=== PATIENT | male | born 1995 | race Caucasian/White ===

== ENCOUNTER → 2019-11-29 08:31 | Outpatient (CLI) | payer MEDICAID, SELFPAY ==
[2019-11-27 14:56] VITALS: BMI 28.1
[2019-11-29 09:38] LABS: Absolute Lymphocyte Count 2.58 X10^3/uL (0.83-4.51); Absolute Neutrophil Count 5.7 X10^3/uL (2.0-7.7); Basophil# 0.07 X10^3/uL; Basophil% 0.7 % (0-1); Eosinophils% 4.2 % (0-5); Hematocrit 44.7 % (40-54); Hemoglobin 14.7 g/dL (13.0-16.5); Lymphocyte # 2.58 X10^3/ul (4.0); Lymphocyte % 27.3 % (19-41); Mean Corp Hgb Conc 32.9 g/dL (32-36); Mean Corpuscular Hgb 28.7 pg (27.0-32.0); Mean Corpuscular Volume 87.1 fL (80-94); Monocyte# 0.65 X10^3/uL; Monocyte% 6.9 % (0-10); NRBC Flagged by Analyzer 0 % (0-5); Neutrophil # 5.74 X10^3/uL (2.7-7.7); Neutrophil % 60.7 % (47-70); Platelet Count 205 K/mm3 (150-450); RBC Distribution Width CV 14.1 % (11.6-14.6); RBC Distribution Width SD 45.2 fl (35.1-43.9); Red Blood Count 5.13 M/mm3 (4.6-6.2); White Blood Count 9.5 K/mm3 (4.4-11.0)
[2019-11-29 09:48] LABS: ALB/GLOB Ratio 1.3 RATIO (0.9-2.4); AST(SGOT) 16 U/L (15-37); Alanine Aminotransfer ALT/SGPT 40 U/L (16-61); Albumin, Serum 4.1 g/dL (3.2-5.0); Alkaline Phosphatase 62 U/L (45-117); Anion Gap 3 (5-15); BUN 13 mg/dL (7-18); BUN/Creat Ratio 12.5 RATIO (10-20); Calcium,Total 9.5 mg/dL (8.5-10.1); Chloride 111 mmol/L (98-107); Cholesterol 153 mg/dL (200); Creatinine, Serum 1.04 mg/dL (0.70-1.30); EST Glomerular Filtration Rate 92 mL/min (>60); Est Glom Filt Rate - Afr Amer 112 mL/min (>60); Globulin 3.2 g/dL (2.2-4.2); Glucose 93 mg/dL (74-106); High Density Lipoprotein 49 mg/dL; Potassium 4.1 mmol/L (3.5-5.1); Protein, Total 7.3 g/dL (6.4-8.2); Sodium Level 142 mmol/L (136-145); Thyroid Stim Hormone (TSH) 2.06 uIU/mL (0.358-3.74); Triglycerides 195 mg/dL; Very Low Density Lipoprotein 39 mg/dL (5-40)
[2019-11-29 10:27] LABS: Hepatitis B Surface Antigen Non-Reactive (Nonreactive); Hepatitis C Antibody Non-Reactive (Nonreactive)
== END ==
LOC: LAB 08:34
PROVIDERS: PCP Internal Medicine; Referring Provider Nurse Practitioner Family; Visit Provider Nurse Practitioner Family
DX: F19.10 Other psychoactive substance abuse, uncomplicated (principal); F41.9 Anxiety disorder, unspecified; R03.0 Elevated blood-pressure reading, without diagnosis of hypertension
CPT/HCPCS: 36415; 80053; 80061; 84443; 85025; 86803; 87340

== ENCOUNTER → 2020-02-12 10:26 | Outpatient (CLI) | payer MEDICAID, SELFPAY ==
[2020-01-29 09:29] VITALS: BMI 28.5
[2020-02-12 11:05] LABS: Anion Gap 4 (5-15); BUN 16 mg/dL (7-18); Calcium,Total 8.7 mg/dL (8.5-10.1); Chloride 109 mmol/L (98-107); EST Glomerular Filtration Rate 97 mL/min (>60); Est Glom Filt Rate - Afr Amer 117 mL/min (>60); Glucose 109 mg/dL (74-106); Potassium 3.8 mmol/L (3.5-5.1); Sodium Level 140 mmol/L (136-145)
== END ==
PROVIDERS: Visit Provider Nurse Practitioner Family
DX: I10 Essential (primary) hypertension (principal)
CPT/HCPCS: 80048

== ENCOUNTER 2020-06-03 09:57 | Emergency (ER) | payer MEDICAID, SELFPAY ==
[2020-01-29 09:29] VITALS: BMI 28.5
[2020-06-03 09:57] VITALS: BP 154/91; PULSE 74; RESP 18; TEMP 36.6; O2SAT 98; BMI 29.8
--- NOTE | 2020-06-03 10:09 | CT_ITS ---
STUDY: CT ABDOMEN AND PELVIS WITHOUT CONTRAST REASON FOR EXAM: Male, 24 years old. PT STATED N/V X 2 DAYS RADIATION DOSAGE (If Supplied By Facility): CTDIvol = ( 13.72 ) mGy, DLP = ( 786.09 ) mGycm TECHNIQUE: Transaxial images were obtained from the dome of the diaphragm to the symphysis pubis without oral contrast, and without intravenous contrast. Sagittal and coronal images were reconstructed. Individualized dose optimization techniques were used for this CT. COMPARISON: None. FINDINGS: The visualized lung bases are unremarkable. The visualized portions of the heart are within normal limits. Normal liver. Normal gallbladder and extrahepatic biliary system. Normal spleen. Normal pancreas. Normal bilateral adrenal glands. Normal right kidney. Normal left kidney. Normal visualized stomach. Normal small intestine. Normal colon. The appendix is visualized and appears normal. Normal abdominal aorta. Normal inferior vena cava. Normal retroperitoneum. Normal urinary bladder. Benign appearing small bilateral inguinal lymph nodes. Normal abdominal wall. Normal osseous structures. CT/Abdomen/Pelvis without Cont IMPRESSION: Normal unenhanced CT of the abdomen and pelvis. Electronically Signed: Jesu Atkinson, at 12:51 EDT , Service support ,
[2020-06-03 10:52] LABS: Absolute Lymphocyte Count 1.42 X10^3/uL (0.83-4.51); Absolute Neutrophil Count 11.4 X10^3/uL (2.0-7.7); Basophil# 0.03 X10^3/uL; Basophil% 0.2 % (0-1); Eosinophils% 0.7 % (0-5); Hematocrit 42.1 % (40-54); Hemoglobin 14.8 g/dL (13.0-16.5); Lymphocyte # 1.42 X10^3/ul (4.0); Lymphocyte % 10.5 % (19-41); Mean Corp Hgb Conc 35.2 g/dL (32-36); Mean Corpuscular Hgb 31.6 pg (27.0-32.0); Mean Corpuscular Volume 89.8 fL (80-94); Mean Platelet Vol. 10.8 fl (6.2-12.0); Monocyte# 0.53 X10^3/uL; Monocyte% 3.9 % (0-10); NRBC Flagged by Analyzer 0 % (0-5); Neutrophil # 11.38 X10^3/uL (2.7-7.7); Neutrophil % 84.2 % (47-70); Platelet Count 192 K/mm3 (150-450); RBC Distribution Width CV 14.5 % (11.6-14.6); RBC Distribution Width SD 42.5 fl (35.1-43.9); Red Blood Count 4.69 M/mm3 (4.6-6.2); White Blood Count 13.5 K/mm3 (4.4-11.0)
[2020-06-03 11:08] LABS: ALB/GLOB Ratio 1.3 RATIO (0.9-2.4); AST(SGOT) 24 U/L (15-37); Alanine Aminotransfer ALT/SGPT 45 U/L (16-61); Albumin, Serum 4.3 g/dL (3.2-5.0); Alkaline Phosphatase 65 U/L (45-117); Anion Gap 7 (5-15); BUN 11 mg/dL (7-18); BUN/Creat Ratio 9.6 RATIO (10-20); Calcium,Total 9.3 mg/dL (8.5-10.1); Chloride 101 mmol/L (98-107); Creatinine, Serum 1.14 mg/dL (0.70-1.30); EST Glomerular Filtration Rate 83 mL/min (>60); Est Glom Filt Rate - Afr Amer 100 mL/min (>60); Estimated Creatinine Clearance 108.72 ml/min; Globulin 3.4 g/dL (2.2-4.2); Glucose 144 mg/dL (74-106); Potassium 3.5 mmol/L (3.5-5.1); Protein, Total 7.7 g/dL (6.4-8.2); Sodium Level 139 mmol/L (136-145)
[2020-06-03] MEDS: 0.9% Normal Saline 1,000 ML 125 ML IV (11:09)
[2020-06-03] MEDS: Ketorolac 30 MG/ML Syringe IV (11:10)
[2020-06-03] MEDS: Morphine 4 MG/ML Syringe IV (11:10)
[2020-06-03] MEDS: Ondansetron 4 MG/2 ML Vial IV (11:10)
[2020-06-03 11:19] LABS: Bacteria 0 SEEN /hpf (None Seen); Mucous, Urine 0 SEEN /hpf (<or=2+); Red Blood Cells-Urine 0 SEEN /hpf (0-5); Squamous Epithelial Cells - UA 0 SEEN /hpf (0-5); White Blood Cells 0 SEEN /hpf (0-5)
[2020-06-03 11:25] LABS: Lactic Acid 2.5 mmol/L (0.4-1.9)
[2020-06-03 11:27] LABS: Color, Urine Yellow (Yellow); Glucose, Dipstick Normal (Normal); Ketone-Dipstick Negative (Negative); Leukocyte Esterase-Dipstick Negative /ul (Negative); Nitrite-Dipstick Negative (Negative); Occult Blood-Urine Negative /ul (Negative); Protein-Dipstick Negative (Negative); Specific Gravity, Urine 1.005 (1.002-1.030); Urine Bilirubin Dipstick Negative (Negative); Urine Clarity Clear (Clear); Urine Urobilinogen Normal (Normal); Urine pH 6.5 (5.0 - 8.0)
[2020-06-03 11:54] VITALS: BP 154/79; PULSE 50; RESP 19; TEMP 36.9; O2SAT 98
[2020-06-03 11:57] VITALS: BP 154/79; PULSE 48; RESP 13; O2SAT 98
--- NOTE | 2020-06-03 13:03 | ED.DCSUM_ITS ---
- ER Visit Summary Date of Service: 06/03/20 Chief Complaint: [Nausea vomiting] History of Present Illness: The patient is a 24 M [presents to the emergency department with frequent nausea and vomiting over the last 5 days. Patient also complains of pain in his low back bilaterally that is positional. He denies injury to his back. Patient denies urinary symptoms. Has had no fever or cough. He does describe some body aches. Said some mild shortness of breath. He has had no exposures to anybody with COVID-19. Patient has no medical history. No prior surgical history.] Physical Examination: [HEENT-PERRLA, EOMI. Cranial nerves II through XII grossly intact. TMs clear. Mucous membranes moist. No adenopathy. Cardiovascular-regular rate and rhythm without murmur or ectopy Lungs-clear to auscultation, chest wall stable without crepitus or subcu emphysema Abdomen-normoactive bowel sounds, soft. Patient has tenderness palpation over lower abdomen diffusely to the right lower quadrant, suprapubic area and left lower quadrant. There is no rebound, rigidity, or peritoneal signs. Extremities-intact ?4, normal range of motion, normal pulses, atraumatic] Test Results: [CBC with differential obtained showed a slightly elevated white count of 13.5, hemoglobin 15, hematocrit 42, plates 192. Chemistries unremarkable. LFTs were normal. Urinalysis normal. Lactate was slightly elevated 2.5. CT flank showed nothing acute. COVID-19 test ordered and pending.] Emergency Department Course and Treatment: [She was given IV line. Patient given a liter mostly fluid bolus. Patient given Zofran 4 mg IV. Patient was medicated with morphine 4 mg IV.] Treatment Plan: [Patient will be given a prescription for Zofran. He is advised to push fluids. Etiology of his symptoms unclear. I suspect likely viral etiology.] Disposition: [Discharged home in stable condition] Impression: [Nominal pain-etiology uncertain Nausea and vomiting Back pain] This note was generated with [employer] dictation software. It may contain incorrect words, spelling, and punctuation that were not noted in review of the chart prior to signing ED Disposition - Plan for ED Patient: Referrals: Mohinder Moore NP-C [Primary Care Provider] -
--- NOTE | 2020-06-03 13:05 | ED.DEP ---
ED Disposition - Plan for ED Patient: Instructions: ED Unknown Causes of Abdominal Pain Male, ED Spasm Back No Trauma Prescriptions: Ondansetron [Zofran Odt] 4 mg PO Q8H PRN PRN #10 tab PRN Reason: Nausea Prescription Printed Referrals: Mohinder Moore, UNIFIED COMMUNICATIONS ARCHITECT-C [Primary Care Provider] - 5-7 Days
[2020-06-03] MEDS: 0.9% Normal Saline 1,000 ML 999 ML IV (13:10)
[2020-06-03 13:26] VITALS: BP 145/89; PULSE 57; RESP 14; O2SAT 97
[2020-06-03 14:48] LABS: Reflex Lactate? Y
== END 2020-06-03 13:41 | disposition home or self-care (01) ==
PROVIDERS: Emergency Provider Emergency Medicine; PCP Nurse Practitioner Family
DX: R11.2 Nausea with vomiting, unspecified (principal); R06.02 Shortness of breath; M54.5 Low back pain; M79.10 Myalgia, unspecified site
CPT/HCPCS: 74176; 80053; 81001; 83605; 85025; 87635; 94799; 96361; 96374; 96375; 99283; J7030; J2405; U0003

== ENCOUNTER 2020-09-05 00:22 | Emergency (ER) | payer MEDICAID, SELFPAY ==
[2020-09-05 00:23] VITALS: BP 177/119; PULSE 103; RESP 27; TEMP 36.5; O2SAT 100; BMI 26.9
--- NOTE | 2020-09-05 01:04 | EKG12_ITS ---
Test Reason : HYPERTENSION Blood Pressure : / mmHG Vent. Rate : 074 BPM Atrial Rate : 074 BPM P-R Int : 132 ms QRS Dur : 092 ms QT Int : 388 ms P-R-T Axes : 070 044 060 degrees QTc Int : 430 ms Normal sinus rhythm Normal ECG Confirmed by FABIANO HOROWITZ, ANAI ([id number]), purchase request editor JUDY NAVARRO ([id number]) on 09/07/2020 2:15:41 PM Referred By: AFSANEH Confirmed By:ANAI MARIO MD
--- NOTE | 2020-09-05 01:04 | RAD_ITS ---
STUDY: X-RAY CHEST REASON FOR EXAM: Male, 24 years old. Hypertension. TECHNIQUE: Frontal view COMPARISON: None. FINDINGS: The lungs are clear and expanded. There is no demonstrated pleural abnormality. Normal size heart. Normal mediastinum and barb. Normal visualized pulmonary arteries. Normal visualized aortic arch and descending thoracic aorta. Normal visualized thoracic spine. Normal visualized ribs, clavicles, and shoulders. There is no demonstrated abnormality of the visualized soft tissue structures of the upper abdomen. RAD/Chest 1 View (Portable) IMPRESSION: Normal x-ray examination of the chest. Electronically Signed: Cornell Tyson MD at 1:48 EST , Service support ,
[2020-09-05] MEDS: Lisinopril 20 MG Tablet PO (01:24)
[2020-09-05 01:34] LABS: Absolute Lymphocyte Count 5.37 X10^3/uL (0.83-4.51); Absolute Neutrophil Count 7.7 X10^3/uL (2.0-7.7); Basophil# 0.11 X10^3/uL; Basophil% 0.7 % (0-1); Eosinophil# 0.36 X10^3/uL; Eosinophils% 2.4 % (0-5); Hematocrit 53.4 % (40-54); Lymphocyte # 5.37 X10^3/ul (4.0); Lymphocyte % 36.2 % (19-41); Mean Corp Hgb Conc 33.9 g/dL (32-36); Mean Corpuscular Hgb 29.1 pg (27.0-32.0); Mean Corpuscular Volume 85.7 fL (80-94); Mean Platelet Vol. 11.3 fl (6.2-12.0); Monocyte# 1.22 X10^3/uL; Monocyte% 8.2 % (0-10); NRBC Flagged by Analyzer 0 % (0-5); Neutrophil # 7.72 X10^3/uL (2.7-7.7); Neutrophil % 52.1 % (47-70); POSITIVE DIFFERENTIAL YES; Platelet Count 313 K/mm3 (150-450); RBC Distribution Width CV 13.6 % (11.6-14.6); RBC Distribution Width SD 41.5 fl (35.1-43.9); Red Blood Count 6.23 M/mm3 (4.6-6.2); White Blood Count 14.8 K/mm3 (4.4-11.0)
[2020-09-05 01:36] LABS: Differential Indicated SCAN CRITERIA MET
[2020-09-05 01:37] LABS: Hemoglobin 18.1 g/dL (13.0-16.5)
[2020-09-05 01:44] LABS: Anion Gap 11 (5-15); BUN 22 mg/dL (7-18); BUN/Creat Ratio 19.3 RATIO (10-20); Calcium,Total 9.5 mg/dL (8.5-10.1); Chloride 103 mmol/L (98-107); Creatinine, Serum 1.14 mg/dL (0.70-1.30); EST Glomerular Filtration Rate 83 mL/min (>60); Est Glom Filt Rate - Afr Amer 100 mL/min (>60); Estimated Creatinine Clearance 108.72 ml/min; Glucose 118 mg/dL (74-106); Potassium 3.7 mmol/L (3.5-5.1); Sodium Level 138 mmol/L (136-145)
[2020-09-05 02:34] VITALS: BP 151/100; PULSE 80; RESP 18; O2SAT 97
--- NOTE | 2020-09-05 02:38 | ED.DCSUM_ITS ---
- ER Visit Summary Date of Service: 09/05/20 Chief Complaint: Hypertension History of Present Illness: The patient is a 24 M who presents with hypertension that became worse today. Patient states his blood pressure at home was 177/120. Patient states he was prescribed lisinopril earlier today but has not picked it up from the pharmacy yet. Patient states he has been having some aching in his left upper chest. Patient admits to subjective chills. Patient states nothing makes his blood pressure better or worse. Patient states that he was told if his diastolic blood pressure was over 120, he should come to the emergency department for evaluation. Physical Examination: Vital signs are stable except for an elevated blood pressure of 177/119. Patient is afebrile. Patient is in no acute distress. Oral mucosa is pink and moist. Neck is supple. Trachea is midline. There is no JVD noted. Heart was regular rate and rhythm. Lungs are clear and equal bilaterally. Abdomen is soft. Bowel sounds are normal. There is no tenderness. There is no rebound or guarding noted. Skin is warm dry. Cranial nerves II through XII are intact. There are no focal motor or sensory deficits noted. Extremities are intact. There is no calf tenderness or edema. Test Results: EKG shows normal sinus rhythm with a rate of 74. There are no acute ST or T wave changes. CBC and basic metabolic profile were obtained. There is a mild leukocytosis of 14.8. Hemoglobin was elevated at 18.1. Portable chest x-ray was obtained. There is no acute cardiopulmonary process. This was interpreted by the radiologist and reviewed by myself. Emergency Department Course and Treatment: Patient was given a dose of lisinopril here. Patient's blood pressure improved to 151/100. Patient was instructed to start his lisinopril along with his hydrochlorothiazide as previously prescribed. Patient was instructed to return if worse in any way. Patient understood and was agreeable with the plan. All questions were answered. Disposition: Discharge home Impression: Hypertension This note was generated with [employer] dictation software. It may contain incorrect words, spelling, and punctuation that were not noted in review of the chart prior to signing ED Disposition - Plan for ED Patient: Disposition: Home or Assisted Living Diagnosis: Hypertension Instructions: ED Hypertension Established Referrals: Jaci Krishna MD [Primary Care Provider] - 5-7 Days
[2020-09-05 02:51] VITALS: BP 136/97; PULSE 72; RESP 12; O2SAT 98
== END 2020-09-05 03:03 | disposition home or self-care (01) ==
PROVIDERS: Emergency Provider Emergency Medicine; PCP Nurse Practitioner Family
DX: I10 Essential (primary) hypertension (principal)
CPT/HCPCS: 71045; 80048; 85025; 93005; 99285; A4216

== ENCOUNTER 2020-09-08 20:50 | Emergency (ER) | payer MEDICAID, SELFPAY ==
[2020-09-08 20:51] VITALS: BP 165/97; PULSE 80; RESP 16; TEMP 36.3; O2SAT 99; BMI 27.5
--- NOTE | 2020-09-08 21:04 | ED.RN ---
2103: pt called the [facility] to inform them of his BP here. rcvd permission to return to Rehab house. pt LWBS. registration notified.
== END 2020-09-08 21:03 | disposition home or self-care (01) ==
LOC: ED 21:04
PROVIDERS: Emergency Provider Emergency Medicine; PCP Nurse Practitioner Family
DX: I10 Essential (primary) hypertension (principal)

== ENCOUNTER → 2020-09-10 15:54 | Outpatient (CLI) | payer MEDICAID, SELFPAY ==
[2020-09-10 17:02] LABS: Absolute Lymphocyte Count 4.06 X10^3/uL (0.83-4.51); Absolute Neutrophil Count 6.9 X10^3/uL (2.0-7.7); Basophil% 0.8 % (0-1); Eosinophil# 0.53 X10^3/uL; Eosinophils% 4.2 % (0-5); Hematocrit 52.6 % (40-54); Hemoglobin 17.3 g/dL (13.0-16.5); Lymphocyte # 4.06 X10^3/ul (4.0); Lymphocyte % 32.4 % (19-41); Mean Corp Hgb Conc 32.9 g/dL (32-36); Mean Corpuscular Volume 88.1 fL (80-94); Mean Platelet Vol. 11.2 fl (6.2-12.0); Monocyte% 7.2 % (0-10); NRBC Flagged by Analyzer 0 % (0-5); Neutrophil # 6.88 X10^3/uL (2.7-7.7); Neutrophil % 54.9 % (47-70); Platelet Count 316 K/mm3 (150-450); RBC Distribution Width CV 13.2 % (11.6-14.6); RBC Distribution Width SD 42.7 fl (35.1-43.9); Red Blood Count 5.97 M/mm3 (4.6-6.2); White Blood Count 12.5 K/mm3 (4.4-11.0)
== END ==
PROVIDERS: PCP Nurse Practitioner Family; Referring Provider Internal Medicine; Visit Provider Internal Medicine
DX: I10 Essential (primary) hypertension (principal)
CPT/HCPCS: 36415; 85025

== ENCOUNTER 2020-09-18 16:04 | Emergency (ER) | payer MEDICAID, SELFPAY ==
[2020-09-18 16:06] VITALS: BP 152/89; PULSE 76; RESP 17; TEMP 35.9; O2SAT 100; BMI 27.1
--- NOTE | 2020-09-18 17:05 | ED.DCSUM_ITS ---
History of Present Illness Chief Complaint: Headache Informant: Patient Onset: Today Narrative: Nontraumatic frontal headache started while in class at 2 PM. Pain behind both eyes. No blurry vision double vision. Denies any recent head injuries. No nausea or vomiting. No photophobia. No aura sensations. History of hypertension on medication states his blood pressure started 170s at 2 PM, he did take his blood pressure medicine. No fevers. No history of similar. No other complaints. Prior similar symptoms: No Past Medical History - Allergies and Home Meds Allergies/Adverse Reactions: Allergies DARK CHOCOLATE Allergy (Uncoded 09/18/20 16:05) Itching Primary Care Physician: Mohinder Moore FAMILY PROGRAM SPECIALIST, FAMILY PROGRAM SPECIALIST-C [Primary Care Provider] - Past Medical History: - - Hypertension Smoking Status: Unknown if ever smoked Review of Systems General: Denies: Chills, Fever, Sweats Eyes: Denies: Visual changes - bilaterally, Diplopia ENT: Denies: Rhinorrhea, Sore throat Cardiovascular: Denies: Chest pain, Palpitations Respiratory: Denies: Dyspnea, Cough, Dyspnea on exertion Gastrointestinal: Denies: Abdominal pain, Nausea, Vomiting, Diarrhea, Melena, Hematochezia Genitourinary: Denies: Dysuria, Hematuria, Frequency Musculoskeletal: Denies: Back pain, Extremity Pain Skin: Denies: Rash, Wounds Neurological: Reports: Headache. Denies: Weakness, Numbness Physical Exam Vital Signs/Narrative: Vital Signs Temp Pulse Resp BP Pulse Ox 09/18/20 16:06 96.6 F L 76 17 152/89 H 100 Inital Vital Signs reviewed: Yes General: Well nourished, Well developed, No Acute Distress Head: Normocephalic, Atraumatic Eyes: Perrl, EOMI, - - No pain with eye movement, no photophobia. ENT: Moist mucous membranes, No rhinorrhea Neck: Supple, Nontender, - - No meningismus Cardiovascular: Regular rate, Regular rhythm, No murmurs Respiratory: No distress, CTA bilaterally, Chest nontender Abdomen: Soft, Nontender, Nondistended, Normal bowel sounds Back: Nontender, Normal Inspection Extremities: Nontender, No edema Skin: Normal color, No rash Neurological: Alert, Oriented x3, Cranial nerves II-XII grossly intact, Normal Strength, Normal Sensation Psychological: Normal affect, Normal Mood Diagnostic/Tx/Re-eval - Medical Decision Making Patient nontoxic, no meningismus, no focal neurological deficits. Treated with IV fluids Reglan Benadryl with improvement of symptoms. Is discharged with outpatient follow-up. Signs and symptoms discussed to return. All questions were answered. ED Disposition - Plan for ED Patient: Disposition: Home or Assisted Living Diagnosis: Headache Instructions: ED Headache Unspecified Referrals: Mohinder Moore FAMILY PROGRAM SPECIALIST, FAMILY PROGRAM SPECIALIST-C [Primary Care Provider] - 5-7 Days
[2020-09-18] MEDS: 0.9% Normal Saline 1,000 ML 999 ML IV (17:20)
[2020-09-18] MEDS: Metoclopramide 10 MG/2 ML Vial IV (17:20)
[2020-09-18] MEDS: DiphenhydrAMINE 50 MG/ML Syringe 25 MG IV (17:21)
[2020-09-18 17:22] VITALS: BP 146/85; PULSE 64; RESP 15; O2SAT 97
[2020-09-18 19:42] VITALS: BP 133/81; PULSE 61; RESP 16; O2SAT 98
== END 2020-09-18 19:43 | disposition home or self-care (01) ==
PROVIDERS: Emergency Provider Emergency Medicine; PCP Nurse Practitioner Family
DX: R51.9 Headache, unspecified (principal); I10 Essential (primary) hypertension
CPT/HCPCS: 96361; 96374; 96375; 99282; J7030; A4216

== ENCOUNTER → 2020-10-01 07:45 | Outpatient (CLI) | payer MEDICAID, SELFPAY ==
[2020-09-18 16:06] VITALS: BMI 27.1
--- NOTE | 2020-10-01 07:47 | ECHOD_ITS ---
Reason For Study: HTN Procedure This was a 2D Doppler, Color Flow transthoracic echocardiogram. Exam performed in department. Left Ventricle Normal LV size. The estimated ejection fraction is 60 %. No evidence for diastolic dysfunction. No regional wall motion abnormalities noted. Right Ventricle Normal RV size. Normal systolic function. Atria Normal left atrium. Normal right atrium. No doppler evidence for ASD. Mitral Valve There is no mitral valve stenosis. No mitral valve insufficiency. Tricuspid Valve There is no tricuspid stenosis. Unable to estimate RV systolic pressure due to inadequate jet, pulmonary artery pressure probably normal. Aortic Valve Trisinus/trileaflet aortic valve. There is no aortic stenosis. No aortic valve insufficiency. Pulmonic Valve There is no pulmonic valvular stenosis. No pulmonic valve insufficiency. Great Vessels Normal aortic root. Pericardium/Pleural No pericardial effusion. MMode/2D Measurements & Calculations LVIDd: 4.4 cm IVSd: 0.82 cm Ao root diam: 3.1 cm LVIDs: 3.1 cm LVPWd: 0.78 cm RVDd: 3.4 cm FS: 28.7 % LAV(MOD-bp): 34.4 ml LA A4 area: 12.4 cm2 LA dimension(2D): 2.8 cm LAV(MOD-bp) Indexed: 16.2 ml/m2 LAV(MOD-sp2): 41.8 ml LAV(MOD-sp4): 25.3 ml RA A4 area: 13.1 cm2 Doppler Measurements & Calculations MV E max karan: 92.1 cm/sec Lat Peak E' Karan: 20.0 cm/sec Med Peak E' Karan: 13.4 cm/sec MV A max karan: 45.1 cm/sec E/E' lat: 4.6 E/E' med: 6.9 MV E/A: 2.0 Ao V2 max: 115.1 cm/sec LV V1 max: 102.8 cm/sec PA V2 max: 96.1 cm/sec Ao max P.3 mmHg LV V1 max P.2 mmHg Interpretation Summary The estimated ejection fraction is 60 %. No evidence for diastolic dysfunction. Ordering Physician: Jaci Krishna Referring Physician: Jaci Krishna Performed By: Damari Barker, MARVIN
--- NOTE | 2020-10-01 07:47 | RDU_ITS ---
Reason For Study: Hypertension Right Renal Artery Left Renal Artery Right renal artery ostium Left renal artery ostium 141/27.8 166.8/37.5 RSV/EDV. PSV/EDV. Right renal artery proximal Left renal artery proximal PSV/EDV 173.3/44 PSV/EDV. 134.5/31 . Right renal artery mid 179.8/50.4 Left renal artery mid 108.1/25.2 PSV/EDV. PSV/EDV . Right renal artery distal Left renal artery distal 94.2/32.7 166.4/50.5 PSV/EDV. PSV/EDV. Right Renal Parenchyma Left Renal Parenchyma Upper Pole Medula 42.4/14.9 Left upper pole medulla 39.2/13.6 PSV/EDV. PSV/EDV . Right upper pole medulla EDR 0.35 . Left upper pole medulla EDR 0.35 . Right upper pole medulla R.I. Left upper pole medulla R.I. 0.65 . 0.65 . UP Cortex 34.6/12.7 PSV/EDV. Upper Palmer Cortx 35.8/12.7 PSV/EDV. Left upper pole cortex EDR 0.37 . Right upper pole cortex EDR 0.36 . Left upper pole cortex R.I. 0.63 . Right upper pole cortex R.I. 0.64 . Left lower Pole medulla 37.4/12.7 Right lower Pole medulla 42.4/14.9 PSV/EDV . PSV/EDV . Left lower pole medulla EDR 0.34 . Right lower pole medulla EDR 0.35 . Left lower pole medulla R.I. 0.66 . Right lower pole medulla R.I. Lower Pole Cortx 23.7/8.1 PSV/EDV. 0.65 . Left lower pole cortex EDR 0.34 . Lower Pole Cortex 27/9.4 PSV/EDV. Left lower pole cortex R.I. 0.66 . Right lower pole cortex EDR 0.35 . Left Renal Hilar Right lower pole cortex R.I. 0.65 . LT Hilar avg 60.2/21.8 PSV/EDV . Right Renal Hilar Left hilar acceleration time 30 Right Hilar avg 62.1/19.3 PSV/EDV. m/sec. Right hilar acceleration time 20 Left Renal Dimensions m/sec. Left kidney size 11.51 cm . Right Renal Dimensions Right kidney size 2.6 cm . Right cortical dimension 3.0 cm . Aorta Proximal abdominal aorta 1.19 x 1.15 cm . Proximal abdominal aorta peak systolic velocity is 147.4 cm/sec . Distal abdominal aorta 1.25 x 1.22 cm . Distal abdominal aorta peak systolic velocity is 173.3 cm/sec . Interpretation Summary Normal abdominal aortic dimensions approximately 1.19 x 1.15 cm. Flow rate is elevated in the distal abdominal aorta at 173.3 cm/s. This invalidates the renal artery to aortic velocity ratio measurement. Less than 60% stenosis bilateral renal arteries. Right renal artery flow rate slightly elevated but of indeterminate significance based upon increased aortic flow. Normal bilateral renal resistivity indices therefore not suggesting intrinsic parenchymal disease. Right renal length 10.2 cm.; Normal Left renal length 11.51 cm; normal Ordering Physician: Jaci Krishna Referring Physician: Mohinder Moore Performed By: Marlin Caceres RVT
== END ==
PROVIDERS: PCP Nurse Practitioner Family; Referring Provider Internal Medicine; Visit Provider Internal Medicine
DX: I10 Essential (primary) hypertension (principal)
CPT/HCPCS: 93306; 93975

== ENCOUNTER → 2020-11-26 08:30 | Outpatient (CLI) | payer MEDICAID, SELFPAY ==
[2020-11-06 09:12] VITALS: BMI 29.1
[2020-11-26 12:24] LABS: Absolute Lymphocyte Count 2.64 X10^3/uL (0.83-4.51); Absolute Neutrophil Count 3.8 X10^3/uL (2.0-7.7); Basophil# 0.07 X10^3/uL; Basophil% 0.9 % (0-1); Eosinophil# 0.39 X10^3/uL; Eosinophils% 5.2 % (0-5); Hematocrit 42.7 % (40-54); Hemoglobin 13.5 g/dL (13.0-16.5); Lymphocyte # 2.64 X10^3/ul (4.0); Lymphocyte % 35.3 % (19-41); Mean Corp Hgb Conc 31.6 g/dL (32-36); Mean Corpuscular Hgb 28.5 pg (27.0-32.0); Mean Corpuscular Volume 90.1 fL (80-94); Mean Platelet Vol. 10.6 fl (6.2-12.0); Monocyte# 0.55 X10^3/uL; Monocyte% 7.4 % (0-10); NRBC Flagged by Analyzer 0 % (0-5); Neutrophil # 3.77 X10^3/uL (2.7-7.7); Neutrophil % 50.4 % (47-70); Platelet Count 212 K/mm3 (150-450); RBC Distribution Width CV 14.5 % (11.6-14.6); RBC Distribution Width SD 48.4 fl (35.1-43.9); Red Blood Count 4.74 M/mm3 (4.6-6.2); White Blood Count 7.5 K/mm3 (4.4-11.0)
[2020-11-26 12:53] LABS: ALB/GLOB Ratio 1.2 RATIO (0.9-2.4); AST(SGOT) 27 U/L (15-37); Alanine Aminotransfer ALT/SGPT 65 U/L (16-61); Albumin, Serum 3.8 g/dL (3.2-5.0); Alkaline Phosphatase 61 U/L (45-117); Anion Gap 6 (5-15); BUN 19 mg/dL (7-18); BUN/Creat Ratio 19.4 RATIO (10-20); Calcium,Total 8.8 mg/dL (8.5-10.1); Chloride 108 mmol/L (98-107); Creatinine, Serum 0.98 mg/dL (0.70-1.30); EST Glomerular Filtration Rate 98 mL/min (>60); Est Glom Filt Rate - Afr Amer 119 mL/min (>60); Globulin 3.2 g/dL (2.2-4.2); Glucose 107 mg/dL (74-106); Potassium 4.3 mmol/L (3.5-5.1); Sodium Level 140 mmol/L (136-145)
[2020-12-02 15:13] LABS: HIV - WCH Non-Reactive (Nonreactive); Hepatitis B Surface Antigen Non-Reactive (Nonreactive); Hepatitis C Antibody Non-Reactive (Nonreactive)
== END ==
PROVIDERS: PCP Nurse Practitioner Family; Referring Provider Nurse Practitioner Family; Visit Provider Nurse Practitioner Family
DX: F19.10 Other psychoactive substance abuse, uncomplicated (principal); F32.9 Major depressive disorder, single episode, unspecified; I10 Essential (primary) hypertension
CPT/HCPCS: 36415; 80053; 85025; 86703; 86803; 87340

== ENCOUNTER → 2020-12-18 09:30 | Outpatient (CLI) | payer MEDICAID, SELFPAY ==
[2020-12-18 08:57] VITALS: BMI 30.2
[2020-12-18 09:32] LABS: Mucous, Urine 0 SEEN /hpf (<or=2+); Red Blood Cells-Urine 0 SEEN /hpf (0-5); Squamous Epithelial Cells - UA 0 SEEN /hpf (0-5); White Blood Cells 0 SEEN /hpf (0-5)
[2020-12-18 12:16] LABS: Color, Urine Straw (Yellow); Glucose, Dipstick Normal (Normal); Ketone-Dipstick Negative (Negative); Leukocyte Esterase-Dipstick Negative /ul (Negative); Nitrite-Dipstick Negative (Negative); Occult Blood-Urine Negative /ul (Negative); Protein-Dipstick Negative (Negative); Specific Gravity, Urine 1.015 (1.002-1.030); Urine Bilirubin Dipstick Negative (Negative); Urine Clarity Clear (Clear); Urine Urobilinogen Normal (Normal)
[2020-12-18 12:40] LABS: Bacteria RARE /hpf (None Seen)
[2020-12-18 13:58] LABS: Chlamydia Trachomatis by PCR Negative (Negative); Neisserai gonorrhoeae by PCR Negative (Negative); Probe Check PASS; Sample Adequacy Control PASS; Specimen Processing Control PASS
[2020-12-21 09:26] LABS: Syphilis Antibodies Non-reactive
== END ==
PROVIDERS: PCP Nurse Practitioner Family; Referring Provider Nurse Practitioner Family; Visit Provider Nurse Practitioner Family
DX: Z72.51 High risk heterosexual behavior (principal)
CPT/HCPCS: 36415; 81001; 86592; 87491; 87591

== ENCOUNTER → 2021-05-06 16:15 | Outpatient (CLI) | payer MEDICAID, SELFPAY ==
[2021-05-06 16:06] VITALS: BMI 33.9
[2021-05-06 17:26] LABS: Anion Gap 7 (5-15); BUN 18 mg/dL (7-18); BUN/Creat Ratio 17.3 RATIO (10-20); Calcium,Total 9.2 mg/dL (8.5-10.1); Chloride 104 mmol/L (98-107); Creatinine, Serum 1.04 mg/dL (0.70-1.30); EST Glomerular Filtration Rate 91 mL/min (>60); Est Glom Filt Rate - Afr Amer 111 mL/min (>60); Glucose 92 mg/dL (74-106); Potassium 4.4 mmol/L (3.5-5.1); Sodium Level 140 mmol/L (136-145)
== END ==
PROVIDERS: PCP Nurse Practitioner Family; Referring Provider Internal Medicine; Visit Provider Internal Medicine
DX: I10 Essential (primary) hypertension (principal)
CPT/HCPCS: 36415; 80048

== ENCOUNTER 2022-02-07 13:18 | Observation (INO) | payer BC, MEDICAID, SELFPAY ==
[2022-02-07] VITALS (26 sets, daily range): BP systolic 116–155; BP diastolic 61–88; PULSE 46–101; RESP 11–25; TEMP 36.6–37.1; O2SAT 93–99; BMI 32.2; BMI 31.7
--- NOTE | 2022-02-07 13:23 | NURSING ---
pt very painful stemi called at 1320. stemi protocol initiated
[2022-02-07] MEDS: Aspirin 81 MG TAB.CHEW 324 MG PO (13:25)
[2022-02-07] MEDS: Ondansetron 4 MG/2 ML Vial IV (13:27)
--- NOTE | 2022-02-07 13:27 | EKG12_ITS ---
Test Reason : STEMI Blood Pressure : / mmHG Vent. Rate : 050 BPM Atrial Rate : 050 BPM P-R Int : 126 ms QRS Dur : 092 ms QT Int : 442 ms P-R-T Axes : 051 010 039 degrees QTc Int : [address] elevation consider inferolateral injury or acute infarct ACUTE TX / STEMI Abnormal ECG When compared with ECG of 07-FEB-2022 13:22, MANUAL COMPARISON REQUIRED, DATA IS UNCONFIRMED Confirmed by JOSE HOROWITZ, YESSENIA ([id number]), continuity editor EVERETT DUNBAR ([id number]) on 02/11/2022 1:25:36 PM Referred By: Clemenitne Dugan Confirmed By:CADEN DUGAN MD
--- NOTE | 2022-02-07 13:27 | RAD_ITS ---
STUDY: X-RAY CHEST REASON FOR EXAM: Male, 26 years old. Extreme chest pain. TECHNIQUE: Single AP portable view of the chest. COMPARISON: Comparison is made with prior study dated 09/05/2020. FINDINGS: EKG electrodes are seen. The lungs are clear and expanded. There is no demonstrated pleural abnormality. Normal size heart. Normal mediastinum and barb. Normal visualized pulmonary arteries. Normal visualized aortic arch and descending thoracic aorta. Normal visualized thoracic spine. Normal visualized ribs, clavicles, and shoulders. There is no demonstrated abnormality of the visualized soft tissue structures of the upper abdomen. RAD/Chest 1 View (Portable) IMPRESSION: Normal x-ray examination of the chest. Electronically Signed: Jesu Atkinson MD at 13:57 EDT ,
--- NOTE | 2022-02-07 13:29 | EDS_ITS ---
HPI History of Present Illness Chief Complaint: Chest Pain Informant: patient Onset/Context/Timing Onset: Hours (10) Activity at onset: sudden and sleep Timing: Continuous and Waxes and wanes Quality: Positive for - (Crushing) Location: Substernal (Radiating into mid upper back) Current Severity: Severe Maximum Severity: Severe Worsened By: Nothing Relieved By: Nothing Associated Symptoms: Positive for Diaphoresis and Dyspnea; Negative for Cough Narrative Narrative: Patient states he woke up at 3 AM with this chest pain and it has been waxing and waning ever since. He is brought in by EMS, they said that he was calm and relaxed for the majority of their trip to the emergency department but just prior to getting here, he started having severe pain and there monitor started alarming as a possible STEMI. He states he has been not feeling well lately with vomiting for a couple of days, and when he woke up in the middle of the night with this discomfort he assumed it was related to the vomiting he was having. He states at this time he is dyspneic, and feeling sweaty and nauseated. The pain radiates straight through into his back, is substernal, and feels crushing. He then states suddenly it is starting to feel sharp as well. Nonpleuritic. He denies any recent leg pain or swelling or long travel. Never had this before. He denies using cocaine or any other substances. [facility] Medical History Alcohol abuse Anxiety and depression COVID-19 vaccine series completed GERD (gastroesophageal reflux disease) Health care maintenance History of drug abuse Hypertension Home Medications acetaminophen 500 mg tablet 500 mg PO Q6H PRN 01/29/21 [History Last Taken Unknown] ibuprofen 600 mg tablet 600 mg PO TID PRN #90 tab 05/06/21 [Rx Last Taken Unknown] buspirone 7.5 mg tablet 7.5 mg PO BID #180 tablet 12/23/21 [Rx Last Taken Unknown] lisinopril 20 mg-hydrochlorothiazide 25 mg tablet 1 tab PO DAILY #90 tablet 12/23/21 [Rx Last Taken Unknown] sertraline 100 mg tablet 100 mg PO DAILY #30 tab 01/20/22 [Rx Last Taken Unknown] quetiapine 50 mg tablet 50 mg PO BID #60 tab 01/21/22 [Rx Last Taken Unknown] Allergy/AdvReac Type Severity Reaction Status Date / Time DARK CHOCOLATE Allergy Itching Uncoded 08/11/21 16:30 Family History Other Anxiety and depression Breast cancer Cancer Diabetes Hypertension Mental health problem Surgical History History of tonsillectomy Social History Smoking Status: Never smoker Tobacco: How many years used: 7 Smokeless tobacco user: chewing tobacco alcohol intake: former year quit: 2019 substance use type: former substance user Date of last use: 08/30/2020, marijuana and opiates what type of physical activity do you participate in: aerobics and weight training frequency: 3-4 times per week ROS ROS ED Constitutional Constitutional ED: Denies chills or fever(s) Eyes Eyes: Denies change in vision or diplopia ENT ENT ED: Denies rhinorrhea or sore throat Cardiovascular Cardiovascular: Reports chest pain and dyspnea; Denies palpitations Respiratory/Chest Respiratory/Chest: Reports dyspnea; Denies cough Gastrointestinal Gastrointestinal: Reports nausea and vomiting; Denies abdominal pain or diarrhea Genitourinary Genitourinary ED: Denies dysuria or hematuria Musculoskeletal Musculoskeletal: Denies back pain or neck pain Integumentary Denies abscess or rash Neurologic Neurologic: Denies headache(s), paresthesias or weakness Psychiatric Psychiatric: Denies anxiety or suicidal thoughts EXAM Physical Exam Const Vital Signs: 02/07/22 13:18 Temperature 97.9 F Temperature Source Temporal Pulse Rate 101 H Respiratory Rate 24 H Pulse Ox 93 Oxygen Delivery Method Nasal Cannula Oxygen Flow Rate (L/min) 2 Positive well nourished and well developed Constitutional Narrative: Patient yelling and crying in acute painful distress. Diaphoretic. General Appearance ED: well developed HEENT Reports moist mucous membranes normocephalic and atraumatic Eyes PERRL and EOMs intact bilaterally Neck full ROM and supple Resp normal respiratory effort and clear to auscultation bilaterally Cardio regular rate, regular rhythm and no murmurs Cardio Narrative: Mildly tachycardic GI non-tender and non-distended Auscultation: normoactive bowel sounds Palpation: soft Back/Spine no CVA tenderness General Back: other FROM Extremity normal to inspection General Extremety ED: Negative for edema, pulses abnormal or tenderness General Extremity: Negative for edema or pulses abnormal Neuro oriented x3, CN's II-XII intact bilaterally and no sensory deficits noted Sensorium / Orientation: awake and alert Motor Exam: strength 5/5 throughout Psych cooperative Activity / Motor Behavior: fidgetting Mood & Affect: anxious Skin no rashes or lesions noted and no wounds Skin Narrative: diaphoretic Heart Score History: Highly Suspicious ECG: Significant ST-Depression Age: </= 45 years Risk Factors: 1 or 2 Risk Factors Troponin: >/=3 x Normal Limit Score: 7 MDM MDM MDM Narrative Medical decision making narrative: As this patient was being triaged and in conjunction with EMS, nursing obtained an EKG prior to physician knowledge that he was even bedded, and a STEMI team was called, at which point I rushed to the bedside to assess the patient. EKG shows anterolateral STEMI. He appeared to be in significant painful distress, he was very anxious as well, stated that he was compliant with his medication for hypertension, does not ever use cocaine and denied using any other substances recently, although according to his chart he has a history of this but not necessarily cocaine. As I was at the bedside, he was talking about the pain being crushing, radiating into his upper back, he then discussed it turning sharp. [employer] staff was ready to take him up, we waited for x-ray to obtain a portable film, this is after the patient's symptoms were treated with Zofran, aspirin, labetalol just in case he was a dissection, morphine, and Brilinta although he vomited the Brilinta despite getting Zofran. Cardiology was at the bedside with me to evaluate the chest x-ray, 1 view on my interpretation shows no acute abnormalities and very narrow mediastinum, his radial pulses are symmetric, he and I both agreed that he should be taken to the [facility] instead of CT. Lab Data Attestation: I reviewed the patient's lab results. Labs: Laboratory Results - last 24 hr 02/07/22 02/07/22 02/07/22 13:20 13:20 13:20 WBC 11.9 H RBC 5.48 Hgb 16.0 Hct 46.0 MCV 83.9 MCH 29.2 MCHC 34.8 RDW Std Deviation 40.4 RDW Coeff of Bessie 13.2 Plt Count 230 MPV 10.2 Immature Gran % (Auto) 0.400 Neut % (Auto) 69.2 Lymph % (Auto) 21.5 Pitkin % (Auto) 6.3 Eos % (Auto) 2.2 Baso % (Auto) 0.4 Absolute Neuts (auto) 8.2 H Absolute Lymphs (auto) 2.56 Nucleated RBC % 0 PT 12.5 INR 1.0 APTT 26.2 Sodium 134 L Potassium 4.3 Chloride 106 Carbon Dioxide 21.0 Anion Gap 7 BUN 15 Creatinine 0.87 Estim Creat Clear Calc 139.99 Est GFR (MDRD) Af Amer 135 Est GFR (MDRD) Non-Af 111 BUN/Creatinine Ratio 17.2 Glucose 133 H Calcium 9.8 Troponin I High Sens 938 H* Radiography Chest X-Ray - ED: 1 View, Read by ED Physician, Normal, Heart, Lungs, Mediastinum, Bony Structures and No Acute Disease EKG Initial EKG: Attestation: I personally reviewed and interpreted this EKG as follows: Interpretation: Sinus Rhythm and S-T Elevation (anterolateral = STEMI) Prior EKG tracings: available for review Prior: Changed (normal / nonischemic before) Critical Care Time Critical Care Time: Yes Critical care time (excluding procedures): 30-74 minutes (32 min), Including time spent:, Discussing w/Patient &/or 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
[2022-02-07] MEDS: Morphine 4 MG/ML Syringe IV (13:34)
[2022-02-07] MEDS: 0.9% Normal Saline 1,000 ML 999 ML IV (13:35)
[2022-02-07 13:37] LABS: Absolute Lymphocyte Count 2.56 X10^3/uL (0.83-4.51); Absolute Neutrophil Count 8.2 X10^3/uL (2.0-7.7); Basophil# 0.05 X10^3/uL; Basophil% 0.4 % (0-1); Eosinophil# 0.26 X10^3/uL; Eosinophils% 2.2 % (0-5); Lymphocyte # 2.56 X10^3/ul (0.83-4.51); Lymphocyte % 21.5 % (19-41); Mean Corp Hgb Conc 34.8 g/dL (32-36); Mean Corpuscular Hgb 29.2 pg (27.0-32.0); Mean Corpuscular Volume 83.9 fL (80-94); Mean Platelet Vol. 10.2 fl (6.2-12.0); Monocyte# 0.75 X10^3/uL; Monocyte% 6.3 % (0-10); NRBC Flagged by Analyzer 0 % (0-5); Neutrophil # 8.23 X10^3/uL (2.7-7.7); Neutrophil % 69.2 % (47-70); Platelet Count 230 K/mm3 (150-450); RBC Distribution Width CV 13.2 % (11.6-14.6); RBC Distribution Width SD 40.4 fl (35.1-43.9); Red Blood Count 5.48 M/mm3 (4.6-6.2); White Blood Count 11.9 K/mm3 (4.4-11.0)
--- NOTE | 2022-02-07 13:44 | CM.ED ---
Social Work Responding to Stemi Alert. Patient family present. 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 Active support and listening provided to family. Etienne NOGUEIRA, JLUIS
[2022-02-07 13:57] LABS: BUN 15 mg/dL (7-18); Creatinine, Serum 0.87 mg/dL (0.70-1.30); EST Glomerular Filtration Rate 111 mL/min (>60); Estimated Creatinine Clearance 139.99 ml/min; Glucose 133 mg/dL (74-106)
[2022-02-07 13:58] LABS: Anion Gap 7 (5-15); BUN/Creat Ratio 17.2 RATIO (10-20); Calcium,Total 9.8 mg/dL (8.5-10.1); Chloride 106 mmol/L (98-107); Est Glom Filt Rate - Afr Amer 135 mL/min (>60); Potassium 4.3 mmol/L (3.5-5.1); Sodium Level 134 mmol/L (136-145); Troponin-I HS 938 pg/mL (3.0-78.0)
[2022-02-07 14:07] LABS: Prothrombin Time (Protime)PT. 12.5 SECONDS (11.7-14.9)
[2022-02-07 14:19] LABS: Partial Thromboplast Time 26.2 Seconds (24.1-36.2)
[2022-02-07] MEDS: 0.9% Normal Saline 1,000 ML 60 ML IV (14:50)
--- NOTE | 2022-02-07 14:56 | PCM.CONS.C ---
Assessment & Plan Assessment/Plan (1) ST elevation (STEMI) myocardial infarction: QUALIFIERS: Involved coronary artery: LAD coronary artery Qualified Code(s): I21.02 - ST elevation (STEMI) myocardial infarction involving left anterior descending coronary artery PLAN: Patient was treated with thrombectomy and drug-eluting stent placement to ostial LAD. We will keep the patient on aspirin, Brilinta, statin, beta-marielena, lisinopril. He is being admitted to the CCU for further management. HPI Consult Data Date of Consult: 02/07/22 HPI Narrative HPI Narrative: ELBA ONTIVEROS, is a 26 M who presents with chest pain. Chest pain was on and off since 3 AM. Shortly prior to calling 911 his chest pains intensity went up and it was constant. In the emergency room patient was found to have anterior and lateral ST elevation VT and a STEMI alert was called. Patient was evaluated in the emergency room and was brought to the cardiac Coremaker Apprentice. He underwent emergent coronary angiography which revealed 100% occlusion of the ostial LAD that was treated with thrombectomy and drug-eluting stent placement. Patient's chest pain has significantly improved at the end of the procedure. He is being admitted to the CCU for further management. Review of systems: All systems reviewed. Positive for nausea and vomiting. All else is negative except in HPI. [facility] Medical History Alcohol abuse Anxiety and depression COVID-19 vaccine series completed GERD (gastroesophageal reflux disease) Health care maintenance History of drug abuse Hypertension Home Medications acetaminophen 500 mg tablet 500 mg PO Q6H PRN 01/29/21 [History Last Taken Unknown] ibuprofen 600 mg tablet 600 mg PO TID PRN #90 tab 05/06/21 [Rx Last Taken Unknown] buspirone 7.5 mg tablet 7.5 mg PO BID #180 tablet 12/23/21 [Rx Last Taken Unknown] lisinopril 20 mg-hydrochlorothiazide 25 mg tablet 1 tab PO DAILY #90 tablet 12/23/21 [Rx Last Taken Unknown] sertraline 100 mg tablet 100 mg PO DAILY #30 tab 01/20/22 [Rx Last Taken Unknown] quetiapine 50 mg tablet 50 mg PO BID #60 tab 01/21/22 [Rx Last Taken Unknown] Allergy/AdvReac Type Severity Reaction Status Date / Time DARK CHOCOLATE Allergy Itching Uncoded 10/13/21 16:30 Family History Other Anxiety and depression Breast cancer Cancer Diabetes Hypertension Mental health problem Surgical History History of tonsillectomy Social History Smoking Status: Never smoker Tobacco: How many years used: 7 Smokeless tobacco user: chewing tobacco alcohol intake: former year quit: 2019 substance use type: former substance user Date of last use: 08/30/2020, marijuana and opiates what type of physical activity do you participate in: aerobics and weight training frequency: 3-4 times per week Physical Exam Const alert and oriented x3 Orientation / Consciousness: awake HEENT normocephalic Eyes no scleral icterus Neck supple Resp normal respiratory effort Cardio regular rate and regular rhythm Extremity no pedal edema Skin no rashes or lesions noted Risk Stratification Risk Stratification Applicable: No Charges/Coding Visit Charges Inpatient E&M: 69588 Init Hosp L2 Objective Data Vital Signs: Vital Signs Temp Pulse Resp Pulse Ox 97.9 F 101 H 24 H 93 02/07/22 13:18 02/07/22 13:18 02/07/22 13:37 02/07/22 13:18 Oxygen Flow Rate (L/min) 3 Oxygen Delivery Method Nasal Cannula Weight: 237 lb 10.533 oz Body Mass Index (BMI) 32.2 Lab / Micro Data Result Diagrams: 02/07/22 13:20 02/07/22 13:20 Labs: Laboratory Results - last 24 hr 02/07/22 13:20: WBC 11.9 H, RBC 5.48, Hgb 16.0, Hct 46.0, MCV 83.9, MCH 29.2, MCHC 34.8, RDW Std Deviation 40.4, RDW Coeff of Bessie 13.2, Plt Count 230, MPV 10.2, Immature Gran % (Auto) 0.400, Neut % (Auto) 69.2, Lymph % (Auto) 21.5, [place] % (Auto) 6.3, Eos % (Auto) 2.2, Baso % (Auto) 0.4, Absolute Neuts (auto) 8.2 H, Absolute Lymphs (auto) 2.56, Nucleated RBC % 0 02/07/22 13:20: PT 12.5, INR 1.0, APTT 26.2 02/07/22 13:20: Sodium 134 L, Potassium 4.3, Chloride 106, Carbon Dioxide 21.0, Anion Gap 7, BUN 15, Creatinine 0.87, Estim Creat Clear Calc 139.99, Est GFR (MDRD) Af Amer 135, Est GFR (MDRD) Non-Af 111, BUN/Creatinine Ratio 17.2, Glucose 133 H, Calcium 9.8, Troponin I High Sens 938 H* Cardiology Labs/Tests 02/07/22 13:20: WBC 11.9 H, RBC 5.48, Hgb 16.0, Hct 46.0, MCV 83.9, MCH 29.2, MCHC 34.8, Plt Count 230, MPV 10.2, Immature Gran % (Auto) 0.400, Neut % (Auto) 69.2, Lymph % (Auto) 21.5, [place] % (Auto) 6.3, Eos % (Auto) 2.2, Baso % (Auto) 0.4, Absolute Neuts (auto) 8.2 H, Nucleated RBC % 0 02/07/22 13:20: PT 12.5, INR 1.0, APTT 26.2 02/07/22 13:20: Sodium 134 L, Potassium 4.3, Chloride 106, Carbon Dioxide 21.0, Anion Gap 7, BUN 15, Creatinine 0.87, Est GFR (MDRD) Af Amer 135, Est GFR (MDRD) Non-Af 111, BUN/Creatinine Ratio 17.2, Glucose 133 H, Calcium 9.8 Rhythm: EKG: ECHO: Stress Test: Cardiac Cath: PCI: CT Surgery: Holter monitor: EPS: PPM: CXR: Chest CT Scan: Radiography Diagnostic Testing: Radiology Impression Chest X-Ray 02/07/22 13:27 IMPRESSION: Normal x-ray examination of the chest. Electronically Signed: Jesu Atkinson MD at 13:57 EDT ,
--- NOTE | 2022-02-07 15:00 | EKG12_ITS ---
Test Reason : CHEST PAIN Blood Pressure : / mmHG Vent. Rate : 112 BPM Atrial Rate : 111 BPM P-R Int : 122 ms QRS Dur : 130 ms QT Int : 354 ms P-R-T Axes : 064 -39 022 degrees QTc Int : 483 ms Sinus rhythm Left axis deviation Right bundle branch block ST elevation consider anterolateral injury or acute infarct ACUTE CO / STEMI Abnormal ECG When compared with ECG of 05-SEP-2020 01:18, Current undetermined rhythm precludes rhythm comparison, needs review Right bundle branch block is now Present Confirmed by JOSE HOROWITZ, YESSENIA ([id number]), film editor EVERETT DUNBAR ([id number]) on 02/11/2022 1:26:00 PM Referred By: Clementine Dugan Confirmed By:CADEN DUGAN MD
[2022-02-07 15:30] LABS: Hematocrit 44.2 % (40-54); Mean Corp Hgb Conc 33.9 g/dL (32-36); Mean Corpuscular Hgb 29.1 pg (27.0-32.0); Mean Corpuscular Volume 85.7 fL (80-94); Mean Platelet Vol. 10.8 fl (6.2-12.0); Platelet Count 220 K/mm3 (150-450); RBC Distribution Width CV 13.2 % (11.6-14.6); RBC Distribution Width SD 41.2 fl (35.1-43.9); Red Blood Count 5.16 M/mm3 (4.6-6.2); White Blood Count 12.8 K/mm3 (4.4-11.0)
--- NOTE | 2022-02-07 16:51 | PCM.HP.STD ---
Documented by User: Essence Siddiqui NP, AUTOMOTIVE ELECTRICAL HELPER-C 02/07/22 17:02 HPI - General General Date of Admission: 02/07/22 HPI Narrative ELBA ONTIVEROS, is a 26 M who presents to the Emergency room due to chest pain. Patient reports over the weekend he was fatigued and had nausea and vomiting. Early this morning around 3 AM he reports he woke up with severe chest pain. He states it seemed to get better and he went back to bed. His chest pain then returned and became more severe. Patient states it felt like a boot was stepping on his chest. His pain went to the back of his shoulder blades and down his left arm. He describes associated shortness of breath, nausea, vomiting and diaphoresis. Patient denies history of similar symptoms. STEMI called upon arrival and patient was treated with thrombectomy and drug-eluting stent to the ostial LAD. He states his chest feels sore but denies further significant chest pain. He reports a past medical history of hypertension, anxiety, depression, PTSD. He states he uses medical marijuana and chewing tobacco. Former smoker. Denies other drug use. [facility] Medical History Alcohol abuse Anxiety and depression COVID-19 vaccine series completed GERD (gastroesophageal reflux disease) Health care maintenance History of drug abuse Hypertension Home Medications acetaminophen 500 mg tablet 500 mg PO Q6H PRN 01/29/21 [History Last Taken Unknown] ibuprofen 600 mg tablet 600 mg PO TID PRN #90 tab 05/06/21 [Rx Last Taken Unknown] buspirone 7.5 mg PO BID 02/07/22 [History Last Taken 02/07/22 07:00] lisinopril-hydrochlorothiazide 1 tab PO DAILY 02/07/22 [History Last Taken 02/07/22 07:00] quetiapine 50 mg PO BID 02/07/22 [History Last Taken 02/07/22 07:00] sertraline 100 mg PO DAILY 02/07/22 [History Last Taken 02/07/22 07:00] Allergy/AdvReac Type Severity Reaction Status Date / Time DARK CHOCOLATE Allergy Itching Uncoded 08/11/21 16:30 Family History (Updated 02/07/22 @ 16:57 by Essence Siddiqui NP, AUTOMOTIVE ELECTRICAL HELPER-C) Father Hypertension Mother No cardiac disease Other Anxiety and depression Breast cancer Cancer Diabetes Mental health problem Surgical History History of tonsillectomy Social History Smoking Status: Never smoker Tobacco: How many years used: 7 Smokeless tobacco user: chewing tobacco alcohol intake: former year quit: 2019 substance use type: former substance user Date of last use: 08/30/2020, marijuana and opiates what type of physical activity do you participate in: aerobics and weight training frequency: 3-4 times per week ROS Constitutional Constitutional: Reports fatigue; Denies change in weight, chills, fever(s) or weakness Cardiovascular Cardiovascular: Reports chest pain; Denies edema, lightheadedness, palpitations or syncope Respiratory/Chest Respiratory/Chest: Reports shortness of breath with exertion; Denies cough, dyspnea, productive cough, shortness of breath at rest or wheezing Gastrointestinal Gastrointestinal: Reports nausea and vomiting; Denies abdominal pain, constipation or diarrhea Genitourinary Genitourinary: Denies burning urination, difficulty urinating, dysuria, hematuria, urinary frequency, urinary incontinence or urinary urgency Musculoskeletal Musculoskeletal: Denies back pain, joint pain or muscle weakness Integumentary Integumentary: Denies erythema, lesions, rash or wounds Neurologic Neurologic: Denies abnormal speech, confusion, dizziness, focal weakness, numbness, paresthesias, seizure-like activity or syncope Psychiatric Psychiatric: Denies anxiety or depression Hematologic/Lymphatic Hematologic/Lymphatic: Denies anemia, easy bleeding or easy bruising Allergic/Immunologic Allergic/Immunologic: Denies hives or asthma Vital Signs Vital Signs Vital Signs: 02/07/22 13:18 02/07/22 13:27 02/07/22 13:37 Temperature 97.9 F Temperature Source Temporal Pulse Rate 101 H Respiratory Rate 24 H 24 H Respiratory Effort Short of Breath Blood Pressure Blood Pressure [BP] Blood Pressure Mean Blood Pressure Mean [BP] Blood Pressure Source Blood Pressure Source [BP] Blood Pressure Position Blood Pressure Position [BP] Blood Pressure Location Blood Pressure Location [BP] Pulse Ox 93 Oxygen Delivery Method Nasal Cannula Nasal Cannula Oxygen Flow Rate (L/min) 2 3 02/07/22 14:41 02/07/22 14:50 02/07/22 15:00 Temperature 98.8 F Temperature Source Temporal Pulse Rate 48 L 57 L 64 Respiratory Rate 18 21 H Respiratory Effort Blood Pressure 136/82 H 151/74 H Blood Pressure [BP] Blood Pressure Mean 100 99 Blood Pressure Mean [BP] Blood Pressure Source Monitor Monitor Blood Pressure Source [BP] Blood Pressure Position Semi-Fowlers Semi-Fowlers Blood Pressure Position [BP] Blood Pressure Location Left Arm Left Arm Blood Pressure Location [BP] Pulse Ox 99 99 Oxygen Delivery Method Nasal Cannula Room Air Oxygen Flow Rate (L/min) 2 02/07/22 15:15 02/07/22 15:30 02/07/22 15:45 Temperature Temperature Source Pulse Rate 53 L 57 L 57 L Respiratory Rate 15 15 18 Respiratory Effort Blood Pressure 134/71 H 132/75 H 141/82 H Blood Pressure [BP] 141/82 H Blood Pressure Mean 92 94 Blood Pressure Mean [BP] 101 Blood Pressure Source Monitor Monitor Blood Pressure Source [BP] Monitor Blood Pressure Position Semi-Fowlers Semi-Fowlers Blood Pressure Position [BP] Semi-Fowlers Blood Pressure Location Left Arm Left Arm Blood Pressure Location [BP] Left Arm Pulse Ox 98 98 99 Oxygen Delivery Method Room Air Room Air Room Air Oxygen Flow Rate (L/min) 02/07/22 16:00 02/07/22 16:15 02/07/22 16:30 Temperature Temperature Source Pulse Rate 62 60 73 Respiratory Rate 14 14 20 H Respiratory Effort Blood Pressure 141/82 H 116/75 124/80 H Blood Pressure [BP] Blood Pressure Mean 101 88 94 Blood Pressure Mean [BP] Blood Pressure Source Monitor Monitor Monitor Blood Pressure Source [BP] Blood Pressure Position Semi-Fowlers Semi-Fowlers Semi-Fowlers Blood Pressure Position [BP] Blood Pressure Location Left Arm Left Arm Left Arm Blood Pressure Location [BP] Pulse Ox 99 99 99 Oxygen Delivery Method Room Air Room Air Room Air Oxygen Flow Rate (L/min) Weight Weight: 234 lb 1.6 oz Body Mass Index (BMI) 31.7 Physical Exam Const alert, oriented x3 and no apparent distress Orientation / Consciousness: awake, oriented to person, oriented to place and oriented to time HEENT normocephalic and moist oral mucous membranes Eyes PERRL, EOMs intact bilaterally and conjunctivae normal Neck no lymphadenopathy Resp normal respiratory effort and clear to auscultation bilaterally Cardio regular rate, regular rhythm and no murmurs Peripheral Pulses: pulses 2+ throughout GI normal to inspection, nondistended, normoactive bowel sounds, non-tender and non-distended Extremity normal to inspection Skin no rashes or lesions noted Lesions: no lesions Rashes: no rashes Trauma: no lacerations or abrasions Neuro CN's II-XII intact bilaterally, no focal motor deficits, no sensory deficits noted and deep tendon reflexes 2+ bilaterally Psych mental status grossly normal and affect normal Results Lab / Micro Data Result Diagrams: 02/07/22 15:15 02/07/22 13:20 Labs: Laboratory Results - last 24 hr 02/07/22 13:20: WBC 11.9 H, RBC 5.48, Hgb 16.0, Hct 46.0, MCV 83.9, MCH 29.2, MCHC 34.8, RDW Std Deviation 40.4, RDW Coeff of Bessie 13.2, Plt Count 230, MPV 10.2, Immature Gran % (Auto) 0.400, Neut % (Auto) 69.2, Lymph % (Auto) 21.5, [place] % (Auto) 6.3, Eos % (Auto) 2.2, Baso % (Auto) 0.4, Absolute Neuts (auto) 8.2 H, Absolute Lymphs (auto) 2.56, Nucleated RBC % 0 02/07/22 13:20: PT 12.5, INR 1.0, APTT 26.2 02/07/22 13:20: Sodium 134 L, Potassium 4.3, Chloride 106, Carbon Dioxide 21.0, Anion Gap 7, BUN 15, Creatinine 0.87, Estim Creat Clear Calc 139.99, Est GFR (MDRD) Af Amer 135, Est GFR (MDRD) Non-Af 111, BUN/Creatinine Ratio 17.2, Glucose 133 H, Calcium 9.8, Troponin I High Sens 938 H* 02/07/22 15:15: WBC 12.8 H, RBC 5.16, Hgb 15.0, Hct 44.2, MCV 85.7, MCH 29.1, MCHC 33.9, RDW Std Deviation 41.2, RDW Coeff of Bessie 13.2, Plt Count 220, MPV 10.8 Radiology Impression Chest X-Ray 02/07/22 13:27 IMPRESSION: Normal x-ray examination of the chest. Electronically Signed: Jesu Atkinson MD at 13:57 EDT , Assessment & Plan Assessment/Plan (1) ST elevation (STEMI) myocardial infarction: QUALIFIERS: Involved coronary artery: LAD coronary artery Qualified Code(s): I21.02 - ST elevation (STEMI) myocardial infarction involving left anterior descending coronary artery PLAN: 1. STEMI-status post thrombectomy and drug-eluting stent placement to ostial LAD. Continue aspirin, Brilinta, statin, beta-marielena, lisinopril. Cardiology following. 2. Hypertension-stable, continue lisinopril. 3. Anxiety/depression/PTSD-on buspirone, quetiapine, sertraline. Uses medical marijuana. 4. Chewing tobacco use-encouraged cessation. DVT prophylaxis- not indicated This patient was seen by LUAN Simpson under the supervision of Dr. Jennings. Time spent examining patient, reviewing data and subsequent management of care: 17 minutes Documented by User: Dr. Ernst Jennings MD 02/07/22 18:56 HPI - General General Date of Admission: 02/07/22 [facility] Medical History Alcohol abuse Anxiety and depression COVID-19 vaccine series completed GERD (gastroesophageal reflux disease) Health care maintenance History of drug abuse Hypertension Home Medications acetaminophen 500 mg tablet 500 mg PO Q6H PRN 01/29/21 [History Last Taken Unknown] ibuprofen 600 mg tablet 600 mg PO TID PRN #90 tab 05/06/21 [Rx Last Taken Unknown] buspirone 7.5 mg PO BID 02/07/22 [History Last Taken 02/07/22 07:00] lisinopril-hydrochlorothiazide 1 tab PO DAILY 02/07/22 [History Last Taken 02/07/22 07:00] quetiapine 50 mg PO BID 02/07/22 [History Last Taken 02/07/22 07:00] sertraline 100 mg PO DAILY 02/07/22 [History Last Taken 02/07/22 07:00] Allergy/AdvReac Type Severity Reaction Status Date / Time DARK CHOCOLATE Allergy Itching Uncoded 08/11/21 16:30 Family History (Updated 02/07/22 @ 16:57 by Essence Siddiqui AUTOMOTIVE ELECTRICAL HELPER, AUTOMOTIVE ELECTRICAL HELPER-C) Father Hypertension Mother No cardiac disease Other Anxiety and depression Breast cancer Cancer Diabetes Mental health problem Surgical History History of tonsillectomy Social History Smoking Status: Never smoker Tobacco: How many years used: 7 Smokeless tobacco user: chewing tobacco alcohol intake: former year quit: 2019 substance use type: former substance user Date of last use: 08/30/2020, marijuana and opiates what type of physical activity do you participate in: aerobics and weight training frequency: 3-4 times per week Results Lab / Micro Data Result Diagrams: 02/07/22 15:15 02/07/22 13:20 Charges/Coding Addendum Addendum: Dr. Jennings: I personally reviewed the chart and examined the patient, and agree with the above findings. 26-year-old male presents to the hospital with severe chest pain. He had been having it off and on for the weekend but this morning woke up at around 3 AM with severe crushing chest pain but then it seemed to resolve so he went back to bed and then he woke up later in the morning with chest pain. He came into the ER as a STEMI alert and was taken to the [facility] where he had drug-eluting stent placed in the LAD. He states that there is some family history on his father's side of early heart attacks. He was started on multiple medical medications including aspirin, Brilinta, statin, beta-marielena, lisinopril. He initially thought that he was having a panic attack takes as he takes several medications for anxiety. Had extensive discussion with him about his lifestyle modifications now that he has had an ME at 26 years old. Visit Charges Inpatient E&M: 14946 Init Hosp L3
[2022-02-07] MEDS: Lisinopril 2.5 MG Tablet PO (18:14)
[2022-02-07] MEDS: QUEtiapine 25 MG Tablet 50 MG PO (22:17)
[2022-02-07] MEDS: Atorvastatin Calcium 40 MG Tablet PO (22:17)
[2022-02-07] MEDS: busPIRone 15 MG TABLET 7.5 MG PO (22:17)
[2022-02-07 22:49] LABS: Amphetamine Urine VISTA NEGATIVE (<1000 ng/mL); Barbiturate Urine VISTA NEGATIVE (< 200 ng/mL); Benzodiazepine Urine VISTA POSITIVE (< 200 ng/mL); Cocaine Urine VISTA POSITIVE (< 300 ng/mL); Ecstacy Urine VISTA NEGATIVE (< 500 ng/mL); Methadone Urine VISTA NEGATIVE (< 300 ng/mL); PCP Urine VISTA NEGATIVE (< 25 ng/mL); THC Urine VISTA POSITIVE (< 50 ng/mL); Vista UDS pH Range 6
[2022-02-08] VITALS (22 sets, daily range): BP systolic 103–152; BP diastolic 75–104; PULSE 44–103; RESP 12–25; TEMP 35.5–36.9; O2SAT 95–100
[2022-02-08 04:28] LABS: Hematocrit 45.4 % (40-54); Hemoglobin 15.5 g/dL (13.0-16.5); Mean Corp Hgb Conc 34.1 g/dL (32-36); Mean Corpuscular Hgb 29.3 pg (27.0-32.0); Mean Corpuscular Volume 85.8 fL (80-94); Mean Platelet Vol. 10.4 fl (6.2-12.0); Platelet Count 212 K/mm3 (150-450); RBC Distribution Width CV 13.6 % (11.6-14.6); RBC Distribution Width SD 42.8 fl (35.1-43.9); Red Blood Count 5.29 M/mm3 (4.6-6.2); White Blood Count 10.2 K/mm3 (4.4-11.0)
[2022-02-08 04:48] LABS: ALB/GLOB Ratio 1.1 RATIO (0.9-2.4); AST(SGOT) 96 U/L (15-37); Alanine Aminotransfer ALT/SGPT 40 U/L (16-61); Albumin, Serum 3.7 g/dL (3.2-5.0); Alkaline Phosphatase 61 U/L (45-117); Anion Gap 6 (5-15); BUN 12 mg/dL (7-18); BUN/Creat Ratio 14.5 RATIO (10-20); Calcium,Total 8.7 mg/dL (8.5-10.1); Chloride 104 mmol/L (98-107); Creatinine, Serum 0.83 mg/dL (0.70-1.30); EST Glomerular Filtration Rate 118 mL/min (>60); Est Glom Filt Rate - Afr Amer 143 mL/min (>60); Estimated Creatinine Clearance 146.73 ml/min; Globulin 3.4 g/dL (2.2-4.2); Glucose 121 mg/dL (74-106); Potassium 3.8 mmol/L (3.5-5.1); Protein, Total 7.1 g/dL (6.4-8.2); Sodium Level 138 mmol/L (136-145)
[2022-02-08] MEDS: TICAGRELOR 90 MG TABLET PO ×2 (05:56→21:13)
[2022-02-08] MEDS: 0.9% Saline Lock 10 ML Syringe IV (05:56)
[2022-02-08 07:39] LABS: Cholesterol 166 mg/dL (200); High Density Lipoprotein 36 mg/dL; Triglycerides 167 mg/dL; Very Low Density Lipoprotein 33 mg/dL (5-40)
[2022-02-08 07:46] LABS: Hemoglobin A1c 5.7 % (3.8-5.6)
[2022-02-08] MEDS: QUEtiapine 25 MG Tablet 50 MG PO ×2 (08:37→21:14)
[2022-02-08] MEDS: hydroCHLOROthiazide 25 MG Tablet PO (08:38)
[2022-02-08] MEDS: Lisinopril 20 MG Tablet PO (08:38)
[2022-02-08] MEDS: Metoprolol Tartrate 25 MG Tablet 12.5 MG PO ×2 (08:38→21:14)
[2022-02-08] MEDS: Sertraline 100 MG Tablet PO (08:38)
[2022-02-08] MEDS: Aspirin E.C. 81 MG Tablet PO (08:38)
[2022-02-08] MEDS: busPIRone 15 MG TABLET 7.5 MG PO ×2 (08:38→21:13)
--- NOTE | 2022-02-08 09:26 | CRPHASE1_ITS ---
Patient Communication PHII Cardiac Rehab Discussed with Patient:: Yes Guide to Cardiac Rehab Given to Patient:: Yes Cardiac Rehab Facility Choice List Given to Patient:: Yes Choice Program [facility] CR PHII:: Communication Given to CR Choice Program Other:: Communication Given to CR Value Analyst:: Clementine Dugan Refer Phase II Cardiac Rehab:: Yes Sessions:: 36 sessions - 3 days/wk, 12 weeks Cardiac Rehabilitation Info Cardiac Rehabilitation Program Information: Cardiac Rehabilitation is important for patients like you who are recovering from a heart problem. Cardiac rehabilitation programs are recognized as integral to the continued care of the patient with coronary heart disease. The cardiac rehabilitation program is designed to optimize a patient's physical, psychological, and social functioning. Health spiritual care coordinator work in cardiac rehabilitation programs and assist you with getting the treatments you need to get stronger and healthier - like exercise, healthy eating habits, and medications. Cardiac rehabilitation has been show to help people with heart problems live longer and have better life enjoyment than people who do not go to cardiac rehabilitation. Please contact the Cardiac Rehabilitation Program at [facility] at in two weeks if you have not heard from them.
--- NOTE | 2022-02-08 09:27 | CRPH1.INSTRU ---
General Education CAD and cardiac anatomy and function:: Patient communicates acknowledgment Explanation of diagnoses and procedures:: Patient communicates acknowledgment Sign/Symptoms of CT:: Patient communicates acknowledgment Antiplatelet therapy: Patient communicates acknowledgment Smoking Patient Nicotine/Smoking Risk Factors Are:: Non-smoker Recommendations Include:: Previous smoker; encourage continued cessation Nicotine/Smoking Response Code:: Patient communicates acknowledgment Dyslipidemia Patient Dyslipidemia Risk Factors Are:: Total Cholesterol, Triglycerides, HDL Recommendations Include:: Lipid profile provided, Reviewed NCEP/ATP guidelines, Therapeutic Lifestyle Change dietary guidelines Dyslipidemia Response Code:: Patient communicates acknowledgment Overweight/Obesity Patient Overweight/Obesity Risk Factors Are:: Obesity - > or = 30 Recommendations Include:: Weight loss of 5-10%, Reduced calorie diet, Exercise 5-7 times/week Overweight/Obesity:: Patient communicates acknowledgment Hypertension Recommendations Include:: Maintain BP <130/85, DASH dietary guidelines, Decrease/maintain normal body weight, Moderation of ETOH Hypertension:: Patient communicates acknowledgment Diabetes Patient Diabetes Risk Factors Are:: No documented hx of diabetes Metabolic Syndrome Patient Metabolic Syndrome Risk Factors Are [3 of 5]:: Fasting blood sugar > 100 mg/dL, Waist circumference > 35 [female] or 40 [male], Hypertension Recommendations Include:: Reinforce compliance to risk factor modifications, Encouraged follow-up with Primary Care Physician Metabolic Syndrome Response Code:: Patient communicates acknowledgment Stress Recommendations Include:: Identification of stressors, and assessment of coping skills, Stress management techniques Stress Response Code:: Patient communicates acknowledgment
--- NOTE | 2022-02-08 10:00 | EKG12_ITS ---
Test Reason : AM EKG Blood Pressure : / mmHG Vent. Rate : 050 BPM Atrial Rate : 050 BPM P-R Int : 126 ms QRS Dur : 094 ms QT Int : 470 ms P-R-T Axes : 062 035 056 degrees QTc Int : [address] elevation consider inferolateral injury or acute infarct ACUTE CT / STEMI Abnormal ECG When compared with ECG of 07-FEB-2022 15:06, MANUAL COMPARISON REQUIRED, DATA IS UNCONFIRMED Confirmed by JOSE HOROWITZ, YESSENIA ([id number]), commissioning editor EVERETT DUNBAR ([id number]) on 02/11/2022 1:08:30 PM Referred By: Clementine Dugan Confirmed By:CADEN DUGAN MD
--- NOTE | 2022-02-08 10:08 | ECHOCS_ITS ---
Reason For Study: Anterior GA Procedure This was a 2D Doppler, Color Flow transthoracic echocardiogram. The study was technically difficult. Exam performed portable in ICU/CCU. Left Ventricle Normal LV size. The estimated ejection fraction is 50-55 %. Normal diastology for age. [place] : Hypokinetic. Right Ventricle Normal RV size. Normal systolic function. Atria Normal left atrium. Normal right atrium. No doppler evidence for ASD. Mitral Valve There is no mitral valve stenosis. No mitral valve insufficiency. Tricuspid Valve There is no tricuspid stenosis. Unable to estimate RV systolic pressure due to inadequate jet, pulmonary artery pressure probably normal. Aortic Valve Trisinus/trileaflet aortic valve. There is no aortic stenosis. No aortic valve insufficiency. Pulmonic Valve There is no pulmonic valvular stenosis. No pulmonic valve insufficiency. Great Vessels Normal aortic root. Pericardium/Pleural No pericardial effusion. Medication Diluted definity 1ml given slow IV push to enhance endocardial definition. MMode/2D Measurements & Calculations LVIDd: 4.8 cm IVSd: 0.87 cm Ao root diam: 2.9 cm LVIDs: 3.3 cm LVPWd: 0.99 cm RVDd: 3.8 cm FS: 31.3 % LAV(MOD-bp): 32.0 ml LVAd ap4: 35.5 cm2 LVAd ap2: 40.5 cm2 LAV(MOD-bp) Indexed: 14.1 ml/m2 LVLd ap4: 8.9 cm LVLd ap2: 9.6 cm LAV(MOD-sp2): 31.3 ml EDV(MOD-sp4): 117.2 ml EDV(MOD-sp2): 139.1 ml LAV(MOD-sp4): 28.5 ml EDV(sp4-el): 119.9 ml EDV(sp2-el): 144.2 ml LVAs ap4: 23.1 cm2 LVAs ap2: 26.9 cm2 LVLs ap4: 7.8 cm LVLs ap2: 8.3 cm ESV(MOD-sp4): 56.3 ml ESV(MOD-sp2): 69.9 ml ESV(sp4-el): 58.1 ml ESV(sp2-el): 73.9 ml EF(MOD-sp4): 52.0 % EF(MOD-sp2): 49.8 % EF(sp4-el): 51.5 % SV(MOD-sp4): 60.9 ml SV(MOD-sp2): 69.2 ml SV(sp4-el): 61.8 ml LA A4 area: 13.5 cm2 LA dimension(2D): 3.1 cm RA A4 area: 16.7 cm2 Doppler Measurements & Calculations MV E max karan: 73.3 cm/sec Lat Peak E' Karan: 18.6 cm/sec Med Peak E' Karan: 9.4 cm/sec MV A max karan: 38.9 cm/sec E/E' lat: 4.0 E/E' med: 7.8 MV E/A: 1.9 Ao V2 max: 147.0 cm/sec LV V1 max: 136.7 cm/sec PA V2 max: 88.9 cm/sec Ao max P.6 mmHg LV V1 max P.5 mmHg ECHO/Echo Complete W/ Contrast Interpretation Summary The estimated ejection fraction is 50-55 %. [place] : Hypokinetic. Ordering Physician: Clementine Dugan Referring Physician: Clementine Dugan Performed By: Damari Barker MARVIN
--- NOTE | 2022-02-08 10:15 | CL.I_ITS ---
Patient Name: ELBA ONTIVEROS Study Date: 02/07/2022 Performing: Alonzo Dugan MD Ht: 72 inches 183 cm : 1995 Wt: 238.4 lbs 108 kg Age: 26 Gender: male BSA: 2.3 PROCEDURE(S) PERFORMED DC01-([id number])LHC/COR/LV IC16-([id number])AMI, DIONE OR PTCA, ARTERY/GRAFT, SINGLE VESSEL CLINICAL PROFILE AND CO-MORBIDITIES Indications: ACS <= 24 hrs Heart Failure: None Stress/Imaging Stress/Image Study Performed: No CAD Presentations: STEMI. Symptom onset Date/Time: 02/07/22 Time Not Available CONCLUSIONS Single vessel CAD as described. EF is 50 to 55% with apical akinesis.No significant aortic stenosis o r mitral regurgitation. Successful thrombectomy and drug-eluting stent placement to ostial LAD. RECOMMENDATIONS DESCRIPTION OF PROCEDURE The patient arrived to the procedure lab. The risks and benefits of the procedure as well as a full d escription of our services here and lack of surgical backup were fully explained to the patient and/o r their significant other prior to the catheterization. The Timeout was completed, verifying the sonia ect patient and procedure. The patient's procedural site was prepped and draped in the usual fashion. Local anesthetic was given subcutaneously to right radial region with Lidocaine 2%. Using a modified Seldinger technique, arterial access was obtained via the right radial artery, a 6Fr sheath was inse rted.. Left Coronary Artery selective angiography was performed in multiple views using a 5 Fr.. Lef t Ventriculography was performed in COYLE projection using a 5 Fr.. LV to AO pullback pressures were th en recorded. Right Coronary Artery selective angiography was then performed in multiple views using a 5 Fr. JR 4 catheterThe images were reviewed and options discussed. A decision was then made to proceed with an Intervention, IVUS or other adjunct procedure. xb3 Guide catheter was inserted and engaged into the LCA. bmw Guide wire was advanced to the LAD. [place] AP inserted Pass # 1 Angiogram performed post aspiration. Priority One inserted Pass # 2 Prio rity One Removed emerge 3.00 x 12 Balloon catheter was advanced across lesion in the LAD, ostial. PTC A balloon inflated at 8 atms for 10 secs. PTCA balloon inflated at 6 atms for 34 secs. PTCA balloon i nflated at 6 atms for 35 secs. Angiogram performed post balloon dilatation. osiro 3.00 x 12 Drug Elut ing stent was advanced across the lesion in the LAD, ostial. Angiogram performed post stent deploymen t. The arterial sheath was pulled and a TR Band was applied for hemostasis CORONARY ANGIOGRAPHY DOMINANCE: Right Dominant LEFT HEART ASSESSMENT Left Ventricular Ejection Fraction: by LV Gram 50-55 % Apical Akinesis LEFT MAIN: Angiographically normal LEFT ANTERIOR DESCENDING ARTERY: OSTIAL LAD: 100 % Stenosis CIRCUMFLEX ARTERY: Angiographically normal RIGHT CORONARY ARTERY: Angiographically normal VALVE FINDINGS: No Aortic Valve Stenosis No Mitral Insufficiency INTERVENTION INFORMATION LESION SITE: LAD (Ostial) Lesion Complexity: High/C, chronic total occlusion: No, lesion at bifurcation: Yes, thrombus present: Yes, lesion length: 15 mm, culprit lesion: Yes, Previously treated lesion: No Pre Stenosis: 100 % Pre intervention ZAHRA flow: 0 PROCEDURE: Thrombectomy, Drug Eluting Stent with pre dilatation. Post Stenosis: 0 % Post intervention ZAHRA flow: 3 Lesion Devices: Cardinal 6 Fr XB3.0 100cm Guide Catheter Hanks .014 BMW [place] Straight 190cm Terumo Priority One Aspiration Catheter Matthew Sci EMERGE MR 3.00x12 BALLOON Biotronik Orsiro [place] MR DIONE 3.5x18 COMPLICATIONS No Complications PROCEDURE MEDICATIONS Versed 2 mg IV Fentanyl 50 mcg IV Oxygen: 2 L/min via nasal cannula Heparin given IA 02/07/2022 13:43:48 Heparin 5000 unit(s) IV 02/07/2022 13:47:28 Verapamil 2.5mg, Ntg 100mcgs, 3000 units of Heparin given IA 02/07/2022 13:43:48 SUMMARY OF HEMODYNAMIC DATA Time AIR REST ECG 13:42:07 AO 142/106 (124) SA 13:46:38 LV 140/-2, 25 14:18:16 LV 143/0, 26 14:18:23 LV 138/2, 29 14:19:15 LVp 135/10, 31 14:19:27 AOp 134/74 (99) 14:19:32 Signed By Alonzo Dugan MD On 02/08/2022 10:14:23 Alonzo Dugan MD
--- NOTE | 2022-02-08 11:10 | CASEMGMT ---
HEMAL COVARRUBIAS assessment: Face to Face with patient for initial transition planning/care coordination assessment. HEMAL COVARRUBIAS introduced self and role at [facility], pt voices understanding and consents to assessment. Pt is sitting up on side of bed in no distress on room air. Pt is A/Ox 4 and answers questions appropriately. Pt's father is at bedside during assessment. Care providers, pharmacy, and demographics verified. Presentation: Pt c/o intermittent CP since last night and woke up today with it constant-N/V now unable to sit still, pain 10/10, diaphoretic Admitting dx: STEMI PCP: [facility] Specialists: None Preferred Pharmacy: [facility] Insurance: [place] Prescription Benefit: Yes Living Will/HPOA: Pt does not have LW/HPOA and declines AD info at this time. LNOK: Brian/Kim Menjivar, parents Living Arrangements: Pt lives with parents in 2 story home and states no concerns at home. Pt is independent with ADL's. Transportation: Pt drives self and states no transportation concerns. DME/HHC: Pt states no current DME or need for any further DME. Pt states no hx of HHC or SNF. Pt states no concerns with going home at time of discharge. 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 Pt states does not smoke cigarettes but does occasionally drink ETOH and does smoke marijuana twice daily. Sindy SW aware. Pt voices no further concerns/needs. CM to follow for any further discharge planning/needs. Advised pt to ask for CM if any further questions/concerns/needs arise, voices understanding. Pt Goal: Home Plan: [place] HEMAL COVARRUBIAS
--- NOTE | 2022-02-08 13:57 | PCM.PN.HOSP ---
Subjective Subjective Patient admitted late yesterday afternoon as a STEMI. Thrombectomy with DIONE placed to the LAD. Patient is currently pain-free. Tox screen was done and cocaine was found on his toxicology screen. Patient denies any cocaine use however he does state that he bought marijuana off the street. He has a license for medical marijuana usage. Objective Data Objective Data Vital Signs: Vital Signs Temp Pulse Resp BP Pulse Ox 97.1 F L 68 14 122/84 H 97 02/08/22 12:00 02/08/22 13:00 02/08/22 13:00 02/08/22 13:00 02/08/22 13:00 Oxygen Flow Rate (L/min) 2 Oxygen Delivery Method Room Air Weight: 105.097 kg Body Mass Index (BMI) 31.7 Intake & Output: Intake and Output for Last 24 Hours 02/06/22 02/07/22 02/08/22 23:59 23:59 23:59 Intake Total 1646.00 / 1646.00 727.22 / 727.22 Output Total 2150 / 2150 575 / 575 Balance -504.00 / -504.00 152.22 / 152.22 Lab / Micro Data Result Diagrams: 02/08/22 04:17 02/08/22 04:17 Labs: Laboratory Results - last 24 hr 02/07/22 13:20: PT 12.5, INR 1.0, APTT 26.2 02/07/22 13:20: Sodium 134 L, Potassium 4.3, Chloride 106, Carbon Dioxide 21.0, Anion Gap 7, BUN 15, Creatinine 0.87, Estim Creat Clear Calc 139.99, Est GFR (MDRD) Af Amer 135, Est GFR (MDRD) Non-Af 111, BUN/Creatinine Ratio 17.2, Glucose 133 H, Calcium 9.8, Troponin I High Sens 938 H* 02/07/22 15:15: WBC 12.8 H, RBC 5.16, Hgb 15.0, Hct 44.2, MCV 85.7, MCH 29.1, MCHC 33.9, RDW Std Deviation 41.2, RDW Coeff of Bessie 13.2, Plt Count 220, MPV 10.8 02/07/22 22:29: Urine Opiates Screen POSITIVE H, Urine Methadone Screen NEGATIVE, Ur Barbiturates Screen NEGATIVE, Ur Phencyclidine Scrn NEGATIVE, Ur Amphetamines Screen NEGATIVE, MDMA (Ecstasy) Screen NEGATIVE, U Benzodiazepines Scrn POSITIVE H, Urine Cocaine Screen POSITIVE H, U Cannabinoids Screen POSITIVE H, Ur Drug Screen Comment 02/08/22 04:17: WBC 10.2, RBC 5.29, Hgb 15.5, Hct 45.4, MCV 85.8, MCH 29.3, MCHC 34.1, RDW Std Deviation 42.8, RDW Coeff of Bessie 13.6, Plt Count 212, MPV 10.4 02/08/22 04:17: Sodium 138, Potassium 3.8, Chloride 104, Carbon Dioxide 28.0, Anion Gap 6, BUN 12, Creatinine 0.83, Estim Creat Clear Calc 146.73, Est GFR (MDRD) Af Amer 143, Est GFR (MDRD) Non-Af 118, BUN/Creatinine Ratio 14.5, Glucose 121 H, Calcium 8.7, Total Bilirubin 0.70, AST 96 H, ALT 40, Alkaline Phosphatase 61, Total Protein 7.1, Albumin 3.7, Globulin 3.4, Albumin/Globulin Ratio 1.1 02/08/22 04:17: Triglycerides 167, Cholesterol 166, LDL Cholesterol 97, VLDL Cholesterol 33, HDL Cholesterol 36 L 02/08/22 04:17: Hemoglobin A1c 5.7 H Radiography Diagnostic Testing: Radiology Impression Chest X-Ray 02/07/22 13:27 IMPRESSION: Normal x-ray examination of the chest. Electronically Signed: Jesu Atkinson MD at 13:57 EDT , Echocardiogram 02/08/22 10:08 Interpretation Summary The estimated ejection fraction is 50-55 %. [place] : Hypokinetic. Ordering Physician: Clementine Dugan Referring Physician: Clementine Dugan Performed By: Damari Barker RDCS Physical Exam Const alert, oriented x3 and no apparent distress Exam Limitations: no limitations Nutritional Appearance: obese HEENT head/scalp atraumatic, moist oral mucous membranes and oropharynx normal HEENT Narrative: 3 Head and Scalp: normocephalic Resp normal respiratory effort, no retractions, no use of accessory muscles and clear to auscultation bilaterally Auscultation: Negative for crackles, rales, rhonchi or wheezes Cardio regular rate, regular rhythm, S1 normal heart sound, S2 normal heart sound, no murmurs, no rub, no gallops, no clicks and no JVD GI normal to inspection, nondistended, normoactive bowel sounds, soft to palpation, non-tender and non-distended; Negative for hepatosplenomegaly Extremity no clubbing, cyanosis or edema Peripheral Pulses: Yes pulses 2+ throughout Skin Skin Narrative: Right radial cath site clean and dry dressing without any ecchymosis, mild tenderness Neuro oriented x3, moves all extremities and no focal motor deficits Sensorium / Orientation: awake and alert Speech: speech normal Assessment & Plan Assessment/Plan (1) ST elevation (STEMI) myocardial infarction: QUALIFIERS: Involved coronary artery: LAD coronary artery Qualified Code(s): I21.02 - ST elevation (STEMI) myocardial infarction involving left anterior descending coronary artery (2) History of coronary artery stent placement: (3) Marijuana use: (4) Insulin resistance: PLAN: STEMI -Status post thrombectomy and DIONE to ostial LAD -Continue aspirin, Brilinta, statin, beta-marielena, CAROL inhibitor -Tox screen did show cocaine -Patient adamantly denies cocaine use however he has bought street marijuana and I suspect that this was laced with cocaine -Total cholesterol is 166 with an LDL of 97 and HDL of 36 and a VLDL of 33 -Hemoglobin A1c is 5.7 -Patient with a strong family history of coronary disease -We will monitor overnight for any further complications/arrhythmias -Echocardiogram done today shows an EF of 50 to 55% with hypokinetic apex -Suspect this hypokinesis is related to stunned myocardium -Cardiology following-appreciate input Insulin resistance -Hemoglobin A1c is 5.7 -Patient is aware that he has some insulin resistance previously and has been monitored by his PCP -We will discuss further with patient tomorrow prior to discharge Hypertension -Continue home hard-core thiazide -Lisinopril 20 mg daily -Metoprolol 12.5 mg p.o. twice daily -Patient did have a renal artery duplex done on 10/01/2020 that showed less than 60% stenosis in the bilateral renal arteries with the right renal artery flow rate slightly less than the left -Consider obstructive sleep apnea and polysomnography as an outpatient--> will make referral at discharge Anxiety/depression/PTSD -Continue home medications -Patient has prescription for medical marijuana use with regards to his PTSD -Admits to recreational purchasing and suspect his tox screen was positive for cocaine because he bought laced marijuana Cocaine use -Admits to recreational purchasing and suspect his tox screen was positive for cocaine because he bought laced marijuana DVT prophylaxis -Risk -Early ambulation CODE STATUS Full code Charges/Coding Visit Charges Inpatient E&M: 39741 Subs Hosp L2
--- NOTE | 2022-02-08 14:07 | PN.CARD_ITS ---
Subjective Subjective Patient is doing well and requests to go home. Denies any cardiac complaints. Objective Data Vital Signs: Vital Signs Temp Pulse Resp BP Pulse Ox 97.1 F L 68 14 122/84 H 97 02/08/22 12:00 02/08/22 13:00 02/08/22 13:00 02/08/22 13:00 02/08/22 13:00 Oxygen Flow Rate (L/min) 2 Oxygen Delivery Method Room Air Weight: 231 lb 11.187 oz Body Mass Index (BMI) 31.7 Intake & Output: Intake and Output for Last 24 Hours 02/06/22 02/07/22 02/08/22 23:59 23:59 23:59 Intake Total 1646.00 / 1646.00 727.22 / 727.22 Output Total 2150 / 2150 575 / 575 Balance -504.00 / -504.00 152.22 / 152.22 Lab / Micro Data Result Diagrams: 02/08/22 04:17 02/08/22 04:17 Labs: Laboratory Results - last 24 hr 02/07/22 13:20: PT 12.5, INR 1.0, APTT 26.2 02/07/22 15:15: WBC 12.8 H, RBC 5.16, Hgb 15.0, Hct 44.2, MCV 85.7, MCH 29.1, MCHC 33.9, RDW Std Deviation 41.2, RDW Coeff of Bessie 13.2, Plt Count 220, MPV 10.8 02/07/22 22:29: Urine Opiates Screen POSITIVE H, Urine Methadone Screen NEGATIVE, Ur Barbiturates Screen NEGATIVE, Ur Phencyclidine Scrn NEGATIVE, Ur Amphetamines Screen NEGATIVE, MDMA (Ecstasy) Screen NEGATIVE, U Benzodiazepines Scrn POSITIVE H, Urine Cocaine Screen POSITIVE H, U Cannabinoids Screen POSITIVE H, Ur Drug Screen Comment 02/08/22 04:17: WBC 10.2, RBC 5.29, Hgb 15.5, Hct 45.4, MCV 85.8, MCH 29.3, MCHC 34.1, RDW Std Deviation 42.8, RDW Coeff of Bessie 13.6, Plt Count 212, MPV 10.4 02/08/22 04:17: Sodium 138, Potassium 3.8, Chloride 104, Carbon Dioxide 28.0, Anion Gap 6, BUN 12, Creatinine 0.83, Estim Creat Clear Calc 146.73, Est GFR (MDRD) Af Amer 143, Est GFR (MDRD) Non-Af 118, BUN/Creatinine Ratio 14.5, Glucose 121 H, Calcium 8.7, Total Bilirubin 0.70, AST 96 H, ALT 40, Alkaline Phosphatase 61, Total Protein 7.1, Albumin 3.7, Globulin 3.4, Albumin/Globulin Ratio 1.1 02/08/22 04:17: Triglycerides 167, Cholesterol 166, LDL Cholesterol 97, VLDL Cholesterol 33, HDL Cholesterol 36 L 02/08/22 04:17: Hemoglobin A1c 5.7 H Cardiology Labs/Tests 02/07/22 13:20: PT 12.5, INR 1.0, APTT 26.2 02/07/22 15:15: WBC 12.8 H, RBC 5.16, Hgb 15.0, Hct 44.2, MCV 85.7, MCH 29.1, MCHC 33.9, Plt Count 220, MPV 10.8 02/08/22 04:17: WBC 10.2, RBC 5.29, Hgb 15.5, Hct 45.4, MCV 85.8, MCH 29.3, MCHC 34.1, Plt Count 212, MPV 10.4 02/08/22 04:17: Sodium 138, Potassium 3.8, Chloride 104, Carbon Dioxide 28.0, Anion Gap 6, BUN 12, Creatinine 0.83, Est GFR (MDRD) Af Amer 143, Est GFR (MDRD) Non-Af 118, BUN/Creatinine Ratio 14.5, Glucose 121 H, Calcium 8.7, Total Bilirubin 0.70 02/08/22 04:17: Triglycerides 167, Cholesterol 166, LDL Cholesterol 97, VLDL Cholesterol 33, HDL Cholesterol 36 L 02/08/22 04:17: Hemoglobin A1c 5.7 H Rhythm: EKG: ECHO: Stress Test: Cardiac Cath: PCI: CT Surgery: Holter monitor: EPS: PPM: CXR: Chest CT Scan: Radiography Diagnostic Testing: Radiology Impression Echocardiogram 02/08/22 10:08 Interpretation Summary The estimated ejection fraction is 50-55 %. [place] : Hypokinetic. Ordering Physician: Clementine Dugan Referring Physician: Clementine Dugan Performed By: Damari Barker RDCS Physical Exam Const alert and oriented x3 Orientation / Consciousness: awake HEENT normocephalic Eyes no scleral icterus Resp normal respiratory effort Cardio regular rate Assessment & Plan Assessment/Plan (1) ST elevation (STEMI) myocardial infarction: QUALIFIERS: Involved coronary artery: LAD coronary artery Qualified Code(s): I21.02 - ST elevation (STEMI) myocardial infarction involving left anterior descending coronary artery PLAN: Patient was treated with thrombectomy and drug-eluting stent placement to ostial LAD. Patient had short runs of nonsustained V. tach but no significant runs. Doing well overall. Explained to him that we would like to keep him overnight for monitoring and discharge him tomorrow morning if he continues to do well. Patient is agreeable to this plan. Continue current medications. Strongly emphasized abstinence from any kind of substance abuse. Charges/Coding Visit Charges Inpatient E&M: 98205 Subs Hosp L2
--- NOTE | 2022-02-08 14:19 | CASEMGMT ---
SW met with patient. Introduced self and role at [facility]. SW asked patient if he would like resources for alcohol or drug use. Patient declined stating he does not need any resources. Abena KELLY
[2022-02-08] MEDS: Atorvastatin Calcium 40 MG Tablet PO (21:14)
[2022-02-09] VITALS (7 sets, daily range): BP systolic 127–135; BP diastolic 76–93; PULSE 45–93; RESP 16–18; TEMP 35.9–36.6; O2SAT 95–99
[2022-02-09 06:09] LABS: Hematocrit 47.2 % (40-54); Hemoglobin 15.9 g/dL (13.0-16.5); Mean Corp Hgb Conc 33.7 g/dL (32-36); Mean Corpuscular Hgb 29.3 pg (27.0-32.0); Mean Corpuscular Volume 86.9 fL (80-94); Mean Platelet Vol. 10.6 fl (6.2-12.0); Platelet Count 216 K/mm3 (150-450); RBC Distribution Width CV 13.2 % (11.6-14.6); RBC Distribution Width SD 42.5 fl (35.1-43.9); Red Blood Count 5.43 M/mm3 (4.6-6.2); White Blood Count 9.8 K/mm3 (4.4-11.0)
[2022-02-09] MEDS: Metoprolol Tartrate 25 MG Tablet 12.5 MG PO (08:23)
[2022-02-09] MEDS: busPIRone 15 MG TABLET 7.5 MG PO (08:24)
[2022-02-09] MEDS: TICAGRELOR 90 MG TABLET PO (08:25)
[2022-02-09] MEDS: hydroCHLOROthiazide 25 MG Tablet PO (08:25)
[2022-02-09] MEDS: Sertraline 100 MG Tablet PO (08:25)
[2022-02-09] MEDS: QUEtiapine 25 MG Tablet 50 MG PO (08:25)
[2022-02-09] MEDS: Aspirin E.C. 81 MG Tablet PO (08:25)
--- NOTE | 2022-02-09 10:00 | EKG12_ITS ---
Test Reason : MORNING EKG Blood Pressure : / mmHG Vent. Rate : 047 BPM Atrial Rate : 047 BPM P-R Int : 144 ms QRS Dur : 082 ms QT Int : 492 ms P-R-T Axes : 061 026 058 degrees QTc Int : 435 ms Sinus bradycardia with sinus arrhythmia Septal infarct , age undetermined Inferolateral injury pattern ACUTE MS / STEMI Abnormal ECG Confirmed by FABIANO HOROWITZ, ANAI ([id number]), international editorial producer EVERETT DUNBAR ([id number]) on 02/15/2022 8:47:39 AM Referred By: Clementine Dugan Confirmed By:ANAI MARIO MD
--- NOTE | 2022-02-09 10:04 | DS.PCM_ITS ---
Providers Date of Admission: 02/07/22 Date of Discharge: 02/09/22 Primary Care Physician: LUAN Gillis Reason For Visit: STEMI Diagnosis Discharge Diagnosis (1) ST elevation (STEMI) myocardial infarction: Status: Inactive Code(s): I21.3 - ST elevation (STEMI) myocardial infarction of unspecified site Qualifiers: Involved coronary artery: LAD coronary artery Qualified Code(s): I21.02 - ST elevation (STEMI) myocardial infarction involving left anterior descending coronary artery (2) History of coronary artery stent placement: Status: Chronic Code(s): Z95.5 - Presence of coronary angioplasty implant and graft (3) Marijuana use: Status: Acute Code(s): F12.90 - Cannabis use, unspecified, uncomplicated (4) Insulin resistance: Status: Inactive Code(s): E88.81 - Metabolic syndrome Medications at Discharge Home Medications acetaminophen 500 mg tablet 500 mg PO Q6H PRN 01/29/21 ibuprofen 600 mg tablet 600 mg PO TID PRN #90 tab 05/06/21 buspirone 7.5 mg PO BID 02/07/22 quetiapine 50 mg PO BID 02/07/22 sertraline 100 mg PO DAILY 02/07/22 aspirin 81 mg PO BREAKFAST #30 tab 02/09/22 atorvastatin 40 mg PO QHS #30 tab 02/09/22 hydrochlorothiazide 25 mg PO DAILY #30 tab 02/09/22 lisinopril 30 mg PO DAILY #30 tab 02/09/22 metoprolol tartrate 12.5 mg PO BID #30 tab 02/09/22 ticagrelor [Brilinta] 90 mg PO BID #60 tab 02/09/22 Hospital Course Operations None Procedures 2-D Echocardiogram and Cardiac catheterization Summary of Care Provided Minutes Spent on Discharge: 38 Hospital Course: Mr. Santana is a 26-year-old white male who presented to emergency department at [facility] on 02/07/2022 with a chief complaint of chest pain. Patient reported that over the weekend prior to presentation he was fatigued and had some nausea and vomiting. Early on the a.m. of admission he reported he woke up with severe chest pain. He reported it seemed to get better when he went back to bed however his chest pain returned and then became more severe and he decided to present to the emergency department. He reported that it felt l karuna somebody was stepping on his chest. The pain radiated to the back of his shoulders and down his left arm. He had associated shortness of breath, nausea, vomiting, and diaphoresis. The patient reports he is never had anything like this before and has no previous cardiac history. A STEMI alert was called upon the arrival of the patient and he was emergently taken to the [facility] at which time they performed a thrombectomy and placed the DIONE in the ostial LAD. He was started on aspirin, Brilinta, metoprolol 12.5 mg p.o. twice daily, continued on his home lisinopril, and a statin was initiated. A toxicology screen was done on admission and was positive for marijuana which she has a prescription for medical marijuana as well as cocaine. The patient did admit to buying street marijuana and we suspect that it may have been laced with cocaine as he adamantly denies cocaine use. His tox he was also positive for benzodiazepines and opiates however he was given these on admission. His total cholesterol was found to be 166 with an LDL of 97, HDL 36, VLDL 33, triglycerides 167. It was noted that his fasting blood sugars were in the 1 20-1 30 range and hemoglobin A1c was performed. His hemoglobin A1c was found to be 5.7. He states that he has been told he was borderline diabetic previously. We did discuss the importance of him watching his diet and getting enough exercise. He was seen by cardiac rehab during his hospitalization and will follow up with them as an outpatient. An echocardiogram was performed on 02/08/2022 and showed an EF of 50 to 55% and an hypokinetic apex resulting from his LAD lesion. He was maintained on telemetry during his hospitalization and had no significant ectopy or abnormal rhythms. His blood pressure remained elevated and his home linda nopril dose was increased to 30 mg prior to discharge. Prescriptions for the above medications were sent to his pharmacy and in addition we sent a new prescription for hydrochlorothiazide as we did have to change the dosing of his lisinopril. He will need to follow-up with his primary care physician in 1 to 2 weeks and cardiology in 2 to 3 weeks. We discussed at length the importance of not buying street marijuana and using his prescription marijuana only as well as did some diabetic education. Discharge diagnoses: STEMI Hypertension Insulin resistance Anxiety Depression PTSD Physical Exam Const alert, oriented x3, no apparent distress, healthy appearing and well nourished Constitutional Narrative: Obese young white male walking around the room, has just eaten breakfast and states he is feeling well, anxious to go home General Appearance: cooperative, comfortable, well kempt and well developed Orientation / Consciousness: awake, oriented to person, oriented to place and oriented to time Exam Limitations: no limitations Nutritional Appearance: obese HEENT normocephalic, head/scalp atraumatic, moist oral mucous membranes and oropharynx normal HEENT Narrative: Mallampati is 2, dentition is good, no thrush Eyes PERRL, EOMs intact bilaterally and conjunctivae normal Eyes Narrative: No scleral icterus Neck no lymphadenopathy, supple and no JVD Neck Narrative: Trachea midline, no thyroid enlargement Resp normal respiratory effort, no retractions, no use of accessory muscles and clear to auscultation bilaterally Auscultation: Negative for crackles, rales, rhonchi or wheezes Cardio regular rate, regular rhythm, S1 normal heart sound, S2 normal heart sound, no murmurs, no rub, no gallops, no clicks and no JVD Peripheral Pulses: pulses 2+ throughout GI normal to inspection, nondistended, normoactive bowel sounds, soft to palpation, non-tender and non-distended; Negative for hepatosplenomegaly Extremity normal to inspection and no clubbing, cyanosis or edema Extremity Narrative: Right radial artery access site without significant ecchymosis, no bleeding, minimal tenderness Skin no rashes or lesions noted, no wounds, skin turgor normal and no jaundice Lesions: no lesions Rashes: no rashes Trauma: no lacerations or abrasions Neuro oriented x3, moves all extremities, no focal motor deficits, no sensory deficits noted and deep tendon reflexes 2+ bilaterally Sensorium / Orientation: awake and alert Speech: speech normal Motor Exam: strength 5/5 throughout Psych mental status grossly normal and affect normal Psych Narrative: Extremely pleasant and appropriate Weight / BMI Weight Weight: 104.9 kg Body Mass Index (BMI) 31.7 ABG / Lab / Microbiology Data Result Diagrams: 02/09/22 05:30 02/08/22 04:17 Laboratory: Laboratory Results - last 24 hr 02/09/22 05:30: WBC 9.8, RBC 5.43, Hgb 15.9, Hct 47.2, MCV 86.9, MCH 29.3, MCHC 33.7, RDW Std Deviation 42.5, RDW Coeff of Bessie 13.2, Plt Count 216, MPV 10.6 Radiography Diagnostic Testing: Radiology Impression Echocardiogram 02/08/22 10:08 Interpretation Summary The estimated ejection fraction is 50-55 %. [place] : Hypokinetic. Ordering Physician: Clementine Dugan Referring Physician: Clementine Dugan Performed By: Damari Barker RDCS D/C Instructions Discharge Diet: Low fat / Low cholesterol and 2000 Calorie Control Diet Discharge Activity: Return to Normal Activity Return to work on: 02/14/22 May resume sexual activity in: No Restrictions Meaningful Use Info Meaningful Use Diagnoses (Choose all that apply): AMI AMI/Post PCI/Angioplasty Aspirin given w/in 24hrs of arrival?: Yes ASA at discharge?: Yes Antiplatelet Therapy at Discharge:: Yes Statins at discharge?: Yes Facundo/ARB at discharge?: Yes Beta Naif at discharge?: Yes Done w/ Acute AR measure.: Yes Documented LVEF (%): 50 Discharge Plan Admission Admit Date/Time: 02/07/22 16:37 Primary Reason for Your Visit: Chest Pain Attending Provider: Aniyah Pardo Primary Care Provider: Mohinder Moore NP Instructions Forms: Work Excuse Patient Instructions: Healthy Meals for Diabetes, Understanding Carbohydrates, Eating Out When You Have Diabetes, Diabetes: Meal Planning Discharge Orders/Prescriptions Prescriptions: New aspirin 81 mg Tablet,Delayed Release (Dr/Ec) 81 mg PO BREAKFAST Qty: 30 RF: 0 atorvastatin 40 mg Tablet 40 mg PO QHS Qty: 30 RF: 0 hydrochlorothiazide 25 mg Tablet 25 mg PO DAILY Qty: 30 RF: 0 lisinopril 10 mg Tablet 30 mg PO DAILY Qty: 30 RF: 0 metoprolol tartrate 25 mg Tablet 12.5 mg PO BID Qty: 30 RF: 0 Brilinta 90 mg Tablet 90 mg PO BID Qty: 60 RF: 0 Continued acetaminophen [Tylenol Extra Strength] 500 mg tablet 500 mg PO Q6H PRN (Reason: Pain) RF: 0 ibuprofen 600 mg tablet 600 mg PO TID PRN (Reason: pain) Qty: 90 RF: 0 sertraline 100 mg tablet 100 mg PO DAILY RF: 0 buspirone 7.5 mg tablet 7.5 mg PO BID RF: 0 quetiapine 50 mg tablet 50 mg PO BID RF: 0 Discontinued lisinopril-hydrochlorothiazide 20-25 mg tablet 1 tab PO DAILY RF: 0 Referrals / Follow Up: Mendoza Gutierrez MD [STAFF PHYSICIAN] - Within 2 Weeks Mohinder Moore NP, [employer] [Primary Care Provider] - Within 2 Weeks Disposition Disposition (needs filled in before D/C Order can be placed): Home, Self Care Charges/Coding Visit Charges Inpatient E&M: 48697 [facility] Hosp
--- NOTE | 2022-02-09 10:15 | CASEMGMT ---
Pt provided with Brilinta co-pay card yesterday during assessment. Michael RECIO CM
[2022-02-09] MEDS: Lisinopril 10 MG Tablet 30 MG PO (10:52)
--- NOTE | 2022-02-09 13:24 | CASEMGMT ---
Pt to be sent home on Brilinta at discharge and med e-scribed to [facility] previously. Call to [facility] to check coverage/co-pay. Per tech, pt has no co-pay for Brilinta and this RN CM also clarified between the pharmacist and Dr. Pardo that the lisinopril/HCTZ is being discontinued and that the pt will now be on lisinopril 30mg daily. SStnany RECIO CM
== END 2022-02-09 13:29 | disposition home or self-care (01) | DRG 247 ==
LOC: ED 13:35 → ICU 14:33 → PCU 02-09 10:14 → ICU 08-18 08:06 → PCU 08-18 08:06
PROVIDERS: Internal Medicine Cardiovascular Disease; Admitting Provider Specialist; Emergency Provider Emergency Medicine; PCP Nurse Practitioner Family; Referring Provider Specialist; Visit Provider Internal Medicine
DX: I21.02 ST elevation (STEMI) myocardial infarction involving left anterior descending coronary artery (principal); I70.1 Atherosclerosis of renal artery; E88.81 Metabolic syndrome and other insulin resistance; F12.90 Cannabis use, unspecified, uncomplicated; I10 Essential (primary) hypertension; F17.220 Nicotine dependence, chewing tobacco, uncomplicated; F14.90 Cocaine use, unspecified, uncomplicated; Z79.02 Long term (current) use of antithrombotics/antiplatelets; Z79.82 Long term (current) use of aspirin; F43.10 Post-traumatic stress disorder, unspecified; F32.A Depression, unspecified; F41.0 Panic disorder [episodic paroxysmal anxiety]; Z79.899 Other long term (current) drug therapy; K21.9 Gastro-esophageal reflux disease without esophagitis; Z86.16 Personal history of COVID-19; Z87.891 Personal history of nicotine dependence
CPT/HCPCS: 36415; 71045; 80048; 80053; 80061; 80307; 83036; 84484; 85025; 85027; 85610; 85730; 92941; 93005; 93306; 93458; 96365; 96366; 96375; 99152; 99153; 99218; 99283; C1757; C1874; J7030; Q9957; Q9967; A4216; C1725; C1769; C1887; C1894; C8929; C9606; G0378; J1327; J2405

== ENCOUNTER → 2022-04-22 | Outpatient (CLI) | payer BC, MEDICAID, SELFPAY ==
[2022-04-22 14:58] LABS: Mucous, Urine 0 SEEN /hpf (<or=2+); Red Blood Cells-Urine 0 SEEN /hpf (0-5); Squamous Epithelial Cells - UA 0 SEEN /hpf (0-5); White Blood Cells 0 SEEN /hpf (0-5)
[2022-04-22 16:53] LABS: Color, Urine Straw (Yellow); Glucose, Dipstick Normal (Normal); Ketone-Dipstick Negative (Negative); Leukocyte Esterase-Dipstick Negative /ul (Negative); Nitrite-Dipstick Negative (Negative); Occult Blood-Urine Negative /ul (Negative); Protein-Dipstick Negative (Negative); Specific Gravity, Urine 1.015 (1.002-1.030); Urine Bilirubin Dipstick Negative (Negative); Urine Clarity Clear (Clear); Urine Urobilinogen Normal (Normal)
[2022-04-22 16:58] LABS: Absolute Lymphocyte Count 2.73 X10^3/uL (0.83-4.51); Absolute Neutrophil Count 4.8 X10^3/uL (2.0-7.7); Basophil# 0.06 X10^3/uL; Basophil% 0.7 % (0-1); Eosinophil# 0.53 X10^3/uL; Hematocrit 42.4 % (40-54); Hemoglobin 14.2 g/dL (13.0-16.5); Lymphocyte # 2.73 X10^3/ul (0.83-4.51); Lymphocyte % 30.7 % (19-41); Mean Corp Hgb Conc 33.5 g/dL (32-36); Mean Corpuscular Volume 89.6 fL (80-94); Mean Platelet Vol. 10.6 fl (6.2-12.0); Monocyte# 0.75 X10^3/uL; Monocyte% 8.4 % (0-10); NRBC Flagged by Analyzer 0 % (0-5); Neutrophil # 4.77 X10^3/uL (2.7-7.7); Neutrophil % 53.7 % (47-70); Platelet Count 242 K/mm3 (150-450); RBC Distribution Width CV 14.3 % (11.6-14.6); RBC Distribution Width SD 46.6 fl (35.1-43.9); Red Blood Count 4.73 M/mm3 (4.6-6.2); White Blood Count 8.9 K/mm3 (4.4-11.0)
[2022-04-22 17:03] LABS: Anion Gap 7 (5-15); BUN 19 mg/dL (7-18); Calcium,Total 8.2 mg/dL (8.5-10.1); Chloride 102 mmol/L (98-107); EST Glomerular Filtration Rate 95 mL/min (>60); Est Glom Filt Rate - Afr Amer 115 mL/min (>60); Glucose 125 mg/dL (74-106); Potassium 4.1 mmol/L (3.5-5.1); Sodium Level 133 mmol/L (136-145); Thyroid Stim Hormone (TSH) 4.76 uIU/mL (0.358-3.74)
[2022-04-22 17:12] LABS: International Normalized Ratio 0.9; Prothrombin Time (Protime)PT. 11.4 SECONDS (11.7-14.9)
[2022-04-22 17:12] LABS: Bacteria RARE /hpf (None Seen)
[2022-04-22 17:46] LABS: Cholesterol 144 mg/dL (200); High Density Lipoprotein 37 mg/dL; Triglycerides 758 mg/dL
[2022-04-22 18:36] LABS: T4 Free Direct 1.02 ng/dL (0.76-1.46)
[2022-04-25 20:07] LABS: Chlamydia By Nucleic Acid AMP Negative (Negative)
[2022-04-25 20:36] LABS: Gonococcus By Nucleic Acid AMP Negative (Negative)
== END | disposition home or self-care (01) ==
LOC: BIMLAB 14:51
PROVIDERS: PCP Nurse Practitioner Family; Referring Provider Nurse Practitioner Family; Visit Provider Nurse Practitioner Family
DX: R30.0 Dysuria (principal); I10 Essential (primary) hypertension; R23.8 Other skin changes
CPT/HCPCS: 36415; 80048; 80061; 81001; 84439; 84443; 85025; 85610; 87086; 87491; 87591

== ENCOUNTER 2022-06-03 07:06 | Emergency (ER) | payer BC, MEDICAID, SELFPAY ==
[2022-06-03 07:09] VITALS: BP 149/82; PULSE 50; RESP 18; TEMP 29.6; O2SAT 99; BMI 33.2
--- NOTE | 2022-06-03 07:27 | RAD_ITS ---
INDICATION: chest pain EXAMINATION/TECHNIQUE: X-RAY - XR Chest 1 View COMPARISON: 02/07/2022. FINDINGS: LINES/DEVICES: None. LUNGS: No consolidation, edema or effusion. No pneumothorax. MEDIASTINUM AND CARDIOVASCULAR STRUCTURES: Cardiac silhouette not enlarged. Central airways and mediastinal contour are unremarkable. BONES AND SOFT TISSUES: Unremarkable. RAD/Chest 1 View (Portable) IMPRESSION: No radiographic evidence of acute cardiopulmonary disease. Electronically Signed: Sd Huff MD at 8:25 EDT ,
--- NOTE | 2022-06-03 07:27 | EKG12_ITS ---
Test Reason : back/arm pain Blood Pressure : / mmHG Vent. Rate : 039 BPM Atrial Rate : 039 BPM P-R Int : 154 ms QRS Dur : 090 ms QT Int : 442 ms P-R-T Axes : 043 014 009 degrees QTc Int : 355 ms Marked sinus bradycardia Low voltage QRS Abnormal ECG Confirmed by FABIANO HOROWITZ, ANAI ([id number]), science editor EVERETT DUNBAR ([id number]) on 06/06/2022 11:31:44 AM Referred By: Andre Confirmed By:ANAI MARIO MD
[2022-06-03 07:29] VITALS: TEMP 36.6
--- NOTE | 2022-06-03 07:37 | CT_ITS ---
INDICATION: sudden onset headache/neck pain EXAMINATION: CT BRAIN WITH CONTRAST TECHNIQUE: Noncontrast axial images were obtained of the brain. Subsequently, routine carotid CT angiogram protocol was performed without and with IV contrast. In addition, images were obtained of the [place]. NASCET criteria using the distal ICAs for comparison were used for evaluation of stenoses. 3D reconstructions were reviewed. A radiation dose optimization technique was used for this scan. IV Contrast dosage and agent: 100 mL of ISOVUE-370. COMPARISON: None. FINDINGS: --CT BRAIN: BRAIN PARENCHYMA: No intra- or extra-axial hemorrhage. No evidence of acute infarct. No intracranial mass or mass effect. There is preservation of the rapp/white matter interface. Posterior fossa structures are unremarkable. CSF SPACES: Appropriate for age. No hydrocephalus. Basal cisterns are patent. Low-lying cerebellar tonsils visualized with crowding of the foramen magnum would recommend clinical correlation and if clinically indicated further evaluation with MRI of the cervical spine. CALVARIUM, SKULL BASE, PARANASAL SINUSES AND MASTOID AIR CELLS: Clear. No discrete lytic or blastic abnormalities. ASPECTS Score for Acute Strokes: 10 --CTA NECK: AORTIC ARCH AND BRANCHES: 2 vessel aortic arch visualized, no evidence of atherosclerotic disease in the aortic arch. Unremarkable origins of the great vessels of the aortic arch. RIGHT CCA: No occlusion, significant stenosis or dissection. RIGHT ICA: No occlusion, significant stenosis or dissection. LEFT CCA: No occlusion, significant stenosis or dissection. LEFT ICA: No occlusion, significant stenosis or dissection. RIGHT VERTEBRAL ARTERY: No occlusion, significant stenosis or dissection. LEFT VERTEBRAL ARTERY: No occlusion, significant stenosis or dissection. NECK SOFT TISSUES: Unremarkable. Subtle bullous lesions visualized in bilateral upper lung negron. --CTA HEAD: --Anterior circulation: ICAs: No significant stenosis at the intracranial/visualized segments. ACAs: Atretic right A1 segment. No significant stenosis at the visualized segments. ACOM: Present. MCAs: No significant stenosis at the visualized segments. --Posterior circulation: meat products demonstrator: Small left P1 segment. Prominent left posterior communicating artery giving origin to the left posterior cerebral artery. The right posterior cerebral artery is unremarkable. BASILAR ARTERY: No significant stenosis. VERTEBRAL ARTERIES: No significant stenosis at the intradural/visualized segments. No evidence of intracranial aneurysm or vascular malformation. CT/CTA Head AND Neck W/ Contrast IMPRESSION: Low-lying cerebellar tonsils visualized with crowding of the foramen magnum would recommend clinical correlation and if clinically indicated further evaluation with MRI of the cervical spine. No evidence of acute intracranial pathology is seen. Unremarkable CTA of the neck and intracranial vessels. Anatomic variants seen, atretic right A1 segment and left P1 segment. Electronically Signed: Sd Huff MD at 8:37 EDT ,
--- NOTE | 2022-06-03 07:41 | EX.ED.DYSGE1 ---
HPI History of Present Illness Chief Complaint: Nausea/Vomiting Informant: patient Narrative Narrative: Patient is a 26-year-old male with history of ST elevation RI status post stents, anxiety, hypertension, hyperlipidemia and prior drug abuse presenting with sudden onset of headache. Patient states he woke up around 6 AM and coughed 3 times. He then had a severe headache in the center of his forehead and neck pain. He states he has pain between his shoulder blades in his back. He states the last time he had a heart attack he had the similar pain in his shoulder blades. He has associated nausea. No vomiting. Denies taking thing for his symptoms prior to arrival. States has been compliant with his medication since his heart attack. Denies any sick contacts. Denies any numbness or tingling. Does feel like his vision is blurry. Denies any head injuries. No other complaints at this time. [facility] Medical History Alcohol abuse Anxiety Anxiety and depression Depression Dysuria Easy bruising GERD (gastroesophageal reflux disease) History of drug abuse HTN (hypertension) Hyperlipidemia Hypertension Hypertension Insomnia Insulin resistance Marijuana use Paresthesia of right upper extremity Polysubstance abuse ST elevation (STEMI) myocardial infarction Subclinical hypothyroidism Home Medications buspirone 7.5 mg tablet 7.5 mg PO BID Check with primary doctor 02/07/22 [History Last Taken 02/07/22 07:00] metoprolol tartrate 25 mg tablet 12.5 mg PO BID #30 tabs 03/03/22 [Rx Last Taken Unknown] aspirin 81 mg tablet,delayed release 81 mg PO BREAKFAST #90 tabs 03/07/22 [Rx Last Taken Unknown] atorvastatin 40 mg tablet 40 mg PO QHS #90 tabs 03/07/22 [Rx Last Taken Unknown] lisinopril 10 mg tablet 30 mg PO DAILY #270 tabs 03/07/22 [Rx Last Taken Unknown] ticagrelor 90 mg tablet (Brilinta) 90 mg PO BID #180 tabs 03/07/22 [Rx Last Taken Unknown] cyclobenzaprine 5 mg tablet 5 - 10 mg PO QHS PRN muscle spasm #30 tabs 03/29/22 [Rx Last Taken Unknown] levocetirizine 5 mg tablet 5 mg PO DAILY PRN allergies #30 tabs 03/29/22 [Rx Last Taken Unknown] hydrochlorothiazide 25 mg tablet 12.5 mg PO DAILY #90 tabs 06/01/22 [Rx Last Taken Unknown] quetiapine 50 mg tablet 50 mg PO QHS Check with primary doctor #180 tabs 06/02/22 [Rx Last Taken Unknown] sertraline 100 mg tablet 100 mg PO DAILY Check with primary doctor 06/02/22 [History Last Taken Unknown] Allergy/AdvReac Type Severity Reaction Status Date / Time DARK CHOCOLATE Allergy Itching Uncoded 06/03/22 07:11 Family History Father Hypertension Mother No cardiac disease Other Anxiety and depression Breast cancer Cancer Diabetes Mental health problem Surgical History History of coronary artery stent placement (02/07/22) History of tonsillectomy Social History Smoking Status: Never smoker Tobacco: How many years used: 7 Smokeless tobacco user: chewing tobacco alcohol intake: former year quit: 2020 substance use type: former substance user Date of last use: 08/30/2020, marijuana and opiates what type of physical activity do you participate in: aerobics and weight training frequency: 3-4 times per week ROS ROS ED Constitutional Constitutional ED: Denies chills or fever(s) Eyes Eyes: Reports blurry vision ENT ENT ED: Denies rhinorrhea or sore throat Cardiovascular Cardiovascular: Denies chest pain or palpitations Respiratory/Chest Respiratory/Chest: Reports cough; Denies dyspnea or dyspnea on exertion Gastrointestinal Gastrointestinal: Reports nausea; Denies abdominal pain, constipation, diarrhea or vomiting Genitourinary Genitourinary ED: Denies dysuria or hematuria Musculoskeletal Musculoskeletal: Reports back pain and neck pain; Denies arthralgias or myalgias Integumentary Denies rash Neurologic Neurologic: Reports headache(s); Denies paresthesias or weakness Psychiatric Psychiatric: Reports anxiety; Denies depression Hematologic/Lymphatic Hematologic/Lymphatic: Denies easy bleeding or easy bruising EXAM Physical Exam Const Vital Signs: 06/03/22 07:09 06/03/22 07:29 06/03/22 12:31 Temperature 85.3 F L 97.8 F Temperature Source Temporal Temporal Pulse Rate 50 L 48 L Respiratory Rate 18 18 Blood Pressure 149/82 H 138/68 H Blood Pressure Mean 104 Pulse Ox 99 99 Oxygen Delivery Method Room Air Positive well nourished and well developed General Appearance ED: well developed and NAD HEENT Reports moist mucous membranes Eyes PERRL and EOMs intact bilaterally Neck supple and no JVD Neck Narrative: Diffuse paraspinal tenderness Chest Wall inspection of chest normal and palpation of chest normal Resp normal respiratory effort and clear to auscultation bilaterally Cardio regular rhythm and no murmurs Rate: bradycardia GI normal to inspection, nondistended, normoactive bowel sounds, non-tender and non-distended Inspection: Negative for abdominal distention Back/Spine no CVA tenderness Back/Spine Narrative: Diffuse mid thoracic paraspinal tenderness to palpation, reproducible with palpation Extremity normal to inspection Extremity Narrative: 2+ radial and DP pulses General Extremety ED: Negative for edema or tenderness General Extremity: Negative for edema Neuro oriented x3, CN's II-XII intact bilaterally and no sensory deficits noted Motor Exam: strength 5/5 throughout Psych mental status grossly normal Mood & Affect: anxious and tearful Skin no rashes or lesions noted and no wounds MDM MDM MDM Narrative Medical decision making narrative: Patient is evaluated with sudden onset of headache, neck pain and back pain. He also has a cough. He has a history of ACS with a stent. Cardiac work-up obtained. Patient is bradycardic emergency room however he is on metoprolol. He has normal blood pressure and is asymptomatic from this. Patient is given morphine for pain control. CTA of the head and neck with and without obtained for concern of carotid artery dissection or subarachnoid hemorrhage. Patient is then given IV Toradol. On repeat evaluation he is feeling much better. His COVID test is negative. Patient is counseled possible that he just has a viral illness that is causing his symptoms especially given his associated cough. Patient instructed to follow-up with primary care doctor as well as to repeat a COVID test in 48 hours if still symptomatic. Lab Data Attestation: I reviewed the patient's lab results. Labs: Laboratory Results - last 24 hr 06/03/22 06/03/22 06/03/22 07:45 07:45 07:45 WBC 9.1 RBC 4.96 Hgb 14.9 Hct 44.6 MCV 89.9 MCH 30.0 MCHC 33.4 RDW Std Deviation 44.9 H RDW Coeff of Bessie 13.7 Plt Count 219 MPV 10.5 Immature Gran % (Auto) 0.500 Neut % (Auto) 56.4 Lymph % (Auto) 28.4 [place] % (Auto) 6.1 Eos % (Auto) 7.8 H Baso % (Auto) 0.8 Absolute Neuts (auto) 5.1 Absolute Lymphs (auto) 2.59 Nucleated RBC % 0 Sodium 138 Potassium 4.0 Chloride 107 Carbon Dioxide 24.0 Anion Gap 7 BUN 14 Creatinine 0.99 Estim Creat Clear Calc 123.02 Est GFR (MDRD) Af Amer 116 Est GFR (MDRD) Non-Af 96 BUN/Creatinine Ratio 14.1 Glucose 123 H Calcium 8.7 Total Bilirubin 0.30 AST 25 ALT 50 Alkaline Phosphatase 53 Total Creatine Kinase 171 Troponin I High Sens 6 Total Protein 7.0 Albumin 3.7 Globulin 3.3 Albumin/Globulin Ratio 1.1 Urine Color Urine Clarity Urine pH Ur Specific [place] Urine Protein Urine Glucose (UA) Urine Ketones Urine Occult Blood Urine Nitrite Urine Bilirubin Urine Urobilinogen Ur Leukocyte Esterase Urine RBC Urine WBC Ur Squamous Epith Cells Urine Bacteria Urine Mucus Urine Opiates Screen Urine Methadone Screen Ur Barbiturates Screen Ur Phencyclidine Scrn Ur Amphetamines Screen MDMA (Ecstasy) Screen U Benzodiazepines Scrn Urine Cocaine Screen U Cannabinoids Screen Ur Drug Screen Comment Ethyl Alcohol 06/03/22 06/03/22 06/03/22 07:45 09:00 09:00 WBC RBC Hgb Hct MCV MCH MCHC RDW Std Deviation RDW Coeff of Bessie Plt Count MPV Immature Gran % (Auto) Neut % (Auto) Lymph % (Auto) [place] % (Auto) Eos % (Auto) Baso % (Auto) Absolute Neuts (auto) Absolute Lymphs (auto) Nucleated RBC % Sodium Potassium Chloride Carbon Dioxide Anion Gap BUN Creatinine Estim Creat Clear Calc Est GFR (MDRD) Af Amer Est GFR (MDRD) Non-Af BUN/Creatinine Ratio Glucose Calcium Total Bilirubin AST ALT Alkaline Phosphatase Total Creatine Kinase Troponin I High Sens Total Protein Albumin Globulin Albumin/Globulin Ratio Urine Color Yellow Urine Clarity Clear Urine pH 5.0 Ur Specific [place] 1.010 Urine Protein 15 H Urine Glucose (UA) Normal Urine Ketones Negative Urine Occult Blood Negative Urine Nitrite Negative Urine Bilirubin Negative Urine Urobilinogen Normal Ur Leukocyte Esterase Negative Urine RBC 0 SEEN Urine WBC 0 SEEN Ur Squamous Epith Cells 0 SEEN Urine Bacteria 0 SEEN Urine Mucus 0 SEEN Urine Opiates Screen NEGATIVE Urine Methadone Screen NEGATIVE Ur Barbiturates Screen NEGATIVE Ur Phencyclidine Scrn NEGATIVE Ur Amphetamines Screen NEGATIVE MDMA (Ecstasy) Screen NEGATIVE U Benzodiazepines Scrn POSITIVE H Urine Cocaine Screen NEGATIVE U Cannabinoids Screen POSITIVE H Ur Drug Screen Comment Ethyl Alcohol < 3.0 06/03/22 10:45 WBC RBC Hgb Hct MCV MCH MCHC RDW Std Deviation RDW Coeff of Bessie Plt Count MPV Immature Gran % (Auto) Neut % (Auto) Lymph % (Auto) [place] % (Auto) Eos % (Auto) Baso % (Auto) Absolute Neuts (auto) Absolute Lymphs (auto) Nucleated RBC % Sodium Potassium Chloride Carbon Dioxide Anion Gap BUN Creatinine Estim Creat Clear Calc Est GFR (MDRD) Af Amer Est GFR (MDRD) Non-Af BUN/Creatinine Ratio Glucose Calcium Total Bilirubin AST ALT Alkaline Phosphatase Total Creatine Kinase Troponin I High Sens 7 Total Protein Albumin Globulin Albumin/Globulin Ratio Urine Color Urine Clarity Urine pH Ur Specific [place] Urine Protein Urine Glucose (UA) Urine Ketones Urine Occult Blood Urine Nitrite Urine Bilirubin Urine Urobilinogen Ur Leukocyte Esterase Urine RBC Urine WBC Ur Squamous Epith Cells Urine Bacteria Urine Mucus Urine Opiates Screen Urine Methadone Screen Ur Barbiturates Screen Ur Phencyclidine Scrn Ur Amphetamines Screen MDMA (Ecstasy) Screen U Benzodiazepines Scrn Urine Cocaine Screen U Cannabinoids Screen Ur Drug Screen Comment Ethyl Alcohol Radiography Chest X-Ray - ED: 1 View, Read by ED Physician, Read by Radiologist and No Acute Disease Diagnostic Testing: Clinical Impression(s) from Imaging Studies Chest X-Ray 06/03/22 07:27 IMPRESSION: No radiographic evidence of acute cardiopulmonary disease. Electronically Signed: Sd Huff MD at 8:25 EDT Reading Location ID and State: [facility] / [place] Tel , Service support , Head/Neck CTA 06/03/22 07:37 IMPRESSION: Low-lying cerebellar tonsils visualized with crowding of the foramen magnum would recommend clinical correlation and if clinically indicated further evaluation with MRI of the cervical spine. No evidence of acute intracranial pathology is seen. Unremarkable CTA of the neck and intracranial vessels. Anatomic variants seen, atretic right A1 segment and left P1 segment. Electronically Signed: Sd Huff MD at 8:37 EDT , Rhythm Strip Rhythm Strip: Sinus bradycardia Rate: 39 Ectopy: None EKG Initial EKG: Attestation: I personally reviewed and interpreted this EKG as follows: Interpretation: Sinus Bradycardia Comments: Sinus bradycardia at a rate of 39 Normal axis Normal intervals Normal ST segments Nonspecific T wave inversion in lead III Compared to prior EKG on 02/09/2022 patient has reversal of ST segment changes Discharge Plan Triage Chief Complaint: Nausea/Vomiting Other Complaint: Headache ED Provider: Pamela Powell Dx/Rx/DC Orders Clinical Impression: History of coronary artery stent placement, Headache, Cough, Back pain, Bradycardia Instructions: ED Headache Unspecified, ED Viral Syndrome (Adult) Prescriptions: No Action hydrochlorothiazide 25 mg tablet 12.5 mg PO DAILY Qty: 90 3RF cyclobenzaprine 5 mg tablet 5 - 10 mg PO QHS PRN (Reason: muscle spasm) Qty: 30 0RF levocetirizine 5 mg tablet 5 mg PO DAILY PRN (Reason: allergies) Qty: 30 3RF sertraline 100 mg tablet 100 mg PO DAILY quetiapine 50 mg tablet 50 mg PO QHS Qty: 180 1RF buspirone 7.5 mg tablet 7.5 mg PO BID metoprolol tartrate 25 mg tablet 12.5 mg PO BID Qty: 30 11RF aspirin 81 mg tablet,delayed release (DR/EC) 81 mg PO BREAKFAST Qty: 90 3RF atorvastatin 40 mg tablet 40 mg PO QHS Qty: 90 3RF lisinopril 10 mg tablet 30 mg PO DAILY Qty: 270 3RF Brilinta 90 mg tablet 90 mg PO BID Qty: 180 3RF Primary Care Provider: Mohinder Moore NP Referrals: Mohinder Moore NP, [facility] [Primary Care Provider] - Activity Restrictions/Additional Instructions: Your neurologic and cardiac work-up was normal today. Take Tylenol as needed for your symptoms. I suspect you have some type of viral syndrome that is causing most of your symptoms. Your COVID test was negative today. Repeat a home COVID test in 2 to 3 days if you are still having symptoms. Disposition Disposition: Home, Self Care Discharge Date/Time: 06/03/22 12:39
[2022-06-03] MEDS: fentaNYL 100 MCG/2 ML Ampul 50 MCG IV (07:45)
[2022-06-03] MEDS: Ondansetron 4 MG/2 ML Vial IV (07:45)
[2022-06-03 07:59] LABS: Absolute Lymphocyte Count 2.59 X10^3/uL (0.83-4.51); Absolute Neutrophil Count 5.1 X10^3/uL (2.0-7.7); Basophil# 0.07 X10^3/uL; Basophil% 0.8 % (0-1); Eosinophil# 0.71 X10^3/uL; Eosinophils% 7.8 % (0-5); Hematocrit 44.6 % (40-54); Hemoglobin 14.9 g/dL (13.0-16.5); Lymphocyte # 2.59 X10^3/ul (0.83-4.51); Lymphocyte % 28.4 % (19-41); Mean Corp Hgb Conc 33.4 g/dL (32-36); Mean Corpuscular Volume 89.9 fL (80-94); Mean Platelet Vol. 10.5 fl (6.2-12.0); Monocyte# 0.56 X10^3/uL; Monocyte% 6.1 % (0-10); NRBC Flagged by Analyzer 0 % (0-5); Neutrophil # 5.13 X10^3/uL (2.7-7.7); Neutrophil % 56.4 % (47-70); Platelet Count 219 K/mm3 (150-450); RBC Distribution Width CV 13.7 % (11.6-14.6); RBC Distribution Width SD 44.9 fl (35.1-43.9); Red Blood Count 4.96 M/mm3 (4.6-6.2); White Blood Count 9.1 K/mm3 (4.4-11.0)
[2022-06-03 08:15] LABS: ALB/GLOB Ratio 1.1 RATIO (0.9-2.4); AST(SGOT) 25 U/L (15-37); Alanine Aminotransfer ALT/SGPT 50 U/L (16-61); Albumin, Serum 3.7 g/dL (3.2-5.0); Alkaline Phosphatase 53 U/L (45-117); Anion Gap 7 (5-15); BUN 14 mg/dL (7-18); BUN/Creat Ratio 14.1 RATIO (10-20); CPK Total, Creatine Kinase 171 U/L (39-308); Calcium,Total 8.7 mg/dL (8.5-10.1); Chloride 107 mmol/L (98-107); Creatinine, Serum 0.99 mg/dL (0.70-1.30); EST Glomerular Filtration Rate 96 mL/min (>60); Est Glom Filt Rate - Afr Amer 116 mL/min (>60); Estimated Creatinine Clearance 123.02 ml/min; Globulin 3.3 g/dL (2.2-4.2); Glucose 123 mg/dL (74-106); Sodium Level 138 mmol/L (136-145); Troponin-I HS (w/2H Reflex) 6 pg/mL (3.0-78.0)
[2022-06-03 08:51] LABS: Alcohol, Blood (Medical)-Serum < 3.0 mg/dL
[2022-06-03 09:13] LABS: Bacteria 0 SEEN /hpf (None Seen); Mucous, Urine 0 SEEN /hpf (<or=2+); Red Blood Cells-Urine 0 SEEN /hpf (0-5); Squamous Epithelial Cells - UA 0 SEEN /hpf (0-5); White Blood Cells 0 SEEN /hpf (0-5)
[2022-06-03 09:16] LABS: Color, Urine Yellow (Yellow); Glucose, Dipstick Normal (Normal); Ketone-Dipstick Negative (Negative); Leukocyte Esterase-Dipstick Negative /ul (Negative); Nitrite-Dipstick Negative (Negative); Occult Blood-Urine Negative /ul (Negative); Protein-Dipstick 15 mg/dl (Negative); Urine Bilirubin Dipstick Negative (Negative); Urine Clarity Clear (Clear); Urine Urobilinogen Normal (Normal)
[2022-06-03] MEDS: Ketorolac 15 MG/ML Vial IV (09:29)
[2022-06-03 09:31] LABS: Amphetamine Urine VISTA NEGATIVE (<1000 ng/mL); Barbiturate Urine VISTA NEGATIVE (< 200 ng/mL); Benzodiazepine Urine VISTA POSITIVE (< 200 ng/mL); Cocaine Urine VISTA NEGATIVE (< 300 ng/mL); Ecstacy Urine VISTA NEGATIVE (< 500 ng/mL); Methadone Urine VISTA NEGATIVE (< 300 ng/mL); PCP Urine VISTA NEGATIVE (< 25 ng/mL); THC Urine VISTA POSITIVE (< 50 ng/mL); Vista UDS pH Range 6
[2022-06-03 09:53] LABS: Reflex Troponin-HS? (from REC) Y
[2022-06-03 11:07] LABS: Troponin-I HS 7 pg/mL (3.0-78.0)
[2022-06-03 12:31] VITALS: BP 138/68; PULSE 48; RESP 18; O2SAT 99
== END 2022-06-03 12:39 | disposition home or self-care (01) ==
PROVIDERS: Emergency Provider Emergency Medicine; PCP Nurse Practitioner Family; Visit Provider Emergency Medicine
DX: R11.2 Nausea with vomiting, unspecified (principal); I10 Essential (primary) hypertension; R51.9 Headache, unspecified; R31.9 Hematuria, unspecified; E78.5 Hyperlipidemia, unspecified; F41.9 Anxiety disorder, unspecified; F12.90 Cannabis use, unspecified, uncomplicated; Z95.5 Presence of coronary angioplasty implant and graft; I25.2 Old myocardial infarction; Z79.899 Other long term (current) drug therapy
CPT/HCPCS: 70496; 70498; 71045; 80053; 80307; 81001; 82077; 82550; 84484; 85025; 87811; 93005; 99283; J7030; Q9967; A4216; J2405

== ENCOUNTER → 2022-06-28 | Outpatient (CLI) | payer BC, MEDICAID, SELFPAY ==
[2022-06-28 16:12] LABS: Cholesterol 106 mg/dL (200); High Density Lipoprotein 30 mg/dL; T4 Free Direct 0.81 ng/dL (0.76-1.46); Thyroid Stim Hormone (TSH) 3.68 uIU/mL (0.358-3.74); Triglycerides 212 mg/dL; Very Low Density Lipoprotein 42 mg/dL (5-40)
== END | disposition home or self-care (01) ==
LOC: BIMLAB 12:11
PROVIDERS: PCP Nurse Practitioner Family; Visit Provider Nurse Practitioner Family
DX: E03.8 Other specified hypothyroidism (principal); E78.5 Hyperlipidemia, unspecified; I10 Essential (primary) hypertension
CPT/HCPCS: 36415; 80061; 83036; 84439; 84443

== ENCOUNTER → 2022-07-05 | Outpatient (CLI) | payer BC, MEDICAID, SELFPAY ==
--- NOTE | 2022-07-05 15:43 | MRI_ITS ---
STUDY: MRI BRAIN WITH AND WITHOUT CONTRAST REASON FOR EXAM: Male, 26 years old patient with new onset migraine and vision changes. TECHNIQUE: Standardized multiplanar fat and water weighted pulse sequences were obtained. 22 mL of IV Clariscan was administered for the contrast portion of the examination. COMPARISON: None. FINDINGS: Normal size of the ventricles and extra-axial spaces for the patient''s age. Normal white matter tracts of the supratentorial brain. There is no evidence for recent intracranial ischemia or other cause of cytotoxic edema on diffusion weighted imaging (DWI). Normal T2* images of the brain without demonstrated susceptibility artifact. There is no demonstrated hemosiderin stain. Normal bilateral basal ganglia. Normal thalami. There is no extra-axial fluid accumulation. Normal flow voids within the major intracranial circulation suggesting patency by spin echo criteria. Normal venous enhancement. There is no enhancing intra-axial or extra-axial abnormality. Normal sella turcica, pituitary gland, infundibular stalk, optic chiasm and hypothalamus. Normal tectal plate and pineal gland. Normal midbrain, ligia and medulla. Normal cerebellum. Normal basal cisterns. Normal bilateral temporal bones. Normal bilateral internal auditory canals. No demonstrated orbital abnormality, within the constraints of a routine brain study. There is a small right maxillary mucous retention cyst. Normal calvarium and skull base. Normal visualized soft tissue structures. Normal visualized upper cervical spine. MRI/Brain W/WO Contrast IMPRESSION: Normal unenhanced and enhanced MRI of the brain. Electronically Signed: Fadia Thomson MD at 3:36 EDT ,
--- NOTE | 2022-07-05 15:43 | MRI_ITS ---
STUDY: MRA OF THE HEAD WITHOUT CONTRAST REASON FOR EXAM: Male, 26 years old. migraine, vision loss TECHNIQUE: 3-D [id number]-bo-qderwg (TOF) imaging was performed with MIPs. The study was performed unenhanced. COMPARISON: None. FINDINGS: Normal bilateral petrous carotid arteries. Normal right cavernous carotid artery with a normal supraclinoid bifurcation. Normal left cavernous carotid artery with a normal supraclinoid bifurcation. There is hypoplastic development of the right A1 segment of the anterior cerebral arteries with an atretic but intact artery. Normal left A1 segments of the anterior cerebral artery. Normal intact anterior communicating artery (ACOM). Normal bilateral A2 segments of the anterior cerebral arteries. Normal right M1 and M2 segments of the middle cerebral arteries, with a normal M1 bifurcation. Normal left M1 and M2 segments of the middle cerebral arteries, with a normal M1 bifurcation. Normal right posterior communicating artery (PCOM). Normal left posterior communicating artery (PCOM). Normal bilateral vertebral arteries. Normal basilar artery with a normal basilar bifurcation. The visualized bilateral superior cerebellar (SCA) arteries are normal. Normal bilateral P1, P2 and visualized P3 segments of the posterior cerebral arteries. There is no demonstrated aneurysm of the [place]. There is no major vessel occlusion or hemodynamically significant stenosis. There is no demonstrated abnormality of the visualized brain. MRI/MRA Head ONLY without Contrast IMPRESSION: Normal MRA of the head Electronically Signed: Brian Rodríguez MD at 17:27 EDT ,
== END | disposition home or self-care (01) ==
LOC: MRI 15:43
PROVIDERS: PCP Nurse Practitioner Family; Visit Provider Nurse Practitioner Family
DX: G43.909 Migraine, unspecified, not intractable, without status migrainosus (principal); H53.9 Unspecified visual disturbance
CPT/HCPCS: 70544; 70553; A9575

== ENCOUNTER → 2022-11-09 | Outpatient (CLI) | payer BC, MEDICAID, SELFPAY ==
--- NOTE | 2022-11-09 10:28 | RAD_ITS ---
STUDY: X-RAY - LEFT HAND, ATTENTION THIRD FINGER REASON FOR EXAM: Male, 26 years old. Left middle finger injury. Pain. TECHNIQUE: 3 view(s) of the finger were obtained. COMPARISON: None. FINDINGS: Normal metacarpal head. Normal metacarpophalangeal joint. Normal proximal phalanx. Normal middle phalanx. Normal distal phalanx. Normal proximal interphalangeal joint. Normal distal interphalangeal joint. Normal soft tissues. RAD/Finger(s) Min 2 Views IMPRESSION: Normal x-ray examination of the finger. Electronically Signed: Spencer Downing, at 11:50 EST ,
[2022-11-09 13:12] LABS: Anion Gap 5 (5-15); BUN 13 mg/dL (7-18); BUN/Creat Ratio 12.9 RATIO (10-20); Calcium,Total 9.3 mg/dL (8.5-10.1); Chloride 111 mmol/L (98-107); Cholesterol 129 mg/dL (200); Creatinine, Serum 1.01 mg/dL (0.70-1.30); EST Glomerular Filtration Rate 94 mL/min (>60); Est Glom Filt Rate - Afr Amer 113 mL/min (>60); Glucose 121 mg/dL (74-106); High Density Lipoprotein 53 mg/dL; Potassium 4.9 mmol/L (3.5-5.1); Sodium Level 142 mmol/L (136-145); Thyroid Stim Hormone (TSH) 0.95 uIU/mL (0.358-3.74); Triglycerides 178 mg/dL; Very Low Density Lipoprotein 36 mg/dL (5-40)
[2022-11-09 13:45] LABS: Hemoglobin A1c 5.6 % (3.8-5.6)
== END | disposition home or self-care (01) ==
PROVIDERS: PCP Nurse Practitioner Family; Referring Provider Nurse Practitioner Family; Visit Provider Nurse Practitioner Family
DX: S69.92XA Unspecified injury of left wrist, hand and finger(s), initial encounter (principal); E78.5 Hyperlipidemia, unspecified; E03.8 Other specified hypothyroidism; I10 Essential (primary) hypertension
CPT/HCPCS: 36415; 73140; 80048; 80061; 83036; 84443

== ENCOUNTER 2022-12-30 08:21 | Emergency (ER) | payer BC, MEDICAID, SELFPAY ==
[2022-12-30 08:22] VITALS: BP 140/86; PULSE 60; RESP 18; TEMP 36.2; O2SAT 99
--- NOTE | 2022-12-30 08:59 | CT_ITS ---
STUDY: CT ABDOMEN AND PELVIS WITH CONTRAST REASON FOR EXAM: Male, 27 years old. Rectal area abscess, ? ON LEFT extent/spread -- IV PO Contrast RADIATION DOSAGE (If Supplied By Facility): CTDIvol = ( 16.38 ) mGy, DLP = ( 1243.37 ) mGycm TECHNIQUE: Transaxial images were obtained from the dome of the diaphragm to the symphysis pubis without oral contrast. Oral and amp; IV Gastrografin and amp; 100mL Isovue-300 was administered. Sagittal and coronal images were reconstructed. Individualized dose optimization techniques were used for this CT. COMPARISON: Comparison is made with prior study June 03, 2020. FINDINGS: The visualized lung bases are unremarkable. The visualized portions of the heart are within normal limits. There is decreased attenuation of the liver consistent with steatosis. Normal gallbladder and extrahepatic biliary system. Normal spleen. Normal pancreas. Normal bilateral adrenal glands. Normal right kidney. Normal left kidney. Normal visualized stomach. Normal small intestine. Moderate amount of fecal material is seen throughout the colon. The appendix is visualized and appears normal. Normal abdominal aorta. Normal inferior vena cava. Normal retroperitoneum. Normal urinary bladder. Small benign-appearing lymph nodes in the inguinal regions. Increased markings in the subcutaneous fat in the medial aspects of both right and left buttocks. In the left side of the perineum, focal inflammatory process with a 1.7 cm x 1 cm low density suggestive of a tiny abscess. Normal osseous structures. CT/Abdomen/Pelvis WITH Contrast IMPRESSION: Findings suggestive of inflammatory change in the medial aspect of the perineum on the left side with a 1.7 cm x 1 cm focal area of decreased attenuation suggestive of a tiny abscess. Fatty infiltration of the liver. Electronically Signed: Jesu Atkinson MD at 10:50 EST ,
--- NOTE | 2022-12-30 09:05 | EX.ED.DYSGE1 ---
HPI History of Present Illness Chief Complaint: Abscess Informant: patient Narrative Narrative: Patient states he has noticed a swollen tender area on his lower buttock for about 2 or 3 days. He denies any trauma or injury to the area. He does have a history of surgery for pilonidal tract disease about 10 years ago at another hospital. He states this swelling is in a different area. Mild soreness with bowel movements but mostly sore when sitting down. No urinary symptoms. No fevers or chills. He is not diabetic and is not on any immunosuppressive drugs he tells me. He only takes lisinopril and Brilinta. Of note he does report having a heart attack about a year ago and that is why he is still on Brilinta. He did have a stent placed. He has not been having bleeding. [facility] Medical History Alcohol abuse Anxiety Anxiety and depression Depression Dysuria Easy bruising GERD (gastroesophageal reflux disease) History of drug abuse HTN (hypertension) Hyperlipidemia Hypertension Hypertension Injury of left middle finger Insomnia Insulin resistance Marijuana use Migraine Neck pain Paresthesia of right upper extremity Polysubstance abuse ST elevation (STEMI) myocardial infarction Subclinical hypothyroidism Visual changes Home Medications metoprolol tartrate 25 mg tablet 12.5 mg PO BID #30 tabs 03/03/22 [Rx Last Taken Unknown] aspirin 81 mg tablet,delayed release 81 mg PO BREAKFAST #90 tabs 03/07/22 [Rx Last Taken Unknown] atorvastatin 40 mg tablet 40 mg PO QHS #90 tabs 03/07/22 [Rx Last Taken Unknown] lisinopril 10 mg tablet 30 mg PO DAILY #270 tabs 03/07/22 [Rx Last Taken Unknown] ticagrelor 90 mg tablet (Brilinta) 90 mg PO BID #180 tabs 03/07/22 [Rx Last Taken Unknown] quetiapine 50 mg tablet 50 mg PO QHS Check with primary doctor #180 tabs 06/02/22 [Rx Last Taken Unknown] cyclobenzaprine 5 mg tablet 5 - 10 mg PO QHS PRN muscle spasm #30 tabs 06/22/22 [Rx Last Taken Unknown] sumatriptan succinate 25 mg tablet (Imitrex) See Rx Instructions PO .COMPLEX #14 tabs 06/22/22 [Rx Last Taken Unknown] metoclopramide HCl 10 mg tablet (Reglan) 10 mg PO QAC 08/17/22 [History Last Taken Unknown] sertraline 100 mg tablet 100 mg PO DAILY Check with primary doctor #90 tabs 08/18/22 [Rx Last Taken Unknown] fremanezumab-vfrm 225 mg/1.5 mL subcutaneous auto-injector (Ajovy) 225 mg subcut QMONTH 11/09/22 [History Last Taken Unknown] rimegepant 75 mg disintegrating tablet (Nurtec ODT) 75 mg PO ONCE PRN 11/09/22 [History Last Taken Unknown] buspirone 7.5 mg tablet 7.5 mg PO BID Check with primary doctor #180 tabs 12/15/22 [Rx Last Taken Unknown] amoxicillin 875 mg-potassium clavulanate 125 mg tablet 875 mg PO Q12H #20 TABLETS 12/30/22 [Rx Last Taken Unknown] doxycycline monohydrate 100 mg capsule 100 mg PO BID #20 CAPSULES 12/30/22 [Rx Last Taken Unknown] oxycodone-acetaminophen 5 mg-325 mg tablet 1 tab PO Q6H PRN PRN Pain 3 days #12 TABLETS 12/30/22 [Rx Last Taken Unknown] Allergy/AdvReac Type Severity Reaction Status Date / Time DARK CHOCOLATE Allergy Itching Uncoded 12/30/22 08:25 Family History Father Hypertension Mother No cardiac disease Other Anxiety and depression Breast cancer Cancer Diabetes Mental health problem Surgical History History of coronary artery stent placement (02/07/22) History of tonsillectomy Social History Smoking Status: Never smoker Tobacco: How many years used: 7 Smokeless tobacco user: chewing tobacco alcohol intake: former year quit: 2019 substance use type: former substance user Date of last use: 08/30/2020, marijuana and opiates what type of physical activity do you participate in: aerobics and weight training frequency: 3-4 times per week ROS ROS ED Constitutional Constitutional ED: Denies chills or fever(s) ENT ENT ED: Denies rhinorrhea or sore throat Cardiovascular Cardiovascular: Denies chest pain, palpitations or racing heartbeat Respiratory/Chest Respiratory/Chest: Denies cough Gastrointestinal Gastrointestinal: Reports other Details: See HPI ; Denies nausea or vomiting Genitourinary Genitourinary ED: Denies hematuria or urinary frequency Musculoskeletal Musculoskeletal: Denies back pain Integumentary Reports abscess Neurologic Neurologic: Denies headache(s) Psychiatric Psychiatric: Reports anxiety and depression Endocrine Endocrinology: Denies polydipsia or polyuria Hematologic/Lymphatic Hematologic/Lymphatic: Reports easy bleeding and easy bruising Allergic/Immunologic Allergic/Immunologic ED: Denies urticaria EXAM Physical Exam Narrative Exam Narrative: Patient is awake alert no acute distress. 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 HEENT shows moist mucous membranes. No trauma Eyes show no pallor Neck is supple Lungs are clear bilaterally Heart is regular without murmur. Abdomen soft nontender and has normal bowel sounds. It is not distended. Rectal, there is a little bit of tenderness with rectal exam down at the inferior portion. There is some fullness mild erythema and firmness between the rectum going toward the scrotum but closer to the rectum. This is more on the left side and not so much on the right. No drainage. No pointing. There is no tenderness above the rectum. Scrotum and testicles are normal and nontender. Skin no rashes other than as above. Neurologically he is awake alert and appropriate Const Vital Signs: 12/30/22 08:22 Temperature 97.1 F L Temperature Source Oral Pulse Rate 60 Respiratory Rate 18 Blood Pressure 140/86 H Blood Pressure Mean 104 Pulse Ox 99 Oxygen Delivery Method Room Air MDM MDM MDM Narrative Medical decision making narrative: I explained to the patient that given the area of involvement and tenderness at the rectum I do not feel comfortable just incising this here. He is also on Brilinta which increased risk of bleeding. I think we need to ascertain to the best of our ability how deep this abscess goes. I will do blood work as well as CT of the area. My independent interpretation of the patient's CT does show some inflammatory change with some suspected abscess. This is consistent with radiology report. Patient CBC shows normal white count but I am electrolytes show no acute process. Calcium is normal. Lactic acid is normal. My concern is that this is near the anus. He is also on Brilinta. For this reason I discussed the case with surgeon, Dr. Couch. She came down and saw the patient. She did bedside ultrasound and aspiration. Due to him being on Brilinta and the location we did not do incision and drainage. I will write for antibiotics and he will have follow-up with his surgeon. History & Record Review Additional record(s) reviewed:: Prior inpatient record Lab Data Attestation: I reviewed the patient's lab results. Labs: Laboratory Results - last 24 hr 12/30/22 12/30/22 12/30/22 09:15 09:15 09:15 WBC 8.6 RBC 4.49 L Hgb 13.1 Hct 40.5 MCV 90.2 MCH 29.2 MCHC 32.3 RDW Std Deviation 45.6 H RDW Coeff of Bessie 13.9 Plt Count 230 MPV 9.9 Immature Gran % (Auto) 0.500 Neut % (Auto) 58.2 Lymph % (Auto) 27.2 [place] % (Auto) 6.9 Eos % (Auto) 6.3 H Baso % (Auto) 0.9 Absolute Neuts (auto) 5.0 Absolute Lymphs (auto) 2.34 Nucleated RBC % 0 Sodium 141 Potassium 4.4 Chloride 107 Carbon Dioxide 25.0 Anion Gap 9 BUN 20 H Creatinine 1.11 Estim Creat Clear Calc 108.75 Est GFR (MDRD) Af Amer 101 Est GFR (MDRD) Non-Af 84 BUN/Creatinine Ratio 18.0 Glucose 96 Lactic Acid 1.1 Calcium 8.9 Radiography Diagnostic Testing: Clinical Impression(s) from Imaging Studies Abdomen/Pelvis CT 12/30/22 08:59 IMPRESSION: Findings suggestive of inflammatory change in the medial aspect of the perineum on the left side with a 1.7 cm x 1 cm focal area of decreased attenuation suggestive of a tiny abscess. Fatty infiltration of the liver. Electronically Signed: Jesu Atkinson MD at 10:50 EST , Discharge Plan Triage Chief Complaint: Abscess ED Provider: Jr Silva Dx/Rx/DC Orders Clinical Impression: Abscess of perineum, Coagulopathy Instructions: ED Abscess Incision And Drainage Prescriptions: New oxycodone-acetaminophen [oxycodone-acetaminophen] 5-325 mg tablet 1 tab PO Q6H PRN PRN (Reason: Pain) 3 Days Qty: 12 0RF doxycycline monohydrate 100 mg capsule 100 mg PO BID Qty: 20 0RF amoxicillin-pot clavulanate [amoxicillin-pot clavulanate] 875-125 mg tablet 875 mg PO Q12H Qty: 20 0RF No Action quetiapine 50 mg tablet 50 mg PO QHS Qty: 180 1RF sumatriptan succinate [Imitrex] 25 mg tablet See Rx Instructions PO .COMPLEX Qty: 14 1RF Rx Instructions: take 1 tab at onset of headache; if no relief may repeat 1 tab after at least 2 hrs; max = 4 tabs/24 hr PO cyclobenzaprine 5 mg tablet 5 - 10 mg PO QHS PRN (Reason: muscle spasm) Qty: 30 0RF metoclopramide HCl [Reglan] 10 mg tablet 10 mg PO QAC Rx Instructions: administer 30 minutes before meals Ajovy Autoinjector 225 mg/1.5 mL auto-injector 225 mg subcut QMONTH Nurtec ODT 75 mg tablet,disintegrating 75 mg PO ONCE PRN Rx Instructions: as a single dose metoprolol tartrate 25 mg tablet 12.5 mg PO BID Qty: 30 11RF aspirin 81 mg tablet,delayed release (DR/EC) 81 mg PO BREAKFAST Qty: 90 3RF atorvastatin 40 mg tablet 40 mg PO QHS Qty: 90 3RF lisinopril 10 mg tablet 30 mg PO DAILY Qty: 270 3RF Brilinta 90 mg tablet 90 mg PO BID Qty: 180 3RF sertraline 100 mg tablet 100 mg PO DAILY Qty: 90 2RF buspirone 7.5 mg tablet 7.5 mg PO BID Qty: 180 3RF Primary Care Provider: Mohinder Moore NP Referrals: Yenifer Couch MD [Med Staff - Active Staff] - Keep Prabhu appointment Mohinder Moore NP, [employer] [Primary Care Provider] - Disposition Disposition: Home, Self Care
[2022-12-30] MEDS: 0.9% Normal Saline 1,000 ML 1000 ML IV (09:24)
[2022-12-30] MEDS: Ondansetron 4 MG/2 ML Vial IV (09:24)
[2022-12-30] MEDS: Morphine 4 MG/ML Syringe IV ×2 (09:24→11:56)
[2022-12-30 09:28] LABS: Absolute Lymphocyte Count 2.34 X10^3/uL (0.83-4.51); Basophil# 0.08 X10^3/uL; Basophil% 0.9 % (0-1); Eosinophil# 0.54 X10^3/uL; Eosinophils% 6.3 % (0-5); Hematocrit 40.5 % (40-54); Hemoglobin 13.1 g/dL (13.0-16.5); Lymphocyte # 2.34 X10^3/ul (0.83-4.51); Lymphocyte % 27.2 % (19-41); Mean Corp Hgb Conc 32.3 g/dL (32-36); Mean Corpuscular Hgb 29.2 pg (27.0-32.0); Mean Corpuscular Volume 90.2 fL (80-94); Mean Platelet Vol. 9.9 fl (6.2-12.0); Monocyte# 0.59 X10^3/uL; Monocyte% 6.9 % (0-10); NRBC Flagged by Analyzer 0 % (0-5); Neutrophil % 58.2 % (47-70); Platelet Count 230 K/mm3 (150-450); RBC Distribution Width CV 13.9 % (11.6-14.6); RBC Distribution Width SD 45.6 fl (35.1-43.9); Red Blood Count 4.49 M/mm3 (4.6-6.2); White Blood Count 8.6 K/mm3 (4.4-11.0)
[2022-12-30 09:39] LABS: Anion Gap 9 (5-15); BUN 20 mg/dL (7-18); Calcium,Total 8.9 mg/dL (8.5-10.1); Chloride 107 mmol/L (98-107); Creatinine, Serum 1.11 mg/dL (0.70-1.30); EST Glomerular Filtration Rate 84 mL/min (>60); Est Glom Filt Rate - Afr Amer 101 mL/min (>60); Estimated Creatinine Clearance 108.75 ml/min; Glucose 96 mg/dL (74-106); Potassium 4.4 mmol/L (3.5-5.1); Sodium Level 141 mmol/L (136-145)
[2022-12-30 09:52] LABS: Lactic Acid 1.1 mmol/L (0.4-1.9)
[2022-12-30] MEDS: Lidocaine 1% /Epi 1:100 (20ml) 20 ML Vial INFILT (12:06)
--- NOTE | 2022-12-30 12:06 | ED.RN ---
aspiration of abscess by Dr. Couch
--- NOTE | 2022-12-30 12:33 | CON.PCM.SX_ITS ---
Assessment & Plan Assessment/Plan (1) Abscess of perineum: (2) Coagulopathy: (3) History of coronary artery stent placement: PLAN: Plan We will plan for aspiration this area is able to be seen in her bedside u ltrasound. Patient is on Brilinta-- I would not plan on any incision and drainage. Patient has been on his Brilinta into till February 2023. Was able to aspirate some purulent fluid and sent for culture. Patient will be given pain meds per Dr. Silva the ER physician as well as Augmentin and doxycycline. Will follow culture. Patient will follow-up with me in the office next week. Yenifer Couch M.D. Pager: [phone] [facility] [address] [place] [address], [facility], [address] [place] [address] Office: [phone] HPI Consult Data Date of Consult: 12/30/22 HPI Narrative HPI Narrative: ELBA ONTIVEROS, is a 27 M who presents [facility] Medical History Alcohol abuse Anxiety Anxiety and depression Depression Dysuria Easy bruising GERD (gastroesophageal reflux disease) History of drug abuse HTN (hypertension) Hyperlipidemia Hypertension Hypertension Injury of left middle finger Insomnia
--- NOTE | 2022-12-30 12:33 | EX.PCM.CON.S ---
Assessment & Plan Assessment/Plan (1) Abscess of perineum: (2) Coagulopathy: (3) History of coronary artery stent placement: PLAN: Plan We will plan for aspiration this area is able to be seen in her bedside ultrasound. Patient is on Brilinta-- I would not plan on any incision and drainage. Patient has been on his Brilinta into till February 2023. Was able to aspirate some purulent fluid and sent for culture. Patient will be given pain meds per Dr. Silva the ER physician as well as Augmentin and doxycycline. Will follow culture. Patient will follow-up with me in the office next week. Yenifer Couch M.D. Pager: [phone] [facility] [address] [place] [address], [facility], [address] [place] [address] Office: [phone] HPI Consult Data Date of Consult: 12/30/22 HPI Narrative HPI Narrative: ELBA ONTIVEROS, is a 27 M who presents [facility] Medical History Alcohol abuse Anxiety Anxiety and depression Depression Dysuria Easy bruising GERD (gastroesophageal reflux disease) History of drug abuse HTN (hypertension) Hyperlipidemia Hypertension Hypertension Injury of left middle finger Insomnia Insulin resistance Marijuana use Migraine Neck pain Paresthesia of right upper extremity Polysubstance abuse ST elevation (STEMI) myocardial infarction Subclinical hypothyroidism Visual changes Home Medications metoprolol tartrate 25 mg tablet 12.5 mg PO BID #30 tabs 03/03/22 [Rx Last Taken Unknown] aspirin 81 mg tablet,delayed release 81 mg PO BREAKFAST #90 tabs 03/07/22 [Rx Last Taken Unknown] atorvastatin 40 mg tablet 40 mg PO QHS #90 tabs 03/07/22 [Rx Last Taken Unknown] lisinopril 10 mg tablet 30 mg PO DAILY #270 tabs 03/07/22 [Rx Last Taken Unknown] ticagrelor 90 mg tablet (Brilinta) 90 mg PO BID #180 tabs 03/07/22 [Rx Last Taken Unknown] quetiapine 50 mg tablet 50 mg PO QHS Check with primary doctor #180 tabs 06/02/22 [Rx Last Taken Unknown] cyclobenzaprine 5 mg tablet 5 - 10 mg PO QHS PRN muscle spasm #30 tabs 06/22/22 [Rx Last Taken Unknown] sumatriptan succinate 25 mg tablet (Imitrex) See Rx Instructions PO .COMPLEX #14 tabs 06/22/22 [Rx Last Taken Unknown] metoclopramide HCl 10 mg tablet (Reglan) 10 mg PO QAC 08/17/22 [History Last Taken Unknown] sertraline 100 mg tablet 100 mg PO DAILY Check with primary doctor #90 tabs 08/18/22 [Rx Last Taken Unknown] fremanezumab-vfrm 225 mg/1.5 mL subcutaneous auto-injector (Ajovy) 225 mg subcut QMONTH 11/09/22 [History Last Taken Unknown] rimegepant 75 mg disintegrating tablet (Nurtec ODT) 75 mg PO ONCE PRN 11/09/22 [History Last Taken Unknown] buspirone 7.5 mg tablet 7.5 mg PO BID Check with primary doctor #180 tabs 12/15/22 [Rx Last Taken Unknown] amoxicillin 875 mg-potassium clavulanate 125 mg tablet 875 mg PO Q12H #20 TABLETS 12/30/22 [Rx Last Taken Unknown] doxycycline monohydrate 100 mg capsule 100 mg PO BID #20 CAPSULES 12/30/22 [Rx Last Taken Unknown] oxycodone-acetaminophen 5 mg-325 mg tablet 1 tab PO Q6H PRN PRN Pain 3 days #12 TABLETS 12/30/22 [Rx Last Taken Unknown] Allergy/AdvReac Type Severity Reaction Status Date / Time DARK CHOCOLATE Allergy Itching Uncoded 12/30/22 08:25 Family History Father Hypertension Mother No cardiac disease Other Anxiety and depression Breast cancer Cancer Diabetes Mental health problem Surgical History History of coronary artery stent placement (02/07/22) History of tonsillectomy Social History Smoking Status: Never smoker Tobacco: How many years used: 7 Smokeless tobacco user: chewing tobacco alcohol intake: former year quit: 2019 substance use type: former substance user Date of last use: 08/30/2020, marijuana and opiates what type of physical activity do you participate in: aerobics and weight training frequency: 3-4 times per week Lab / Micro Data Result Diagrams: 12/30/22 09:15 12/30/22 09:15 Labs: Laboratory Results - last 24 hr 12/30/22 09:15: WBC 8.6, RBC 4.49 L, Hgb 13.1, Hct 40.5, MCV 90.2, MCH 29.2, MCHC 32.3, RDW Std Deviation 45.6 H, RDW Coeff of Bessie 13.9, Plt Count 230, MPV 9.9, Immature Gran % (Auto) 0.500, Neut % (Auto) 58.2, Lymph % (Auto) 27.2, [place] % (Auto) 6.9, Eos % (Auto) 6.3 H, Baso % (Auto) 0.9, Absolute Neuts (auto) 5.0, Absolute Lymphs (auto) 2.34, Nucleated RBC % 0 12/30/22 09:15: Sodium 141, Potassium 4.4, Chloride 107, Carbon Dioxide 25.0, Anion Gap 9, BUN 20 H, Creatinine 1.11, Estim Creat Clear Calc 108.75, Est GFR (MDRD) Af Amer 101, Est GFR (MDRD) Non-Af 84, BUN/Creatinine Ratio 18.0, Glucose 96, Calcium 8.9 12/30/22 09:15: Lactic Acid 1.1 Radiology Impression Abdomen/Pelvis CT 12/30/22 08:59 IMPRESSION: Findings suggestive of inflammatory change in the medial aspect of the perineum on the left side with a 1.7 cm x 1 cm focal area of decreased attenuation suggestive of a tiny abscess. Fatty infiltration of the liver. Electronically Signed: Jesu Atkinson MD at 10:50 EST ,
--- NOTE | 2022-12-30 12:33 | PCM.OPRPT ---
Report of Operation Date of Procedure: 12/30/22 Pre-Operative Diagnosis: Perineal abscess Post-Operative Diagnosis: Same, infected sebaceous cyst Surgery/Procedure Performed:: Aspiration of infected sebaceous cyst Surgeon: Yenifer Couch Type of Anesthesia: Local Estimated Blood Loss (mL): < 5 cc Description of Procedure: After consent was obtained. Patient's left perineum was prepped draped usual sterile fashion with Betadine. Bedside ultrasound was used to identify the abscess/fluid collection. Local anesthesia of 1% lidocaine with epinephrine was infiltrated in this area. 18-gauge needle was placed and aspiration of about 1 cc of purulent material, there is some thicker material unable to be aspirated. Fluid was sent for culture. This was more consistent with a possible epidermal inclusion cyst may have become infected. Needle site dressed with 4 x 4/pressure dressing with tape. Patient tolerated procedure well.
== END 2022-12-30 12:50 | disposition home or self-care (01) ==
PROVIDERS: Emergency Provider Emergency Medicine; PCP Nurse Practitioner Family; Visit Provider Emergency Medicine
DX: L02.215 Cutaneous abscess of perineum (principal); I10 Essential (primary) hypertension; E78.5 Hyperlipidemia, unspecified; Z79.82 Long term (current) use of aspirin; Z95.5 Presence of coronary angioplasty implant and graft; F12.90 Cannabis use, unspecified, uncomplicated; I25.2 Old myocardial infarction
CPT/HCPCS: 49406; 74177; 80048; 83605; 85025; 87070; 87075; 87077; 87186; 87205; 96361; 96374; 96375; 96376; 99283; Q9967; A4216; J2405

== ENCOUNTER 2023-05-05 08:16 | Emergency (ER) | payer MEDICAID, SELFPAY ==
[2023-05-05 08:17] VITALS: BP 149/103; PULSE 94; RESP 14; TEMP 36.1; O2SAT 97; BMI 28.6
--- NOTE | 2023-05-05 08:57 | CT_ITS ---
STUDY: CT PELVIS WITH CONTRAST REASON FOR EXAM: Male, 27 years old. Perineal abscess, swelling RADIATION DOSAGE (If Supplied By Facility): CTDIvol = ( 28.21 ) mGy, DLP = ( 1222.54 ) mGycm TECHNIQUE: Transaxial imaging of the pelvis was performed without oral contrast. IV 100mL Isovue-300 was administered intravenously. Individualized dose optimization techniques were used for this CT. COMPARISON: Comparison is made with prior examination dated December 30, 2022. FINDINGS: There is evidence of a subcutaneous edema in the medial aspect of the proximal left buttock and perineum. This has progressed as compared to prior study. There is also evidence of a 2.3 cm x 1.3 cm hypodensity within the soft tissue prominence suggestive of a localized abscess. This has increased in size as compared to prior study. Normal urinary bladder. Normal visualized small intestine. Normal visualized colon. There is no pelvic fluid. There is no pelvic lymphadenopathy or mass lesion. Normal visualized pelvic arteries. Normal abdominal wall. Normal osseous structures. CT/Pelvis WITH IV Contrast IMPRESSION: Findings suggestive of viral encephalitis of the region of the perineum and proximal left gluteal region with a 1.3 cm x 2.3 cm abscess within it. This has progressed as compared to prior study Electronically Signed: Jesu Atkinson MD at 10:23 EDT ,
--- NOTE | 2023-05-05 09:00 | EX.ED.DYSGE1 ---
HPI History of Present Illness Chief Complaint: Wound Detail of Chief Complaint: Pain and swelling to perineum Informant: patient Narrative Narrative: Patient presents with pain and swelling to the perineum that started 4 days ago. He had a similar episode in the past that required incision and drainage but he states that they were unable to get any pus out. Patient denies fever or chills or sweats. [facility] Medical History Alcohol abuse Anxiety Anxiety and depression Depression Dysuria Easy bruising GERD (gastroesophageal reflux disease) History of drug abuse HTN (hypertension) Hyperlipidemia Hypertension Hypertension Injury of left middle finger Insomnia Insulin resistance Marijuana use Migraine Neck pain Paresthesia of right upper extremity Polysubstance abuse ST elevation (STEMI) myocardial infarction Subclinical hypothyroidism Visual changes Home Medications metoprolol tartrate 25 mg tablet 12.5 mg (1/2 x 25 mg) PO BID #30 tabs 03/03/22 [Rx Last Taken Unknown] aspirin 81 mg tablet,delayed release 81 mg PO BREAKFAST #90 tabs 03/07/22 [Rx Last Taken Unknown] atorvastatin 40 mg tablet 40 mg PO QHS #90 tabs 03/07/22 [Rx Last Taken Unknown] lisinopril 10 mg tablet 30 mg (3 x 10 mg) PO DAILY #270 tabs 03/07/22 [Rx Last Taken Unknown] ticagrelor 90 mg tablet (Brilinta) 90 mg PO BID #180 tabs 03/07/22 [Rx Last Taken Unknown] quetiapine 50 mg tablet 50 mg PO QHS Check with primary doctor #180 tabs 06/02/22 [Rx Last Taken Unknown] cyclobenzaprine 5 mg tablet 5 - 10 mg (1 - 2 x 5 mg) PO QHS PRN muscle spasm #30 tabs 06/22/22 [Rx Last Taken Unknown] sumatriptan succinate 25 mg tablet (Imitrex) See Rx Instructions PO .COMPLEX #14 tabs 06/22/22 [Rx Last Taken Unknown] metoclopramide HCl 10 mg tablet (Reglan) 10 mg PO QAC 08/17/22 [History Last Taken Unknown] sertraline 100 mg tablet 100 mg PO DAILY Check with primary doctor #90 tabs 08/18/22 [Rx Last Taken Unknown] fremanezumab-vfrm 225 mg/1.5 mL subcutaneous auto-injector (Ajovy) 225 mg subcut QMONTH 11/09/22 [History Last Taken Unknown] rimegepant 75 mg disintegrating tablet (Nurtec ODT) 75 mg PO ONCE PRN 11/09/22 [History Last Taken Unknown] buspirone 7.5 mg tablet 7.5 mg PO BID Check with primary doctor #180 tabs 12/15/22 [Rx Last Taken Unknown] amoxicillin 875 mg-potassium clavulanate 125 mg tablet 875 mg (0.875 x 875-125 mg) PO Q12H #20 TABLETS 12/30/22 [Rx Last Taken Unknown] doxycycline monohydrate 100 mg capsule 100 mg PO BID #20 CAPSULES 12/30/22 [Rx Last Taken Unknown] oxycodone-acetaminophen 5 mg-325 mg tablet 1 tab PO Q6H PRN PRN Pain 3 days #12 TABLETS 12/30/22 [Rx Last Taken Unknown] cephalexin 500 mg capsule 500 mg PO Q6 #40 CAPSULES 05/05/23 [Rx Last Taken Unknown] sulfamethoxazole 800 mg-trimethoprim 160 mg tablet (Bactrim DS) 1 tab PO BID #20 tabs 05/05/23 [Rx Last Taken Unknown] Allergy/AdvReac Type Severity Reaction Status Date / Time Food Allergies: Uncoded Allergy Itching Verified 05/05/23 08:17 DARK CHOCOLATE Allergy Itching Uncoded 12/30/22 08:25 Family History Father Hypertension Mother No cardiac disease Other Anxiety and depression Breast cancer Cancer Diabetes Mental health problem Surgical History History of coronary artery stent placement (02/07/22) History of tonsillectomy Social History Smoking Status: Never smoker Tobacco: How many years used: 7 Smokeless tobacco user: chewing tobacco alcohol intake: former year quit: 2019 substance use type: former substance user Date of last use: 08/30/2020, marijuana and opiates what type of physical activity do you participate in: aerobics and weight training frequency: 3-4 times per week ROS ROS ED Review of Systems ROS Unobtainable: other Constitutional Constitutional ED: Reports lethargy; Denies chills, fever(s), sweats or weight loss Eyes Eyes: Denies blurry vision, change in vision or diplopia ENT ENT ED: Denies rhinorrhea or sore throat Cardiovascular Cardiovascular: Denies chest pain, orthopnea or racing heartbeat Respiratory/Chest Respiratory/Chest: Denies cough, dyspnea, dyspnea on exertion, orthopnea or sputum Gastrointestinal Gastrointestinal: Denies abdominal pain, diarrhea, nausea or vomiting Genitourinary Genitourinary ED: Reports other Details: Pain and swelling to perineum ; Denies dysuria, hematuria or urinary frequency Musculoskeletal Musculoskeletal: Denies arthralgias, back pain, myalgias or neck pain Integumentary Denies abscess, Abrasions or rash Neurologic Neurologic: Denies headache(s) or weakness Psychiatric Psychiatric: Denies anxiety, depression or suicidal thoughts Endocrine Endocrinology: Denies polydipsia, polyphagia or polyuria Hematologic/Lymphatic Hematologic/Lymphatic: Denies easy bleeding, easy bruising or lymphadenopathy Allergic/Immunologic Allergic/Immunologic ED: Denies mouth swelling, tongue swelling or urticaria EXAM Physical Exam Const Vital Signs: 05/05/23 08:17 05/05/23 11:17 05/05/23 12:14 Temperature 97 F L 98.3 F Temperature Source Temporal Oral Pulse Rate 94 49 L 52 L Respiratory Rate 14 18 18 Blood Pressure 149/103 H 143/91 H 138/82 H Blood Pressure Mean 118 108 100 Pulse Ox 97 98 98 Oxygen Delivery Method Room Air Room Air Room Air Positive well nourished and well developed General Appearance ED: well developed and NAD HEENT Reports TM's clear and moist mucous membranes normocephalic and atraumatic; Negative for trauma or tenderness Tympanic Membrane ED: Yes TM's clear Eyes PERRL and EOMs intact bilaterally General Eye ED: Negative for pale conjunctiva or scleral icterus Neck no lymphadenopathy, supple and no JVD General: Negative for tenderness Chest Wall inspection of chest normal and palpation of chest normal Chest: Negative for tenderness Resp normal respiratory effort and clear to auscultation bilaterally Effort and Inspection: Negative for respiratory distress or pain with movement Auscultation: Negative for rhonchi, wheezes or diminished lung sounds Cardio regular rate, regular rhythm, S1 normal heart sound, S2 normal heart sound and no murmurs Peripheral Pulses: pulses 2+ throughout GI normal to inspection, nondistended, normoactive bowel sounds, soft to palpation, non-tender, non-distended and no masses Narrative: Patient has an area of soft tissue swelling and erythema and slight fluctuance between the anus and the scrotum on the left side. Area tender to palpation. Back/Spine no CVA tenderness and no thoracic nor lumbar tenderness Extremity normal to inspection General Extremety ED: Negative for edema General Extremity: Negative for edema Neuro oriented x3, CN's II-XII intact bilaterally, no sensory deficits noted and gait normal Sensorium / Orientation: awake, alert, oriented to person, oriented to place and oriented to time Motor Exam: strength 5/5 throughout and strength abnormal Psych mental status grossly normal Skin no rashes or lesions noted and no wounds MDM MDM MDM Narrative Medical decision making narrative: Patient presents with I suspect clinically as a perineal abscess. Patient had similar episode about 6 months ago with attempted I&D but they were not able to obtain much fluid from the area and patient states symptoms improved with antibiotics but did not completely resolved. Patient had an IV line established that showed a white count 11.1. CT scan of the pelvis obtained which did show a perineal abscess that measured just over 2 cm. Patient was consented for incision and drainage of suspected abscess. Patient had incision and drainage performed with large amount of purulent debris expressed that was free-flowing. Patient will be started on Keflex and Bactrim. He will be referred to general surgery for follow-up. Lab Data Labs: Laboratory Results - last 24 hr 05/05/23 09:17 WBC 11.1 H RBC 5.00 Hgb 14.8 Hct 45.2 MCV 90.4 MCH 29.6 MCHC 32.7 RDW Std Deviation 49.6 H RDW Coeff of Bessie 14.9 H Plt Count 194 MPV 10.6 Immature Gran % (Auto) 0.300 Neut % (Auto) 73.2 H Lymph % (Auto) 16.0 L [place] % (Auto) 6.8 Eos % (Auto) 3.0 Baso % (Auto) 0.7 Absolute Neuts (auto) 8.1 H Absolute Lymphs (auto) 1.77 Nucleated RBC % 0 Sodium 140 Potassium 4.2 Chloride 110 H Carbon Dioxide 25.0 Anion Gap 5 BUN 8 Creatinine 0.96 Estim Creat Clear Calc 125.74 Est GFR (MDRD) Af Amer 119 Est GFR (MDRD) Non-Af 98 BUN/Creatinine Ratio 8.3 L Glucose 119 H Calcium 8.5 Radiography Diagnostic Testing: Clinical Impression(s) from Imaging Studies Pelvis CT 05/05/23 08:57 IMPRESSION: Findings suggestive of viral encephalitis of the region of the perineum and proximal left gluteal region with a 1.3 cm x 2.3 cm abscess within it. This has progressed as compared to prior study Electronically Signed: Jesu Atkinson MD at 10:23 EDT , Procedures Other Procedures Procedure(s): Incision and drainage of perineal abscess-discussed anesthetic versus no anesthetic locally and patient would just prefer no anesthetic. Area the skin was cleansed with Shur-Clens. Using an 11 blade a 2 cm incision was made into the most fluctuant portion of the suspected abscess and large amount of free-flowing purulent foul-smelling debris was expressed. I continue to express the wound and irrigated the cavity with saline. Clean dressing was applied. Patient tolerated procedure well. Discharge Plan Triage Chief Complaint: Wound ED Provider: Janae Zamora Dx/Rx/DC Orders Clinical Impression: Abscess of perineum Instructions: ED Abscess Incision And Drainage Prescriptions: New cephalexin [cephalexin] 500 mg capsule 500 mg PO Q6 Qty: 40 0RF sulfamethoxazole-trimethoprim [Bactrim DS] 800-160 mg tablet 1 tab PO BID Qty: 20 0RF No Action quetiapine 50 mg tablet 50 mg PO QHS Qty: 180 1RF sumatriptan succinate [Imitrex] 25 mg tablet See Rx Instructions PO .COMPLEX Qty: 14 1RF Rx Instructions: take 1 tab at onset of headache; if no relief may repeat 1 tab after at least 2 hrs; max = 4 tabs/24 hr PO cyclobenzaprine 5 mg tablet 5 - 10 mg PO QHS PRN (Reason: muscle spasm) Qty: 30 0RF metoclopramide HCl [Reglan] 10 mg tablet 10 mg PO QAC Rx Instructions: administer 30 minutes before meals Ajovy Autoinjector 225 mg/1.5 mL auto-injector 225 mg subcut QMONTH Nurtec ODT 75 mg tablet,disintegrating 75 mg PO ONCE PRN Rx Instructions: as a single dose oxycodone-acetaminophen [oxycodone-acetaminophen] 5-325 mg tablet 1 tab PO Q6H PRN PRN (Reason: Pain) 3 Days Qty: 12 0RF doxycycline monohydrate 100 mg capsule 100 mg PO BID Qty: 20 0RF amoxicillin-pot clavulanate [amoxicillin-pot clavulanate] 875-125 mg tablet 875 mg PO Q12H Qty: 20 0RF metoprolol tartrate 25 mg tablet 12.5 mg PO BID Qty: 30 11RF aspirin 81 mg tablet,delayed release (DR/EC) 81 mg PO BREAKFAST Qty: 90 3RF atorvastatin 40 mg tablet 40 mg PO QHS Qty: 90 3RF lisinopril 10 mg tablet 30 mg PO DAILY Qty: 270 3RF Brilinta 90 mg tablet 90 mg PO BID Qty: 180 3RF sertraline 100 mg tablet 100 mg PO DAILY Qty: 90 2RF buspirone 7.5 mg tablet 7.5 mg PO BID Qty: 180 3RF Primary Care Provider: Mohinder Moore NP Referrals: Jigar Mccauley MD [Med Staff - Active Staff] - 3-5 Days Mohinder Moore NP, [facility] [Primary Care Provider] - Disposition Disposition: Home, Self Care Discharge Date/Time: 05/05/23 12:15
[2023-05-05] MEDS: 0.9% Normal Saline 1,000 ML 150 ML IV (09:15)
[2023-05-05 09:30] LABS: Absolute Lymphocyte Count 1.77 X10^3/uL (0.83-4.51); Absolute Neutrophil Count 8.1 X10^3/uL (2.0-7.7); Basophil# 0.08 X10^3/uL; Basophil% 0.7 % (0-1); Eosinophil# 0.33 X10^3/uL; Hematocrit 45.2 % (40-54); Hemoglobin 14.8 g/dL (13.0-16.5); Lymphocyte # 1.77 X10^3/ul (0.83-4.51); Mean Corp Hgb Conc 32.7 g/dL (32-36); Mean Corpuscular Hgb 29.6 pg (27.0-32.0); Mean Corpuscular Volume 90.4 fL (80-94); Mean Platelet Vol. 10.6 fl (6.2-12.0); Monocyte# 0.75 X10^3/uL; Monocyte% 6.8 % (0-10); NRBC Flagged by Analyzer 0 % (0-5); Neutrophil # 8.11 X10^3/uL (2.7-7.7); Neutrophil % 73.2 % (47-70); Platelet Count 194 K/mm3 (150-450); RBC Distribution Width CV 14.9 % (11.6-14.6); RBC Distribution Width SD 49.6 fl (35.1-43.9); White Blood Count 11.1 K/mm3 (4.4-11.0)
[2023-05-05 09:39] LABS: Anion Gap 5 (5-15); BUN 8 mg/dL (7-18); BUN/Creat Ratio 8.3 RATIO (10-20); Calcium,Total 8.5 mg/dL (8.5-10.1); Chloride 110 mmol/L (98-107); Creatinine, Serum 0.96 mg/dL (0.70-1.30); EST Glomerular Filtration Rate 98 mL/min (>60); Est Glom Filt Rate - Afr Amer 119 mL/min (>60); Estimated Creatinine Clearance 125.74 ml/min; Glucose 119 mg/dL (74-106); Potassium 4.2 mmol/L (3.5-5.1); Sodium Level 140 mmol/L (136-145)
[2023-05-05] MEDS: Morphine 4 MG/ML Syringe IV (10:29)
[2023-05-05] MEDS: Ondansetron 4 MG/2 ML Vial IV (10:29)
[2023-05-05 11:17] VITALS: BP 143/91; PULSE 49; RESP 18; TEMP 36.8; O2SAT 98
[2023-05-05] MEDS: Cephalexin 250 MG Capsule 500 MG PO (12:09)
[2023-05-05] MEDS: Smz/Tmp Ds Tablet 1 TABLET PO (12:09)
[2023-05-05 12:14] VITALS: BP 138/82; PULSE 52; RESP 18; O2SAT 98
== END 2023-05-05 12:15 | disposition home or self-care (01) ==
PROVIDERS: Emergency Provider Emergency Medicine; PCP Nurse Practitioner Family; Referring Provider Emergency Medicine; Visit Provider Emergency Medicine
DX: L02.215 Cutaneous abscess of perineum (principal); E78.5 Hyperlipidemia, unspecified; I10 Essential (primary) hypertension; Z79.899 Other long term (current) drug therapy; Z79.82 Long term (current) use of aspirin; I25.2 Old myocardial infarction; I5A Non-ischemic myocardial injury (non-traumatic); F41.8 Other specified anxiety disorders; G43.909 Migraine, unspecified, not intractable, without status migrainosus; K21.9 Gastro-esophageal reflux disease without esophagitis; Z95.5 Presence of coronary angioplasty implant and graft
CPT/HCPCS: 10060; 72193; 80048; 85025; 99284; J7030; Q9967; A4216; J2405

== ENCOUNTER 2023-06-05 16:39 | Emergency (ER) | payer MEDICAID, SELFPAY ==
[2023-06-05 16:41] VITALS: BP 178/115; PULSE 119; RESP 22; TEMP 36.4; O2SAT 99; BMI 29.1
[2023-06-05 16:48] VITALS: PULSE 105
--- NOTE | 2023-06-05 17:09 | CT_ITS ---
STUDY: CTA CHEST REASON FOR EXAM: Male, 27 years old. Chest pain R/O Pulmonary Embolism RADIATION DOSAGE (If Supplied By Facility): CTDIvol = ( 12.18 ) mGy, DLP = ( 575.23 ) mGycm TECHNIQUE: The examination was performed with the intravenous administration of IV 100mL [id number]-370. Post-processing of the angiographic images was performed, with multiplanar reformation and 3D reconstruction. Individualized dose optimization techniques were used for this CT. COMPARISON: None. FINDINGS: Normal enhancement of the main pulmonary artery and right and left pulmonary arteries. Normal enhancement of the bilateral peripheral pulmonary arteries. There is no demonstrated pulmonary embolism. Normal thoracic aorta and visualized great vessels. There is no demonstrated aortic dissection. There are coronary artery endovascular stent(s) present. Normal mediastinum. Normal hilar regions. Normal visualized trachea and bronchi. The lungs are well expanded. Normal pulmonary parenchyma. Normal pleura. Normal chest wall structures. Normal osseous structures. Normal visualized upper abdomen. CT/CTA Chest W/WO Contrast IMPRESSION: Normal CTA chest examination, without a demonstrated pulmonary embolism or arterial dissection. Electronically Signed: Kedar Aleman MD at 19:30 EDT ,
--- NOTE | 2023-06-05 17:11 | ED.VIS.CHEST ---
HPI History of Present Illness Chief Complaint: Chest Pain Informant: patient and family Narrative Narrative: 27-year-old male presented to the emergency room with left chest/back pain. Patient states that approximately 1.5 weeks ago he fell 20 feet grabbing onto something and swinging himself into an object and then onto the ground. For 3 days he had soreness in the left mid rib area. This eventually went away but he continued to have a nonproductive cough. Patient states that cough seemed worse last night. Today he noticed discomfort but it was not until about 2 hours before this examination that he developed significant pain. He notes that this pain has been constant and he describes a sharp stabbing pain starting in his xiphoid region extending left underneath the breast along the rib into the left scapular area. He notes that breathing and movement make it worse. If he remains at rest it is better. If he holds onto the area when he moves or sneezes it feels better. He notes that he had prior PA a little over 1 year ago. This was a LAD lesion. He has not been on any blood thinners for the past several months. He is a non-smoker. No vomiting. It feels different than his PA. He lifts heavy objects as a blemish remover. He denies any rashes. No hemoptysis. [facility] Medical History Alcohol abuse Anxiety Anxiety and depression Depression Dysuria Easy bruising GERD (gastroesophageal reflux disease) History of drug abuse HTN (hypertension) Hyperlipidemia Hypertension Hypertension Injury of left middle finger Insomnia Insulin resistance Marijuana use Migraine Neck pain Paresthesia of right upper extremity Polysubstance abuse ST elevation (STEMI) myocardial infarction Subclinical hypothyroidism Visual changes Home Medications metoprolol tartrate 25 mg tablet 12.5 mg (1/2 x 25 mg) PO BID #30 tabs 03/03/22 [Rx Last Taken Unknown] aspirin 81 mg tablet,delayed release 81 mg PO BREAKFAST #90 tabs 03/07/22 [Rx Last Taken Unknown] atorvastatin 40 mg tablet 40 mg PO QHS #90 tabs 03/07/22 [Rx Last Taken Unknown] lisinopril 10 mg tablet 30 mg (3 x 10 mg) PO DAILY #270 tabs 03/07/22 [Rx Last Taken Unknown] ticagrelor 90 mg tablet (Brilinta) 90 mg PO BID #180 tabs 03/07/22 [Rx Last Taken Unknown] quetiapine 50 mg tablet 50 mg PO QHS Check with primary doctor #180 tabs 06/02/22 [Rx Last Taken Unknown] cyclobenzaprine 5 mg tablet 5 - 10 mg (1 - 2 x 5 mg) PO QHS PRN muscle spasm #30 tabs 06/22/22 [Rx Last Taken Unknown] sumatriptan succinate 25 mg tablet (Imitrex) See Rx Instructions PO .COMPLEX #14 tabs 06/22/22 [Rx Last Taken Unknown] metoclopramide HCl 10 mg tablet (Reglan) 10 mg PO QAC 08/17/22 [History Last Taken Unknown] sertraline 100 mg tablet 100 mg PO DAILY Check with primary doctor #90 tabs 08/18/22 [Rx Last Taken Unknown] fremanezumab-vfrm 225 mg/1.5 mL subcutaneous auto-injector (Ajovy) 225 mg subcut QMONTH 11/09/22 [History Last Taken Unknown] rimegepant 75 mg disintegrating tablet (Nurtec ODT) 75 mg PO ONCE PRN 11/09/22 [History Last Taken Unknown] buspirone 7.5 mg tablet 7.5 mg PO BID Check with primary doctor #180 tabs 12/15/22 [Rx Last Taken Unknown] amoxicillin 875 mg-potassium clavulanate 125 mg tablet 875 mg (0.875 x 875-125 mg) PO Q12H #20 TABLETS 12/30/22 [Rx Last Taken Unknown] doxycycline monohydrate 100 mg capsule 100 mg PO BID #20 CAPSULES 12/30/22 [Rx Last Taken Unknown] oxycodone-acetaminophen 5 mg-325 mg tablet 1 tab PO Q6H PRN PRN Pain 3 days #12 TABLETS 12/30/22 [Rx Last Taken Unknown] cephalexin 500 mg capsule 500 mg PO Q6 #40 CAPSULES 05/05/23 [Rx Last Taken Unknown] sulfamethoxazole 800 mg-trimethoprim 160 mg tablet (Bactrim DS) 1 tab PO BID #20 tabs 05/05/23 [Rx Last Taken Unknown] oxycodone-acetaminophen 5 mg-325 mg tablet (Percocet) 1 tab PO Q6H PRN PRN pain 3 days #12 tabs 06/05/23 [Rx Last Taken Unknown] Allergy/AdvReac Type Severity Reaction Status Date / Time Food Allergies: Uncoded Allergy Itching Verified 06/05/23 16:40 Family History Father Hypertension Mother No cardiac disease Other Anxiety and depression Breast cancer Cancer Diabetes Mental health problem Surgical History History of coronary artery stent placement (02/07/22) History of tonsillectomy Social History Smoking Status: Never smoker Tobacco: How many years used: 7 Smokeless tobacco user: chewing tobacco alcohol intake: former year quit: 2019 substance use type: former substance user Date of last use: 08/30/2020, marijuana and opiates what type of physical activity do you participate in: aerobics and weight training frequency: 3-4 times per week ROS ROS ED Constitutional Constitutional ED: Denies chills or weight loss Eyes Eyes: Denies change in vision or diplopia ENT ENT ED: Denies ear pain, rhinorrhea or sore throat Cardiovascular Cardiovascular: Reports chest pain; Denies orthopnea, palpitations or racing heartbeat Respiratory/Chest Respiratory/Chest: Reports cough, dyspnea and other Details: See history of present illness ; Denies dyspnea on exertion or orthopnea Gastrointestinal Gastrointestinal: Denies abdominal pain, diarrhea, nausea or vomiting Genitourinary Genitourinary ED: Denies dysuria, hematuria or urinary frequency Musculoskeletal Musculoskeletal: Reports back pain; Denies arthralgias or myalgias Integumentary Denies abscess or rash Neurologic Neurologic: Denies headache(s) or weakness Psychiatric Psychiatric: Denies anxiety, depression, suicidal ideation or suicidal thoughts Endocrine Endocrinology: Denies polydipsia, polyphagia or polyuria Allergic/Immunologic Allergic/Immunologic ED: Denies mouth swelling, tongue swelling or urticaria EXAM Physical Exam Const Vital Signs: 06/05/23 16:41 06/05/23 16:47 06/05/23 16:48 Temperature 97.5 F L Temperature Source Temporal Pulse Rate 119 H 105 H Respiratory Rate 22 H Respiratory Effort Normal Non-Labored Blood Pressure 178/115 H Blood Pressure Mean 136 Pulse Ox 99 Oxygen Delivery Method Room Air 06/05/23 18:27 06/05/23 19:38 Temperature Temperature Source Pulse Rate 87 53 L Respiratory Rate 12 20 H Respiratory Effort Blood Pressure 154/102 H 160/95 H Blood Pressure Mean 119 116 Pulse Ox 97 97 Oxygen Delivery Method Room Air Room Air Positive well nourished and well developed; Negative for obese General Appearance ED: well developed Nutritional Appearance: Negative for obese HEENT Reports normocephalic, head/scalp atraumatic and moist mucous membranes Eyes PERRL and EOMs intact bilaterally Neck no lymphadenopathy, supple and no JVD Chest Wall Chest Narrative: Patient reports tenderness to palpation along the mid ribs on the left particularly ribs 6 or 7. I do not appreciate a rash. There is no crepitance. Patient splints with movement and deep breathing. Resp normal respiratory effort and clear to auscultation bilaterally Cardio regular rate, regular rhythm and no murmurs GI normal to inspection, nondistended, normoactive bowel sounds and non-tender Palpation: soft Back/Spine no CVA tenderness and normal ROM Extremity normal to inspection General Extremety ED: Negative for edema General Extremity: Negative for edema Neuro oriented x3 and CN's II-XII intact bilaterally Sensorium / Orientation: alert Motor Exam: strength 5/5 throughout Psych mental status grossly normal Mood & Affect: Negative for depressed or tearful Skin no rashes or lesions noted and no wounds MDM MDM MDM Narrative Medical decision making narrative: Interventions\MDM: Differential diagnosis includes but not limited to: ACS PE aortic dissection rib fracture musculoskeletal strain effusion perforated viscus pneumothorax My EKG interpretation: N/A Imaging independently reviewed and interpreted by myself: CTA of the chest was obtained that does not demonstrate up acute pulmonary embolism or dissection. I do not see a pleural effusion or infiltrate. I am concerned about a single nondisplaced rib fracture on the left anterior chest. External documents reviewed: N/A ED course: Patient received morphine for pain which she states did not really help him. Later he was given Toradol. He was placed on the monitor and his EKG continues to show sinus rhythm. His heart rate has come down from his initial EKG at 119 now down into the 80s. CBC and BMP were normal. 2 sets of cardiac enzymes were normal. These heart enzymes represent constant pain. Therefore I do not feel that this represents ACS. I think most likely has musculoskeletal pain related to a possible nondisplaced rib fracture on the left anterior rib. Patient will have pain medication at home would recommend follow-up with primary care in 1 week. He understands return instructions as well as deep breathing exercises. Reevaluation: Stable Disposition discussed with patient/family/significant other: The patient's ED course and workup and home treatment was discussed with the patient and family at the bedside Care discussed with consulting clinician: N/A This note was generated with [employer] dictation software. It may contain incorrect words, spelling, punctuation that were not intended while checking the note before signing. Lab Data Attestation: I reviewed the patient's lab results. Labs: Laboratory Results - last 24 hr 06/05/23 06/05/23 16:50 19:36 WBC 10.6 RBC 5.01 Hgb 15.0 Hct 45.5 MCV 90.8 MCH 29.9 MCHC 33.0 RDW Std Deviation 46.7 H RDW Coeff of Bessie 14.0 Plt Count 214 MPV 10.8 Immature Gran % (Auto) 0.500 Neut % (Auto) 72.6 H Lymph % (Auto) 20.5 [place] % (Auto) 3.9 Eos % (Auto) 1.7 Baso % (Auto) 0.8 Absolute Neuts (auto) 7.7 Absolute Lymphs (auto) 2.18 Nucleated RBC % 0 Sodium 138 Potassium 4.7 Chloride 107 Carbon Dioxide 23.0 Anion Gap 8 BUN 10 Creatinine 1.14 Estim Creat Clear Calc 105.89 Est GFR (MDRD) Af Amer 98 Est GFR (MDRD) Non-Af 81 BUN/Creatinine Ratio 8.8 L Glucose 202 H Calcium 9.0 Troponin I High Sens 6 8 Radiography CTA PE Study: No Evidence of PE and No Evidence of Dissection Diagnostic Testing: Clinical Impression(s) from Imaging Studies Chest CTA 06/05/23 17:09 IMPRESSION: Normal CTA chest examination, without a demonstrated pulmonary embolism or arterial dissection. Electronically Signed: Kedar Aleman MD at 19:30 EDT , EKG Initial EKG: Attestation: I personally reviewed and interpreted this EKG as follows: Interpretation: No Acute Injury Pattern and Sinus Tachycardia Comments: Sinus tachycardia with ventricular rate of 119 bpm. Prior EKG tracings: available for review Prior: Unchanged Discharge Plan Triage Chief Complaint: Chest Pain ED Provider: Francisco J Jean-Baptiste Dx/Rx/DC Orders Clinical Impression: Closed rib fracture, CAD (coronary artery disease), Left-sided chest wall pain Instructions: ED Rib Fracture Prescriptions: New oxycodone-acetaminophen [Percocet] 5-325 mg tablet 1 tab PO Q6H PRN PRN (Reason: pain) 3 Days Qty: 12 0RF No Action quetiapine 50 mg tablet 50 mg PO QHS Qty: 180 1RF sumatriptan succinate [Imitrex] 25 mg tablet See Rx Instructions PO .COMPLEX Qty: 14 1RF Rx Instructions: take 1 tab at onset of headache; if no relief may repeat 1 tab after at least 2 hrs; max = 4 tabs/24 hr PO cyclobenzaprine 5 mg tablet 5 - 10 mg PO QHS PRN (Reason: muscle spasm) Qty: 30 0RF metoclopramide HCl [Reglan] 10 mg tablet 10 mg PO QAC Rx Instructions: administer 30 minutes before meals Ajovy Autoinjector 225 mg/1.5 mL auto-injector 225 mg subcut QMONTH Nurtec ODT 75 mg tablet,disintegrating 75 mg PO ONCE PRN Rx Instructions: as a single dose oxycodone-acetaminophen [oxycodone-acetaminophen] 5-325 mg tablet 1 tab PO Q6H PRN PRN (Reason: Pain) 3 Days Qty: 12 0RF doxycycline monohydrate 100 mg capsule 100 mg PO BID Qty: 20 0RF amoxicillin-pot clavulanate [amoxicillin-pot clavulanate] 875-125 mg tablet 875 mg PO Q12H Qty: 20 0RF cephalexin [cephalexin] 500 mg capsule 500 mg PO Q6 Qty: 40 0RF sulfamethoxazole-trimethoprim [Bactrim DS] 800-160 mg tablet 1 tab PO BID Qty: 20 0RF metoprolol tartrate 25 mg tablet 12.5 mg PO BID Qty: 30 11RF aspirin 81 mg tablet,delayed release (DR/EC) 81 mg PO BREAKFAST Qty: 90 3RF atorvastatin 40 mg tablet 40 mg PO QHS Qty: 90 3RF lisinopril 10 mg tablet 30 mg PO DAILY Qty: 270 3RF Brilinta 90 mg tablet 90 mg PO BID Qty: 180 3RF sertraline 100 mg tablet 100 mg PO DAILY Qty: 90 2RF buspirone 7.5 mg tablet 7.5 mg PO BID Qty: 180 3RF Primary Care Provider: Mohinder Moore NP Referrals: Mohinder Moore NP, [facility] [Primary Care Provider] - 3-5 Days Disposition Disposition: Home, Self Care Discharge Date/Time: 06/05/23 20:41
--- NOTE | 2023-06-05 17:15 | EKG12_ITS ---
Test Reason : Blood Pressure : / mmHG Vent. Rate : 119 BPM Atrial Rate : 119 BPM P-R Int : 140 ms QRS Dur : 088 ms QT Int : 318 ms P-R-T Axes : 046 -12 016 degrees QTc Int : 447 ms Sinus tachycardia Otherwise normal ECG Confirmed by BESSY HOROWITZ, CHAVA ([id number]), market editor EVERETT DUNBAR ([id number]) on 06/06/2023 9:41:17 AM Referred By: CHRIS Confirmed By:CHAVA DOHERTY MD
[2023-06-05] MEDS: Aspirin 81 MG TAB.CHEW 324 MG PO (17:21)
[2023-06-05] MEDS: Morphine 4 MG/ML Syringe IV (17:22)
[2023-06-05 17:34] LABS: Absolute Lymphocyte Count 2.18 X10^3/uL (0.83-4.51); Absolute Neutrophil Count 7.7 X10^3/uL (2.0-7.7); Basophil# 0.08 X10^3/uL; Basophil% 0.8 % (0-1); Eosinophil# 0.18 X10^3/uL; Eosinophils% 1.7 % (0-5); Hematocrit 45.5 % (40-54); Lymphocyte # 2.18 X10^3/ul (0.83-4.51); Lymphocyte % 20.5 % (19-41); Mean Corpuscular Hgb 29.9 pg (27.0-32.0); Mean Corpuscular Volume 90.8 fL (80-94); Mean Platelet Vol. 10.8 fl (6.2-12.0); Monocyte# 0.41 X10^3/uL; Monocyte% 3.9 % (0-10); NRBC Flagged by Analyzer 0 % (0-5); Neutrophil # 7.73 X10^3/uL (2.7-7.7); Neutrophil % 72.6 % (47-70); Platelet Count 214 K/mm3 (150-450); RBC Distribution Width SD 46.7 fl (35.1-43.9); Red Blood Count 5.01 M/mm3 (4.6-6.2); White Blood Count 10.6 K/mm3 (4.4-11.0)
[2023-06-05 17:55] LABS: Anion Gap 8 (5-15); BUN 10 mg/dL (7-18); BUN/Creat Ratio 8.8 RATIO (10-20); Chloride 107 mmol/L (98-107); Creatinine, Serum 1.14 mg/dL (0.70-1.30); EST Glomerular Filtration Rate 81 mL/min (>60); Est Glom Filt Rate - Afr Amer 98 mL/min (>60); Estimated Creatinine Clearance 105.89 ml/min; Glucose 202 mg/dL (74-106); Potassium 4.7 mmol/L (3.5-5.1); Sodium Level 138 mmol/L (136-145); Troponin-I HS (w/2H Reflex) 6 pg/mL (3.0-78.0)
[2023-06-05 18:27] VITALS: BP 154/102; PULSE 87; RESP 12; O2SAT 97
[2023-06-05 19:30] LABS: Reflex Troponin-HS? (from REC) Y
[2023-06-05 19:38] VITALS: BP 160/95; PULSE 53; RESP 20; O2SAT 97
[2023-06-05 20:20] LABS: Troponin-I HS 8 pg/mL (3.0-78.0)
[2023-06-05] MEDS: Ketorolac 30 MG/ML Syringe IV (20:33)
--- NOTE | 2023-06-05 20:40 | ED.RN ---
Pain improving with pain medication.
== END 2023-06-05 20:41 | disposition home or self-care (01) ==
PROVIDERS: Emergency Provider Emergency Medicine; PCP Nurse Practitioner Family; Visit Provider Emergency Medicine
DX: S22.32XA Fracture of one rib, left side, initial encounter for closed fracture (principal); W17.89XA Other fall from one level to another, initial encounter; I25.10 Atherosclerotic heart disease of native coronary artery without angina pectoris; I25.2 Old myocardial infarction; I10 Essential (primary) hypertension; E78.5 Hyperlipidemia, unspecified; Z79.82 Long term (current) use of aspirin; Z79.899 Other long term (current) drug therapy
CPT/HCPCS: 71275; 80048; 84484; 85025; 93005; 96374; 96375; 99282; Q9967; A4216

== ENCOUNTER → 2023-10-09 | Outpatient (CLI) | payer MEDICAID, SELFPAY ==
--- NOTE | 2023-10-09 11:16 | RAD_ITS ---
STUDY: X-RAY - RIGHT KNEE REASON FOR EXAM: Male, 27 years old. Pain/ swelling TECHNIQUE: 4 view(s) of the knee. COMPARISON: None. FINDINGS: Normal visualized distal femur. Normal visualized proximal tibia and fibula. Normal proximal tibiofibular articulation. Normal medial femorotibial compartment. Normal lateral femorotibial compartment. Normal patellofemoral articulation. The soft tissue structures are unremarkable. RAD/Knee 4 or More Views IMPRESSION: Normal x-ray examination of the knee. Electronically Signed: Jesu Atkinson MD at 11:40 EST ,
== END | disposition home or self-care (01) ==
PROVIDERS: PCP Internal Medicine; Referring Provider Physician Assistant; Visit Provider Physician Assistant
DX: M23.91 Unspecified internal derangement of right knee (principal); X58.XXXA Exposure to other specified factors, initial encounter
CPT/HCPCS: 73564

== ENCOUNTER 2023-10-10 14:37 | Emergency (ER) | payer MEDICAID, SELFPAY ==
[2023-10-10 14:37] VITALS: BP 163/101; PULSE 57; RESP 16; TEMP 35.9; O2SAT 99; BMI 29.2
--- NOTE | 2023-10-10 14:49 | RAD_ITS ---
STUDY: X-RAY - RIGHT KNEE REASON FOR EXAM: Male, 27 years old. Pain following injury. TECHNIQUE: 4 view(s) of the knee. COMPARISON: Comparison is made with prior study dated October 09, 2023. FINDINGS: Normal visualized distal femur. Normal visualized proximal tibia and fibula. Normal proximal tibiofibular articulation. Normal medial femorotibial compartment. Normal lateral femorotibial compartment. Normal patellofemoral articulation. The soft tissue structures are unremarkable. RAD/Knee 4 or More Views IMPRESSION: Normal x-ray examination of the knee. Electronically Signed: Jesu Atkinson MD at 15:16 EST ,
--- NOTE | 2023-10-10 15:37 | ED.VIS.LOWEX ---
HPI History of Present Illness Chief Complaint: Lower Extremity Injury Informant: patient Narrative Narrative: Patient presents with right knee pain. Patient states that about a week ago he stepped in a hole and turned. This caused a twisting of his right knee. It has been painful since. [facility] Images were done that were negative. He has an MRI ordered with follow-up with an orthopedic surgeon although he is not sure of the name of the individual. He comes in today because he is still having pain and it occasionally locks on him. He is using a compressive sleeve that helps a little bit. No swelling. He does not have chest pain or shortness of breath. He is not on any blood thinners despite his history. [facility] Medical History (Updated 10/10/23 @ 15:[address] Jr Silva MD) Alcohol abuse Anxiety and depression Depression Dysuria Easy bruising GERD (gastroesophageal reflux disease) HTN (hypertension) Hyperlipidemia Hypertension Injury of left middle finger Insomnia Insulin resistance Internal derangement of right knee Marijuana use Migraine Neck pain Paresthesia of right upper extremity Polysubstance abuse ST elevation (STEMI) myocardial infarction Subclinical hypothyroidism Visual changes Home Medications metoprolol tartrate 25 mg tablet 12.5 mg (1/2 x 25 mg) PO BID #30 tabs 03/03/22 [Rx Last Taken Unknown] aspirin 81 mg tablet,delayed release 81 mg PO BREAKFAST #90 tabs 03/07/22 [Rx Last Taken Unknown] atorvastatin 40 mg tablet 40 mg PO QHS #90 tabs 03/07/22 [Rx Last Taken Unknown] lisinopril 10 mg tablet 30 mg (3 x 10 mg) PO DAILY #270 tabs 03/07/22 [Rx Last Taken Unknown] ticagrelor 90 mg tablet (Brilinta) 90 mg PO BID #180 tabs 03/07/22 [Rx Last Taken Unknown] quetiapine 50 mg tablet 50 mg PO QHS Check with primary doctor #180 tabs 06/02/22 [Rx Last Taken Unknown] cyclobenzaprine 5 mg tablet 5 - 10 mg (1 - 2 x 5 mg) PO QHS PRN muscle spasm #30 tabs 06/22/22 [Rx Last Taken Unknown] sumatriptan succinate 25 mg tablet (Imitrex) See Rx Instructions PO .COMPLEX #14 tabs 06/22/22 [Rx Last Taken Unknown] metoclopramide HCl 10 mg tablet (Reglan) 10 mg PO QAC 08/17/22 [History Last Taken Unknown] sertraline 100 mg tablet 100 mg PO DAILY Check with primary doctor #90 tabs 08/18/22 [Rx Last Taken Unknown] fremanezumab-vfrm 225 mg/1.5 mL subcutaneous auto-injector (Ajovy) 225 mg subcut QMONTH 11/09/22 [History Last Taken Unknown] rimegepant 75 mg disintegrating tablet (Nurtec ODT) 75 mg PO ONCE PRN 11/09/22 [History Last Taken Unknown] buspirone 7.5 mg tablet 7.5 mg PO BID Check with primary doctor #180 tabs 12/15/22 [Rx Last Taken Unknown] amoxicillin 875 mg-potassium clavulanate 125 mg tablet 875 mg (0.875 x 875-125 mg) PO Q12H #20 TABLETS 12/30/22 [Rx Last Taken Unknown] doxycycline monohydrate 100 mg capsule 100 mg PO BID #20 CAPSULES 12/30/22 [Rx Last Taken Unknown] oxycodone-acetaminophen 5 mg-325 mg tablet 1 tab PO Q6H PRN PRN Pain 3 days #12 TABLETS 12/30/22 [Rx Last Taken Unknown] cephalexin 500 mg capsule 500 mg PO Q6 #40 CAPSULES 05/05/23 [Rx Last Taken Unknown] sulfamethoxazole 800 mg-trimethoprim 160 mg tablet (Bactrim DS) 1 tab PO BID #20 tabs 05/05/23 [Rx Last Taken Unknown] oxycodone-acetaminophen 5 mg-325 mg tablet (Percocet) 1 tab PO Q6H PRN PRN pain 3 days #12 tabs 06/05/23 [Rx Last Taken Unknown] naproxen 500 mg tablet 500 mg PO BID #14 tabs 10/10/23 [Rx Last Taken Unknown] oxycodone-acetaminophen 5 mg-325 mg tablet 1 tab PO Q6H PRN PRN Pain 3 days #12 TABLETS 10/10/23 [Rx Last Taken Unknown] Allergy/AdvReac Type Severity Reaction Status Date / Time No Known Allergies Allergy Verified 10/10/23 14:40 Family History Father Hypertension Mother No cardiac disease Other Anxiety and depression Breast cancer Cancer Diabetes Mental health problem Surgical History History of coronary artery stent placement (02/07/22) History of tonsillectomy Social History Smoking Status: Never smoker Tobacco: How many years used: 7 Smokeless tobacco user: chewing tobacco alcohol intake: former year quit: 2019 substance use type: former substance user Date of last use: 08/30/2020, marijuana and opiates what type of physical activity do you participate in: aerobics and weight training frequency: 3-4 times per week ROS ROS ED Constitutional Constitutional ED: Denies chills or fever(s) ENT ENT ED: Denies rhinorrhea Cardiovascular Cardiovascular: Denies chest pain Respiratory/Chest Respiratory/Chest: Denies cough or dyspnea Gastrointestinal Gastrointestinal: Denies nausea or vomiting Musculoskeletal Musculoskeletal: Reports arthralgias; Denies back pain Integumentary Denies abscess, Abrasions or rash Neurologic Neurologic: Denies paresthesias or weakness Hematologic/Lymphatic Hematologic/Lymphatic: Denies easy bleeding or easy bruising EXAM Physical Exam Narrative Exam Narrative: General: Patient awake alert sitting chair. HEENT shows no trauma Cardiorespiratory shows easy unlabored breathing. Extremity exam shows no pain with motion of the hips. He has excellent peripheral pulses. The right knee is causing him to the discomfort. There is no effusion that I find on exam. Patient can fully extend the knee. Beyond about 30 or 40 degrees of flexion he starts to have a lot of pain. The knee is stable to varus and valgus stress. Although it was difficult to get him fully bent, [place] seems normal I am not getting any obvious laxity of his anterior cruciate. There is no peripheral swelling or edema. Const Vital Signs: 10/10/23 14:37 Temperature 96.7 F L Temperature Source Temporal Pulse Rate 57 L Respiratory Rate 16 Blood Pressure 163/101 H Blood Pressure Mean 121 Pulse Ox 99 Oxygen Delivery Method Room Air MDM MDM MDM Narrative Medical decision making narrative: [facility]. I reviewed these images and the reading. My independent interpretation of his 4 view x-ray of the right knee today are negative and final reading is negative for acute process. By his history and exam and the history of clicking and locking he likely has a meniscal injury. I explained that x-rays do not show this. I will have him on nonsteroidals and a few pain pills. I did do an online prescribing report. Radiography Diagnostic Testing: Clinical Impression(s) from Imaging Studies Knee X-Ray 10/10/23 14:49 IMPRESSION: Normal x-ray examination of the knee. Electronically Signed: Jesu Atkinson MD at 15:16 EST , Discharge Plan Triage Chief Complaint: Lower Extremity Injury ED Provider: Jr Silva Dx/Rx/DC Orders Clinical Impression: Right knee meniscal tear Instructions: ED Meniscal Injury Knee Poss, ED Knee Pain of Uncertain Cause Prescriptions: New oxycodone-acetaminophen [oxycodone-acetaminophen] 5-325 mg tablet 1 tab PO Q6H PRN PRN (Reason: Pain) 3 Days Qty: 12 0RF naproxen 500 mg tablet 500 mg PO BID Qty: 14 0RF No Action quetiapine 50 mg tablet 50 mg PO QHS Qty: 180 1RF sumatriptan succinate [Imitrex] 25 mg tablet See Rx Instructions PO .COMPLEX Qty: 14 1RF Rx Instructions: take 1 tab at onset of headache; if no relief may repeat 1 tab after at least 2 hrs; max = 4 tabs/24 hr PO cyclobenzaprine 5 mg tablet 5 - 10 mg PO QHS PRN (Reason: muscle spasm) Qty: 30 0RF metoclopramide HCl [Reglan] 10 mg tablet 10 mg PO QAC Rx Instructions: administer 30 minutes before meals Ajovy Autoinjector 225 mg/1.5 mL auto-injector 225 mg subcut QMONTH Nurtec ODT 75 mg tablet,disintegrating 75 mg PO ONCE PRN Rx Instructions: as a single dose oxycodone-acetaminophen [oxycodone-acetaminophen] 5-325 mg tablet 1 tab PO Q6H PRN PRN (Reason: Pain) 3 Days Qty: 12 0RF doxycycline monohydrate 100 mg capsule 100 mg PO BID Qty: 20 0RF amoxicillin-pot clavulanate [amoxicillin-pot clavulanate] 875-125 mg tablet 875 mg PO Q12H Qty: 20 0RF oxycodone-acetaminophen [Percocet] 5-325 mg tablet 1 tab PO Q6H PRN PRN (Reason: pain) 3 Days Qty: 12 0RF cephalexin [cephalexin] 500 mg capsule 500 mg PO Q6 Qty: 40 0RF sulfamethoxazole-trimethoprim [Bactrim DS] 800-160 mg tablet 1 tab PO BID Qty: 20 0RF metoprolol tartrate 25 mg tablet 12.5 mg PO BID Qty: 30 11RF aspirin 81 mg tablet,delayed release (DR/EC) 81 mg PO BREAKFAST Qty: 90 3RF atorvastatin 40 mg tablet 40 mg PO QHS Qty: 90 3RF lisinopril 10 mg tablet 30 mg PO DAILY Qty: 270 3RF Brilinta 90 mg tablet 90 mg PO BID Qty: 180 3RF sertraline 100 mg tablet 100 mg PO DAILY Qty: 90 2RF buspirone 7.5 mg tablet 7.5 mg PO BID Qty: 180 3RF Primary Care Provider: Jaci Krishna Referrals: Jaci Krishna MD [Primary Care Provider] - Activity Restrictions/Additional Instructions: Follow-up with the MRI and orthopedic visits as planned. Ice and rest the knee is much as possible. Disposition Disposition: Home, Self Care
== END 2023-10-10 16:17 | disposition home or self-care (01) ==
LOC: ED 15:41
PROVIDERS: Emergency Provider Emergency Medicine; PCP Internal Medicine; Visit Provider Emergency Medicine
DX: S83.206A Unspecified tear of unspecified meniscus, current injury, right knee, initial encounter (principal); E78.5 Hyperlipidemia, unspecified; I10 Essential (primary) hypertension; X50.9XXA Other and unspecified overexertion or strenuous movements or postures, initial encounter; I25.2 Old myocardial infarction; I5A Non-ischemic myocardial injury (non-traumatic); Z79.899 Other long term (current) drug therapy; Z79.82 Long term (current) use of aspirin; Z95.5 Presence of coronary angioplasty implant and graft; F17.220 Nicotine dependence, chewing tobacco, uncomplicated
CPT/HCPCS: 73564; 99282

== ENCOUNTER 2023-12-06 12:03 | Emergency (ER) | payer MEDICAID, SELFPAY ==
[2023-12-06 12:04] VITALS: BP 167/106; PULSE 110; RESP 18; TEMP 36.3; O2SAT 100; BMI 27.6
--- NOTE | 2023-12-06 12:45 | RAD_ITS ---
STUDY: X-RAY CHEST REASON FOR EXAM: Male, 28 years old. Chest pain TECHNIQUE: Single AP portable view of the chest. COMPARISON: Comparison is made with prior study June 03, 2022. FINDINGS: EKG electrodes are seen. The lungs are clear and expanded. There is no demonstrated pleural abnormality. Normal size heart. Normal mediastinum and barb. Normal visualized pulmonary arteries. Normal visualized aortic arch and descending thoracic aorta. Normal visualized thoracic spine. Normal visualized ribs, clavicles, and shoulders. There is no demonstrated abnormality of the visualized soft tissue structures of the upper abdomen. RAD/Chest 1 View (Portable) IMPRESSION: Normal x-ray examination of the chest. Electronically Signed: Jesu Atkinson MD at 13:06 EST ,
[2023-12-06 13:12] LABS: Lipase 34 U/L (13-75); Troponin-I HS (w/2H Reflex) 8 pg/mL (3.0-78.0)
--- NOTE | 2023-12-06 14:09 | ED.VIS.CHEST ---
HPI <Izabela Pressley RN - Last Filed: 12/06/23 15:30> History of Present Illness Chief Complaint: Chest Pain Informant: patient Onset/Context/Timing Onset: Today Activity at onset: sudden Timing: Continuous Quality: Positive for Sharp and Stabbing Location: Left Chest Current Severity: 10/10 Maximum Severity: 10/10 Worsened By: Movement of Torso Relieved By: Nothing Associated Symptoms: Positive for Dyspnea; Negative for Nausea, Vomiting or Diaphoresis Narrative Narrative: Patient presents to the ED with left-sided chest pain radiating to left arm and left leg tingling. Patient reports symptoms are similar to his prior ID with the exception of a stinging sensation. Patient also reports shortness of breath. Denies nausea and vomiting. Denies recent travel. Of note patient has not been taking home meds for approximately 1 year. Reports no alcohol use in the past 2 to 3 days reports using marijuana this morning. Prior Similar Symptoms: With Prior ID Recent Illness/Hospitalization: No CVD Risk Factors: Positive for Hypertension and Hypercholesterolemia PFSH <Izabela Pressley RN - Last Filed: 12/06/23 15:30> [facility] Medical History Alcohol abuse Anxiety and depression Depression Dysuria Easy bruising GERD (gastroesophageal reflux disease) HTN (hypertension) Hyperlipidemia Hypertension Injury of left middle finger Insomnia Insulin resistance Internal derangement of right knee Marijuana use Migraine Neck pain Paresthesia of right upper extremity Polysubstance abuse ST elevation (STEMI) myocardial infarction Subclinical hypothyroidism Visual changes Home Medications metoprolol tartrate 25 mg tablet 12.5 mg (1/2 x 25 mg) PO BID #30 tabs 03/03/22 [Rx Last Taken Unknown] aspirin 81 mg tablet,delayed release 81 mg PO BREAKFAST #90 tabs 03/07/22 [Rx Last Taken Unknown] atorvastatin 40 mg tablet 40 mg PO QHS #90 tabs 03/07/22 [Rx Last Taken Unknown] lisinopril 10 mg tablet 30 mg (3 x 10 mg) PO DAILY #270 tabs 03/07/22 [Rx Last Taken Unknown] quetiapine 50 mg tablet 50 mg PO QHS Check with primary doctor #180 tabs 06/02/22 [Rx Last Taken Unknown] sumatriptan succinate 25 mg tablet (Imitrex) See Rx Instructions PO .COMPLEX #14 tabs 06/22/22 [Rx Last Taken Unknown] sertraline 100 mg tablet 100 mg PO DAILY Check with primary doctor #90 tabs 08/18/22 [Rx Last Taken Unknown] buspirone 7.5 mg tablet 7.5 mg PO BID Check with primary doctor #180 tabs 12/15/22 [Rx Last Taken Unknown] sulfamethoxazole 800 mg-trimethoprim 160 mg tablet (Bactrim DS) 1 tab PO BID #20 tabs 05/05/23 [Rx Last Taken Unknown] atorvastatin 40 mg tablet 40 mg PO DAILY #30 tabs 12/06/23 [Rx Last Taken Unknown] buspirone 10 mg tablet 10 mg PO DAILY #30 tabs 12/06/23 [Rx Last Taken Unknown] lisinopril 30 mg tablet 30 mg PO DAILY #30 tabs 12/06/23 [Rx Last Taken Unknown] metoprolol tartrate 25 mg tablet 12.5 mg (1/2 x 25 mg) PO BID #30 tabs 12/06/23 [Rx Last Taken Unknown] quetiapine 50 mg tablet 50 mg PO QHS #30 tabs 12/06/23 [Rx Last Taken Unknown] sertraline 50 mg tablet 50 mg PO QHS #30 tabs 12/06/23 [Rx Last Taken Unknown] Allergy/AdvReac Type Severity Reaction Status Date / Time No Known Allergies Allergy Verified 12/06/23 12:16 Family History Father Hypertension Mother No cardiac disease Other Anxiety and depression Breast cancer Cancer Diabetes Mental health problem Surgical History History of coronary artery stent placement (02/07/22) History of tonsillectomy Social History Smoking Status: Current every day smoker tobacco type: cigarettes and smokeless tobacco Tobacco: How many years used: 7 Smokeless tobacco user: chewing tobacco alcohol intake: former year quit: 2019 substance use type: former substance user Date of last use: 08/30/2020, marijuana and opiates what type of physical activity do you participate in: aerobics and weight training frequency: 3-4 times per week ROS <Izabela Pressley RN - Last Filed: 12/06/23 15:30> [facility] ED Neurologic Neurologic: Denies headache(s) Psychiatric Psychiatric: Reports anxiety <Dr. Jamari Mak MD - Last Filed: 12/06/23 15:48> [facility] Constitutional Constitutional ED: Denies chills, fever(s), subjective, sweats or weight loss Eyes Eyes: Denies none, blurry vision or change in vision Cardiovascular Cardiovascular: Denies orthopnea or paroxysmal nocturnal dyspnea Respiratory/Chest Respiratory/Chest: Reports dyspnea; Denies cough, dyspnea on exertion, orthopnea or paroxysmal nocturnal dyspnea Gastrointestinal Gastrointestinal: Reports abdominal pain; Denies diarrhea, nausea or vomiting Genitourinary Genitourinary ED: Denies dysuria, hematuria or urinary frequency Musculoskeletal Musculoskeletal: Denies arthralgias, back pain, myalgias or neck pain Integumentary Denies rash Endocrine Endocrinology: Denies cold intolerance or heat intolerance Hematologic/Lymphatic Hematologic/Lymphatic: Denies easy bleeding or easy bruising Allergic/Immunologic Allergic/Immunologic ED: Denies mouth swelling or tongue swelling EXAM <Izabela Pressley RN - Last Filed: 12/06/23 15:30> Physical Exam Const Vital Signs: 12/06/23 12:04 12/06/23 12:07 12/06/23 12:49 Temperature 97.3 F L Temperature Source Temporal Pulse Rate 110 H Respiratory Rate 18 Respiratory Effort Normal Non-Labored Respiratory Pattern Tachypnea Blood Pressure 167/106 H Blood Pressure Mean 126 Pulse Ox 100 Oxygen Delivery Method Room Air Room Air 12/06/23 15:19 Temperature Temperature Source Pulse Rate 78 Respiratory Rate 20 H Respiratory Effort Respiratory Pattern Blood Pressure 157/103 H Blood Pressure Mean 121 Pulse Ox 97 Oxygen Delivery Method Room Air Positive well nourished and well developed General Appearance ED: well developed HEENT Reports moist mucous membranes Eyes PERRL Chest Wall inspection of chest normal Chest: tenderness costochondral junction Resp normal respiratory effort and clear to auscultation bilaterally Resp Narrative: Tachypnea noted Cardio regular rhythm, S1 normal heart sound and S2 normal heart sound Rate: tachycardic Peripheral Pulses: pulses 2+ throughout GI normal to inspection, nondistended, normoactive bowel sounds, soft to palpation and non-tender Back/Spine no thoracic nor lumbar tenderness Extremity normal to inspection Extremity Narrative: Patient reports tingling to left leg. Denies injury. Extremities pink x 4. Left great toe noted to be slightly cooler than other toes. General Extremety ED: Negative for edema General Extremity: Negative for edema Neuro oriented x3 Sensorium / Orientation: awake Motor Exam: strength 5/5 throughout Psych mental status grossly normal Mood & Affect: anxious and tearful Skin no rashes or lesions noted Skin Narrative: Skin [place] and dry throughout. Rashes: No rashes noted <Dr. Jamari Mak MD - Last Filed: 12/06/23 15:48> Physical Exam Const Vital Signs: 12/06/23 12:04 12/06/23 12:07 12/06/23 12:49 Temperature 97.3 F L Temperature Source Temporal Pulse Rate 110 H Respiratory Rate 18 Respiratory Effort Normal Non-Labored Respiratory Pattern Tachypnea Blood Pressure 167/106 H Blood Pressure Mean 126 Pulse Ox 100 Oxygen Delivery Method Room Air Room Air 12/06/23 15:19 Temperature Temperature Source Pulse Rate 78 Respiratory Rate 20 H Respiratory Effort Respiratory Pattern Blood Pressure 157/103 H Blood Pressure Mean 121 Pulse Ox 97 Oxygen Delivery Method Room Air MDM <Izabela Pressley RN - Last Filed: 12/06/23 15:30> MDM MDM Narrative Medical decision making narrative: Patient placed on on playground monitor. IV line initiated. Labwork obtained to evaluate for leukocytosis, anemia, and electrolyte derangement. Chest x-ray obtained to evaluate for acute lung pathology, cardiac size, or mediastinal abnormality. History & Record Review Discussion w/independent historian: Patient and Family Lab Data Attestation: I reviewed the patient's lab results. Labs: Laboratory Results - last 24 hr 12/06/23 12/06/23 12:10 14:35 Troponin I High Sens 8 9 Lipase 34 Radiography Chest X-Ray - ED: 1 View Diagnostic Testing: Clinical Impression(s) from Imaging Studies Chest X-Ray 12/06/23 12:45 IMPRESSION: Normal x-ray examination of the chest. Electronically Signed: Jesu Atkinson MD at 13:06 EST , EKG Initial EKG: Attestation: I personally reviewed and interpreted this EKG as follows: Interpretation: Sinus Tachycardia Comments: Reviewed with Dr. Mak. Prior EKG tracings: not available for review Differential Diagnosis Chest pain/SOB: pulmonary embolism and ACS Management Discussion w/another healthcare provider: Other (Dr. Mak, ED provider) Treatment and Re-Evaluation :: Initial high-sensitivity troponin was negative. Repeat high-sensitivity troponin at 2 hours was also negative. Chest x-ray was reviewed by myself and radiology. No acute process. Twelve-lead EKG revealed sinus rhythm with a rate of 95. Upon reevaluation, patient appears more comfortable. Reports discomfort has improved and rates 3 out of 10. Will prescribe home medications and instructions to patient to restart. Plan to discharge home. Patient agreeable. <Dr. Jamari Mak MD - Last Filed: 12/06/23 15:48> [facility] MDM Narrative Medical decision making narrative: Patient placed on on playground monitor. IV line initiated. Labwork obtained to evaluate for leukocytosis, anemia, and electrolyte derangement. Chest x-ray obtained to evaluate for acute lung pathology, cardiac size, or mediastinal abnormality. I have personally performed a face to face assessment of the patient and have reviewed the [facility] Note. I performed a substantive portion of the visit including all aspects of the following. My wells findings include: History is remarkable for numbness left hand and foot, left-sided chest pain, shortness of breath, left shoulder pain. Episode occurred at rest. Patient denies upper respiratory tract infectious symptoms. Patient denies pleuritic pain. He denies leg pain, swelling or discoloration. He has a history of ID due to COVID-vaccine. There is no family history of cardiac disease. Patient endorses noncompliance with his medication because he was uninsured. Patient does admit to drinking 6-8 beers 3-4 times a week. He may drink heavier on weekends. He denies black or maroon-colored stool. He denies hematemesis. He denies history of pancreatitis. He does have history of reflux. He presently has no reflux symptoms. Exam is remarkable for patient being anxious. Vital signs reveal slight elevation blood pressure. Head is atraumatic no cephalic. Ears normal. Nares patent. Posterior pharynx normal. Nares without discharge. Neck is supple. No JVD. Lungs are clear to auscultation. He has mild reproducible chest pain on the left. He has full active range of motion left upper extremity. Axillary, median, radial and ulnar function intact. Breath sounds are symmetric and there is no abnormal breath sounds noted. Abdomen is remarkable for minimal tenderness in the left upper quadrant. There is no paraspinal megaly. There is no guarding or peritoneal findings. There is no CVA tenderness noted. There is no asymmetry, swelling, discoloration, leg vein distention, palpable cords or tenderness along the distribution of the deep venous system. Alert orient x 3. Neuroexam nonfocal. Medical Decision Making differential diagnosis anxiety, cardiac chest pain since he reports this is similar to when he was diagnosed with ID, need to entertain possibility of pancreatitis since he drinks heavily and has left upper quadrant pain. Other additions or changes: Patient's workup was unremarkable. He was discharged to home. EKG revealed no acute ischemic changes. Lab Data Labs: Laboratory Results - last 24 hr 12/06/23 12/06/23 12:10 14:35 Troponin I High Sens 8 9 Lipase 34 Radiography Chest X-Ray - ED: Read by ED Physician (Chest x-ray independent reviewed interpreted by al at 1250 as negative. Cardiac silhouette size normal. Lung parenchyma normal. Mediastinum is normal. Osseous structures are normal.) Diagnostic Testing: Clinical Impression(s) from Imaging Studies Chest X-Ray 12/06/23 12:45 IMPRESSION: Normal x-ray examination of the chest. Electronically Signed: Jesu Atkinson MD at 13:06 EST , Discharge Plan Triage Chief Complaint: Chest Pain ED Provider: Jamari Mak Dx/Rx/DC Orders Clinical Impression: History of coronary artery stent placement, Hypertension, Chest pain Instructions: Chest Pain O Prescriptions: New lisinopril 30 mg tablet 30 mg PO DAILY Qty: 30 0RF metoprolol tartrate 25 mg tablet 12.5 mg PO BID Qty: 30 0RF atorvastatin 40 mg tablet 40 mg PO DAILY Qty: 30 0RF buspirone 10 mg tablet 10 mg PO DAILY Qty: 30 0RF sertraline 50 mg tablet 50 mg PO QHS Qty: 30 0RF quetiapine 50 mg tablet 50 mg PO QHS Qty: 30 0RF No Action quetiapine 50 mg tablet 50 mg PO QHS Qty: 180 1RF sumatriptan succinate [Imitrex] 25 mg tablet See Rx Instructions PO .COMPLEX Qty: 14 1RF Rx Instructions: take 1 tab at onset of headache; if no relief may repeat 1 tab after at least 2 hrs; max = 4 tabs/24 hr PO sulfamethoxazole-trimethoprim [Bactrim DS] 800-160 mg tablet 1 tab PO BID Qty: 20 0RF metoprolol tartrate 25 mg tablet 12.5 mg PO BID Qty: 30 11RF aspirin 81 mg tablet,delayed release (DR/EC) 81 mg PO BREAKFAST Qty: 90 3RF atorvastatin 40 mg tablet 40 mg PO QHS Qty: 90 3RF lisinopril 10 mg tablet 30 mg PO DAILY Qty: 270 3RF sertraline 100 mg tablet 100 mg PO DAILY Qty: 90 2RF buspirone 7.5 mg tablet 7.5 mg PO BID Qty: 180 3RF Primary Care Provider: Jaci Krishna Referrals: Jaci Krishna MD [Primary Care Provider] - Activity Restrictions/Additional Instructions: Restart home medications as prescribed. Follow-up with primary care provider in 1 week. Return for worsening symptoms. Disposition Disposition: Home, Self Care
[2023-12-06 14:48] LABS: Reflex Troponin-HS? (from REC) Y
[2023-12-06 15:15] LABS: Troponin-I HS 9 pg/mL (3.0-78.0)
[2023-12-06 15:19] VITALS: BP 157/103; PULSE 78; RESP 20; O2SAT 97
[2023-12-06 16:01] VITALS: BP 149/112; PULSE 78; RESP 16; O2SAT 98
== END 2023-12-06 16:02 | disposition home or self-care (01) ==
PROVIDERS: Emergency Provider Emergency Medicine; PCP Internal Medicine; Visit Provider Emergency Medicine
DX: R07.9 Chest pain, unspecified (principal); I10 Essential (primary) hypertension; E78.00 Pure hypercholesterolemia, unspecified; Z95.5 Presence of coronary angioplasty implant and graft; F17.210 Nicotine dependence, cigarettes, uncomplicated; I25.2 Old myocardial infarction; Z79.899 Other long term (current) drug therapy; Z98.2 Presence of cerebrospinal fluid drainage device; F41.8 Other specified anxiety disorders; F17.220 Nicotine dependence, chewing tobacco, uncomplicated
CPT/HCPCS: 71045; 83690; 84484; 93005; 99284; A4216

== ENCOUNTER 2024-03-11 09:17 | Emergency (ER) | payer MEDICAID, SELFPAY ==
[2024-03-11 09:18] VITALS: BP 159/93; PULSE 75; RESP 16; TEMP 36.6; O2SAT 98; BMI 28.5
--- NOTE | 2024-03-11 10:08 | EX.ED.DYSGE1 ---
HPI History of Present Illness Chief Complaint: Abscess Detail of Chief Complaint: Abscess Informant: patient Narrative Narrative: Patient presents to the emergency department with complaint of an abscess at the base of his scrotum/perineum. Patient states he had cyst there sometimes. Denies fevers chills or sweats. He noticed increased pain and swelling yesterday. Denies any injury to the area. [facility] Medical History Alcohol abuse Anxiety and depression Depression Dysuria Easy bruising GERD (gastroesophageal reflux disease) HTN (hypertension) Hyperlipidemia Hypertension Injury of left middle finger Insomnia Insulin resistance Internal derangement of right knee Marijuana use Migraine Neck pain Paresthesia of right upper extremity Polysubstance abuse ST elevation (STEMI) myocardial infarction Subclinical hypothyroidism Visual changes Home Medications sumatriptan succinate 25 mg tablet (Imitrex) See Rx Instructions PO .COMPLEX #14 tabs 06/22/22 [Rx Last Taken Unknown] sertraline 100 mg tablet 100 mg PO DAILY Check with primary doctor #90 tabs 08/18/22 [Rx Last Taken Unknown] buspirone 7.5 mg tablet 7.5 mg PO BID Check with primary doctor #180 tabs 12/15/22 [Rx Last Taken Unknown] quetiapine 50 mg tablet 50 mg PO QHS #30 tabs 12/06/23 [Rx Last Taken Unknown] aspirin 81 mg tablet,delayed release 81 mg PO BREAKFAST #90 tabs 01/08/24 [Rx Last Taken Unknown] atorvastatin 40 mg tablet 40 mg PO QHS #90 tabs 01/08/24 [Rx Last Taken Unknown] lisinopril 30 mg tablet 30 mg PO DAILY #90 tabs 01/08/24 [Rx Last Taken Unknown] clindamycin HCl 300 mg capsule (Cleocin HCl) 300 mg PO Q6H #40 CAPSULES 03/11/24 [Rx Last Taken Unknown] Allergy/AdvReac Type Severity Reaction Status Date / Time Food Allergies: Uncoded Allergy Severe throat Verified 03/11/24 09:18 swelling Family History Father Hypertension Mother No cardiac disease Other Anxiety and depression Breast cancer Cancer Diabetes Mental health problem Surgical History History of coronary artery stent placement (02/07/22) History of tonsillectomy Social History (Updated 01/08/24 @ 11:30 by Aniya Johnston) Tobacco: How many years used: 7 Smokeless tobacco user: chewing tobacco how long ago did patient quit smoking: Quit smoking about 1 month ago. Still uses chewing tobacco alcohol intake: current alcohol intake frequency: a few times a week Alcohol type: beer details: 2-3 beers a week substance use type: does not use caffeine: Yes Type: carbonated beverages Number of servings: 4 what type of physical activity do you participate in: aerobics and weight training frequency: 3-4 times per week ROS ROS ED Review of Systems ROS Unobtainable: other Constitutional Constitutional ED: Reports lethargy; Denies chills, fever(s), sweats or weight loss Eyes Eyes: Denies blurry vision, change in vision or diplopia ENT ENT ED: Denies rhinorrhea or sore throat Cardiovascular Cardiovascular: Reports chest pain and racing heartbeat; Denies orthopnea Respiratory/Chest Respiratory/Chest: Reports dyspnea and dyspnea on exertion; Denies cough, orthopnea or sputum Gastrointestinal Gastrointestinal: Denies abdominal pain, diarrhea, nausea or vomiting Genitourinary Genitourinary ED: Denies dysuria, hematuria or urinary frequency Musculoskeletal Musculoskeletal: Denies arthralgias, back pain, myalgias or neck pain Integumentary Reports other Details: Pain and swelling to perineum ; Denies abscess, Abrasions or rash Neurologic Neurologic: Denies headache(s) or weakness Psychiatric Psychiatric: Denies anxiety, depression or suicidal thoughts Endocrine Endocrinology: Denies polydipsia, polyphagia or polyuria Hematologic/Lymphatic Hematologic/Lymphatic: Denies easy bleeding, easy bruising or lymphadenopathy Allergic/Immunologic Allergic/Immunologic ED: Denies mouth swelling, tongue swelling or urticaria EXAM Physical Exam Const Vital Signs: 03/11/24 09:18 Temperature 97.8 F Temperature Source Temporal Pulse Rate 75 Respiratory Rate 16 Blood Pressure 159/93 H Blood Pressure Mean 115 Pulse Ox 98 Oxygen Delivery Method Room Air Positive well nourished and well developed General Appearance ED: well developed and NAD HEENT Reports TM's clear and moist mucous membranes normocephalic and atraumatic; Negative for trauma or tenderness Tympanic Membrane ED: Yes TM's clear Eyes PERRL and EOMs intact bilaterally General Eye ED: Negative for pale conjunctiva or scleral icterus Neck no lymphadenopathy, supple and no JVD General: Negative for tenderness Chest Wall inspection of chest normal and palpation of chest normal Chest: Negative for tenderness Resp normal respiratory effort and clear to auscultation bilaterally Effort and Inspection: Negative for respiratory distress or pain with movement Auscultation: Negative for rhonchi, wheezes or diminished lung sounds Cardio regular rate, regular rhythm, S1 normal heart sound, S2 normal heart sound and no murmurs Peripheral Pulses: pulses 2+ throughout GI normal to inspection, nondistended, normoactive bowel sounds, soft to palpation, non-tender, non-distended and no masses Narrative: Patient has a soft tissue abscess over the area of the perineum that is fluctuant and tender to palpation. Central portions excoriated with thinning of the skin noted. Back/Spine no CVA tenderness and no thoracic nor lumbar tenderness Extremity normal to inspection General Extremety ED: Negative for edema General Extremity: Negative for edema Neuro oriented x3, CN's II-XII intact bilaterally, no sensory deficits noted and gait normal Sensorium / Orientation: awake, alert, oriented to person, oriented to place and oriented to time Motor Exam: strength 5/5 throughout and strength abnormal Psych mental status grossly normal Skin no rashes or lesions noted and no wounds MDM MDM MDM Narrative Medical decision making narrative: Patient was given option for incision and drainage which I recommended and he agrees. He does not want anesthetic would just like me to perform an incision and drainage without anesthetic. Patient tolerated procedure well with incision and drainage. He will be started on clindamycin. He is referred to this primary care physician for follow-up within next 3 to 5 days. Advised to return if worsening pain, swelling, or condition should worsen anyway Lab Data Attestation: I reviewed the patient's lab results. Procedures Other Procedures Procedure(s): Patient had a incision and drainage of abscess in the perineum. Patient did not want anesthetic. Clean was cleansed with Shur-Clens and irrigated with saline. Using an 11 blade a 2 cm incision was made in the fluctuant portion of the abscess and large amount of free-flowing purulent debris was expressed. Area was compressed and milked until no further drainage was obtained. Patient tolerated procedure well. Discharge Plan Triage Chief Complaint: Abscess ED Provider: Janae Zamora Dx/Rx/DC Orders Clinical Impression: Abscess of perineum Instructions: ED Abscess Incision And Drainage Prescriptions: New clindamycin HCl [Cleocin HCl] 300 mg capsule 300 mg PO Q6H Qty: 40 0RF No Action sumatriptan succinate [Imitrex] 25 mg tablet See Rx Instructions PO .COMPLEX Qty: 14 1RF Rx Instructions: take 1 tab at onset of headache; if no relief may repeat 1 tab after at least 2 hrs; max = 4 tabs/24 hr PO atorvastatin 40 mg tablet 40 mg PO QHS Qty: 90 3RF lisinopril 30 mg tablet 30 mg PO DAILY Qty: 90 3RF aspirin 81 mg tablet,delayed release (DR/EC) 81 mg PO BREAKFAST Qty: 90 3RF quetiapine 50 mg tablet 50 mg PO QHS Qty: 30 0RF sertraline 100 mg tablet 100 mg PO DAILY Qty: 90 2RF buspirone 7.5 mg tablet 7.5 mg PO BID Qty: 180 3RF Primary Care Provider: Jaci Krishna Referrals: Jaci Krishna MD [Primary Care Provider] - 3-5 Days Disposition Disposition: Home, Self Care
[2024-03-11] MEDS: Clindamycin HCl 150 MG Capsule 300 MG PO (10:38)
[2024-03-11 10:39] VITALS: BP 136/88; PULSE 92; RESP 15; TEMP 36.3; O2SAT 100
== END 2024-03-11 10:41 | disposition home or self-care (01) ==
LOC: ED 10:28
PROVIDERS: Emergency Provider Emergency Medicine; PCP Internal Medicine; Visit Provider Emergency Medicine
DX: L02.215 Cutaneous abscess of perineum (principal); Z87.891 Personal history of nicotine dependence; I25.2 Old myocardial infarction; I10 Essential (primary) hypertension; E78.5 Hyperlipidemia, unspecified; K21.9 Gastro-esophageal reflux disease without esophagitis
CPT/HCPCS: 10060; 55100; 99282

== ENCOUNTER 2024-07-11 08:44 | Emergency (ER) | payer MEDICAID, SELFPAY ==
[2024-07-11 08:45] VITALS: BP 167/100; PULSE 100; RESP 14; TEMP 36.7; O2SAT 98; BMI 26.6
--- NOTE | 2024-07-11 09:08 | EX.ED.DYSGE1 ---
HPI History of Present Illness Chief Complaint: Abscess Narrative Narrative: Chief complaint and HPI: Abscess. 28-year-old male with history of abscesses/cysts presents for evaluation of abscess in left armpit. Patient states that he has had infected cyst in the past in which they were incised and drained as well as operated on. He states that he often gets cysts. He states the cyst under his armpit he has had for a while but that this past week it has become more tender, painful, red. He denies any fever, chills, shortness of breath, chest pain, abdominal pain, nausea, vomiting. He denies any history of diabetes. Denies any history of drug abuse other than marijuana. Denies IV drug abuse. Denies any history of immunosuppression. Review of systems: See HPI Medications: As listed on the chart Allergies: As listed on the chart PFSH: Per chart Vital signs: As listed on the chart. Reviewed. Physical exam: Gen: A&O x3, NAD but anxious and fidgety Head: Normocephalic, atraumatic Eyes: No sclera icterus, conjunctiva clear ENT: Moist mucous membranes CV: RRR, no murmur Resp: Lungs CTA BL, no w/r/c Musc: Full ROM, no deformity Skin: Warm, patient has multiple small infected hairs/excoriations on his body most specifically his anterior chest and bilateral arms-he states this is normal and has had this his whole life, under his left armpit he has 2 abscesses that are erythematous, fluctuant, and painful. Larger 1 is approximately 2 x 2 cm, the smaller 1 is approximately 1 x 1 cm. Neuro: Alert, oriented, grossly intact, sensation intact Psych: Cooperative, appropriate mood and affect [facility] History Alcohol abuse Anxiety and depression Depression Dysuria Easy bruising GERD (gastroesophageal reflux disease) HTN (hypertension) Hyperlipidemia Hypertension Injury of left middle finger Insomnia Insulin resistance Internal derangement of right knee Marijuana use Migraine Neck pain Paresthesia of right upper extremity Polysubstance abuse ST elevation (STEMI) myocardial infarction Subclinical hypothyroidism Visual changes Home Medications ?Medication ?Instructions ?Recorded ?Last Taken ?Type sumatriptan succinate 25 mg tablet See Rx Instructions PO .COMPLEX 06/22/22 Unknown Rx (Imitrex) #14 tabs sertraline 100 mg tablet 100 mg PO DAILY Check with primary 08/18/22 Unknown Rx doctor #90 tabs buspirone 7.5 mg tablet 7.5 mg PO BID Check with primary 12/15/22 Unknown Rx doctor #180 tabs quetiapine 50 mg tablet 50 mg PO QHS #30 tabs 12/06/23 Unknown Rx aspirin 81 mg tablet,delayed 81 mg PO BREAKFAST #90 tabs 01/08/24 Unknown Rx release atorvastatin 40 mg tablet 40 mg PO QHS #90 tabs 01/08/24 Unknown Rx lisinopril 30 mg tablet 30 mg PO DAILY #90 tabs 01/08/24 Unknown Rx clindamycin HCl 300 mg capsule 300 mg PO Q6H #40 CAPSULES 03/11/24 Unknown Rx (Cleocin HCl) cephalexin 500 mg capsule 500 mg PO Q12 7 days #14 CAPSULES 07/11/24 Unknown Rx sulfamethoxazole 800 1 tab PO BID 7 days #14 tabs 07/11/24 Unknown Rx mg-trimethoprim 160 mg tablet (Bactrim DS) Allergy/AdvReac Type Severity Reaction Status Date / Time Food Allergies: Uncoded Allergy Severe throat Verified 07/11/24 08:45 swelling Family History Father Hypertension Mother No cardiac disease Other Anxiety and depression Breast cancer Cancer Diabetes Mental health problem Surgical History History of coronary artery stent placement (02/07/22) History of tonsillectomy Social History (Updated 01/08/24 @ 11:30 by Aniya Johnston) Smoking Status: Never smoker Tobacco: How many years used: 7 Smokeless tobacco user: chewing tobacco how long ago did patient quit smoking: Quit smoking about 1 month ago. Still uses chewing tobacco alcohol intake: current alcohol intake frequency: a few times a week Alcohol type: beer details: 2-3 beers a week substance use type: does not use caffeine: Yes Type: carbonated beverages Number of servings: 4 what type of physical activity do you participate in: aerobics and weight training frequency: 3-4 times per week EXAM Physical Exam Const Vital Signs: 07/11/24 08:45 Temperature 98.1 F Temperature Source Temporal Pulse Rate 100 Respiratory Rate 14 Blood Pressure 167/100 H Blood Pressure Mean 122 Pulse Ox 98 Oxygen Delivery Method Room Air MDM MDM MDM Narrative Medical decision making narrative: 28-year-old male with history of infected cyst presents for evaluation of 2 infected cyst/abscesses to the left armpit. Diagnosis consists of infected cyst, abscess, hidradenitis suppurativa. Patient denies any systemic symptoms therefore I do not think any laboratory workup is needed at this time. Vitals are stable. He is afebrile. Abscesses will require I&D. On chart review, patient has followed with Dr. Sarabia on in the past for operation on 01/19. At that time he had aspiration of a perineal cyst. When I went to perform I&D, lidocaine with epinephrine vial was missing. Per nurse, vile was in the room. We asked the patient if he knew where it was. He stated he did not. Ultimately security and police were involved. Vile was found. Patient tolerated I&D well. Packing was placed in the larger abscess. Patient and police were educated that the packing needs to be removed in 24 hours. Okay to shower in 24 hours. Patient was educated that he needs to keep wound clean and dry. Believes assured me there is a nurse at site. Police requesting prescription printed. Given that patient was found with multiple illicit drugs on him, patient will be placed on Keflex and Bactrim x 7 days. Follow-up with PCP and Dr. Sarabia. Incision and Drainage Indication: Abscess Location: Left armpit 2 x 2 cm abscess 1 x 1 cm abscess Consent: Risks, benefits, and alternatives discussed with patient and consent obtained Procedure: I verified correct patient, procedure, site, and positioning. The area was prepared and draped in the usual sterile manner. The site was anesthetized with 1% lidocaine with epinephrine approximately a total of 6 mL. A cruciate incision was made in the skin of both abscesses and purulent material was expressed. The abscesses were explored thoroughly, and sequestered pockets were opened. The abscess pockets were irrigated. Bleeding was minimal. Iodoform packing was placed in the larger abscess. The patient tolerated the procedure well without complications. Follow-Up: Standard post-procedure care was explained and return precautions were given Impression: 1. Left armpit abscesses 2. Cellulitis Discharge Plan Triage Chief Complaint: Abscess ED Provider: Diego Walker Dx/Rx/DC Orders Clinical Impression: Abscess Instructions: ED Abscess Incision And Drainage Prescriptions: New sulfamethoxazole-trimethoprim [Bactrim DS] 800-160 mg tablet 1 tab PO BID 7 Days Qty: 14 0RF cephalexin 500 mg capsule 500 mg PO Q12 7 Days Qty: 14 0RF No Action sumatriptan succinate [Imitrex] 25 mg tablet See Rx Instructions PO .COMPLEX Qty: 14 1RF Rx Instructions: take 1 tab at onset of headache; if no relief may repeat 1 tab after at least 2 hrs; max = 4 tabs/24 hr PO atorvastatin 40 mg tablet 40 mg PO QHS Qty: 90 3RF lisinopril 30 mg tablet 30 mg PO DAILY Qty: 90 3RF aspirin 81 mg tablet,delayed release (DR/EC) 81 mg PO BREAKFAST Qty: 90 3RF quetiapine 50 mg tablet 50 mg PO QHS Qty: 30 0RF clindamycin HCl [Cleocin HCl] 300 mg capsule 300 mg PO Q6H Qty: 40 0RF sertraline 100 mg tablet 100 mg PO DAILY Qty: 90 2RF buspirone 7.5 mg tablet 7.5 mg PO BID Qty: 180 3RF Primary Care Provider: Jaci Krishna Referrals: Jaci Krishna MD [Primary Care Provider] - 3-5 Days Yenifer Couch MD [Med Staff - Active Staff] - 3-5 Days Activity Restrictions/Additional Instructions: Packing needs to be removed in 24 hours. Okay to shower in 24 hours. Keep area dry and clean. Follow-up as soon as possible with general surgery. Take all antibiotics. If symptoms worsen return back to the emergency department. Print Language: Kinyarwanda Disposition Disposition: Home, Self Care
--- NOTE | 2024-07-11 09:40 | ED.RN ---
lido with epi placed on suture care per order for medication and setup. dr went in room, medication not on cart. pt questioned with this nurse, charge nurse and dr. pt denies touching anything. med not able to be located. questioned pt again. pt allowed staff to check pockets.security at bedside. pt verbal consent to look through things. pt bags full of medical supplies from room, including scalpels, instrument sets, dressings etc. [employer] officer called. pt continues to deny taking medication. security and [employer] officer at bedside.
--- NOTE | 2024-07-11 09:52 | ED.RN ---
this nurse reentered room to assiste security in identifying hospital property. nurse stated to law enforcement all we need is the medication. if we had gotten the medication returned we would never have found all this and needed to call you guys in here, or known about all these supplies. pt immediately states so if i give it to you then i can leave. i responded not at this point after finding all this, but your admitting that you have it. pt responded no, followed up with then how could you give it to me he states i may know where it is. conversation progressed. pt verbalized where med was. security found it in his rolled up shirt on floor that had been searched previously. this nurse notified officer that pt to receive treatment prior to leaving
[2024-07-11] MEDS: Lidocaine 1% /Epi 1:100 (20ml) 20 ML Vial INFILT (10:59)
== END 2024-07-11 11:04 | disposition home or self-care (01) ==
PROVIDERS: Emergency Provider Surgery; PCP Internal Medicine; Visit Provider Surgery
DX: L02.412 Cutaneous abscess of left axilla (principal); I10 Essential (primary) hypertension; E78.5 Hyperlipidemia, unspecified; Z79.899 Other long term (current) drug therapy; F41.8 Other specified anxiety disorders; Z79.82 Long term (current) use of aspirin; Z95.5 Presence of coronary angioplasty implant and graft; F17.220 Nicotine dependence, chewing tobacco, uncomplicated; L03.112 Cellulitis of left axilla
CPT/HCPCS: 10060; 99283; A4216

== ENCOUNTER 2025-06-06 10:51 | Emergency (ER) | payer MEDICAID, SELFPAY ==
[2025-06-06 10:51] VITALS: BP 150/86; PULSE 103; RESP 14; TEMP 36.6; O2SAT 99; BMI 30.1
--- NOTE | 2025-06-06 11:07 | EX.ED.DYSGE1 ---
HPI <JAKE Cabrera - Last Filed: 06/06/25 11:44> History of Present Illness Chief Complaint: Abscess Narrative Narrative: 28-year-old male presents with an abscess in his left groin/perineal area that started 3 days ago. He states it is becoming larger and more painful. He said no fever, chills, nausea or vomiting, or pain in his testicles or dysuria. He denies history of diabetes or immunocompromise. States has had abscesses in the same area in the past that required I&D. He was prescribed Bactrim this morning by 180 but is here to have it drained. [facility] <JAKE Cabrera - Last Filed: 06/06/25 11:44> [facility] Medical History Alcohol abuse Anxiety and depression Depression Dysuria Easy bruising GERD (gastroesophageal reflux disease) HTN (hypertension) Hyperlipidemia Hypertension Injury of left middle finger Insomnia Insulin resistance Internal derangement of right knee Marijuana use Migraine Neck pain Paresthesia of right upper extremity Polysubstance abuse ST elevation (STEMI) myocardial infarction Subclinical hypothyroidism Visual changes Home Medications ?Medication ?Instructions ?Recorded ?Last Taken ?Type sumatriptan succinate 25 mg tablet See Rx Instructions PO .COMPLEX 06/22/22 Unknown Rx (Imitrex) #14 tabs sertraline 100 mg tablet 100 mg PO DAILY Check with primary 08/18/22 Unknown Rx doctor #90 tabs buspirone 7.5 mg tablet 7.5 mg PO BID Check with primary 12/15/22 Unknown Rx doctor #180 tabs quetiapine 50 mg tablet 50 mg PO QHS #30 tabs 12/06/23 Unknown Rx aspirin 81 mg tablet,delayed 81 mg PO BREAKFAST #90 tabs 01/08/24 Unknown Rx release atorvastatin 40 mg tablet 40 mg PO QHS #90 tabs 01/08/24 Unknown Rx lisinopril 30 mg tablet 30 mg PO DAILY #90 tabs 01/08/24 Unknown Rx clindamycin HCl 300 mg capsule 300 mg PO Q6H #40 CAPSULES 03/11/24 Unknown Rx (Cleocin HCl) cephalexin 500 mg capsule 500 mg PO Q12 7 days #14 CAPSULES 07/11/24 Unknown Rx sulfamethoxazole 800 1 tab PO BID 7 days #14 tabs 07/11/24 Unknown Rx mg-trimethoprim 160 mg tablet (Bactrim DS) Allergy/AdvReac Type Severity Reaction Status Date / Time Food Allergies: Uncoded Allergy Severe throat Verified 06/06/25 10:52 swelling Family History Father Hypertension Mother No cardiac disease Other Anxiety and depression Breast cancer Cancer Diabetes Mental health problem Surgical History History of coronary artery stent placement (02/07/22) History of tonsillectomy Social History (Updated 01/08/24 @ 11:30 by Aniya Johnston) Smoking Status: Never smoker Tobacco: How many years used: 7 Smokeless tobacco user: chewing tobacco how long ago did patient quit smoking: Quit smoking about 1 month ago. Still uses chewing tobacco alcohol intake: current alcohol intake frequency: a few times a week Alcohol type: beer details: 2-3 beers a week substance use type: does not use caffeine: Yes Type: carbonated beverages Number of servings: 4 what type of physical activity do you participate in: aerobics and weight training frequency: 3-4 times per week ROS <JAKE Cabrera - Last Filed: 06/06/25 11:44> ROS ED ROS Narrative Constitutional: Negative for fever, chills, malaise. GI: Negative for abdominal pain, nausea, vomiting. : Negative for dysuria. EXAM <JAKE Cabrera - Last Filed: 06/06/25 11:44> Physical Exam Narrative Exam Narrative: CONST: Patient sitting in no acute distress. EYES: Normal inspection. NECK: Normal inspection. RESP: No respiratory distress, CTAB. CVS: Regular rate and rhythm, no murmur, no gallop. ABD: Soft and nontender, no guarding or rebound, nondistended. SKIN: 1 x 1 cm fluctuant abscess with overlying erythema in the left perineum that is tender to palpation. No lymphangitic streaking. No involvement of the scrotum or rectum. EXTREMITIES: Normal appearance, no pedal edema. NEURO: Alert and answering questions appropriately. PSYCH: Normal affect. Const Vital Signs: 06/06/25 10:51 06/06/25 11:53 Temperature 98 F 98.3 F Temperature Source Temporal Pulse Rate 103 H 88 Respiratory Rate 14 18 Blood Pressure 150/86 H 132/64 H Blood Pressure Mean 107 86 Pulse Ox 99 100 Oxygen Delivery Method Room Air <Dr. Kedar Davidson MD - Last Filed: 06/06/25 16:22> Physical Exam Const Vital Signs: 06/06/25 10:51 06/06/25 11:53 Temperature 98 F 98.3 F Temperature Source Temporal Pulse Rate 103 H 88 Respiratory Rate 14 18 Blood Pressure 150/86 H 132/64 H Blood Pressure Mean 107 86 Pulse Ox 99 100 Oxygen Delivery Method Room Air MDM <Dr. Kedar Davidson MD - Last Filed: 06/06/25 16:22> MDM MDM Narrative Medical decision making narrative: I have personally performed a face to face assessment of the patient and have reviewed the [facility] Note. I performed a substantive portion of the visit including all aspects of the following. My wells findings include: History is tender swollen area and perineum consistent with small abscesses he has had in the past asking for drainage. No systemic symptoms. Exam is small 1 cm nonfluctuant tender small abscess without spontaneous drainage in the perineum just left of midline not perianal, no scrotal involvement. Medical Decison Making incision and drainage performed see the procedure note. Patient already prescribed Bactrim advised to continue that and perform sitz bath's. Other additions or changes: [None] Procedures <JAKE Cabrera - Last Filed: 06/06/25 11:44> Other Procedures Procedure(s): I&D of left perineal abscess Cleansing with alcohol wipe, anesthetized with 1% lidocaine and using 1 blade scalpel make a 1 cm incision over the central area of fluctuance. I used curved hemostats to open the abscess. About 2 cc of purulent material was expressed. It is too small for packing. Patient tolerated procedure well without complication. Discharge Plan Triage Chief Complaint: Abscess ED Midlevel Provider: Daksha Arteaga ED Provider: Kedar Davidson Dx/Rx/DC Orders Clinical Impression: Abscess of perineum Instructions: ED Abscess Incision And Drainage Prescriptions: No Action sumatriptan succinate [Imitrex] 25 mg tablet See Rx Instructions PO .COMPLEX Qty: 14 1RF Rx Instructions: take 1 tab at onset of headache; if no relief may repeat 1 tab after at least 2 hrs; max = 4 tabs/24 hr PO atorvastatin 40 mg tablet 40 mg PO QHS Qty: 90 3RF lisinopril 30 mg tablet 30 mg PO DAILY Qty: 90 3RF aspirin 81 mg tablet,delayed release (DR/EC) 81 mg PO BREAKFAST Qty: 90 3RF quetiapine 50 mg tablet 50 mg PO QHS Qty: 30 0RF sulfamethoxazole-trimethoprim [Bactrim DS] 800-160 mg tablet 1 tab PO BID 7 Days Qty: 14 0RF cephalexin 500 mg capsule 500 mg PO Q12 7 Days Qty: 14 0RF clindamycin HCl [Cleocin HCl] 300 mg capsule 300 mg PO Q6H Qty: 40 0RF sertraline 100 mg tablet 100 mg PO DAILY Qty: 90 2RF buspirone 7.5 mg tablet 7.5 mg PO BID Qty: 180 3RF Primary Care Provider: Ruby Carroll Referrals: Jaci Krishna MD [Med Staff - Active Staff] - Activity Restrictions/Additional Instructions: You can take the Bactrim you are already prescribed. Keep the area clean with soap and water daily, if symptoms worsen please be seen again in the ED. Print Language: [place] African Disposition Disposition: Home, Self Care Discharge Date/Time: 06/06/25 11:54
[2025-06-06 11:53] VITALS: BP 132/64; PULSE 88; RESP 18; TEMP 36.8; O2SAT 100
== END 2025-06-06 11:54 | disposition home or self-care (01) ==
LOC: ED 11:13
PROVIDERS: Emergency Provider Emergency Medicine; PCP Family Medicine; Visit Provider Emergency Medicine
DX: L02.215 Cutaneous abscess of perineum (principal); E78.5 Hyperlipidemia, unspecified; I10 Essential (primary) hypertension; F17.220 Nicotine dependence, chewing tobacco, uncomplicated; K21.9 Gastro-esophageal reflux disease without esophagitis
CPT/HCPCS: 10060; 99282

== ENCOUNTER → 2025-06-19 | Outpatient (CLI) | payer MEDICAID, SELFPAY ==
[2025-06-19 16:59] LABS: Hematocrit 39.5 % (40-54); Hemoglobin 13.4 g/dL (13.0-16.5); Mean Corp Hgb Conc 33.9 g/dL (32-36); Mean Corpuscular Volume 87.2 fL (80-94); Mean Platelet Vol. 10.3 fl (6.2-12.0); Platelet Count 262 K/mm3 (150-450); RBC Distribution Width CV 14.1 % (11.6-14.6); RBC Distribution Width SD 45.3 fl (35.1-43.9); Red Blood Count 4.53 M/mm3 (4.6-6.2); White Blood Count 8.0 K/mm3 (4.4-11.0)
[2025-06-19 17:25] LABS: Iron 96 ug/dL (65-175); Iron Binding Capacity,Total 345 ug/dL (250-450); Iron Binding Capacity,Unsat 249 ug/dL (228-428)
[2025-06-19 18:28] LABS: Ferritin 185 ng/mL (37-417); Vitamin D,25 Hydroxy 41.5 ng/mL (30-100)
[2025-06-19 18:29] LABS: AST(SGOT) 28 U/L (<=37); Alanine Aminotransfer ALT/SGPT 52 U/L (<=46); Albumin, Serum 4.5 g/dL (3.5-5.0); Alkaline Phosphatase 66 U/L (40-129); Anion Gap 13 (5-15); BUN 21 mg/dL (4-19); BUN/Creat Ratio 21.3 RATIO (10-20); Calcium,Total 9.2 mg/dL (7.6-11.0); Carbon Dioxide 22.1 mmol/L (21.0-32.0); Chloride 103 mmol/L (98-108); Globulin 2.3 g/dL (2.2-4.2); Glucose 96 mg/dL (70-99); Potassium 4.4 mmol/L (3.3-5.1)
--- OUTSIDE RECORDS SUMMARY | 2025-06-19 20:52 | XMS RPT_ITS | CCD ---
Author Organization [facility] Care Team Providers Care Development Mgr Name Role Phone HUSSEIN LAWRENCE Unavailable Unavailable LESLEY ONEILL Unavailable Unavailable EBEN MONTENEGRO Unavailable Unavailable LESLEY ONEILL Unavailable Unavailable Teresa MEDIA PLANNER, MEDIA PLANNER-C Delfino Primary Care Provider Dr. Kedar Davidson Emergency Provider Dr. Clementine Dugan Admit Provider Dr. Clementine Dugan Attending Provider Dr. Clementine Dugan Referring Provider Dr. Clementine Dugan Other Provider Dr. Ernst Jennings Attending Provider Dr. Arsh Joe Attending Provider Dr. Aniyah Pardo Attending Provider Dr. Aniyah Pardo Other Provider Dr. Mendoza Gutierrez Attending Provider Dr. Aniyah Pardo Referring Provider Moore MEDIA PLANNER, MEDIA PLANNER-C Delfino Attending Provider Moore MEDIA PLANNER, MEDIA PLANNER-C Delfino Referring Provider Winsome MEDIA PLANNER, MEDIA PLANNER-C Kemar Morin Attending Provider JAEK Mccarthy Attending Provider Unavailab le Moore MEDIA PLANNER, MEDIA PLANNER-C Delfino Primary Care Provider Moore MEDIA PLANNER, MEDIA PLANNER-C Delfino Referring Provider Moore MEDIA PLANNER, MEDIA PLANNER-C Delfino Attending Provider Roof MEDIA PLANNER, MEDIA PLANNER-C Kemar Morin Attending Provider Moore MEDIA PLANNER, MEDIA PLANNER-C Delfino Primary Care Provider Moore MEDIA PLANNER, MEDIA PLANNER-C Delfino Attending Provider Moore MEDIA PLANNER, MEDIA PLANNER-C Delfino Referring Provider Moore MEDIA PLANNER, MEDIA PLANNER-C Delfino Primary Care Provider Moore MEDIA PLANNER, MEDIA PLANNER-C Delfino Attending Provider Moore MEDIA PLANNER, MEDIA PLANNER-C Delfino Referring Provider Moore MEDIA PLANNER, MEDIA PLANNER-C Delfino Primary Care Provider Moore MEDIA PLANNER, MEDIA PLANNER-C Delfino Referring Provider Carmen JOSEPH, JAKE Gallegos Attending Provider DELFINO MOORE Primary Care Unavailable JAYLENE WOOD Admitting Unavailable Dr. Jaci Krishna Primary Care Provider Dr. Jaci Krishna Referring Provider Roof MEDIA PLANNER, MEDIA PLANNER-C Kemar Morin Attending Provider Delfino Moore Primary Care Provider Unavailsusu carroll PHYSICIAN, PATIENT UNSURE Primary Care Aubrey FOUNTAIN APRN-ADELITA PRINCE Attending Aubrey Davidson MD, Dr. Thacker Emergency Provider Dr. Ruby Carroll DO Primary Care Provider Jaci Krishna Primary Care Unavailable Jaci Krishna Referring Unavailable Arsh Joe Attending Unavailable Diego Walker Attending UnavailJaci Ibarra Primary Care Unavailable Kedar Davidson Attending Unavailable Ruby Carroll Primary Care Unavailable Allergies Allergy Classification Reported Allergen(s) Allergy Type Date of Onset Reaction(s) Facility (4 sources) Food Allergies: Uncoded; Translations: [Food Allergies: Uncoded] Allergy to substance 3 Itching, throat swelling [facility] Comment on above: Dark Chocolate (1 source) DARK CHOCOLATE Allergy to substance 3 Itching [facility] Medications Current Medications Medication Drug Class(es) Dates Sig (Normalized) Sig (Original) [id number] 200 actuat albuterol 0.09 mg/actuat metered dose inhaler (1 source) beta2-Adrenergic Agonist Start: 09-16-2021 take 2 puff(s) by inhalation every four hours as needed for wheezing albuterol HFA (PROVENTIL HFA, VENTOLIN HFA) 90 mcg/actuation inhaler Inhale 2 Puffs as instructed every 4 hours as needed for wheezing/shortnes s of breath. 1 Each 1 09/16/2021 Active cephalexin 500 mg oral capsule (7 sources) Cephalosporin Antibacterial Start: 07-11-2024 take 1 capsule by mouth every twelve hours Cephalexin 500 mg capsule Active 500 mg PO EVERY 12 HOURS 14 7 0 July 11, 2024 12:00am Start: 05-05-2023 End: 12-06-2023 take 1 capsule by mouth every six hours Cephalexin 500 mg capsule Discontinued 500 mg PO EVERY 6 HOURS 40 0 May 05, 2023 12:00am December 06, 2023 1:17pm clindamycin 300 mg oral capsule (2 sources) Lincosamide Antibacterial Start: 03-11-2024 take 1 capsule by mouth every six hours Clindamycin Hcl (Cleocin Hcl) 300 mg capsule Active 300 mg PO EVERY 6 HOURS 40 0 March 11, 2024 12:00am 1.5 ml fremanezumab-vfrm 150 mg/ml auto-injector (6 sources) Start: 11-09-2022 Fremanezumab-V frm (Ajovy Autoinjector) 225 mg/1.5 mL auto-injector Active 225 MG SC EVERY MONTH November 09, 2022 12:00am lisinopril 30 mg oral tablet (20 sources) Angiotensin Converting Enzyme Inhibitor Start: 12-06-2023 End: 01-08-2024 take 1 tablet by mouth once daily Lisinopril 30 mg tablet Active 30 mg PO DAILY 90 January 08, 2024 11:44am Start: 02-09-2022 End: 01-08-2024 take 3 tablets by mouth once daily Lisinopril 10 mg tablet Discontinued 30 mg PO DAILY 270 3 March 07, 2022 4:28pm January 08, 2024 11:24am Start: 02-09-2022 End: 01-08-2024 take 30 mg by mouth once daily Lisinopril Active 30 MG PO DAILY 270 March 07, 2022 3:28pm Start: 01-29-2021 End: 05-06-2021 Lisinopril 40 mg tablet Disc ontinued NMA PO January 29, 2021 12:00am May 06, 2021 4:05pm Start: 01-29-2021 End: 05-06-2021 Lisinopril Discontinued TAB PO January 29, 2021 12:00am May 06, 2021 4:05pm Start: 10-06-2020 End: 01-18-2021 take 1 tablet by mouth once daily Lisinopril 40 mg tablet Discontinued 40 mg PO DAILY 90 October 06, 2020 11:29am January 18, 2021 11:38am Start: 09-18-2020 End: 10-06-2020 Lisinopril 40 MG tablet Disc ontinued 20 mg PO DAILY September 18, 2020 5:06pm October 06, 2020 11:30am Start: 09-18-2020 End: 10-06-2020 take 20 mg by mouth once daily Lisinopril Discontinued 20 MG PO DAILY September 18, 2020 5:06pm October 06, 2020 11:30am Start: 09-18-2020 End: 09-18-2020 take 1 tablet by mouth once daily Lisinopril 40 mg tablet Discontinued 40 mg PO DAILY 30 September 18, 2020 3:18pm September 18, 2020 5:06pm Start: 09-10-2020 End: 09-18-2020 take 1 tablet by mouth once daily Lisinopril 20 mg tablet Discontinued 20 mg PO DAILY September 10, 2020 1:00am September 18, 2020 3:18pm rimegepant 75 mg disintegrating oral tablet (6 sources) Start: 11-09-2022 take 1 tablet by mouth once Rimegepant (Nurtec Odt) 75 mg tablet,disintegrating Active 75 MG PO ONCE November 09, 2022 12:00am as a single dose sulfamethoxazole 800 mg / trimethoprim 160 mg oral tablet (7 sources) Dihydrofolate Reductase Inhibitor Antibacterial, Sulfonamide Antimicrobial Start: 07-11-2024 Sulfamethoxazole-Trimeth oprim (Bactrim Ds) 800-160 mg tablet Active 1 {tbl} PO TWICE A DAY 14 7 0 July 11, 2024 12:00am Start: 05-05-2023 End: 01-08-2024 Sulfamethoxazole-Trimethopri m (Bactrim Ds) 800-160 mg tablet Discontinued 1 {tbl} PO TWICE A DAY 20 May 05, 2023 12:00am January 08, 2024 11:23am SUMAtriptan 25 mg oral tablet (10 sources) Serotonin-1b and Serotonin-1d Receptor Agonist Start: 06-22-2022 take 1 tablet by mouth every two hours Sumatriptan Succinate (Imitrex) 25 mg tablet Active 0 PO .COMPLEX 14 June 22, 2022 12:00am take 1 tab at onset of headache; if no relief may repeat 1 tab after at least 2 hrs; max = 4 tabs/24 hr PO Completed/Discontinued Medications Medication Drug Class(es) Dates Sig (Normalized) Sig (Original) acetaminophen 500 mg oral tablet (20 sources) Start: 01-29-2021 End: 04-22-2022 take 1 tablet by mouth every six hours as needed for pain Acetaminophen (Tylenol Extra Strength) 500 mg tablet Discontinued 500 mg PO EVERY 6 HOURS as needed for Pain January 29, 2021 12:00am April 22, 2022 2:25pm Start: 10-06-2020 End: 01-18-2021 take 1 tablet by mouth every six hours as needed for pain Acetaminophen (Tylenol Extra Strength) 500 mg tablet Discontinued 500 mg PO EVERY 6 HOURS as needed for fever or pain 60 1 November 06, 2020 10:35am January 18, 2021 11:38am Start: 11-27-2019 End: 01-01-2020 take 1 tablet by mouth once as needed Acetaminophen (Tylenol) 325 mg tablet Discontinued 325 mg PO ONCE as needed November 27, 2019 1:00am January 01, 2020 2:36pm acetaminophen 325 mg / HYDROcodone bitartrate 5 mg oral tablet (14 sources) Opioid Agonist Start: 01-10-2017 End: 11-27-2019 Hydrocodone-Acetaminophen 1 TABLET tablet Discontinued 1 {tbl} PO EVERY 6 HOURS NEEDED as needed for Pain 10 January 10, 2017 12:00am November 27, 2019 3:50pm Start: 01-10-2017 End: 11-27-2019 take 1 tablet by mouth every six hours as needed Hydrocodone-Acetaminophen Discontinued 1 TABLET PO EVERY 6 HOURS NEEDED January 10, 2017 12:00am November 27, 2019 3:50pm acetaminophen 325 mg / oxyCODONE hydrochloride 5 mg oral tablet (16 sources) Opioid Agonist Start: 12-30-2022 End: 12-06-2023 Oxycodone-Acetaminophen 5-32 5 mg tablet Discontinued 1 {tbl} PO EVERY 6 HOURS NEEDED as needed for Pain 12 3 0 October 10, 2023 December 06, 2023 1:18pm Tear of meniscus of right knee Internal derangement of right knee Unspecified internal derangement of right knee Start: 12-30-2022 End: 12-06-2023 take 1 tablet by mouth every six hours as needed Oxycodone-Acetaminophen Active 1 TABLET PO EVERY 6 HOURS NEEDED 12 October 10, 2023 amoxicillin 875 mg / clavulanate 125 mg oral tablet (20 sources) Penicillin-class Antibacterial Start: 12-30-2022 End: 12-06-2023 take 1 tablet by mouth every twelve hours Amoxicillin-Pot Clavulanate 875-125 mg tablet Discontinued 875 mg PO Q12H 20 December 30, 2022 1:00am December 06, 2023 1:16pm Start: 11-06-2020 End: 12-18-2020 Amoxicillin-Pot Clavulanate (Augmentin) 875-125 mg tablet Discontinued 1 {tbl} PO TWICE A DAY 20 November 06, 2020 1:00am December 18, 2020 9:56am aspirin 81 mg delayed release oral tablet (20 sources) Platelet Aggregation Inhibitor, Nonsteroidal Anti-inflammatory Drug Start: 02-09-2022 End: 01-08-2024 take 1 tablet by mouth at breakfast Aspirin 81 mg tablet,delayed release (DR/EC) Discontinued 81 mg PO WITH BREAKFAST 90 March 07, 2022 4:28pm January 08, 2024 11:45am atorvastatin 40 mg oral tablet (20 sources) HMG-CoA Reductase Inhibitor Start: 02-09-2022 End: 01-08-2024 take 1 tablet by mouth at bedtime Atorvastatin 40 mg tablet Discontinued 40 mg PO AT BEDTIME 90 March 07, 2022 4:28pm January 08, 2024 11:45am busPIRone hydrochloride 10 mg oral tablet (20 sources) Start: 12-06-2023 End: 01-08-2024 take 1 tablet by mouth once daily Buspirone 10 mg tablet Discontinued 10 mg PO DAILY 30 0 December 06, 2023 1:00am January 08, 2024 11:25am Start: 01-29-2021 End: 12-15-2022 take 1 tablet by mouth twice daily Buspirone 7.5 mg tablet Discontinued 7.5 mg PO TWICE A DAY 180 December 23, 2021 6:11pm February 07, 2022 3:10pm Start: 12-18-2020 End: 01-18-2021 take 1 tablet by mouth twice daily Buspirone 7.5 mg tablet Discontinued 7.5 mg PO TWICE A DAY 60 December 18, 2020 1:00am January 18, 2021 11:38am cyclobenzaprine hydrochloride 5 mg oral tablet (20 sources) Muscle Relaxant Start: 03-29-2022 End: 12-06-2023 take 5-10 mg by mouth at bedtime as needed for muscle spasms Cyclobenzaprine 5 mg tablet Discontinued 5 - 10 mg PO AT BEDTIME as needed for muscle spasm 30 June 22, 2022 3:47pm December 06, 2023 1:17pm Start: 03-29-2022 End: 12-06-2023 take 5-10 mg by mouth at bedtime Cyclobenzaprine Active 5 - 10 MG PO AT BEDTIME June 22, 2022 2:47pm doxycycline monohydrate 100 mg oral capsule (7 sources) Tetracycline-class Drug Start: 12-30-2022 End: 12-06-2023 take 1 capsule by mouth twice daily Doxycycline Monohydrate 100 mg capsule Discontinued 100 mg PO TWICE A DAY 20 December 30, 2022 1:00am December 06, 2023 1:17pm hydroCHLOROthiazide 25 mg oral tablet (20 sources) Thiazide Diuretic Start: 06-01-2022 End: 08-17-2022 Hydrochlorothiazide 25 mg tablet Discontinued 12.5 mg PO DAILY June 01, 2022 9:38am August 17, 2022 9:45am Start: 06-01-2022 End: 08-17-2022 take 12.5 mg by mouth once daily Hydrochlorothiazide Discontinued 12.5 MG PO DAILY June 01, 2022 9:38am August 17, 2022 9:45am Start: 02-09-2022 End: 06-01-2022 take 1 tablet by mouth once daily Hydrochlorothiazide 25 mg tablet Discontinued 25 mg PO DAILY 90 March 07, 2022 4:28pm June 01, 2022 9:39am Start: 01-29-2021 End: 05-06-2021 Hydrochlorothiazide 25 mg ta blet Discontinued NMA PO January 29, 2021 12:00am May 06, 2021 4:05pm Start: 01-29-2021 End: 05-06-2021 Hydrochlorothiazide Disconti nued TAB PO January 29, 2021 12:00am May 06, 2021 4:05pm Start: 01-29-2020 End: 01-18-2021 take 1 tablet by mouth once daily in the morning Hydrochlorothiazide 25 mg tablet Discontinued 25 mg PO EVERY MORNING September 01, 2020 11:11am January 18, 2021 11:38am Start: 01-01-2020 End: 01-29-2020 take 1 tablet by mouth once daily in the morning Hydrochlorothiazide 12.5 mg tablet Discontinued 12.5 mg PO EVERY MORNING January 01, 2020 1:00am January 29, 2020 8:58am hydroCHLOROthiazide 25 mg / lisinopril 20 mg oral tablet (20 sources) Thiazide Diuretic, Angiotensin Converting Enzyme Inhibitor Start: 09-09-2021 lisinopril-hydroCHLOROthiazi de (PRINZIDE, ZESTORETIC) 20-25 mg per tablet Start: 01-29-2021 End: 02-09-2022 Lisinopril-Hydrochlorothiazi de 20-25 mg tablet Discontinued 1 {tbl} PO DAILY February 07, 2022 3:10pm February 09, 2022 10:10am Check with primary doctor Start: 01-29-2021 End: 02-09-2022 take 1 tablet by mouth once daily Lisinopril-Hydrochlorothiazide Discontin ued 1 TABLET PO DAILY December 23, 2021 5:11pm February 07, 2022 2:10pm hydrOXYzine hydrochloride 25 mg oral tablet (20 sources) Antihistamine Start: 11-27-2019 End: 09-01-2020 take 1 tablet by mouth three times daily as needed for anxiety Hydroxyzine Hcl 25 mg tablet Discontinued 25 mg PO THREE TIMES A DAY as needed for anxiety 30 0 December 19, 2019 5:46pm September 01, 2020 10:43am ibuprofen 200 mg oral capsule (20 sources) Nonsteroidal Anti-inflammatory Drug Start: 04-22-2022 End: 04-22-2022 take 1 capsule by mouth every six hours as needed Ibuprofen 200 mg capsule Discontinued 200 mg PO EVERY 6 HOURS as needed April 22, 2022 12:00am April 22, 2022 2:52pm Start: 01-29-2021 End: 02-10-2022 take 1 tablet by mouth three times daily at mealtime for pain Ibuprofen 600 mg tablet Discontinued 600 mg PO THREE TIMES A DAY as needed for pain 90 0 May 06, 2021 4:11pm February 10, 2022 8:33am take with food Start: 12-06-2016 End: 11-27-2019 take 1 tablet by mouth four times daily as needed for pain Ibuprofen 600 MG tablet Discontinued 600 mg PO 4 TIMES DAILY as needed for Pain December 06, 2016 1:00am November 27, 2019 3:50pm levocetirizine dihydrochloride 5 mg oral tablet (12 sources) Histamine-1 Receptor Antagonist Start: 03-29-2022 End: 08-17-2022 take 1 tablet by mouth once daily as needed Levocetirizine 5 mg tablet Discontinued 5 mg PO DAILY as needed for allergies 30 March 29, 2022 12:00am August 17, 2022 9:26am meloxicam 15 mg oral tablet (20 sources) Nonsteroidal Anti-inflammatory Drug Start: 01-29-2020 End: 09-01-2020 take 1 tablet by mouth once daily as needed for pain Meloxicam 15 mg tablet Discontinued 15 mg PO DAILY as needed for pain 90 1 July 10, 2020 11:43am September 01, 2020 10:43am Start: 01-01-2020 End: 01-29-2020 take 1 tablet by mouth once daily as needed for pain Meloxicam (Mobic) 7.5 mg tablet Discontinued 7.5 mg PO DAILY as needed for pain 30 January 01, 2020 1:00am January 29, 2020 8:58am metoclopramide 10 mg oral tablet (8 sources) Dopamine-2 Receptor Antagonist Start: 08-17-2022 End: 12-06-2023 take 1 tablet by mouth 30 minutes before mealtime Metoclopramide Hcl (Reglan) 10 mg tablet Discontinued 10 mg PO before meals August 17, 2022 12:00am December 06, 2023 1:17pm administer 30 minutes before meals metoprolol tartrate 25 mg oral tablet (20 sources) beta-Adrenergic Naif Start: 02-09-2022 End: 01-08-2024 Metoprolol Tartrate 25 mg tablet Discontinued 12.5 mg PO TWICE A DAY 30 0 December 06, 2023 1:00am January 08, 2024 11:44am Start: 02-09-2022 End: 01-08-2024 take 12.5 mg by mouth twice daily Metoprolol Tartrate Active 12.5 MG PO TWICE A DAY March 03, 2022 1:57pm naproxen 500 mg oral tablet (4 sources) Nonsteroidal Anti-inflammatory Drug Start: 10-10-2023 End: 12-06-2023 take 1 tablet by mouth twice daily Naproxen 500 mg tablet Discontinued 500 mg PO TWICE A DAY 14 October 10, 2023 1:00am December 06, 2023 1:18pm ondansetron 4 mg disintegrating oral tablet (14 sources) Serotonin-3 Receptor Antagonist Start: 06-03-2020 End: 09-01-2020 take 1 tablet by mouth every eight hours as needed for nausea Ondansetron 4 MG tablet Discontinued 4 mg PO EVERY 8 HOURS NEEDED as needed for Nausea June 03, 2020 12:00am September 01, 2020 10:43am penicillin v potassium 500 mg oral tablet (14 sources) Start: 12-06-2016 End: 11-27-2019 take 1 tablet by mouth four times daily Penicillin V Potassium 500 MG tablet Discontinued 500 mg PO 4 TIMES DAILY 40 0 December 06, 2016 1:00am November 27, 2019 3:50pm QUEtiapine 50 mg oral tablet (20 sources) Atypical Antipsychotic Start: 01-29-2021 End: 01-08-2024 take 1 tablet by mouth twice daily Quetiapine 50 mg tablet Discontinued 50 mg PO TWICE A DAY 180 March 17, 2022 3:17pm June 02, 2022 11:24am Check with primary doctor Start: 01-29-2021 End: 02-19-2021 Quetiapine 50 mg tablet Disc ontinued NMA PO January 29, 2021 12:00am February 19, 2021 4:21pm Start: 11-06-2020 End: 01-18-2021 Quetiapine 50 mg tablet Disc ontinued 50 mg PO TWICE A DAY 120 November 06, 2020 10:33am January 18, 2021 11:38am 25 mg in AM for first 7 days and 50mg HS, then increase to 50 mg BID Start: 10-06-2020 End: 11-06-2020 Quetiapine (Seroquel) 25 mg tablet Discontinued 25 mg PO TWICE A DAY 60 November 03, 2020 9:34am November 06, 2020 10:34am take nightly for the first week, then increase to twice a day sertraline 50 mg oral tablet (20 sources) Serotonin Reuptake Inhibitor Start: 12-06-2023 End: 01-08-2024 take 1 tablet by mouth at bedtime Sertraline 50 mg tablet Discontinued 50 mg PO AT BEDTIME 30 0 December 06, 2023 1:00am January 08, 2024 11:24am Start: 04-22-2022 End: 06-02-2022 Sertraline 100 mg tablet Discontinued 50 mg PO TWICE A DAY April 22, 2022 2:27pm June 02, 2022 11:24am Check with primary doctor Start: 04-22-2022 End: 06-02-2022 take 50 mg by mouth twice daily Sertraline Discontinue d 50 MG PO TWICE A DAY April 22, 2022 2:27pm June 02, 2022 11:24am Start: 01-29-2021 End: 08-18-2022 take 1 tablet by mouth once daily Sertraline 100 mg tablet Discontinued 100 mg PO DAILY 30 0 July 25, 2022 12:33pm August 18, 2022 3:58pm Check with primary doctor Start: 01-01-2020 End: 01-18-2021 take 1 tablet by mouth once daily Sertraline 100 MG tablet Discontinued 100 mg PO daily September 05, 2020 1:27am January 18, 2021 11:38am Start: 11-27-2019 End: 01-01-2020 take 1 tablet by mouth once daily Sertraline 50 mg tablet Discontinued 50 mg PO daily 30 1 November 27, 2019 1:00am January 01, 2020 2:34pm ticagrelor 90 mg oral tablet (20 sources) Start: 02-09-2022 End: 12-06-2023 take 1 tablet by mouth twice daily Ticagrelor (Brilinta) 90 mg tablet Discontinued 90 mg PO TWICE A DAY 180 3 March 07, 2022 4:29pm December 06, 2023 1:18pm traZODone hydrochloride 100 mg oral tablet (20 sources) Serotonin Reuptake Inhibitor Start: 09-01-2020 End: 09-01-2020 take 1 tablet by mouth at bedtime as needed Trazodone 100 mg tablet Discontinued 100 mg PO AT BEDTIME as needed September 01, 2020 1:00am September 01, 2020 11:12am Start: 11-27-2019 End: 01-01-2020 take 1 tablet by mouth at bedtime Trazodone 50 mg tablet Discontinued 50 mg PO AT BEDTIME 90 1 November 27, 2019 1:00am January 01, 2020 2:32pm Problems Active Problems Problem Classification Problem Date Documented Da te Episodic/Chronic Acute myocardial infarction (3 sources) Myocardial infarction; Translations: [ST elevation (STEMI) myocardial infarction of unspecified site] Chronic Anxiety disorders (20 sources) Anxiety; Translations: [Anxiety disorder, unspecified] Chronic Blindness and vision defects (2 sources) Unqualified visual loss, both eyes; Translations: [Unqualified visual loss, both eyes] Chronic Blindness and vision defects (13 sources) Eye / vision finding; Translations: [Unspecified visual disturbance] Episodic Cardiac dysrhythmias (11 sources) Bradycardia; Translations: [Bradycardia, unspecified] 06-11-2022 Episodic Coagulation and hemorrhagic disorders (7 sources) Blood coagulation disorder; Translations: [Coagulation defect, unspecified] 12-30-2022 Chronic Coagulation and hemorrhagic disorders (3 sources) Spontaneous ecchymoses; Translations: [Spontaneous ecchymoses] Episodic Coronary atherosclerosis and other heart disease (5 sources) Coronary arteriosclerosis; Translations: [Atherosclerotic heart disease of [place] coronary artery without angina pectoris] 06-05-2023 Chronic Disorders of lipid metabolism (14 sources) Hyperlipidemia; Translations: [Hyperlipidemia, unspecified] Chronic Essential hypertension (20 sources) Hypertensive disorder; Translations: [Essential (primary) hypertension] Chronic Genitourinary symptoms and ill-defined conditions (16 sources) Dysuria; Translations: [Dysuria] Episodic Headache; including migraine (16 sources) Migraine; Translations: [Migraine, unspecified, not intractable, without status migrainosus] Chronic Headache; including migraine (20 sources) Headache; Translations: [Headache] 11-21-2020 Episodic Joint disorders and dislocations; trauma-related (6 sources) Derangement of right knee; Translations: [Unspecified internal derangement of right knee] 10-09-2023 Chronic Joint disorders and dislocations; trauma-related (4 sources) Tear of meniscus of knee; Translations: [Unspecified tear of unspecified meniscus, current injury, right knee, initial encounter] 10-10-2023 Episodic Malaise and fatigue (3 sources) Fatigue; Translations: [Other fatigue] 01-08-2024 Episodic Mood disorders (14 sources) Depressive disorder; Translations: [Depression] 02-08-2022 Chronic Nonspecific chest pain (7 sources) Chest wall pain; Translations: [Other chest pain] 06-05-2023 Episodic Other fractures (5 sources) Closed fracture of rib; Translations: [Fracture of one rib, unspecified side, initial encounter for closed fracture] 06-05-2023 Episodic Other injuries and conditions due to external causes (4 sources) Injury of finger; Translations: [Unspecified injury of left wrist, hand and finger(s), initial encounter] 11-09-2022 Episodic Other injuries and conditions due to external causes (2 sources) Unspecified injury of left wrist, hand and finger(s), initial encounter; Translations: [Finger injury] 11-09-2022 Episodic Other injuries and conditions due to external causes (4 sources) Injury of finger of left hand; Translations: [Unspecified injury of left wrist, hand and finger(s), initial encounter] 11-09-2022 Episodic Other lower respiratory disease (11 sources) Cough; Translations: [Cough] 06-11-2022 Episodic Other nervous system disorders (12 sources) Paresthesia of right upper limb; Translations: [Paresthesia of skin] 04-07-2022 Episodic Other nervous system disorders (4 sources) Anesthesia of skin; Translations: [Disturbance of skin sensation] Episodic Other nervous system disorders (4 sources) Paresthesia of skin; Translations: [Disturbance of skin sensation] Episodic Other nutritional; endocrine; and metabolic disorders (1 source) Insulin resistance; Translations: [Metabolic syndrome] Chronic Other skin disorders (12 sources) Easy bruising; Translations: [Other skin changes] 04-22-2022 Episodic Other skin disorders (8 sources) Epidermal cyst; Translations: [Sebaceous cyst] Episodic Other skin disorders (1 source) Other skin changes; Translations: [Other symptoms involving skin and integumentary tissues] Episodic Residual codes; unclassified (1 source) History of vaccination; Translations: [Personal history of other drug therapy] Episodic Residual codes; unclassified (14 sources) Insomnia; Translations: [Insomnia, unspecified] 02-08-2022 Episodic Residual codes; unclassified (1 source) Severe pain; Translations: [Pain, unspecified] 03-11-2024 Episodic Skin and subcutaneous tissue infections (19 sources) Abscess of perineum; Translations: [Cutaneous abscess of perineum] Onset: 07-31-2024 12-30-2022 Episodic Spondylosis; intervertebral disc disorders; other back problems (20 sources) Dorsalgia, unspecified; Translations: [Backache, unspecified] Episodic Substance-related disorders (16 sources) Polysubstance abuse ; Translations: [Other psychoactive substance abuse, uncomplicated] Onset: 02-28-2024 02-08-2022 Chronic Substance-related disorders (2 sources) Marijuana user; Translations: [Cannabis use, unspecified, uncomplicated] Episodic Thyroid disorders (14 sources) Subclinical hypothyroidism; Translations: [Other specified hypothyroidism] Chronic Past or Other Problems Problem Classification Problem Date Documented Da te Episodic/Chronic Coronary atherosclerosis and other heart disease (9 sources) Presence of coronary angioplasty implant and graft; Translations: [Percutaneous transluminal coronary angioplasty status] Onset: 02-07-2022 Episodic Results Test Name Value Interpretation Reference Range Facility Emergency Department Summary on 06-06-2025 Emergency Department Summary [facility] Medical Records Department [address] [place] [id number] Emergency Department Summary 06/06/25 MR#: [id number] Acct: [id number] Name: ELBA ONTIVEROS Rep #: [id number] : 1995 29 From: Kedar Davidson MD PCP: Dr. Ruby Carroll, DO Status:DEP ER Location: ED HPI History of Present Illness Chief Complaint: Abscess Narrative Narrative: 28-year-old male presents with an abscess in his left groin/perineal area that started 3 days ago. He states it is becoming larger and more painful. He said no fever, chills, nausea or vomiting, or pain in his testicles or dysuria. He denies history of diabetes or immunocompromise. States has had abscesses in the same area in the past that required I D. He was prescribed Bactrim this morning by 180 but is here to have it drained. [facility] Medical History Alcohol abuse Anxiety and depression Depression Dysuria Easy bruising GERD (gastroesophageal reflux disease) HTN (hypertension) Hyperlipidemia Hypertension Injury of left middle finger Insomnia Insulin resistance Internal derangement of right knee Marijuana use Migraine Neck pain Paresthesia of right upper extremity Polysubstance abuse ST elevation (STEMI) myocardial infarction Subclinical hypothyroidism Visual changes Home Medications ???Medication ???Instructions ???Recorded ???Last Taken ???Type sumatriptan succinate 25 mg tablet See Rx Instructions PO .COMPLEX 06/22/22 Unknown Rx (Imitrex) #14 tabs sertraline 100 mg tablet 100 mg PO DAILY Check with primary 08/18/22 Unknown Rx doctor #90 tabs buspirone 7.5 mg tablet 7.5 mg PO BID Check with primary 0 12/15/22 Unknown Rx doctor #180 tabs quetiapine 50 mg tablet 50 mg PO QHS #30 tabs 12/06/23 Unk nown Rx aspirin 81 mg tablet,delayed 81 mg PO BREAKFAST #90 tabs Unknown Rx release atorvastatin 40 mg tablet 40 mg PO QHS #90 tabs 01/08/24 Unk nown Rx lisinopril 30 mg tablet 30 mg PO DAILY #90 tabs 01/08/24 U nknown Rx clindamycin HCl 300 mg capsule 300 mg PO Q6H #40 CAPSULES 4 Unknown Rx (Cleocin HCl) cephalexin 500 mg capsule 500 mg PO Q12 7 days #14 CAPSULES 07/11/24 Unknown Rx sulfamethoxazole 800 1 tab PO BID 7 days #14 tabs 07/11 Unknown Rx mg-trimethoprim 160 mg tablet (Bactrim DS) Allergy/AdvReac Type Severity Reaction Status Date / Time Food Allergies: Uncoded Allergy Severe throat Verified 06/06/25 10:52 swelling Family History Father Hypertension Mother No cardiac disease Other Anxiety and depression Breast cancer Cancer Diabetes Mental health problem Surgical History History of coronary artery stent placement (02/07/22) History of tonsillectomy Social History (Updated 01/08/24 @ 11:30 by Aniya Johnston) Smoking Status: Never smoker Tobacco: How many years used: 7 Smokeless tobacco user: chewing tobacco how long ago did patient quit smoking: Quit smoking about 1 month ago. Still uses chewing tobacco alcohol intake: current alcohol intake frequency: a few times a week Alcohol type: beer details: 2-3 beers a week substance use type: does not use caffeine: Yes Type: carbonated beverages Number of servings: 4 what type of physical activity do you participate in: aerobics and weight training frequency: 3-4 times per week ROS ROS ED ROS Narrative Constitutional: Negative for fever, chills, malaise. GI: Negative for abdominal pain, nausea, vomiting. : Negative for dysuria. EXAM Physical Exam Narrative Exam Narrative: CONST: Patient sitting in no acute distress. EYES: Normal inspection. NECK: Normal inspection. RESP: No respiratory distress, CTAB. CVS: Regular rate and rhythm, no murmur, no gallop. ABD: Soft and nontender, no guarding or rebound, nondistended. SKIN: 1 x 1 cm fluctuant abscess with overlying erythema in the left perineum that is tender to palpation. No lymphangitic streaking. No involvement of the scrotum or rectum. EXTREMITIES: Normal appearance, no pedal edema. NEURO: Alert and answering questions appropriately. PSYCH: Normal affect. Const Vital Signs: 06/06/25 10:51 06/06/25 11:53 Temperature 98 F 98.3 F Temperature Source Temporal Pulse Rate 103 H 88 Respiratory Rate 14 18 Blood Pressure 150/86 H 132/64 H Blood Pressure Mean 107 86 Pulse Ox 99 100 Oxygen Delivery Method Room Air Physical Exam Const Vital Signs: 06/06/25 10:51 06/06/25 11:53 Temperature 98 F 98.3 F Temperature Source Temporal Pulse Rate 103 H 88 Respiratory Rate 14 18 Blood Pressure 150/86 H 132/64 H Blood Pressure Mean 107 86 Pulse Ox 99 100 (more content not included)... Normal [facility] .Auto Diffon 12-17-2024 Basophil, Absolute 0.1 10 3/mcL Normal 0.0-0.3 LESLEY TASIA PEÑA Comment on above: Performed By: #### G , GRANT, ANEU, ADIFF, LAC, CBC, CMP #### [facility] [place] [address] [place], [place] [address] Basophils/100 WBC (Bld) 0.8 % Normal 0.0-2.5 CAREY MASSILLON Comment on above: Performed By: #### G , GRANT, ANEU, ADIFF, LAC, CBC, CMP #### [facility] [place] [address] [place], [place] [address] Eosinophil, Absolute 0.5 10 3/mcL Normal 0.0-0.7 AU LTMAN MASSILLON Comment on above: Performed By: #### G , GRANT, ANEU, ADIFF, LAC, CBC, CMP #### [facility] [place] [address] [place], [place] [address] Eosinophils/100 WBC (Bld) 4.4 % Normal 0.0-6.0 CAREY MASSILLON Comment on above: Performed By: #### G , GRANT, ANEU, ADIFF, LAC, CBC, CMP #### [facility] [place] [address] [place], [place] [address] Lymphocyte, Absolute 2.6 10 3/mcL Normal 0.9-4.3 AU LTMAN MASSILLON Comment on above: Performed By: #### G , GRANT, ANEU, ADIFF, LAC, CBC, CMP #### [facility] [place] [address] [place], [place] [address] Lymphocytes/100 WBC (Bld) 25.0 % Normal 20.0-40.0 CAREY MASSILLON Comment on above: Performed By: #### G , GRANT, ANEU, ADIFF, LAC, CBC, CMP #### [facility] [place] [address] [place], [place] [address] Monocyte, Absolute 0.8 10 3/mcL Normal 0.1-1.4 LESLEY MAN MASSILLON Comment on above: Performed By: #### G , GRANT, ANEU, ADIFF, LAC, CBC, CMP #### [facility] [place] [address] [place], [place] [address] Monocytes/100 WBC (Bld) 7.7 % Normal 2.0-13.0 CAREY MASSILLON Comment on above: Performed By: #### G , GRANT, ANEU, ADIFF, LAC, CBC, CMP #### [facility] [place] [address] [place], [place] [address] Neutrophils/100 WBC (Bld) 62.1 % Normal 50.0-75.0 CAREY MASSILLON Comment on above: Performed By: #### G , GRANT, ANEU, ADIFF, LAC, CBC, CMP #### [facility] [place] [address] [place], [place] [address] .GFRon 12-17-2024 Estimated Glomerular Filtration Rate 108 ml/min/1.73sqm Normal CAREY MASSILLON Comment on above: Result Comment: Stages of Chronic Kidney Disease (CKD) Stage Description eGFR(ml/min/1.73 sq.m.) CKD 1 Normal kidney function or >=90 normal kindney function with possible kidney damage (ex. Proteinuria) CKD 2 Kidney damage with mild loss 60-89 of kidney function CKD 3a Mild to moderate loss of kidney 45-59 function CKD 3b Moderate to severe loss of 30-44 of kindey function CKD 4 Severe loss of kidney function 15-29 CKD 5 Kidney failure <15 Note: (go live 2024) the eGFR calculation was updated to the 2020 CKD-EPI creatinine equation without a race factor to calculate the eGFR results. Performed By: #### G , GRANT, ANEU, ADIFF, LAC, CBC, CMP #### [facility] [place] [address] [place], [place] [address] .MDWon 12-17-2024 Monocyte Distribution Width 18.77 Normal 0.00-20.00 CAREY MASSILLON Comment on above: Result Comment: For ED adult patients suspected of sepsis, MDW<=20.0 does not rule out sepsis or risk of sepsis Performed By: #### G , GRANT, ANEU, ADIFF, LAC, CBC, CMP #### [facility] [place] [address] [place], [place] [address] .NEUABSon 12-17-2024 Neutrophil, Absolute 6.4 10 3/mcL Normal 2.3-8.1 AU LTMAN MASSILLON Comment on above: Performed By: #### G , GRANT, ANEU, ADIFF, LAC, CBC, CMP #### [facility] [address] [place], [place] [address] CBCon 12-17-2024 Erythrocyte distribution width (RBC) [Ratio] 13.9 % Normal 11.5-15.5 [facility] Comment on above: Performed By: #### G , GRANT, ANEU, ADIFF, LAC, CBC, CMP #### [facility] [place] [address] [place] [phone] Hematocrit (Bld) [Volume fraction] 41.2 % Normal 40.0-52.0 [facility] Comment on above: Performed By: #### G , GRANT, ANEU, ADIFF, LAC, CBC, CMP #### [facility] [place] [address] [place], [place] [address] Hgb 13.5 G/dL Normal 13.0-17.5 [facility] Comment on above: Performed By: #### G GRANT ANGEL, ANEU, ADIFF, LAC, CBC, CMP #### [facility] [address] [place], [place] [address] MCH (RBC) [Entitic mass] 28.8 pg Normal 27.0-33.0 [facility] Comment on above: Performed By: #### G GRANT ANGEL, ANEU, ADIFF, LAC, CBC, CMP #### [facility] [place] [address] [place], [place] [address] MCHC 32.7 G/dL Normal 32.0-36.0 [facility] Comment on above: Performed By: #### G GRANT ANGEL, ANEU, ADIFF, LAC, CBC, CMP #### [facility] [address] [place] [phone] MCV (RBC) [Entitic vol] 88.3 fL Normal 81.0-100.0 [facility] Comment on above: Performed By: #### G , GRANT, ANEU, ADIFF, LAC, CBC, CMP #### [facility] [place] [address] [place], [place] [address] Platelet 236 10 3/mcL Normal 150-450 CAREY OSCEOLA Comment on above: Performed By: #### G GRANT ANGEL, ANEU, ADIFF, LAC, CBC, CMP #### [facility] [address] [place], [place] [address] Platelet mean volume (Bld) [Entitic vol] 8.5 fL Normal 6.4-10.5 [facility] Comment on above: Performed By: #### G GRANT ANGEL, ANEU, ADIFF, LAC, CBC, CMP #### [facility] [place] [address] [place], [place] [address] RBC 4.66 10 6/mcL Normal 4.50-6.00 [facility] Comment on above: Performed By: #### G GRANT ANGEL, ANEU, ADIFF, LAC, CBC, CMP #### [facility] [place], [place] [address] WBC 10.4 10 3/mcL Normal 4.5-10.8 [facility] Comment on above: Performed By: #### G GRANT ANGEL, ANEU, ADIFF, LAC, CBC, CMP #### [facility] [address] [place], [place] [address] CMPon 12-17-2024 Albumin Level 3.7 G/dL Normal 3.5-5.0 [facility] Comment on above: Performed By: #### G GRANT ANGEL, ANEU, ADIFF, LAC, CBC, CMP #### [facility] [address] [place], [place] [address] Albumin/Globulin [Mass ratio] 1.1 {ratio} Normal 1.1-2.5 [facility] Comment on above: Performed By: #### G GRANT ANGEL, ANEU, ADIFF, LAC, CBC, CMP #### [facility] [place] [address] [place], [place] [address] ALP [Catalytic activity/Vol] 75 U/L Normal 40-135 [facility] Comment on above: Performed By: #### G GRANT ANGEL, ANEU, ADIFF, LAC, CBC, CMP #### [facility] [address] [place], [place] [address] ALT [Catalytic activity/Vol] 27 U/L Normal 16-63 [facility] Comment on above: Performed By: #### G GRANT ANGEL, ANEU, ADIFF, LAC, CBC, CMP #### [facility] [address] [place], [place] [address] AST [Catalytic activity/Vol] 13 U/L Normal 10-40 [facility] Comment on above: Performed By: #### G GRANT ANGEL, ANEU, ADIFF, LAC, CBC, CMP #### [facility] [address] [place], [place] [address] Bili Total 0.3 mg/dL Normal 0.2-1.0 [facility] Comment on above: Result Comment: Use of this assay is not recommended for patients undergoing treatment with eltrombopag due to the potential for falsely elevated results. Performed By: #### G GRANT ANGEL, BANDAR, ADIFF, LAC, CBC, CMP #### [facility] [address] [place], [place] [address] BUN/Creatinine Ratio 13 ratio Normal 7-27 [facility] Comment on above: Performed By: #### G GRANT ANGEL, ANEU, ADIFF, LAC, CBC, CMP #### [facility] [address] [place], [place] [address] Calcium [Mass/Vol] 9.0 mg/dL Normal 8.4-10.2 [facility] Comment on above: Performed By: #### G GRANT ANGEL, ANEU, ADIFF, LAC, CBC, CMP #### [facility] [address] [place], [place] [address] Chloride [Moles/Vol] 104 mmol/L Normal 98-107 [facility] Comment on above: Performed By: #### G GRANT ANGEL, ANEU, ADIFF, LAC, CBC, CMP #### [facility] [address] [place], [place] [address] CO2 [Moles/Vol] 31 mmol/L High 22-29 [facility] Comment on above: Performed By: #### G GRANT ANGEL, ANEU, ADIFF, LAC, CBC, CMP #### [facility] [address] [place], [place] [address] Creatinine [Mass/Vol] 0.97 mg/dL Normal 0.70-1.30 AUL TMAN MASSILLON Comment on above: Result Comment: Test ing performed on Siemens Dimension EXL analyzer using a modified kinetic Reggie technique. Performed By: #### G , GRANT, ANEU, ADIFF, LAC, CBC, CMP #### [facility] [place] [address] [place], [place] [address] Electrolyte Balance 8.0 mEq/L Normal 4.0-15.0 [facility] AN [facility] Comment on above: Performed By: #### G GRANT ANGEL, ANEU, ADIFF, LAC, CBC, CMP #### [facility] [address] [place], [place] [address] Globulin 3.5 G/dL Normal 1.5-3.8 [facility]LL[facility] Comment on above: Performed By: #### G GRANT ANGEL, ANEU, ADIFF, LAC, CBC, CMP #### [facility] [place] [address] [place], [place] [address] Glucose [Mass/Vol] 106 mg/dL High 70-105 [facility]ULTMA N [facility] Comment on above: Performed By: #### G GRANT ANGEL, ANEU, ADIFF, LAC, CBC, CMP #### [facility] [address] [place], [place] [address] Potassium [Moles/Vol] 4.2 mmol/L Normal 3.5-5.1 [facility]UL TMAN MASSILL[facility] Comment on above: Performed By: #### G GRANT ANGEL, ANEU, ADIFF, LAC, CBC, CMP #### [facility] [address] [place], [place] [address] Sodium [Moles/Vol] 143 mmol/L Normal 136-145 [facility] N [facility] Comment on above: Performed By: #### G GRANT ANGEL, ANEU, ADIFF, LAC, CBC, CMP #### [facility] [address] [place], [place] [address] Total Protein 7.2 G/dL Normal 6.4-8.2 [facility] Comment on above: Performed By: #### G GRANT ANGEL, ANEU, ADIFF, LAC, CBC, CMP #### [facility] [place] [address] [place], [place] [address] Urea nitrogen [Mass/Vol] 13 mg/dL Normal 7-18 [facility] Comment on above: Performed By: #### G GRANT ANGEL, ANEU, ADIFF, LAC, CBC, CMP #### [facility] [place] [address] [place], [place] [address] CT PELVIS W/ IV CONTRAST ONL [facility] 12-17-2024 CT PELVIS W/ IV CONTRAST ONLY ORIGINAL EXAMINATION: CT OF THE PELVIS WITH CONTRAST 12/17/2024 1:26 pm TECHNIQUE: CT of the pelvis was performed with the administration of intravenous contrast. Multiplanar reformatted images are provided for review. Automated exposure control, iterative reconstruction, and/or weight based adjustment of the mA/kV was utilized to reduce the radiation dose to as low as reasonably achievable. COMPARISON: February 22, 2018 HISTORY ORDERING SYSTEM PROVIDED HISTORY: Reason for Exam: rectal abscess that extends to the testicles FINDINGS: The perineum is abnormal. It shows infiltrative increased density, eccentric toward the left. At the medial left gluteal/perianal area, there is phlegmonous appearing inflammatory change measuring 4.5 cm x 1.8 cm. There is minimal air or gas centrally within this. A small amount of central fluid is evident as well. Infiltrative changes extend to the upper aspect of the scrotum. There is no definite fluid collection identified within these areas. There is infiltrative change within the subcutaneous fat extending to the left inguinal region where there are borderline lymph nodes, presumably reactive or hyperplastic. Minimal skin thickening is present within this area as well. No other fluid collection is evident. No intrapelvic abnormality seen. No additional contributory finding. IMPRESSION: The findings are most compatible with cellulitis at the perineum, with a small left-sided phlegmonous/early abscess. Inflammatory changes extend to the upper scrotum and the left inguinal region, with no drainable fluid seen in these areas. Interpreted by: Claudio Perry MD Preliminary Report By: Claudio Perry MD Electronically signed By Claudio Perry MD Dictated Date: 12/17/2024 1:27:31 PM Prelim Date: 12/17/2024 1:30:20 PM Sign Date: 12/17/2024 1:30:20 PM Ordering Provider: ADELITA FOUNTAIN Normal CAREY MASSILLON LACon 12-17-2024 Lactic Acid Lvl 1.6 mmol/L Normal 0.4-2.0 [facility] MASSILLON Comment on above: Performed By: #### G FR, MDW, ANEU, ADIFF, LAC, CBC, CMP #### [facility] [place] [address] [place], [place] [address] UAon 12-17-2024 Color (U) Yellow Normal [facility] MASSILLON Comment on above: Performed By: #### U A #### [facility] [place] [address] [place] [phone] Glucose (U) [Mass/Vol] Negative Normal Negative [facility] MASSILLON Comment on above: Performed By: #### U A #### [facility] [place] [address] [place] [phone] Ketones Ql (U) Negative Normal Neg-Trace CARE[facility] MASSILLON Comment on above: Performed By: #### U A #### [facility] [place] [address] [place], [place] [address] UA Appear Clear Normal CARE[facility] MASSILLON Comment on above: Performed By: #### U A #### [facility] [place] [address] [place], [place] [address] UA Blood Trace Normal Neg-Trace CARE[facility] MASSILLON Comment on above: Performed By: #### U A #### [facility] [place] [address] [place], [place] [address] UA Leuk Est Negative Normal Negative [facility] MASSILLON Comment on above: Performed By: #### U A #### [facility] [place] [address] [place] [phone] UA Nitrite Negative Normal Negative [facility] MASSILLON Comment on above: Performed By: #### U A #### [facility] [place] [address] [place], [place] [address] UA pH 5.5 Normal 5.0 - 8.0 [facility] MASSILLON Comment on above: Performed By: #### U A #### [facility] [place] [address] [place] [address] UA Protein Negative Normal Negative [facility] MASSILLON Comment on above: Performed By: #### U A #### [facility] [place] [address] [place] [address] UA Spec Grav 1.025 Normal C[facility] MASSILLON Comment on above: Performed By: #### U A #### [facility] [place] [address] [place] [address] UA Specimen Type Void Normal CAREY MASSILLON Comment on above: Performed By: #### U A #### [facility] [place] [address] [place] [address] UA Urobilinogen 0.2 E.U./dL Normal [facility] MASSILLON Comment on above: Performed By: #### U A #### [facility] [place] [address] [place] [address] Urobilinogen (U) [Mass/Vol] Negative Normal Neg-Trace CAREY MASSILLON Comment on above: Performed By: #### U A #### [facility] [place] [address] [place] [address] Emergency Department Summary on 07-11-2024 Emergency Department Summary [facility] Medical Records Department [address] [place], [place] [id number] Emergency Department Summary 07/11/24 MR#: [id number] Acct: [id number] Name: ELBA ONTIVEROS Rep #: [id number] : 1995 28 From: Diego Walker DO PCP: Dr. Jaci rKishna MD Status:REG ER Location: ED HPI History of Present Illness Chief Complaint: Abscess Narrative Narrative: Chief complaint and HPI: Abscess. 28-year-old male with history of abscesses/cysts presents for evaluation of abscess in left armpit. Patient states that he has had infected cyst in the past in which they were incised and drained as well as operated on. He states that he often gets cysts. He states the cyst under his armpit he has had for a while but that this past week it has become more tender, painful, red. He denies any fever, chills, shortness of breath, chest pain, abdominal pain, nausea, vomiting. He denies any history of diabetes. Denies any history of drug abuse other than marijuana. Denies IV drug abuse. Denies any history of immunosuppression. Review of systems: See HPI Medications: As listed on the chart Allergies: As listed on the chart PFSH: Per chart Vital signs: As listed on the chart. Reviewed. Physical exam: Gen: A O x3, NAD but anxious and fidgety Head: Normocephalic, atraumatic Eyes: No sclera icterus, conjunctiva clear ENT: Moist mucous membranes CV: RRR, no murmur Resp: Lungs CTA BL, no w/r/c Musc: Full ROM, no deformity Skin: Warm, patient has multiple small infected hairs/excoriations on his body most specifically his anterior chest and bilateral arms-he states this is normal and has had this his whole life, under his left armpit he has 2 abscesses that are erythematous, fluctuant, and painful. Larger 1 is approximately 2 x 2 cm, the smaller 1 is approximately 1 x 1 cm. Neuro: Alert, oriented, grossly intact, sensation intact Psych: Cooperative, appropriate mood and affect [facility] Medical History Alcohol abuse Anxiety and depression Depression Dysuria Easy bruising GERD (gastroesophageal reflux disease) HTN (hypertension) Hyperlipidemia Hypertension Injury of left middle finger Insomnia Insulin resistance Internal derangement of right knee Marijuana use Migraine Neck pain Paresthesia of right upper extremity Polysubstance abuse ST elevation (STEMI) myocardial infarction Subclinical hypothyroidism Visual changes Home Medications ???Medication ???Instructions ???Recorded ???Last Taken ???Type sumatriptan succinate 25 mg tablet See Rx Instructions PO .COMPLEX 06/22/22 Unknown Rx (Imitrex) #14 tabs sertraline 100 mg tablet 100 mg PO DAILY Check with primary 08/18/22 Unknown Rx doctor #90 tabs buspirone 7.5 mg tablet 7.5 mg PO BID Check with primary 12/15/22 Unknown Rx doctor #180 tabs quetiapine 50 mg tablet 50 mg PO QHS #30 tabs 12/06/23 Unknown Rx aspirin 81 mg tablet,delayed 81 mg PO BREAKFAST #90 tabs 01/08/24 Unknown Rx release atorvastatin 40 mg tablet 40 mg PO QHS #90 tabs 01/08/24 Unknown Rx lisinopril 30 mg tablet 30 mg PO DAILY #90 tabs 01/08/24 Unknown Rx clindamycin HCl 300 mg capsule 300 mg PO Q6H #40 CAPSULES 03/11/24 Unknown Rx (Cleocin HCl) cephalexin 500 mg capsule 500 mg PO Q12 7 days #14 CAPSULES 07/11/24 Unknown Rx sulfamethoxazole 800 1 tab PO BID 7 days #14 tabs 07/11/24 Unknown Rx mg-trimethoprim 160 mg tablet (Bactrim DS) Allergy/AdvReac Type Severity Reaction Status Date / Time Food Allergies: Uncoded Allergy Severe throat Verified 07/11/24 08:45 swelling Family History Father Hypertension Mother No cardiac disease Other Anxiety and depression Breast cancer Cancer Diabetes Mental health problem Surgical History History of coronary artery stent placement (02/07/22) History of tonsillectomy Social History (Updated 01/08/24 @ 11:30 by Aniya Johnston) Smoking Status: Never smoker Tobacco: How many years used: 7 Smokeless tobacco user: chewing tobacco how long ago did patient quit smoking: Quit smoking about 1 month ago. Still uses chewing tobacco alcohol intake: current alcohol intake frequency: a few times a week Alcohol type: beer details: 2-3 beers a week substance use type: does not use caffeine: Yes Type: carbonated beverages Number of servings: 4 what type of physical activity do you participate in: aerobics and weight training frequency: 3-4 times per week EXAM Physical Exam Const Vital Signs: 07/11/24 08:45 Temperature 98.1 F Temperature Source Temporal Pulse Rate 100 Respiratory Rate 14 Blood Pressure 167/100 H Blood Pressure Mean 122 Pulse Ox 98 Oxygen Delivery Method (more content not included)... [facility] 03-11-2024 CN Office Visit ([facility] ) -------- ARMS,ELBA Schofield ([id number]) 1995 M Date Time Provider Department 03/11/24 9:15 AM RIZWANA FREEMAN [facility] During your visit today, we recorded the following information about you: Rizwana Freeman APRN.UROLOGY NURSE 03/11/2024 9:09 AM Signed Patient triaged at [facility]. Here today with severe perineal pain. Patient in moderate to severe visible distress, unable to sit still or sit. I will refer to ER. Allergies As of Date: 03/11/2024 (No Known Allergies) Date Reviewed: 09/16/2021 Reviewed by: Radha Simon (Svp [employer]etization) - Fully Assessed Primary Visit Diagnosis:Severe pain [R52] Prescriptions as of 03/11/2024 - busPIRone (BUSPAR) 7.5 mg tablet - lisinopril-hydroCHLOROth iazide (PRINZIDE, ZESTORETIC) 20-25 mg per tablet - QUEtiapine (SEROQUEL) 50 mg tablet - sertraline (ZOLOFT) 100 mg tablet - albuterol HFA (PROVENTIL HFA, VENTOLIN HFA) 90 mcg/actuation inhaler Inhale 2 Puffs as instructed every 4 hours as needed for wheezing/shortness of breath. Problem List As Of Date: 03/11/2024 (None) Encounter Status:Closed by RIZWANA FREEMAN on 03/11/24 Normal [facility] CBC WITH AUTO DIFFERENTIALon 02-28-2024 AUTO NRBC 0.0 % [facility] Comment on above: Performed By: #### L [id number] #### [facility] [address] [place], [place] [address] Rizwana Sierra M.D. [id number] AUTO NRBC ABS COUNT 0.00 K/mcL Normal 0.00-0.00 [facility] Comment on above: Performed By: #### L [id number] #### [facility] [address], [place] [address] Rizwana Sierra M.D. [id number] BASOPHILS ABSOLUTE COUNT 0.05 K/mcL Normal 0.00-0.30 [facility] Comment on above: Performed By: #### L [id number] #### LAB [address] [address] Rizwana Sierra M.D. [id number] Basophils/100 WBC (Bld) 0.6 % Normal [facility] Comment on above: Performed By: #### L [id number] #### LAB [address] [address] Rizwana Sierra M.D. [id number] Eosinophils (Bld) [#/Vol] 0.71 10*3/uL High 0.00-0.50 [facility] Comment on above: Performed By: #### L [id number] #### LAB [address] [address] Rizwana Sierra M.D. [id number] Eosinophils/100 WBC (Bld) 8.5 % Normal [facility] Comment on above: Performed By: #### L [id number] #### LAB [address] [address] Rizwana Sierra M.D. [id number] Erythrocyte distribution width (RBC) [Ratio] 13.9 % Normal 11.6-14.8 [facility] Comment on above: Performed By: #### L [id number] #### LAB [address] [place] [address] Rizwana Sierra M.D. [id number] Hematocrit (Bld) [Volume fraction] 38.6 % Low 41.0-53.0 [facility] Comment on above: Performed By: #### L [id number] #### LAB [address] [address] Rizwana Sierra M.D. [id number] Hemoglobin (Bld) [Mass/Vol] 12.5 g/dL Low 13.5-17.5 [facility] Comment on above: Performed By: #### L [id number] #### LAB [address] [place] [address] Rizwana Sierra M.D. [id number] IG ABSOLUTE 0.02 K/mcL Normal 0.00-0.30 [facility] Comment on above: Performed By: #### L [id number] #### LAB [address] [place] [address] Rizwana Sierra M.D. [id number] IG PERCENT 0.20 % Normal [facility] Comment on above: Result Comment: The IG parameter is the percentage of metamyelocytes, myelocytes and promyelocytes. An immature granulocyte count (IG) of 1% or more suggests the possibility of infection, an IG count of 3% is very likely related to an infection. Performed By: #### L [id number] #### LAB [address] [address] Rizwana Sierra M.D. [id number] Lymphocytes (Bld) [#/Vol] 2.09 10*3/uL Normal 0.90-4.00 [facility] Comment on above: Performed By: #### L [id number] #### LAB [address] [place] [address] Rizwana Sierra M.D. [id number] Lymphocytes/100 WBC (Bld) 25.1 % Normal [facility] Comment on above: Performed By: #### L [id number] #### LAB [address] [address] Rizwana Sierra M.D. [id number] MCH (RBC) [Entitic mass] 28.9 pg Normal 26.0-34.0 [facility] Comment on above: Performed By: #### L [id number] #### LAB [address] [address] Rizwana Sierra M.D. [id number] MCV (RBC) [Entitic vol] 89.1 fL Normal 80.0-100.0 [facility] Comment on above: Performed By: #### L [id number] #### LAB [address] [place] [address] Rizwana Sierra M.D. [id number] MEAN CORPUSCULAR HEMOGLOBIN CONC 32.4 g/dL Normal 31.0-37.0 [facility] Comment on above: Performed By: #### L [id number] #### LAB [address] [address] Rizwana Sierra M.D. [id number] Monocytes (Bld) [#/Vol] 0.43 10*3/uL Normal 0.30-0.90 [facility] Comment on above: Performed By: #### L [id number] #### LAB [address] [address] Rizwana Sierra M.D. [id number] Monocytes/100 WBC (Bld) 5.2 % Normal [facility] Comment on above: Performed By: #### L [id number] #### LAB [address] [address] Rizwana Sierra M.D. [id number] NEUTROPHILS ABSOLUTE COUNT 5.02 K/mcL Normal 1.70-7.00 [facility] Comment on above: Performed By: #### L [id number] #### LAB [address] [address] Rizwana Sierra M.D. [id number] Neutrophils/100 WBC (Bld) 60.4 % Normal [facility] Comment on above: Performed By: #### L [id number] #### LAB [address] [address] Rizwana Sierra M.D. [id number] Platelet mean volume (Bld) [Entitic vol] 11.3 fL Normal 9.4-12.4 [facility] Comment on above: Performed By: #### L [id number] #### LAB [address] [address] Rizwana Sierra M.D. [id number] Platelets (Bld) [#/Vol] 202 10*3/uL Normal 150-400 [facility] Comment on above: Performed By: #### L [id number] #### [facility] [address] [address] Rizwana iSerra M.D. [id number] RBC (Bld) [#/Vol] 4.33 10*6/uL Low 4.50-5.90 [facility] Comment on above: Performed By: #### L [id number] #### LAB [address] [id number] Rizwana Sierra M.D. [id number] WBC (Bld) [#/Vol] 8.32 10*3/uL Normal 4.50-11.00 [facility] Comment on above: Performed By: #### L [id number] #### LAB [address] [address] Rizwana Sierra M.D. [id number] COMPREHENSIVE METABOLIC PANE Shyam 02-28-2024 Albumin [Mass/Vol] 3.9 g/dL Normal 3.2-5.2 [facility] Comment on above: Order Comment: [facility] has implemented the eGFR calculation approach that does not have a coefficient for race that conforms to the NKF-ASN Task Force Recommendations. Performed By: #### 4 [id number] #### LAB [address] [address] Rizwana Sierra M.D. [id number] ALP [Catalytic activity/Vol] 67 U/L Normal 40-140 [facility] Comment on above: Order Comment: [facility] has implemented the eGFR calculation approach that does not have a coefficient for race that conforms to the NKF-ASN Task Force Recommendations. Performed By: #### 4 [id number] #### [facility] [address] [address] Rizwana Sierra M.D. [id number] ALT [Catalytic activity/Vol] 40 U/L Normal 0-50 U/L [facility] Comment on above: Order Comment: [facility] has implemented the eGFR calculation approach that does not have a coefficient for race that conforms to the NKF-ASN Task Force Recommendations. Performed By: #### 4 [id number] #### LAB [address] [address] Rizwana Sierra M.D. [id number] Anion gap [Moles/Vol] 13 mmol/L Normal 10-20 [facility] Comment on above: Order Comment: [facility] has implemented the eGFR calculation approach that does not have a coefficient for race that conforms to the NKF-ASN Task Force Recommendations. Performed By: #### 4 [id number] #### LAB [address] [address] Rizwana Sierra M.D. [id number] AST [Catalytic activity/Vol] 30 U/L Normal 0-50 U/L [facility] Comment on above: Order Comment: [facility] has implemented the eGFR calculation approach that does not have a coefficient for race that conforms to the NKF-ASN Task Force Recommendations. Performed By: #### 4 [id number] #### LAB [address] [address] Rizwana Sierra M.D. [id number] BILIRUBIN TOTAL < Normal 0.0-1.3 [facility] Comment on above: Order Comment: [facility] has implemented the eGFR calculation approach that does not have a coefficient for race that conforms to the NKF-ASN Task Force Recommendations. Performed By: #### 4 [id number] #### LAB [address] [address] Rizwana Sierra M.D. [id number] Calcium [Mass/Vol] 9.0 mg/dL Normal 8.4-10.2 [facility] Comment on above: Order Comment: [facility] has implemented the eGFR calculation approach that does not have a coefficient for race that conforms to the NKF-ASN Task Force Recommendations. Performed By: #### 4 [id number] #### LAB [address] [address] Rizwana Sierra M.D. [id number] Chloride [Moles/Vol] 107 mmol/L Normal 98-108 [facility] Comment on above: Order Comment: [facility] has implemented the eGFR calculation approach that does not have a coefficient for race that conforms to the NKF-ASN Task Force Recommendations. Performed By: #### 4 [id number] #### LAB [address] [address] Rizwana Sierra M.D. [id number] Creatinine [Mass/Vol] 0.91 mg/dL Normal 0.50-1.30 [facility] Comment on above: Order Comment: [facility] has implemented the eGFR calculation approach that does not have a coefficient for race that conforms to the NKF-ASN Task Force Recommendations. Performed By: #### 4 [id number] #### LAB [address] [address] Rizwana Sierra M.D. [id number] EGFR 117 mL/min/1.73 m2 Normal >=60 [facility] Comment on above: Order Comment: [facility] has implemented the eGFR calculation approach that does not have a coefficient for race that conforms to the NKF-ASN Task Force Recommendations. Result Comment: Beverly mated GFR was calculated using the 2020 CKD-EPI creatinine equation. Performed By: #### 4 [id number] #### LAB [address] [address] Rizwana Sierra M.D. [id number] Glucose [Mass/Vol] 158 mg/dL High 65-99 [facility] Comment on above: Order Comment: [facility] has implemented the eGFR calculation approach that does not have a coefficient for race that conforms to the NKF-ASN Task Force Recommendations. Performed By: #### 4 [id number] #### LAB [address] [address] Rizwana Sierra M.D. [id number] HCO3 (Bld) [Moles/Vol] 26 mmol/L Normal 21-32 [facility] Comment on above: Order Comment: [facility] has implemented the eGFR calculation approach that does not have a coefficient for race that conforms to the NKF-ASN Task Force Recommendations. Performed By: #### 4 [id number] #### LAB [address] [address] Rizwana Sierra M.D. [id number] Potassium [Moles/Vol] 4.7 mmol/L Normal 3.5-5.1 [facility] Comment on above: Order Comment: [facility] has implemented the eGFR calculation approach that does not have a coefficient for race that conforms to the NKF-ASN Task Force Recommendations. Performed By: #### 4 [id number] #### LAB [address] [id number] Rizwana Sierra M.D. [id number] Protein [Mass/Vol] 5.9 g/dL Low 6.0-8.0 [facility] Comment on above: Order Comment: [facility] has implemented the eGFR calculation approach that does not have a coefficient for race that conforms to the NKF-ASN Task Force Recommendations. Performed By: #### 4 [id number] #### LAB [address] [id number] Rizwana Sierra M.D. [id number] Sodium [Moles/Vol] 141 mmol/L Normal 135-145 [facility] Comment on above: Order Comment: [facility] has implemented the eGFR calculation approach that does not have a coefficient for race that conforms to the NKF-ASN Task Force Recommendations. Performed By: #### 4 [id number] #### LAB [address] [address] Rizwana Sierra M.D. [id number] Urea nitrogen [Mass/Vol] 9 mg/dL Normal 8-25 [facility] Comment on above: Order Comment: [facility] has implemented the eGFR calculation approach that does not have a coefficient for race that conforms to the NKF-ASN Task Force Recommendations. Performed By: #### 4 [id number] #### LAB [address] [address] Rizwana Sierra M.D. [id number] Urea nitrogen/Creatinine [Mass ratio] 9.9 mg/mg Low 10.0-20.0 [facility] Comment on above: Order Comment: [facility] has implemented the eGFR calculation approach that does not have a coefficient for race that conforms to the NKF-ASN Task Force Recommendations. Performed By: #### 4 [id number] #### LAB [address] [address] Rizwana Sierra M.D. [id number] HEPATITIS B SURFACE ANTIBODY on 05-01-2024 HEPATITIS B SURFACE ANTIBODY Negative Normal Negative [facility] Comment on above: Order Comment: Test performed using [employer] GUY immunoassay system Performed By: #### 4 [id number] #### [facility] [address] [place], [place] [address] Ernst Alfaro M.D. [id number] HEPATITIS B SURFACE ANTIGENo n 02-28-2024 HEPATITIS B SURFACE ANTIGEN Negative Normal Negative [facility] Comment on above: Order Comment: Test performed using [employer] GU[employer] immunoassay system Performed By: #### 4 4081 #### [facility] [address] [place], [place] [address] Ernst Alfaro M.D. [id number] HEPATITIS C ANTIBODYon 02-27 HEPATITIS C ANTIBODY Negative Normal Negative [facility] Comment on above: Order Comment: Test performed using [employer] GU[employer] immunoassay system Performed By: #### 4 [id number] #### [facility] [address] [place], [place] [address] Ernst Alfaro M.D. [id number] HIV 1/2 SCREEN (4TH GENERATI ON)on 02-28-2024 HIV 1-2 SCREEN Negative Normal Negative [facility] Comment on above: Order Comment: This assay screens for the presence of HIV-1, HIV-2 antibodies and for the presence of HIV-1 antigen. Test performed using [employer] immunoassay system Performed By: #### 4 [id number] #### [facility] [address] [place], [place] [address] Ernst Alfaro M.D. [id number] TSH WITH REFLEX FREE T4on TSH Qn 1.53 m[IU]/L Normal 0.27-4.20 [facility] Comment on above: Performed By: #### 4 6612 #### LAB [address] [place] [address] Rizwana Sierra M.D. [id number] VITAMIN D, TOTAL, 25-[place]on VITAMIN D 25-HYDROXY 28 ng/mL Normal 20-100 [facility] Comment on above: Order Comment: Vitam in D Expected Values Deficiency: 0-10 Insufficiency: 10-20 Sufficient: 20-100 Toxicity: >100 Performed By: #### 4 6678 #### [facility] [address], [place] [address] Rizwana Sierra M.D. [id number] Laboratory - Chemistry and C hemistry - challengeOrdered By: Jamari Mak on 12-06-2023 Lipase [Catalytic activity/Vol] 34 U/L 13-75 [facility] Comment on above: Please note:LIPASE r evised reference range effective 23. New Lipase methodology. Expected to produce lower values than the previous assay method. NEW Reference Range: 13 - 75 U/L No Panel InformationOrdered By: Jamari Mak on 12-06-2023 Troponin I High Sensitivity 9 pg/mL 3.0-78.0 [facility] Comment on above: Please Note: New Huma t Units and Gender Specific Reference Ranges. For more information see Policy Stat Procedure [place] High Sensitivity Troponin (TNIH) and attachments. Absolute lymphocyte countOrd ered By: Francisco J Jean-Baptiste on 06-05-2023 Lymphocytes Auto (Unsp spec) [#/Vol] 2.18 10*3/uL 0.83-4.51 [facility] Basophil percentageOrdered B y: Francisco J Jean-Baptiste on 06-05-2023 Basophils/100 WBC (Bld) 0.8 % 0-1 [facility] Chloride [Moles/Vol] 107 mmol/L 98-107 [facility] [place] Eosinophils/100 WBC (Bld) 1.7 % 0-5 [facility] Glucose [Mass/Vol] 202 mg/dL 74-106 [facility] Comment on above: Glucose result great er than or equal to 200 mg/dLsuggests DIABETES MELLITUS per A.D.A. criteria. Neutrophils (Bld) [#/Vol] 7.7 10*3/uL 2.0-7.7 [facility] Neutrophils/100 WBC (Bld) 72.6 % 47-70 [facility] Potassium [Moles/Vol] 4.7 mmol/L 3.5-5.1 [facility] Sodium [Moles/Vol] 138 mmol/L 136-145 [facility] WBC (Bld) [#/Vol] 10.6 10*3/uL 4.4-11.0 [facility] Blood erythrocytes count (nu mber/volume)Ordered By: Francisco J Jean-Baptiste on 06-05-2023 RBC (Bld) [#/Vol] 5.01 10*6/uL 4.6-6.2 [facility] Blood hemoglobin measurement (mass/volume)Ordered By: Francisco J Jean-Baptiste on 06-05-2023 Hemoglobin (Bld) [Mass/Vol] 15.0 g/dL 13.0-16.5 [facility] Blood lymphocytes/100 leukoc ytesOrdered By: Francisco J Jean-Baptiste on 06-05-2023 Lymphocytes/100 WBC (Bld) 20.5 % 19-41 [facility] Blood monocytes/100 leukocyt esOrdered By: Francisco J Jean-Baptiste on 06-05-2023 Monocytes/100 WBC (Bld) 3.9 % 0-10 [facility] Blood platelet mean volumeOr dered By: Francisco J Jean-Baptiste on 06-05-2023 Platelet mean volume (Bld) [Entitic vol] 10.8 fL 6.2-12.0 [facility] Determination of erythrocyte mean corpuscular volume (MCV)Ordered By: Francisco J Jean-Baptiste on 06-05-2023 MCV (RBC) [Entitic vol] 90.8 fL 80-94 [facility] Hematocrit Auto (Bld) [Volum e fraction]Ordered By: Francisco J Jean-Baptiste on 06-05-2023 Hematocrit (Bld) [Volume fraction] 45.5 % 40-54 [facility] Laboratory - Chemistry and C hemistry - challengeOrdered By: Francisco J Jean-Baptiste on 06-05-2023 CO2 [Moles/Vol] 23.0 mmol/L 21.0-32.0 [facility] Urea nitrogen/Creatinine [Mass ratio] 8.8 mg/mg 10-20 [facility] Laboratory - Hematology and Cell countsOrdered By: Francisco J Jean-Baptiste on 06-05-2023 Erythrocyte distribution width (RBC) [Entitic vol] 46.7 fL 35.1-43.9 [facility] Erythrocyte distribution width (RBC) [Ratio] 14.0 % 11.6-14.6 [facility] Immature granulocytes/100 WBC (Bld) 0.500 % 0.0-0.9 [facility] Comment on above: IG% - Immature Granu locytes (promyelocytes, myelocytes and metamyelocytes) > 1% indicates that a LEFT SHIFT is Present. MCH (RBC) [Entitic mass] 29.9 pg 27.0-32.0 [facility] Nucleated RBC/100 WBC (Bld) [Ratio] 0 % 0-5 [facility] MCHC Auto (RBC) [Mass/Vol]Or dered By: Francisco J Jean-Baptiste on 06-05-2023 MCHC (RBC) [Mass/Vol] 33.0 g/dL 32-36 [facility] No Panel InformationOrdered By: Francisco J Jean-Baptiste on 06-05-2023 Troponin I High Sensitivity 8 pg/mL 3.0-78.0 [facility] Comment on above: Please Note: New Huma t Units and Gender Specific Reference Ranges. For more information see Policy Stat Procedure [place] High Sensitivity Troponin (TNIH) and attachments. Estimated Creatinine Clearance Calc 105.89 ml/min [facility] Estimated GFR (MDRD) Amer 98 mL/min >60 [facility] Comment on above: GFR Calc Estimated GFR (MDRD) Non-Af Amer 81 mL/min >60 [facility] Comment on above: Non- GFR Calc Platelets bldOrdered By: Lawrence Jean-Baptiste on 06-05-2023 Platelets (Bld) [#/Vol] 214 10*3/uL 150-450 [facility] Serum or plasma calcium daniel urement (mass/volume)Ordered By: Francisco J Jean-Baptiste on 06-05-2023 Calcium [Mass/Vol] 9.0 mg/dL 8.5-10.1 [facility] Serum or plasma creatinine m easurement (mass/volume)Ordered By: Francisco J Jean-Baptiste on 06-05-2023 Creatinine [Mass/Vol] 1.14 mg/dL 0.70-1.30 [facility] Comment on above: The validity of the calculated GFR & GFRAA in patients over 70 years has not been determined. Clinical correlation is essential. Serum or plasma urea nitroge n measurement (mass/volume)Ordered By: Francisco J Jean-Baptiste on 06-05-2023 Urea nitrogen [Mass/Vol] 10 mg/dL 7-18 [facility] Thin prep Papanicolaou smear with manual screeningOrdered By: Francisco J Jean-Baptiste on 06-05-2023 Thin prep Papanicolaou smear with manual screening 8 5-15 [facility] Absolute lymphocyte countOrd ered By: Janae Zamora on 05-05-2023 Lymphocytes Auto (Unsp spec) [#/Vol] 1.77 10*3/uL 0.83-4.51 [facility] Basophil percentageOrdered B y: Janae Zamora on 05-05-2023 Basophils/100 WBC (Bld) 0.7 % 0-1 [facility] Chloride [Moles/Vol] 110 mmol/L 98-107 [facility] [place] Eosinophils/100 WBC (Bld) 3.0 % 0-5 [facility] Glucose [Mass/Vol] 119 mg/dL 74-106 [facility] Comment on above: Fasting Glucose resu lt from 100 to 125 mg/dL suggests IMPAIRED HOMEOSTASIS per A.D.A. criteria. Neutrophils (Bld) [#/Vol] 8.1 10*3/uL 2.0-7.7 [facility] Neutrophils/100 WBC (Bld) 73.2 % 47-70 [facility] Potassium [Moles/Vol] 4.2 mmol/L 3.5-5.1 [facility] Sodium [Moles/Vol] 140 mmol/L 136-145 [facility] WBC (Bld) [#/Vol] 11.1 10*3/uL 4.4-11.0 [facility] Blood erythrocytes count (nu mber/volume)Ordered By: Janae Zamora on 05-05-2023 RBC (Bld) [#/Vol] 5.00 10*6/uL 4.6-6.2 [facility] Blood hemoglobin measurement (mass/volume)Ordered By: Janae Zamora on 05-05-2023 Hemoglobin (Bld) [Mass/Vol] 14.8 g/dL 13.0-16.5 [facility] Blood lymphocytes/100 leukoc ytesOrdered By: Janae Zamora on 05-05-2023 Lymphocytes/100 WBC (Bld) 16.0 % 19-41 [facility] Blood monocytes/100 leukocyt esOrdered By: Janae Zamora on 05-05-2023 Monocytes/100 WBC (Bld) 6.8 % 0-10 [facility] Blood platelet mean volumeOr dered By: Janae Zamora on 05-05-2023 Platelet mean volume (Bld) [Entitic vol] 10.6 fL 6.2-12.0 [facility] Determination of erythrocyte mean corpuscular volume (MCV)Ordered By: Janae Zamora on 05-05-2023 MCV (RBC) [Entitic vol] 90.4 fL 80-94 [facility] Hematocrit Auto (Bld) [Volum e fraction][facility] 05-05-2023 Hematocrit (Bld) [Volume fraction] 45.2 % 40-54 [facility] Laboratory - Chemistry and C hemistry - challengeOrdered By: [facility] on 05-05-2023 CO2 [Moles/Vol] 25.0 mmol/L 21.0-32.0 [facility] Urea nitrogen/Creatinine [Mass ratio] 8.3 mg/mg 10-20 [facility] Laboratory - Hematology and Cell countsOrdered By: Janae Zamora on 05-05-2023 Erythrocyte distribution width (RBC) [Entitic vol] 49.6 fL 35.1-43.9 [facility] Erythrocyte distribution width (RBC) [Ratio] 14.9 % 11.6-14.6 [facility] Immature granulocytes/100 WBC (Bld) 0.300 % 0.0-0.9 [facility] Comment on above: IG% - Immature Granu locytes (promyelocytes, myelocytes and metamyelocytes) > 1% indicates that a LEFT SHIFT is Present. MCH (RBC) [Entitic mass] 29.6 pg 27.0-32.0 [facility] Nucleated RBC/100 WBC (Bld) [Ratio] 0 % 0-5 [facility] MCHC Auto (RBC) [Mass/Vol]Or dered By: Janae Zamora on 05-05-2023 MCHC (RBC) [Mass/Vol] 32.7 g/dL 32-36 [facility] No Panel InformationOrdered By: [facility] on 05-05-2023 Estimated Creatinine Clearance Calc 125.74 ml/min [facility] Estimated GFR (MDRD) Amer 119 mL/min >60 [facility] Comment on above: GFR Calc Estimated GFR (MDRD) Non-Af Amer 98 mL/min >60 [facility] Comment on above: Non- GFR Calc Platelets bldOrdered By: Carli mota Holamirta on 05-05-2023 Platelets (Bld) [#/Vol] 194 10*3/uL 150-450 [facility] Serum or plasma calcium daniel urement (mass/volume)Ordered By: Janae Noah on 05-05-2023 Calcium [Mass/Vol] 8.5 mg/dL 8.5-10.1 [facility] Serum or plasma creatinine m easurement (mass/volume)Ordered By: Janae Noah on 05-05-2023 Creatinine [Mass/Vol] 0.96 mg/dL 0.70-1.30 [facility] Comment on above: The validity of the calculated GFR & GFRAA in patients over 70 years has not been determined. Clinical correlation is essential. Serum or plasma urea nitroge n measurement (mass/volume)Ordered By: Janae Noah on 05-05-2023 Urea nitrogen [Mass/Vol] 8 mg/dL 7-18 [facility] [facility] Thin prep Papanicolaou smear with manual screeningOrdered By: [facility] on 05-05-2023 Thin prep Papanicolaou smear with manual screening 5 5-15 [facility] Absolute lymphocyte countOrd ered By: Dr. Silva on 12-30-2022 Lymphocytes Auto (Unsp spec) [#/Vol] 2.34 10*3/uL 0.83-4.51 [facility] Basophil percentageOrdered B y: Dr. Silva on 12-30-2022 Basophils/100 WBC (Bld) 0.9 % 0-1 [facility] Chloride [Moles/Vol] 107 mmol/L 98-107 [facility] [place] Eosinophils/100 WBC (Bld) 6.3 % 0-5 [facility] Glucose [Mass/Vol] 96 mg/dL 74-106 [facility] Lactate [Moles/Vol] 1.1 mmol/L 0.4-2.0 [facility] Neutrophils (Bld) [#/Vol] 5.0 10*3/uL 2.0-7.7 [facility] Neutrophils/100 WBC (Bld) 58.2 % 47-70 [facility] Potassium [Moles/Vol] 4.4 mmol/L 3.5-5.1 [facility] Sodium [Moles/Vol] 141 mmol/L 136-145 [facility] WBC (Bld) [#/Vol] 8.6 10*3/uL 4.4-11.0 [facility] Blood erythrocytes count (nu mber/volume)Ordered By: Dr. Silva on 12-30-2022 RBC (Bld) [#/Vol] 4.49 10*6/uL 4.6-6.2 [facility] Blood hemoglobin measurement (mass/volume)Ordered By: Dr. Silva on 12-30-2022 Hemoglobin (Bld) [Mass/Vol] 13.1 g/dL 13.0-16.5 [facility] Blood lymphocytes/100 leukoc ytesOrdered By: Dr. Silva on 12-30-2022 Lymphocytes/100 WBC (Bld) 27.2 % 19-41 [facility] Blood monocytes/100 leukocyt esOrdered By: Dr. Silva on 12-30-2022 Monocytes/100 WBC (Bld) 6.9 % 0-10 [facility] Blood platelet mean volumeOr dered By: Dr. Silva on 12-30-2022 Platelet mean volume (Bld) [Entitic vol] 9.9 fL 6.2-12.0 [facility] Determination of erythrocyte mean corpuscular volume (MCV)Ordered By: Dr. Silva on 12-30-2022 MCV (RBC) [Entitic vol] 90.2 fL 80-94 [facility] Hematocrit Auto (Bld) [Volum e fraction]Ordered By: Dr. Silva on 12-30-2022 Hematocrit (Bld) [Volume fraction] 40.5 % 40-54 [facility] Laboratory - Chemistry and C hemistry - challengeOrdered By: Dr. Silva on 12-30-2022 CO2 [Moles/Vol] 25.0 mmol/L 21.0-32.0 [facility] Urea nitrogen/Creatinine [Mass ratio] 18.0 mg/mg 10-20 [facility] Laboratory - Hematology and Cell countsOrdered By: Dr. Silva on 12-30-2022 Erythrocyte distribution width (RBC) [Entitic vol] 45.6 fL 35.1-43.9 [facility] Erythrocyte distribution width (RBC) [Ratio] 13.9 % 11.6-14.6 [facility] Immature granulocytes/100 WBC (Bld) 0.500 % 0.0-0.9 [facility] Comment on above: IG% - Immature Granu locytes (promyelocytes, myelocytes and metamyelocytes) > 1% indicates that a LEFT SHIFT is Present. MCH (RBC) [Entitic mass] 29.2 pg 27.0-32.0 [facility] Nucleated RBC/100 WBC (Bld) [Ratio] 0 % 0-5 [facility] MCHC Auto (RBC) [Mass/Vol]Or dered By: Dr. Silva on 12-30-2022 MCHC (RBC) [Mass/Vol] 32.3 g/dL 32-36 [facility] No Panel InformationOrdered By: Dr. Silva on 12-30-2022 Estimated Creatinine Clearance Calc 108.75 ml/min [facility] Estimated GFR (MDRD) Amer 101 mL/min >60 [facility] Comment on above: GFR Calc Estimated GFR (MDRD) Non-Af Amer 84 mL/min >60 [facility] Comment on above: Non- GFR Calc Platelets bldOrdered By: Dr. Silva on 12-30-2022 Platelets (Bld) [#/Vol] 230 10*3/uL 150-450 [facility] Serum or plasma calcium daniel urement (mass/volume)Ordered By: Dr. Silva on 12-30-2022 Calcium [Mass/Vol] 8.9 mg/dL 8.5-10.1 [facility] Serum or plasma creatinine m easurement (mass/volume)Ordered By: Dr. Silva on 12-30-2022 Creatinine [Mass/Vol] 1.11 mg/dL 0.70-1.30 [facility] Comment on above: The validity of the calculated GFR & GFRAA in patients over 70 years has not been determined. Clinical correlation is essential. Serum or plasma urea nitroge n measurement (mass/volume)Ordered By: Dr. Silva on 12-30-2022 Urea nitrogen [Mass/Vol] 20 mg/dL 7-18 [facility] Thin prep Papanicolaou smear with manual screeningOrdered By: Dr. Silva on 12-30-2022 Thin prep Papanicolaou smear with manual screening 9 5-15 [facility] Basophil percentageOrdered B y: Delfino Moore on 11-09-2022 Chloride [Moles/Vol] 111 mmol/L 98-107 [facility] [place] Cholesterol [Mass/Vol] 129 mg/dL <200 [facility] Comment on above: <200 mg/dL Desirable 200-240 mg/dL Borderline >240 mg/dL High Risk Glucose [Mass/Vol] 121 mg/dL 74-106 [facility] Comment on above: Fasting Glucose resu lt from 100 to 125 mg/dL suggests IMPAIRED HOMEOSTASIS per A.D.A. criteria. Potassium [Moles/Vol] 4.9 mmol/L 3.5-5.1 [facility] Sodium [Moles/Vol] 142 mmol/L 136-145 [facility] Triglyceride [Mass/Vol] 178 mg/dL <199 [facility] Comment on above: The drugs N-Acetylcy steine and Metamizole may falsely depress this assay.Serum Triglycerides Reference Interval Normal <150 mg/dL Borderline high 150 - 199 mg/dL High 200 - 499 mg/dL Very High > or = 500 mg/dL Laboratory - Chemistry and C hemistry - challengeOrdered By: Delfino Moore on 11-09-2022 CO2 [Moles/Vol] 26.0 mmol/L 21.0-32.0 [facility] Urea nitrogen/Creatinine [Mass ratio] 12.9 mg/mg 10-20 [facility] No Panel InformationOrdered By: Delfino Moore on 11-09-2022 Estimated GFR (MDRD) Amer 113 mL/min >60 [facility] Comment on above: GFR Calc Estimated GFR (MDRD) Non-Af Amer 94 mL/min >60 [facility] Comment on above: Non- GFR Calc Thyroid Stimulating Hormone (TSH) 0.95 uIU/mL 0.358-3.74 [facility] Serum or plasma calcium daniel urement (mass/volume)Ordered By: Delfino Moore on 11-09-2022 Calcium [Mass/Vol] 9.3 mg/dL 8.5-10.1 [facility] Serum or plasma cholesterol in HDL measurement (mass/volume)Ordered By: Delfino Moore on 11-09-2022 Cholesterol in HDL [Mass/Vol] 53 mg/dL >40 [facility] Comment on above: The drugs N-Acetylcy steine and Metamizole may falsely depress this assay. Reference Range HDL <40 mg/dL Low HDL Cholesterol HDL >or= 60 mg/dL High HDL Cholesterol Serum or plasma cholesterol in VLDL measurement (mass/volume)Ordered By: Delfino Moore on 11-09-2022 Cholesterol in VLDL [Mass/Vol] 36 mg/dL 5-40 [facility] Serum or plasma creatinine m easurement (mass/volume)Ordered By: Delfino Moore on 11-09-2022 Creatinine [Mass/Vol] 1.01 mg/dL 0.70-1.30 [facility] Comment on above: The validity of the calculated GFR & GFRAA in patients over 70 years has not been determined. Clinical correlation is essential. Serum or plasma low density lipoprotein (LDL) cholesterol measurement (mass/volume)Ordered By: Delfino Moore on 11-09-2022 Cholesterol in LDL [Mass/Vol] 40 mg/dL 0-130 [facility] Serum or plasma urea nitroge n measurement (mass/volume)Ordered By: Delfino Moore on 11-09-2022 Urea nitrogen [Mass/Vol] 13 mg/dL 7-18 [facility] Thin prep Papanicolaou smear with manual screeningOrdered By: Delfino Moore on 11-09-2022 Thin prep Papanicolaou smear with manual screening 5 5-15 [facility] Whole blood hemoglobin A1c/t otal hemoglobin ratio (mass fraction)Ordered By: Delfino Moore on 11-09-2022 HbA1c (Bld) [Mass fraction] 5.6 % 3.8-5.6 [facility] Comment on above: Normal < 5.7 % Predi abetic 5.7 - 6.4 % Diabetic >or= 6.5 % Please note range changes. Basophil percentageon 2021 Cholesterol [Mass/Vol] 106 mg/dL <200 [facility] Work Phone: Comment on above: <200 mg/dL Desirable 200-240 mg/dL Borderline >240 mg/dL High Risk Triglyceride [Mass/Vol] 212 mg/dL <199 [facility] Work Phone: Comment on above: The drugs N-Acetylcy steine and Metamizole may falsely depress this assay.Serum Triglycerides Reference Interval Normal <150 mg/dL Borderline high 150 - 199 mg/dL High 200 - 499 mg/dL Very High > or = 500 mg/dL Laboratory - Chemistry and C hemistry - challengeon 06-28-2022 Free T4 [Mass/Vol] 0.81 ng/dL 0.76-1.46 [facility] Work Phone: No Panel Informationon 06-28 Thyroid Stimulating Hormone (TSH) 3.68 uIU/mL 0.358-3.74 [facility] Work Phone: Serum or plasma cholesterol in HDL measurement (mass/volume)on 06-28-2022 Cholesterol in HDL [Mass/Vol] 30 mg/dL >40 [facility] Work Phone: Comment on above: The drugs N-Acetylcy steine and Metamizole may falsely depress this assay. Reference Range HDL <40 mg/dL Low HDL Cholesterol HDL >or= 60 mg/dL High HDL Cholesterol Serum or plasma cholesterol in VLDL measurement (mass/volume)on 06-28-2022 Cholesterol in VLDL [Mass/Vol] 42 mg/dL 5-40 [facility] Work Phone: Serum or plasma low density lipoprotein (LDL) cholesterol measurement (mass/volume)on 06-28-2022 Cholesterol in LDL [Mass/Vol] 34 mg/dL 0-130 [facility] Work Phone: Whole blood hemoglobin A1c/t otal hemoglobin ratio (mass fraction)on 06-28-2022 HbA1c (Bld) [Mass fraction] 6.0 % 3.8-5.6 [facility] Work Phone: Comment on above: Normal < 5.7 % Predi abetic 5.7 - 6.4 % Diabetic >or= 6.5 % Please note range changes. Absolute lymphocyte counton 06-03-2022 Lymphocytes Auto (Unsp spec) [#/Vol] 2.59 10*3/uL 0.83-4.51 [facility] Work Phone: Basophil percentageon 2021 Basophil percentage 0 SEEN /hpf 0-5 [facility] [place] Work Phone: Basophils/100 WBC (Bld) 0.8 % 0-1 [facility] Work Phone: Bilirubin [Mass/Vol] 0.30 mg/dL 0.20-1.00 [facility] [place] Work Phone: Comment on above: For patients on eltr ombopag therapy, use of Dimension [place] TBIL is not recommended. Chloride [Moles/Vol] 107 mmol/L 98-107 [facility] [place] Work Phone: Eosinophils/100 WBC (Bld) 7.8 % 0-5 [facility] Work Phone: Glucose [Mass/Vol] 123 mg/dL 74-106 [facility] Work Phone: Comment on above: Fasting Glucose resu lt from 100 to 125 mg/dL suggests IMPAIRED HOMEOSTASIS per A.D.A. criteria. Neutrophils (Bld) [#/Vol] 5.1 10*3/uL 2.0-7.7 [facility] Work Phone: Neutrophils/100 WBC (Bld) 56.4 % 47-70 [facility] Work Phone: Potassium [Moles/Vol] 4.0 mmol/L 3.5-5.1 [facility] Work Phone: Protein [Mass/Vol] 7.0 g/dL 6.4-8.2 [facility] Work Phone: Sodium [Moles/Vol] 138 mmol/L 136-145 [facility] Work Phone: WBC (Bld) [#/Vol] 9.1 10*3/uL 4.4-11.0 [facility] Work Phone: Bilirubin Test strip Ql (U)o n 06-03-2022 Bilirubin Ql (U) Negative Negative [facility] Work Phone: Blood erythrocytes count (nu mber/volume)on 06-03-2022 RBC (Bld) [#/Vol] 4.96 10*6/uL 4.6-6.2 [facility] Work Phone: Blood hemoglobin measurement (mass/volume)on 06-03-2022 Hemoglobin (Bld) [Mass/Vol] 14.9 g/dL 13.0-16.5 [facility] Work Phone: [phone] Blood lymphocytes/100 leukoc yteson 06-03-2022 Lymphocytes/100 WBC (Bld) 28.4 % 19-41 [facility] Work Phone: [phone] Blood monocytes/100 leukocyt eson 06-03-2022 Monocytes/100 WBC (Bld) 6.1 % 0-10 [facility] Work Phone: Blood platelet mean volumeon 06-03-2022 Platelet mean volume (Bld) [Entitic vol] 10.5 fL 6.2-12.0 [facility] Work Phone: Determination of erythrocyte mean corpuscular volume (MCV)on 06-03-2022 MCV (RBC) [Entitic vol] 89.9 fL 80-94 [facility] Work Phone: Hematocrit Auto (Bld) [Volum e fraction]on 06-03-2022 Hematocrit (Bld) [Volume fraction] 44.6 % 40-54 [facility] Work Phone: Ketones Test strip Ql (U)on 06-03-2022 Ketones Ql (U) Negative Negative [facility] Work Phone: Laboratory - Chemistry and C hemistry - challengeon 06-03-2022 ALP [Catalytic activity/Vol] 53 U/L 45-117 [facility] Work Phone: ALT [Catalytic activity/Vol] 50 U/L 16-61 [facility] Work Phone: CK [Catalytic activity/Vol] 171 U/L 39-308 [facility] Work Phone: [phone] CO2 [Moles/Vol] 24.0 mmol/L 21.0-32.0 [facility] Work Phone: [phone] Globulin (S) [Mass/Vol] 3.3 g/dL 2.2-4.2 [facility] Work Phone: [phone] Urea nitrogen/Creatinine [Mass ratio] 14.1 mg/mg 10-20 [facility] Work Phone: [phone] Laboratory - Drug toxicology on 06-03-2022 Amphetamines Ql (U) Negative <1000 ng/mL [facility] [place] Work Phone: [phone] Benzodiazepines Ql (U) Positive < 200 ng/mL [facility] Work Phone: [phone] Cannabinoids Screen Ql (U) Positive < 50 ng/mL [facility] Work Phone: [phone] Cocaine Ql (U) Negative < 300 ng/mL [facility] Work Phone: [phone] Opiates Ql (U) Negative < 300 ng/mL [facility] Work Phone: [phone] Laboratory - Hematology and Cell countson 06-03-2022 Erythrocyte distribution width (RBC) [Entitic vol] 44.9 fL 35.1-43.9 [facility] Work Phone: [phone] Erythrocyte distribution width (RBC) [Ratio] 13.7 % 11.6-14.6 [facility] Work Phone: [phone] Immature granulocytes/100 WBC (Bld) 0.500 % 0.0-0.9 [facility] Work Phone: [phone] Comment on above: IG% - Immature Granu locytes (promyelocytes, myelocytes and metamyelocytes) > 1% indicates that a LEFT SHIFT is Present. MCH (RBC) [Entitic mass] 30.0 pg 27.0-32.0 [facility] Work Phone: [phone] Nucleated RBC/100 WBC (Bld) [Ratio] 0 % 0-5 [facility] Work Phone: [phone] MCHC Auto (RBC) [Mass/Vol]on 06-03-2022 MCHC (RBC) [Mass/Vol] 33.4 g/dL 32-36 [facility] Work Phone: [phone] Mucus LM Ql (Urine sed)on Mucus Ql (Urine sed) 0 SEEN /hpf [facility] Work Phone: [phone] Nitrite Test strip Ql (U)on 06-03-2022 Nitrite Ql (U) Negative Negative [facility] Work Phone: [phone] Panel Informationon 06-03 Troponin I High Sensitivity 7 pg/mL 3.0-78.0 [facility] Work Phone: [phone] Comment on above: Please Note: New Huma t Units and Gender Specific Reference Ranges. For more information see Policy Stat Procedure [place] High Sensitivity Troponin (TNIH) and attachments. MDMA (Ecstasy) Screen Negative < 500 ng/mL [facility] Work Phone: [phone] Urine Barbiturates Screen Negative < 200 ng/mL [facility] Work Phone: [phone] Urine Drug Screen Comment [facility] Work Phone: Comment on above: CONFIRMATORY TESTING FOR ALL POSITIVE URINE DRUG SCREENRESULTS WILL ONLY BE SENT OUT UPON PHYSICIAN ORDER. VISTA Urine Drug Screen methods provide only preliminaryanalytical test results. A more specific alternate chemicalmethod must be used in order to obtain a confirmedanalytical result. Gas chromatography/mass spectrometery(GC/MS) is the preferred confirmatory method. Clinicalconsideration and professional judgement should be appliedto any drug of abuse test result, particularly whenpreliminary positive results are used. URINE TCA TESTING MUST BE ORDERED SEPARATELY. USE TESTMNEMONIC: [facility] Urine Methadone Screen Negative < 300 ng/mL [facility] Work Phone: [phone] Estimated Creatinine Clearance Calc 123.02 ml/min [facility] Work Phone: [phone] Estimated GFR (MDRD) Amer 116 mL/min >60 [facility] Work Phone: [phone] Comment on above: GFR Calc Estimated GFR (MDRD) Non-Af Amer 96 mL/min >60 [facility] Work Phone: Comment on above: Non- GFR Calc Ethyl Alcohol Level < 3.0 mg/dL [facility] [place] Work Phone: Comment on above: The serum:whole bloo d ethanol ratio is approximately 1.14and varies slightly with hematocrit. Medical Alcohol reference interval and critical value innon-tolerant individuals; 50 - 100 Impairment 100 Intoxication 100 - 250 Severe Poisoning 250 - 400 Deep/possible fatal coma Platelets bldon 06-03-2022 Platelets (Bld) [#/Vol] 219 10*3/uL 150-450 [facility] Work Phone: Protein Test strip Ql (U)on 06-03-2022 Protein Ql (U) 15 mg/dl Negative [facility] Work Phone: Serum or plasma albumin daniel urement (mass/volume)on 06-03-2022 Albumin [Mass/Vol] 3.7 g/dL 3.2-5.0 [facility] Work Phone: [phone] Serum or plasma albumin/glob ulin mass ratioon 06-03-2022 Albumin/Globulin [Mass ratio] 1.1 {ratio} 0.9-2.4 [facility] Work Phone: [phone] Serum or plasma calcium daniel urement (mass/volume)on 06-03-2022 Calcium [Mass/Vol] 8.7 mg/dL 8.5-10.1 [facility] Work Phone: Serum or plasma creatinine m easurement (mass/volume)on 06-03-2022 Creatinine [Mass/Vol] 0.99 mg/dL 0.70-1.30 [facility] Work Phone: Comment on above: The validity of the calculated GFR & GFRAA in patients over 70 years has not been determined. Clinical correlation is essential. Serum or plasma urea nitroge n measurement (mass/volume)on 06-03-2022 Urea nitrogen [Mass/Vol] 14 mg/dL 7-18 [facility] Work Phone: [phone] Squamous epithelial cells de tection in urine sediment by light microscopyon 06-03-2022 Epithelial cells.squamous LM Ql (Urine sed) 0 SEEN /hpf 0-5 [facility] Work Phone: Thin prep Papanicolaou smear with manual screeningon 06-03-2022 Thin prep Papanicolaou smear with manual screening 25 U/L 15-37 [facility] Work Phone: Thin prep Papanicolaou smear with manual screening 7 5-15 [facility] Work Phone: Urine blood detectionon RBC Ql (U) Negative Negative [facility] Work Phone: RBC Ql (U) 0 SEEN /hpf 0-5 [facility] Work Phone: Urine clarityon 06-03-2022 Clarity (U) Clear Clear [facility] Work Phone: Urine color determinationon 06-03-2022 Color (U) Yellow Yellow [facility] Work Phone: Urine glucose detectionon Glucose Ql (U) Normal mg/dl Normal [facility] Work Phone: Urine leukocyte esterase det ection by dipstickon 06-03-2022 Leukocyte esterase Test strip Ql (U) Negative Negative [facility] Work Phone: Urine pHon 06-03-2022 pH (U) 5.0 [pH] 5.0 - 8.0 [facility] Work Phone: Urine phencyclidine (PCP) de tectionon 06-03-2022 Phencyclidine Ql (U) Negative < 25 ng/mL [facility] [place] Work Phone: Urine sediment bacteria coun t by microscopy (number/high power field)on 06-03-2022 Bacteria LM.HPF (Urine sed) [#/Area] 0 /[HPF] None Seen [facility] Work Phone: Urine specific gravity measu rementon 06-03-2022 Specific gravity (U) [Rel density] 1.010 1.002-1.030 [facility] Work Phone: Urobilinogen Auto test strip Ql (U)on 06-03-2022 Urobilinogen Ql (U) Normal mg/dl Normal [facility] Work Phone: [phone] Absolute lymphocyte counton 04-22-2022 Lymphocytes Auto (Unsp spec) [#/Vol] 2.73 10*3/uL 0.83-4.51 [facility] Work Phone: [phone] Basophil percentageon 2021 Cholesterol [Mass/Vol] 144 mg/dL <200 [facility] Work Phone: [phone] Comment on above: Slight Lipemia, Resu lt may be falsely increased. <200 mg/dL Desirable 200-240 mg/dL Borderline >240 mg/dL High Risk Triglyceride [Mass/Vol] 758 mg/dL <199 [facility] Work Phone: Comment on above: The drugs N-Acetylcy steine and Metamizole may falsely depress this assay. Slight Lipemia, Result may be falsely increased. TRIGLYCERIDE IS GREATER THAN 400 mg/dL. LDL RESULT IS INVALID AND WILL NOT BE REPORTED.Serum Triglycerides Reference Interval Normal <150 mg/dL Borderline high 150 - 199 mg/dL High 200 - 499 mg/dL Very High > or = 500 mg/dL Basophil percentage 0 SEEN /hpf 0-5 [facility] [place] Work Phone: Basophils/100 WBC (Bld) 0.7 % 0-1 [facility] Work Phone: Chloride [Moles/Vol] 102 mmol/L 98-107 [facility] [place] Work Phone: Eosinophils/100 WBC (Bld) 6.0 % 0-5 [facility] Work Phone: Glucose [Mass/Vol] 125 mg/dL 74-106 [facility] Work Phone: Comment on above: Moderate Lipemia, Re sult may be falsely increased.Fasting Glucose result from 100 to 125 mg/dL suggests IMPAIRED HOMEOSTASIS per A.D.A. criteria. Neutrophils (Bld) [#/Vol] 4.8 10*3/uL 2.0-7.7 [facility] Work Phone: Neutrophils/100 WBC (Bld) 53.7 % 47-70 [facility] Work Phone: [phone] Potassium [Moles/Vol] 4.1 mmol/L 3.5-5.1 [facility] Work Phone: Comment on above: Slight Hemolysis, Re sult may be falsely increased. Sodium [Moles/Vol] 133 mmol/L 136-145 [facility] Work Phone: WBC (Bld) [#/Vol] 8.9 10*3/uL 4.4-11.0 [facility] Work Phone: Bilirubin Test strip Ql (U)o n 04-22-2022 Bilirubin Ql (U) Negative Negative [facility] Work Phone: Blood erythrocytes count (nu mber/volume)on 04-22-2022 RBC (Bld) [#/Vol] 4.73 10*6/uL 4.6-6.2 [facility] Work Phone: Blood hemoglobin measurement (mass/volume)on 04-22-2022 Hemoglobin (Bld) [Mass/Vol] 14.2 g/dL 13.0-16.5 [facility] Work Phone: Blood lymphocytes/100 leukoc yteson 04-22-2022 Lymphocytes/100 WBC (Bld) 30.7 % 19-41 [facility] Work Phone: Blood monocytes/100 leukocyt eson 04-22-2022 Monocytes/100 WBC (Bld) 8.4 % 0-10 [facility] Work Phone: Blood platelet mean volumeon 04-22-2022 Platelet mean volume (Bld) [Entitic vol] 10.6 fL 6.2-12.0 [facility] Work Phone: Chlamydia trachomatis rRNA d etection by probe and target amplification methodon 04-22-2022 C. trachomatis rRNA KELVIN+probe Ql (Unsp spec) Negative Negative [facility] Work Phone: Determination of erythrocyte mean corpuscular volume (MCV)on 04-22-2022 MCV (RBC) [Entitic vol] 89.6 fL 80-94 [facility] Work Phone: [phone] Hematocrit Auto (Bld) [Volum e fraction]on 04-22-2022 Hematocrit (Bld) [Volume fraction] 42.4 % 40-54 [facility] Work Phone: [phone] INR in Blood by Coagulation assayon 04-22-2022 INR Coag (Bld) [Relative time] 0.9 {INR} [facility] Work Phone: [phone] Ketones Test strip Ql (U)on 04-22-2022 Ketones Ql (U) Negative Negative [facility] Work Phone: [phone] Laboratory - Chemistry and C hemistry - challengeon 04-22-2022 CO2 [Moles/Vol] 24.0 mmol/L 21.0-32.0 [facility] Work Phone: [phone] Free T4 [Mass/Vol] 1.02 ng/dL 0.76-1.46 [facility] Work Phone: [phone] Comment on above: Slight Lipemia, Resu lt may be falsely increased. Urea nitrogen/Creatinine [Mass ratio] 19.0 mg/mg 10-20 [facility] Work Phone: [phone] Laboratory - Coagulationon 0 04-22-2022 PT Coag (PPP) [Time] 11.4 s 11.7-14.9 [facility] [place] Work Phone: [phone] Laboratory - Hematology and Cell countson 04-22-2022 Erythrocyte distribution width (RBC) [Entitic vol] 46.6 fL 35.1-43.9 [facility] Work Phone: [phone] Erythrocyte distribution width (RBC) [Ratio] 14.3 % 11.6-14.6 [facility] Work Phone: [phone] Immature granulocytes/100 WBC (Bld) 0.500 % 0.0-0.9 [facility] Work Phone: [phone] Comment on above: IG% - Immature Granu locytes (promyelocytes, myelocytes and metamyelocytes) > 1% indicates that a LEFT SHIFT is Present. MCH (RBC) [Entitic mass] 30.0 pg 27.0-32.0 [facility] Work Phone: Nucleated RBC/100 WBC (Bld) [Ratio] 0 % 0-5 [facility] Work Phone: Laboratory - Microbiology an d Antimicrobial susceptibilityon 04-22-2022 N. gonorrhoeae DNA KELVIN+probe Ql (Unsp spec) Negative Negative [facility] Work Phone: Comment on above: Performed at: = - L [address] [id number] Director: Tia Pickard MD, Phone: [phone] MCHC Auto (RBC) [Mass/Vol]on 04-22-2022 MCHC (RBC) [Mass/Vol] 33.5 g/dL 32-36 [facility] Work Phone: Mucus LM Ql (Urine sed)on Mucus Ql (Urine sed) 0 SEEN /hpf [facility] Work Phone: Nitrite Test strip Ql (U)on 04-22-2022 Nitrite Ql (U) Negative Negative [facility] Work Phone: No Panel Informationon 04-22 Estimated GFR (MDRD) Amer 115 mL/min >60 [facility] Work Phone: Comment on above: GFR Calc Estimated GFR (MDRD) Non-Af Amer 95 mL/min >60 [facility] Work Phone: Comment on above: Non- GFR Calc Thyroid Stimulating Hormone (TSH) 4.76 uIU/mL 0.358-3.74 [facility] Work Phone: Platelets bldon 04-22-2022 Platelets (Bld) [#/Vol] 242 10*3/uL 150-450 [facility] Work Phone: [phone] Protein Test strip Ql (U)on 04-22-2022 Protein Ql (U) Negative Negative [facility] Work Phone: Serum or plasma calcium daniel urement (mass/volume)on 04-22-2022 Calcium [Mass/Vol] 8.2 mg/dL 8.5-10.1 [facility] Work Phone: Comment on above: Moderate Lipemia, Re sult may be falsely decreased. Serum or plasma cholesterol in HDL measurement (mass/volume)on 04-22-2022 Cholesterol in HDL [Mass/Vol] 37 mg/dL >40 [facility] Work Phone: Comment on above: The drugs N-Acetylcy steine and Metamizole may falsely depress this assay. Reference Range HDL <40 mg/dL Low HDL Cholesterol HDL >or= 60 mg/dL High HDL Cholesterol Serum or plasma cholesterol in VLDL measurement (mass/volume)on 04-22-2022 Cholesterol in VLDL [Mass/Vol] [facility] Work Phone: Comment on above: Test not performed Serum or plasma creatinine m easurement (mass/volume)on 04-22-2022 Creatinine [Mass/Vol] 1.00 mg/dL 0.70-1.30 [facility] Work Phone: Comment on above: The validity of the calculated GFR & GFRAA in patients over 70 years has not been determined. Clinical correlation is essential. Serum or plasma low density lipoprotein (LDL) cholesterol measurement (mass/volume)on 04-22-2022 Cholesterol in LDL [Mass/Vol] [facility] Work Phone: Comment on above: Test not performed Serum or plasma urea nitroge n measurement (mass/volume)on 04-22-2022 Urea nitrogen [Mass/Vol] 19 mg/dL 7-18 [facility] Work Phone: [phone] Squamous epithelial cells de tection in urine sediment by light microscopyon 04-22-2022 Epithelial cells.squamous LM Ql (Urine sed) 0 SEEN /hpf 0-5 [facility] Work Phone: [phone] Thin prep Papanicolaou smear with manual screeningon 04-22-2022 Thin prep Papanicolaou smear with manual screening 7 5-15 [facility] Work Phone: Urine blood detectionon 03-31 RBC Ql (U) Negative Negative [facility] Work Phone: RBC Ql (U) 0 SEEN /hpf 0-5 [facility] Work Phone: Urine clarityon 04-22-2022 Clarity (U) Clear Clear [facility] Work Phone: Urine color determinationon 04-22-2022 Color (U) Straw Yellow [facility] Work Phone: Urine glucose detectionon Glucose Ql (U) Normal mg/dl Normal [facility] Work Phone: Urine leukocyte esterase det ection by dipstickon 04-22-2022 Leukocyte esterase Test strip Ql (U) Negative Negative [facility] Work Phone: Urine pHon 04-22-2022 pH (U) 6.0 [pH] 5.0 - 8.0 [facility] Work Phone: Urine sediment bacteria coun t by microscopy (number/high power field)on 04-22-2022 Bacteria LM.HPF (Urine sed) [#/Area] RARE /hpf None Seen [facility] Work Phone: Urine specific gravity measu rementon 04-22-2022 Specific gravity (U) [Rel density] 1.015 1.002-1.030 [facility] Work Phone: Urobilinogen Auto test strip Ql (U)on 04-22-2022 Urobilinogen Ql (U) Normal mg/dl Normal [facility] Work Phone: Basophil percentageon 2021 WBC (Bld) [#/Vol] 9.8 10*3/uL 4.4-11.0 [facility] Work Phone: Blood erythrocytes count (nu mber/volume)on 02-09-2022 RBC (Bld) [#/Vol] 5.43 10*6/uL 4.6-6.2 [facility]: Blood hemoglobin measurement (mass/volume)on 02-09-2022 Hemoglobin (Bld) [Mass/Vol] 15.9 g/dL 13.0-16.5 [facility] Work Phone: [phone] Blood platelet mean volumeon 02-09-2022 Platelet mean volume (Bld) [Entitic vol] 10.6 fL 6.2-12.0 [facility] Work Phone: [phone] Determination of erythrocyte mean corpuscular volume (MCV)on 02-09-2022 MCV (RBC) [Entitic vol] 86.9 fL 80-94 [facility] Work Phone: [phone] Hematocrit Auto (Bld) [Volum e fraction]on 02-09-2022 Hematocrit (Bld) [Volume fraction] 47.2 % 40-54 [facility] Work Phone: Laboratory - Hematology and Cell countson 02-09-2022 Erythrocyte distribution width (RBC) [Entitic vol] 42.5 fL 35.1-43.9 [facility] Work Phone: [phone] Erythrocyte distribution width (RBC) [Ratio] 13.2 % 11.6-14.6 [facility] Work Phone: [phone] MCH (RBC) [Entitic mass] 29.3 pg 27.0-32.0 [facility] Work Phone: [phone] MCHC Auto (RBC) [Mass/Vol]on 02-09-2022 MCHC (RBC) [Mass/Vol] 33.7 g/dL 32-36 [facility] Work Phone: [phone] Platelets bldon 02-09-2022 Platelets (Bld) [#/Vol] 216 10*3/uL 150-450 [facility] Work Phone: Basophil percentageon 2021 Bilirubin [Mass/Vol] 0.70 mg/dL 0.20-1.00 [facility] [place] Work Phone: [phone] Comment on above: For patients on eltr ombopag therapy, use of Dimension [place] TBIL is not recommended. Chloride [Moles/Vol] 104 mmol/L 98-107 [facility] [place] Work Phone: [phone] Cholesterol [Mass/Vol] 166 mg/dL <200 [facility] Work Phone: [phone] Comment on above: <200 mg/dL Desirable 200-240 mg/dL Borderline >240 mg/dL High Risk Glucose [Mass/Vol] 121 mg/dL 74-106 [facility] Work Phone: [phone] Comment on above: Fasting Glucose resu lt from 100 to 125 mg/dL suggests IMPAIRED HOMEOSTASIS per A.D.A. criteria. Potassium [Moles/Vol] 3.8 mmol/L 3.5-5.1 [facility] Work Phone: [phone] Protein [Mass/Vol] 7.1 g/dL 6.4-8.2 [facility] Work Phone: [phone] Sodium [Moles/Vol] 138 mmol/L 136-145 [facility] Work Phone: [phone] Triglyceride [Mass/Vol] 167 mg/dL <199 [facility] Work Phone: [phone] Comment on above: The drugs N-Acetylcy steine and Metamizole may falsely depress this assay.Serum Triglycerides Reference Interval Normal <150 mg/dL Borderline high 150 - 199 mg/dL High 200 - 499 mg/dL Very High > or = 500 mg/dL Laboratory - Chemistry and C hemistry - challengeon 02-08-2022 ALP [Catalytic activity/Vol] 61 U/L 45-117 [facility] Work Phone: [phone] ALT [Catalytic activity/Vol] 40 U/L 16-61 [facility] Work Phone: [phone] CO2 [Moles/Vol] 28.0 mmol/L 21.0-32.0 [facility] Work Phone: [phone] Globulin (S) [Mass/Vol] 3.4 g/dL 2.2-4.2 [facility] Work Phone: [phone] Urea nitrogen/Creatinine [Mass ratio] 14.5 mg/mg 10-20 [facility] Work Phone: [phone] Panel Informationon 02-08 Estimated Creatinine Clearance Calc 146.73 ml/min [facility] Work Phone: Estimated GFR (MDRD) Amer 143 mL/min >60 [facility] Work Phone: Comment on above: GFR Calc Estimated GFR (MDRD) Non-Af Amer 118 mL/min >60 [facility] Work Phone: Comment on above: Non- GFR Calc Serum or plasma albumin daniel urement (mass/volume)on 02-08-2022 Albumin [Mass/Vol] 3.7 g/dL 3.2-5.0 [facility] Work Phone: Serum or plasma albumin/glob ulin mass ratioon 02-08-2022 Albumin/Globulin [Mass ratio] 1.1 {ratio} 0.9-2.4 [facility] Work Phone: Serum or plasma calcium daniel urement (mass/volume)on 02-08-2022 Calcium [Mass/Vol] 8.7 mg/dL 8.5-10.1 [facility] Work Phone: Serum or plasma cholesterol in HDL measurement (mass/volume)on 02-08-2022 Cholesterol in HDL [Mass/Vol] 36 mg/dL >40 [facility] Work Phone: Comment on above: The drugs N-Acetylcy steine and Metamizole may falsely depress this assay. Reference Range HDL <40 mg/dL Low HDL Cholesterol HDL >or= 60 mg/dL High HDL Cholesterol Serum or plasma cholesterol in VLDL measurement (mass/volume)on 02-08-2022 Cholesterol in VLDL [Mass/Vol] 33 mg/dL 5-40 [facility] Work Phone: Serum or plasma creatinine m easurement (mass/volume)on 02-08-2022 Creatinine [Mass/Vol] 0.83 mg/dL 0.70-1.30 [facility] Work Phone: Comment on above: The validity of the calculated GFR & GFRAA in patients over 70 years has not been determined. Clinical correlation is essential. Serum or plasma low density lipoprotein (LDL) cholesterol measurement (mass/volume)on 02-08-2022 Cholesterol in LDL [Mass/Vol] 97 mg/dL 0-130 [facility] Work Phone: Serum or plasma urea nitroge n measurement (mass/volume)on 02-08-2022 Urea nitrogen [Mass/Vol] 12 mg/dL 7-18 [facility] Work Phone: Thin prep Papanicolaou smear with manual screeningon 02-08-2022 Thin prep Papanicolaou smear with manual screening 96 U/L 15-37 [facility] Work Phone: Thin prep Papanicolaou smear with manual screening 6 5-15 [facility] Work Phone: Whole blood hemoglobin A1c/t otal hemoglobin ratio (mass fraction)on 02-08-2022 HbA1c (Bld) [Mass fraction] 5.7 % 3.8-5.6 [facility] Work Phone: Comment on above: Normal < 5.7 % Predi abetic 5.7 - 6.4 % Diabetic >or= 6.5 % Please note range changes. Absolute lymphocyte counton 02-07-2022 Lymphocytes Auto (Unsp spec) [#/Vol] 2.56 10*3/uL 0.83-4.51 [facility] Work Phone: Basophil percentageon 2021 Basophils/100 WBC (Bld) 0.4 % 0-1 [facility] Work Phone: Chloride [Moles/Vol] 106 mmol/L 98-107 [facility] [place] Work Phone: Eosinophils/100 WBC (Bld) 2.2 % 0-5 [facility] Work Phone: Glucose [Mass/Vol] 133 mg/dL 74-106 [facility] Work Phone: Comment on above: Fasting Glucose resu lt greater than or equal to 126 mg/dL suggests DIABETES MELLITUS per A.D.A. criteria. Neutrophils (Bld) [#/Vol] 8.2 10*3/uL 2.0-7.7 [facility] Work Phone: Neutrophils/100 WBC (Bld) 69.2 % 47-70 [facility] Work Phone: Potassium [Moles/Vol] 4.3 mmol/L 3.5-5.1 [facility] Work Phone: Sodium [Moles/Vol] 134 mmol/L 136-145 [facility] [place] Work Phone: WBC (Bld) [#/Vol] 11.9 10*3/uL 4.4-11.0 [facility] Work Phone: Blood erythrocytes count (nu mber/volume)on 02-07-2022 RBC (Bld) [#/Vol] 5.48 10*6/uL 4.6-6.2 [facility] Work Phone: Blood hemoglobin measurement (mass/volume)on 02-07-2022 Hemoglobin (Bld) [Mass/Vol] 16.0 g/dL 13.0-16.5 [facility] Work Phone: Blood lymphocytes/100 leukoc yteson 02-07-2022 Lymphocytes/100 WBC (Bld) 21.5 % 19-41 [facility] Work Phone: Blood monocytes/100 leukocyt eson 02-07-2022 Monocytes/100 WBC (Bld) 6.3 % 0-10 [facility] Work Phone: Blood platelet mean volumeon 02-07-2022 Platelet mean volume (Bld) [Entitic vol] 10.2 fL 6.2-12.0 [facility] Work Phone: Determination of erythrocyte mean corpuscular volume (MCV)on 02-07-2022 MCV (RBC) [Entitic vol] 83.9 fL 80-94 [facility] Work Phone: Hematocrit Auto (Bld) [Volum e fraction]on 02-07-2022 Hematocrit (Bld) [Volume fraction] 46.0 % 40-54 [facility] Work Phone: INR in Blood by Coagulation assayon 02-07-2022 INR Coag (Bld) [Relative time] 1.0 {INR} [facility] Work Phone: Laboratory - Chemistry and C hemistry - challengeon 02-07-2022 CO2 [Moles/Vol] 21.0 mmol/L 21.0-32.0 [facility] Work Phone: [phone] Urea nitrogen/Creatinine [Mass ratio] 17.2 mg/mg 10-20 [facility] Work Phone: [phone] Laboratory - Coagulationon 0 02-07-2022 aPTT Coag (Bld) [Time] 26.2 s 24.1-36.2 [facility] Work Phone: PT Coag (PPP) [Time] 12.5 s 11.7-14.9 [facility] [place] Work Phone: Laboratory - Drug toxicology on 02-07-2022 Amphetamines Ql (U) Negative <1000 ng/mL [facility] [place] Work Phone: [phone] Benzodiazepines Ql (U) Positive < 200 ng/mL [facility] Work Phone: [phone] Cannabinoids Screen Ql (U) Positive < 50 ng/mL [facility] Work Phone: [phone] Cocaine Ql (U) Positive < 300 ng/mL [facility] Work Phone: [phone] Opiates Ql (U) Positive < 300 ng/mL [facility] Work Phone: [phone] Laboratory - Hematology and Cell countson 02-07-2022 Erythrocyte distribution width (RBC) [Entitic vol] 40.4 fL 35.1-43.9 [facility] Work Phone: [phone] Erythrocyte distribution width (RBC) [Ratio] 13.2 % 11.6-14.6 [facility] Work Phone: [phone] Immature granulocytes/100 WBC (Bld) 0.400 % 0.0-0.9 [facility] Work Phone: [phone] Comment on above: IG% - Immature Granu locytes (promyelocytes, myelocytes and metamyelocytes) > 1% indicates that a LEFT SHIFT is Present. MCH (RBC) [Entitic mass] 29.2 pg 27.0-32.0 [facility] Work Phone: [phone] Nucleated RBC/100 WBC (Bld) [Ratio] 0 % 0-5 [facility] Work Phone: [phone] MCHC Auto (RBC) [Mass/Vol]on 02-07-2022 MCHC (RBC) [Mass/Vol] 34.8 g/dL 32-36 [facility] Work Phone: [phone] Panel Informationon 02-07 MDMA (Ecstasy) Screen Negative < 500 ng/mL [facility] Work Phone: [phone] Barbiturates Screen Negative < 200 ng/mL [facility] Work Phone: [phone] Urine Drug Screen Comment [facility] Work Phone: [phone] Comment on above: CONFIRMATORY TESTING FOR ALL POSITIVE URINE DRUG SCREENRESULTS WILL ONLY BE SENT OUT UPON PHYSICIAN ORDER. VISTA Urine Drug Screen methods provide only preliminaryanalytical test results. A more specific alternate chemicalmethod must be used in order to obtain a confirmedanalytical result. Gas chromatography/mass spectrometery(GC/MS) is the preferred confirmatory method. Clinicalconsideration and professional judgement should be appliedto any drug of abuse test result, particularly whenpreliminary positive results are used. URINE TCA TESTING MUST BE ORDERED SEPARATELY. USE TESTMNEMONIC: [facility] Urine Methadone Screen Negative < 300 ng/mL [facility] Work Phone: [phone] Estimated Creatinine Clearance Calc 139.99 ml/min [facility] Work Phone: [phone] Estimated GFR (MDRD) Amer 135 mL/min >60 [facility] Work Phone: [phone] Comment on above: GFR Calc Estimated GFR (MDRD) Non-Af Amer 111 mL/min >60 [facility] Work Phone: [phone] Comment on above: Non- GFR Calc Troponin I High Sensitivity 938 pg/mL 3.0-78.0 [facility] Work Phone: [phone] Comment on above: Critical Result(s) C alled at: 14:03:51 02/07/2022 by: Rianna Lacy to Brenna. Results read back by same. Please Note: New Test Units and Gender Specific Reference Ranges. For more information see Policy Stat Procedure [place] High Sensitivity Troponin (TNIH) and attachments. Platelets bldon 02-07-2022 Platelets (Bld) [#/Vol] 230 10*3/uL 150-450 [facility] Work Phone: Serum or plasma calcium daniel urement (mass/volume)on 02-07-2022 Calcium [Mass/Vol] 9.8 mg/dL 8.5-10.1 [facility] Work Phone: Serum or plasma creatinine m easurement (mass/volume)on 02-07-2022 Creatinine [Mass/Vol] 0.87 mg/dL 0.70-1.30 [facility] Work Phone: Comment on above: The validity of the calculated GFR & GFRAA in patients over 70 years has not been determined. Clinical correlation is essential. Serum or plasma urea nitroge n measurement (mass/volume)on 02-07-2022 Urea nitrogen [Mass/Vol] 15 mg/dL 7-18 [facility] Work Phone: Thin prep Papanicolaou smear with manual screeningon 02-07-2022 Thin prep Papanicolaou smear with manual screening 7 5-15 [facility] Work Phone: Urine phencyclidine (PCP) de tectionon 02-07-2022 Phencyclidine Ql (U) Negative < 25 ng/mL [facility] [place] Work Phone: .Auto Diffon 02-22-2018 Ammonia mass conc (P) 0.70 10 3/mcL Normal 0.15-1.00 [facility] ([place]) Comment on above: Performed By: #### C BC, ADIFF, ANEU, GFR, BMP ####[address] [place], [place] [address] Basophils Auto #/vol (Bld) 0.10 10 3/mcL Normal 0.00-0.19 [facility] ([place]) Comment on above: Performed By: #### C BC, ADIFF, ANEU, GFR, BMP ####[address] [place], [place] [address] Basophils/100 WBC Auto (Bld) 0.6 % Normal 0.0-2.5 [facility] ([place]) Comment on above: Performed By: #### C BC, ADIFF, ANEU, GFR, BMP ####[address] [place], [place] [address] Eosinophils Auto #/vol (Bld) 0.20 10 3/mcL Normal 0.00-0.40 [facility] ([place]) Comment on above: Performed By: #### C BC, ADIFF, ANEU, GFR, BMP ####[address] [place], [place] [address] Eosinophils/100 WBC Auto (Bld) 2.5 % Normal 0.0-7.0 [facility] ([place]) Comment on above: Performed By: #### C BC, ADIFF, ANEU, GFR, BMP ####[address] [place], [place] [address] Lymphocytes Auto #/vol (Bld) 2.80 10 3/mcL Normal 0.77-3.85 [facility] ([place]) Comment on above: Performed By: #### C BC, ADIFF, ANEU, GFR, BMP ####[address] [place], [place] [address] Lymphocytes/100 WBC Auto (Bld) 29.3 % Normal 10.0-50.0 [facility] ([place]) Comment on above: Performed By: #### C BC, ADIFF, ANEU, GFR, BMP ####[address] [place], [place] [address] Monocytes/100 WBC Auto (Bld) 6.9 % Normal 1.7-13.0 [facility] ([place]) Comment on above: Performed By: #### C BC, ADIFF, ANEU, GFR, BMP ####[address] [place], [place] [address] Neutrophils/100 WBC Auto (Bld) 60.7 % Normal 37.0-80.0 [facility] ([place]) Comment on above: Performed By: #### C BC, ADIFF, ANEU, GFR, BMP ####[address] [place], [place] [address] .GFRon 02-22-2018 GFR Non- >60 Normal [facility] ([place]) Comment on above: Result Comment: GFR Population mean for , Non- Americans Ages 20-29 = 116 mL/min/1.73 sq.m. Ages 30-39 = 107 mL/min/1.73 sq.m. Ages 40-49 = 99 mL/min/1.73 sq.m. Ages 50-59 = 93 mL/min/1.73 sq.m. Ages 60-69 = 85 mL/min/1.73 sq.m. Ages 70+ = 75 mL/min/1.73 sq.m.Chronic Kidney Disease: Less than 60 mL/min/1.73 square metersEnd Stage Renal Disease: Less than 15 mL/min/1.73 square meters Performed By: #### C BC, ADIFF, ANEU, GFR, BMP ####[address] [place], [place] [address] GFR 117 ml/min/1.73sqm Normal [facility] ([place]) Comment on above: Result Comment: GFR Population mean for , Non- Americans Ages 20-29 = 116 mL/min/1.73 sq.m. Ages 30-39 = 107 mL/min/1.73 sq.m. Ages 40-49 = 99 mL/min/1.73 sq.m. Ages 50-59 = 93 mL/min/1.73 sq.m. Ages 60-69 = 85 mL/min/1.73 sq.m. Ages 70+ = 75 mL/min/1.73 sq.m.Chronic Kidney Disease: Less than 60 mL/min/1.73 square metersEnd Stage Renal Disease: Less than 15 mL/min/1.73 square meters Performed By: #### C BC, ADIFF, ANEU, GFR, BMP ####[address] [place], [place] [address] .NEUABSon 02-22-2018 Neutrophil, Absolute 5.70 10 3/mcL Normal 2.85-6.16 [facility] ([place]) Comment on above: Performed By: #### C BC, ADIFF, ANEU, GFR, BMP ####[address] [place], [place] [address] .Urinalysis Microscopic (AO) on 02-22-2018 RBC Test strip #/vol (U) None Seen Normal None Seen [facility] ([place] Comment on above: Performed By: #### U A, UAMICAO ####[address] [place] [address] UA Fine Granular Casts 0-5 Invalid Interpretation Code [facility] ([place] Comment on above: Performed By: #### U A, UAMICAO ####[address] [place] [address] UA Squam Epithelial None Seen Normal None Seen [facility] ([place]) Comment on above: Performed By: #### U A, UAMICAO ####[address] [place] [address] UA WBC None Seen Normal None Seen [facility] ([place] Comment on above: Performed By: #### U A, UAMICAO ####[address] [place] [id number] BMPon 02-22-2018 Chloride molar conc 103 mmol/L Normal 98-107 [facility] ([place] Comment on above: Performed By: #### C BC, ADIFF, ANEU, GFR, BMP ####[address] [place] [address] Electrolyte Balance 10.0 mEq/L Normal [facility] ([place]) Comment on above: Performed By: #### C BC, ADIFF, ANEU, GFR, BMP ####[address] [place] [id number] Potassium molar conc 4.6 mmol/L Normal 3.5-5.1 [facility] ([place]) Comment on above: Performed By: #### C BC, ADIFF, ANEU, GFR, BMP ####[address] [place] [address] Sodium molar conc 142 mmol/L Normal 136-146 [facility] ([place]) Comment on above: Performed By: #### C BC, ADIFF, ANEU, GFR, BMP ####[address] [place], [place] [address] Calcium mass conc 9.9 mg/dL Normal 8.4-10.2 [facility] ([place]) Comment on above: Performed By: #### C BC, ADIFF, ANEU, GFR, BMP ####[address] [place], [place] [address] CO2 molar conc 29 mmol/L Normal 22-29 [facility] ([place]) Comment on above: Performed By: #### C BC, ADIFF, ANEU, GFR, BMP ####[address] [place], [place] [address] Creatinine mass conc 1.0 mg/dL Normal 0.6-1.2 [facility] ([place]) Comment on above: Performed By: #### C BC, ADIFF, ANEU, GFR, BMP ####[address] [place], [place] [address] Glucose mass conc 100 mg/dL Normal 70-105 [facility] ([place] Comment on above: Performed By: #### C BC, ADIFF, ANEU, GFR, BMP ####[address] [place], [place] [address] Urea nitrogen mass conc 11.6 mg/dL Normal 7.0-18.0 [facility] ([place] Comment on above: Performed By: #### C BC, ADIFF, ANEU, GFR, BMP ####[address] [place], [place] [address] Urea nitrogen/Creatinine mass ratio 12 ratio Normal 7-27 [facility] ([place] Comment on above: Performed By: #### C BC, ADIFF, ANEU, GFR, BMP ####[address] [place], [place] [address] CBCon 02-22-2018 Erythrocyte distribution width Auto Ratio (RBC) 14.1 % Normal 11.5-14.5 [facility] ([place] Comment on above: Performed By: #### C BC, ADIFF, ANEU, GFR, BMP ####[address] [place], [place] [address] Hematocrit Auto Volume Fraction (Bld) 45.8 % Normal 42.0-52.0 [facility] ([place]) Comment on above: Performed By: #### C BC, ADIFF, ANEU, GFR, BMP ####[address] [place], [place] [address] Hemoglobin mass conc (Bld) 15.6 G/dL Normal 14.0-18.0 [facility] ([place] Comment on above: Performed By: #### C BC, ADIFF, ANEU, GFR, BMP ####[address] [place], [place] [address] MCH Auto Entitic mass (RBC) 29.6 pg Normal 27.0-31.2 [facility] ([place] Comment on above: Performed By: #### C BC, ADIFF, ANEU, GFR, BMP ####[address] [place], [place] [address] MCHC Auto mass conc (RBC) 33.9 G/dL Normal 31.8-35.4 [facility] ([place] Comment on above: Performed By: #### C BC, ADIFF, ANEU, GFR, BMP ####[address] [place], [place] [address] MCV Auto Entitic volume (RBC) 87.3 fL Normal 80.0-94.0 [facility] ([place] Comment on above: Performed By: #### C BC, ADIFF, ANEU, GFR, BMP ####[address] [place], [place] [address] Platelet mean volume Auto Entitic volume (Bld) 8.7 fL Normal 7.4-10.4 [facility] ([place] Comment on above: Performed By: #### C BC, ADIFF, ANEU, GFR, BMP ####[address] [place], [place] [address] Platelets Auto #/vol (Bld) 245 10 3/mcL Normal 130-400 [facility] ([place] Comment on above: Performed By: #### C BC, ADIFF, ANEU, GFR, BMP ####[address] [place], [place] [address] RBC Auto #/vol (Bld) 5.25 10 6/mcL Normal 4.04-6.13 [facility] ([place]) Comment on above: Performed By: #### C BC, ADIFF, ANEU, GFR, BMP ####[address] [place], [place] [address] WBC Auto #/vol (Bld) 9.50 10 3/mcL Normal 4.60-10.80 [facility] ([place]) Comment on above: Performed By: #### C BC, ADIFF, ANEU, GFR, BMP ####[address] [place], [place] [address] CKon 02-22-2018 CK enzyme act/vol 105 U/L Normal 38-174 [facility] ([place] Comment on above: Performed By: #### C K ####[address] [place], [place] [address] CT ABDOMEN/PELVIS W/O CONTRA STon 02-22-2018 CT ABDOMEN/PELVIS W/O CONTRAST ORIGINALCT ABDOMEN/PELVIS WITHOUT IV CONTRAST:Multiplanar coronal, sagittal, and axial reconstructions were reviewed on a separate workstation This exam was performed according to our departmental dose optimization program, and includes the following measures where applicable: automated exposure control, adjustment of the mAs and/or kVp according to patient size and/or exam, and an iterative reconstruction algorithm. CLINICAL STATEMENT: LEFT flank pain for 3 days, hematuria COMPARISON: CT pelvis with contrast 03/06/2017 FINDINGS: The visualized nonenhanced liver is unremarkable in size and contour. The gallbladder is contracted which limits evaluation. The visualized spleen is unremarkable. The pancreas and adrenal glands are unremarkable. The nonenhanced kidneys are unremarkable in size and contour. There is no evidence of hydronephrosis. The ureters are of normal course and caliber. There is no urolithiasis. The visualized esophagus, stomach, and duodenum are unremarkable. The visualized aorta and inferior vena cava are unremarkable. The small bowel exhibits no acute abnormalities. The colon is of normal course and caliber. A mild amount stool is noted of the distal colon. The appendix is within normal limits. The examination is suboptimal for evaluation of lymphadenopathy secondary to lack of intravenous contrast. Prominent subcentimeter mesenteric lymph nodes do not meet CT criteria for lymphadenopathy. No pathologically enlarged retroperitoneal, mesenteric, or pelvic lymph nodes are identified. There is no free intraperitoneal air or fluid. The bladder is underdistended. The prostate is unremarkable. The abdominal wall is intact. No suspicious osteolytic or osteoblastic lesions are identified. Provided images of the lower thorax are unremarkable. IMPRESSION: No acute process within the abdomen or pelvis. I have personally reviewed the images of this examination and agree with the resident's findings and interpretation Interpreted By: Santosh Hardin MDPreliminary Report By: Eben Weeks DOElectronically Signed By: Santosh Hardin MD Dictated Date: 02/22/2018 5:51:01 PM Prelim Date: 02/22/2018 5:55:52 PM Sign Date: 02/22/2018 6:03:10 PM Normal [facility] ([place]) [place] [facility] Note on 02-22-2018 [place] [facility] Note Normal [facility] [place] Pat Eduon 02-22-2018 Pat Edu Normal [facility] [place] Patient Summary Documentson 02-22-2018 Patient Summary Documents Normal [facility] ([place] UAon 02-22-2018 Color Nom (U) [place] Invalid Interpretation Code [facility] ([place] Comment on above: Performed By: #### U A, UAMICAO ####[address] [place], [place] [address] Glucose mass conc (U) Negative Normal Negative [facility] ([place]) Comment on above: Performed By: #### U A, UAMICAO ####[address] [place], [place] [address] Ketones Ql (U) Negative Normal Negative [facility] ([place] Comment on above: Performed By: #### U A, UAMICAO ####[address] [place], [place] [address] UA Appear Clear Normal Clear [facility] ([place] Comment on above: Performed By: #### U A, UAMICAO ####[address] [place], [place] [address] UA Blood Negative Normal Negative [facility] ([place] Comment on above: Performed By: #### U A, UAMICAO ####[address] [place] [address] UA Leuk Est Negative Normal Negative [facility] ([place] Comment on above: Performed By: #### U A, UAMICAO ####[address] [place] [address] UA Nitrite Negative Normal Negative [facility] ([place] Comment on above: Performed By: #### U A, UAMICAO ####[address] [place] [address] UA pH 6.0 Normal [facility] ([place] Comment on above: Performed By: #### U A, UAMICAO ####[address] [place] [address] UA Protein Negative Normal Negative [facility] ([place] Comment on above: Performed By: #### U A, UAMICAO ####[address] [place] [address] UA Spec Grav >=1.030 Invalid Interpretation Code [facility] ([place] Comment on above: Performed By: #### U A, UAMICAO ####[address] [place] [address] UA Specimen Type Clean Catch Normal [facility] ([place] Comment on above: Performed By: #### U A, UAMICAO ####[address] [place] [address] UA Urobilinogen 0.2 E.U./dL Normal [facility] ([place] Comment on above: Performed By: #### U A, UAMICAO ####[address] [place] [address] Urobilinogen Test strip Qn (U) Negative Normal Negative [facility] ([place] Comment on above: Performed By: #### U A, UAMICAO ####[address] Emergency Room Note on 08-28-2017 [place] [facility] Note Normal [facility] ([place] Patient Summary Documentson 08-21-2017 Patient Summary Documents Normal [facility] ([place] Culture, urine Bacteria identified Cx Nom (U) Culture exhibits no growth. [facility] Work Phone: Vital Signs Date Time Vital Sign Value Performing Clinician Lily camejo 06-06-2025 11:53-0400 Body temperature 98.3 [degF] Dr. Kedar Davidson MD Work Phone: 9(862)468-125205 [place] [address] 06-06-2025 11:53-0400 Diastolic blood pressure 64 mm[Hg] Dr. Kedar Davidson MD Work Phone: 7(235)158-320005 [place] [address] 06-06-2025 11:53-0400 Heart rate 88 /min Dr. Kedar Davidson MD Work Phone: 5(006)301-836305 [place] [address] 06-06-2025 11:53-0400 Respiratory rate 18 /min Dr. Kedar Davidson MD Work Phone: 4(503)747-389605 [place] [address] 06-06-2025 11:53-0400 SaO2% (BldA) [Mass fraction] 100 % Dr. Kedar Davidson MD Work Phone: 4(209)624-199505 [place] [address] 06-06-2025 11:53-0400 Systolic blood pressure 132 mm[Hg] Dr. Kedar Davidson MD Work Phone: 2(955)061-937105 [place] [address] 06-06-2025 10:51-0400 Body height 182.[address] Kedar Davidson MD Work Phone: 1(766)985-447105 [place] [address] 06-06-2025 10:51-0400 Body mass index (BMI) [Ratio] 30.1 kg/m2 Dr. Kedar Davidson MD Work Phone: 5(655)668-977205 [place] [address] 06-06-2025 10:51-0400 Body weight 100.[address] Kedar Davidson MD Work Phone: [facility] 03-11-2024 10:39-0400 Body temperature 97.4 [degF] Dr. Jaci Krishna Work Phone: [facility] 03-11-2024 10:39-0400 Diastolic blood pressure 88 mm[Hg] Dr. Jaci Krishna Work Phone: [facility] 03-11-2024 10:39-0400 Heart rate 92 /min Dr. Jaci Krishna Work Phone: [facility] 03-11-2024 10:39-0400 Respiratory rate 15 /min Dr. Jaci Krishna Work Phone: [facility] 03-11-2024 10:39-0400 SaO2% (BldA) [Mass fraction] 100 % Dr. Jaci Krishna Work Phone: [facility] 03-11-2024 10:39-0400 Systolic blood pressure 136 mm[Hg] Dr. Jaci Krishna Work Phone: [facility] 03-11-2024 09:18-0400 Body height 182.[address] Jaci Krishna Work Phone: [facility] 03-11-2024 09:18-0400 Body mass index (BMI) [Ratio] 28.5 kg/m2 Dr. Jaci Krishna Work Phone: [facility] 03-11-2024 09:18-0400 Body weight 95.[address] Jaci Krishna Work Phone: [facility] 01-08-2024 11:18-0400 Body mass index (BMI) [Ratio] 27.1 kg/m2 Dr. Jaci Krishna Work Phone: [facility] 01-08-2024 11:18-0400 Body weight 90.[address] Jaci Krishna Work Phone: [facility] 01-08-2024 11:18-0400 Diastolic blood pressure 77 mm[Hg] Dr. Jaci Krishna Work Phone: [facility] 01-08-2024 11:18-0400 Heart rate 62 /min Dr. Jaci Krishna Work Phone: [facility] 01-08-2024 11:18-0400 Respiratory rate 16 /min Dr. Jaci Krishna Work Phone: [facility] 01-08-2024 11:18-0400 Systolic blood pressure 125 mm[Hg] Dr. Jaci Krishna Work Phone: [facility] 12-06-2023 16:01-0500 Diastolic blood pressure 112 mm[Hg] Dr. Jaci Krishna Work Phone: [facility] 12-06-2023 16:01-0500 Heart rate 78 /min Dr. Jaci Krishna Work Phone: [facility] 12-06-2023 16:01-0500 Respiratory rate 16 /min Dr. Jaci Krishna Work Phone: [facility] 12-06-2023 16:01-0500 SaO2% (BldA) [Mass fraction] 98 % Dr. Jaci Krishna Work Phone: [facility] 12-06-2023 16:01-0500 Systolic blood pressure 149 mm[Hg] Dr. Jaci Krishna Work Phone: [facility] 12-06-2023 12:04-0500 Body mass index (BMI) [Ratio] 27.6 kg/m2 Dr. Jaci Krishna Work Phone: [facility] 12-06-2023 12:04-0500 Body temperature 97.3 [degF] Dr. Jaci Krishna Work Phone: [facility] 12-06-2023 12:04-0500 Body weight 92.[address] Jaci Krishna Work Phone: [facility] 10-10-2023 14:37-0500 Body height 182.88 cm [employer] Delfino Moore [employer]NER Work Phone: [facility] 10-10-2023 14:37-0500 Body mass index (BMI) [Ratio] 29.2 kg/m2 [employer] Delfino Moore MEDIA PL[employer]NER Work Phone: [facility] 10-10-2023 14:37-0500 Body temperature 96.7 [degF] [employer]C Delfino Moore MEDIA PL[employer]NER Work Phone: [facility] 10-10-2023 14:37-0500 Body weight 97.97 kg [employer]C Delfino Moore MEDIA PL[employer]NER Work Phone: [facility] 10-10-2023 14:37-0500 Diastolic blood pressure 101 mm[Hg] [employer] Delfino Moore MEDIA PL[employer]NER Work Phone: [facility] 10-10-2023 14:37-0500 Heart rate 57 /min [employer] Delfino Moore MEDIA PL[employer]NER Work Phone: [facility] 10-10-2023 14:37-0500 Respiratory rate 16 /min [employer] Delfino Moore MEDIA PL[employer]NER Work Phone: [facility] 10-10-2023 14:37-0500 SaO2% (BldA) [Mass fraction] 99 % [employer] Delfino Moore MEDIA PL[employer]NER Work Phone: [facility] 10-10-2023 14:37-0500 Systolic blood pressure 163 mm[Hg] [employer]C Delfino Moore MEDIA PL[employer]NER Work Phone: [facility] 10-09-2023 11:06-0500 Body mass index (BMI) [Ratio] 27.1 kg/m2 [employer] Delfino Moore MEDIA PL[employer]NER Work Phone: [facility] 10-09-2023 11:06-0500 Body temperature 98.6 [degF] [employer]C Delfino Moore MEDIA PL[employer]NER Work Phone: [facility] 10-09-2023 11:06-0500 Body weight 90.71 kg [employer]C Delfino Moore MEDIA PL[employer]NER Work Phone: [facility] 10-09-2023 11:06-0500 Diastolic blood pressure 98 mm[Hg] [employer]C Delfino Brownder MEDIA PLANNER Work Phone: [facility] 10-09-2023 11:06-0500 Heart rate 64 /min [employer] Delfino Brownder MEDIA PLANNER Work Phone: [facility] 10-09-2023 11:06-0500 Respiratory rate 14 /min [employer] Delfino Brownder MEDIA PLANNER Work Phone: [facility] 10-09-2023 11:06-0500 SaO2% (BldA) [Mass fraction] 97 % [employer] Delfino Brownder MEDIA PL[employer]NER Work Phone: [facility] 10-09-2023 11:06-0500 Systolic blood pressure 180 mm[Hg] [employer]C Delfino Brownder MEDIA PL[employer]NER Work Phone: [facility] 06-05-2023 19:38-0400 Diastolic blood pressure 95 mm[Hg] [facility] 06-05-2023 19:38-0400 Heart rate 53 /min [facility] 06-05-2023 19:38-0400 Respiratory rate 20 /min [facility] 06-05-2023 19:38-0400 SaO2% (BldA) [Mass fraction] 97 % [facility] 06-05-2023 19:38-0400 Systolic blood pressure 160 mm[Hg] [facility] 06-05-2023 16:41-0400 Body height 182.88 cm [facility] 06-05-2023 16:41-0400 Body mass index (BMI) [Ratio] 29.1 kg/m2 [facility] 06-05-2023 16:41-0400 Body temperature 97.5 [degF] [facility] 06-05-2023 16:41-0400 Body weight 97.52 kg [facility] 05-05-2023 12:14-0400 Diastolic blood pressure 82 mm[Hg] [facility] 05-05-2023 12:14-0400 Heart rate 52 /min [facility] 05-05-2023 12:14-0400 Respiratory rate 18 /min [facility] 05-05-2023 12:14-0400 SaO2% (BldA) [Mass fraction] 98 % [facility] 05-05-2023 12:14-0400 Systolic blood pressure 138 mm[Hg] [facility] 05-05-2023 11:17-0400 Body temperature 98.3 [degF] [facility] 05-05-2023 08:17-0400 Body height 182.88 cm [facility] 05-05-2023 08:17-0400 Body mass index (BMI) [Ratio] 28.6 kg/m2 [facility] 05-05-2023 08:17-0400 Body weight 95.9 kg [facility] 12-30-2022 08:22-0500 Body height 182.88 cm [employer]C Delfino Moore MEDIA PL[employer]NER Work Phone: [facility] 12-30-2022 08:22-0500 Body mass index (BMI) [Ratio] 30 kg/m2 [employer] Delfino Moore MEDIA PL[employer]NER Work Phone: [facility] 12-30-2022 08:22-0500 Body temperature 97.1 [degF] [employer]C Delfino Moore MEDIA PLANNER Work Phone: [facility] 12-30-2022 08:22-0500 Body weight 100.6 kg [employer]C Delfino Moore MEDIA PLANNER Work Phone: [facility] 12-30-2022 08:22-0500 Diastolic blood pressure 86 mm[Hg] [employer]C Delfino Moore MEDIA PLANNER Work Phone: [facility] 12-30-2022 08:22-0500 Heart rate 60 /min [employer]C Delfino Moore MEDIA PLANNER Work Phone: [facility] 12-30-2022 08:22-0500 Respiratory rate 18 /min [employer]C Delfino Moore MEDIA PLANNER Work Phone: [facility] 12-30-2022 08:22-0500 SaO2% (BldA) [Mass fraction] 99 % [employer]C Delfino Moore MEDIA PLANNER Work Phone: [facility] 12-30-2022 08:22-0500 Systolic blood pressure 140 mm[Hg] [employer]C Delfino Moore MEDIA PLANNER Work Phone: [facility] 11-09-2022 09:18-0500 Body height 182.88 cm [employer]C Delfino Moore MEDIA PLANNER Work Phone: [facility] 11-09-2022 09:18-0500 Body mass index (BMI) [Ratio] 29.8 kg/m2 [employer] Delfino Moore MEDIA PLANNER Work Phone: [facility] 11-09-2022 09:18-0500 Body temperature 99 [degF] [employer]C Delfino Moore MEDIA PLANNER Work Phone: [facility] 11-09-2022 09:18-0500 Body weight 99.79 kg [employer]C Delfino Moore MEDIA PL[employer]NER Work Phone: [facility] 11-09-2022 09:18-0500 Diastolic blood pressure 82 mm[Hg] [employer]C Delfino Moore MEDIA PLANNER Work Phone: [facility] 11-09-2022 09:18-0500 Heart rate 62 /min [employer] Delfino Moore MEDIA PLANNER Work Phone: [facility] 11-09-2022 09:18-0500 Respiratory rate 16 /min [employer]C Delfino Moore MEDIA PLANNER Work Phone: [facility] 11-09-2022 09:18-0500 SaO2% (BldA) [Mass fraction] 97 % [employer]C Delfino Moore MEDIA PLANNER Work Phone: [facility] 11-09-2022 09:18-0500 Systolic blood pressure 130 mm[Hg] [employer]C Delfino Moore MEDIA PLANNER Work Phone: [facility] 08-17-2022 09:22-0400 Body mass index (BMI) [Ratio] 29.8 kg/m2 [employer]C Delfino Moore MEDIA PLANNER Work Phone: [facility] 08-17-2022 09:22-0400 Body temperature 96.9 [degF] [employer]C Delfino Moore MEDIA PLANNER Work Phone: [facility] 08-17-2022 09:22-0400 Body weight 99.9 kg [employer]C Delfino Moore MEDIA PLANNER Work Phone: [facility] 08-17-2022 09:22-0400 Diastolic blood pressure 60 mm[Hg] [employer]NER-C Delfino Moore MEDIA PLANNER Work Phone: [facility] 08-17-2022 09:22-0400 Heart rate 56 /min [employer]C Delfino Moore MEDIA PLANNER Work Phone: [facility] 08-17-2022 09:22-0400 Respiratory rate 18 /min [employer]C Delfino Moore MEDIA PLANNER Work Phone: [facility] 08-17-2022 09:22-0400 SaO2% (BldA) [Mass fraction] 96 % [employer]C Delfino Moore MEDIA PLANNER Work Phone: [facility] 08-17-2022 09:22-0400 Systolic blood pressure 110 mm[Hg] [employer]-C Delfino Moore MEDIA PLANNER Work Phone: [facility] 07-06-2022 08:58-0400 Body height 182.88 cm [employer]C Delfino Moore MEDIA PLANNER Work Phone: [facility] Work Phone: 07-06-2022 08:58-0400 Body mass index (BMI) [Ratio] 30.7 kg/m2 [employer]C Delfino Moore MEDIA PLANNER Work Phone: [facility] Work Phone: 07-06-2022 08:58-0400 Body temperature 97.8 [degF] [employer]C Delfino Moore MEDIA PLANNER Work Phone: [facility] Work Phone: 07-06-2022 08:58-0400 Body weight 102.96 kg [employer]-C Delfino Moore MEDIA PLANNER Work Phone: [facility] Work Phone: 07-06-2022 08:58-0400 Diastolic blood pressure 58 mm[Hg] [employer]NER-C Delfino Moore MEDIA PLANNER Work Phone: [facility] Work Phone: 07-06-2022 08:58-0400 Heart rate 59 /min [employer]C Delfino Moore MEDIA PLANNER Work Phone: [facility] Work Phone: 07-06-2022 08:58-0400 Respiratory rate 18 /min [employer]C Delfino Moore MEDIA PLANNER Work Phone: [facility] Work Phone: 07-06-2022 08:58-0400 SaO2% (BldA) [Mass fraction] 95 % [employer]-C Delfino Moore MEDIA PLANNER Work Phone: [facility] Work Phone: 07-06-2022 08:58-0400 Systolic blood pressure 110 mm[Hg] [employer] PL[employer]NER-C Delfino Moore MEDIA PLANNER Work Phone: [facility] Work Phone: 06-22-2022 15:20-0400 Body height 182.88 cm [employer]-C Delfino Moore MEDIA PLANNER Work Phone: [facility] Work Phone: 06-22-2022 15:20-0400 Body mass index (BMI) [Ratio] 32.5 kg/m2 [employer]C Delfino Moore MEDIA PLANNER Work Phone: [facility] Work Phone: 06-22-2022 15:20-0400 Body temperature 98.2 [degF] [employer]-C Delfino Moore MEDIA PLANNER Work Phone: [facility] Work Phone: 06-22-2022 15:20-0400 Body weight 108.91 kg [employer] PL[employer]-C Delfino Moore MEDIA PLANNER Work Phone: [facility] Work Phone: 06-22-2022 15:20-0400 Diastolic blood pressure 60 mm[Hg] [employer] PL[employer]-C Delfino Moore MEDIA PLANNER Work Phone: [facility] Work Phone: 06-22-2022 15:20-0400 Heart rate 63 /min [employer]C Delfino Moore MEDIA PLANNER Work Phone: [facility] Work Phone: 06-22-2022 15:20-0400 Respiratory rate 18 /min [employer]C Delfino Moore MEDIA PLANNER Work Phone: [facility] Work Phone: 06-22-2022 15:20-0400 SaO2% (BldA) [Mass fraction] 96 % [employer]-C Delfino Moore MEDIA PLANNER Work Phone: [facility] Work Phone: 06-22-2022 15:20-0400 Systolic blood pressure 114 mm[Hg] [employer]-C Delfino Moore MEDIA PLANNER Work Phone: [facility] Work Phone: 06-03-2022 12:31-0400 Diastolic blood pressure 68 mm[Hg] [employer]-C Delfino Moore MEDIA PLANNER Work Phone: [facility] Work Phone: 06-03-2022 12:31-0400 Heart rate 48 /min [employer]C Delfino Moore MEDIA PLANNER Work Phone: [facility] Work Phone: 06-03-2022 12:31-0400 Respiratory rate 18 /min [employer]C Delfino Moore MEDIA PLANNER Work Phone: [facility] Work Phone: 06-03-2022 12:31-0400 SaO2% (BldA) [Mass fraction] 99 % [employer]-C Delfino Moore MEDIA PLANNER Work Phone: [facility] Work Phone: 06-03-2022 12:31-0400 Systolic blood pressure 138 mm[Hg] [employer]-C Delfino Moore MEDIA PLANNER Work Phone: [facility] Work Phone: 06-03-2022 07:29-0400 Body temperature 97.8 [degF] [employer]C Delfino Moore MEDIA PLANNER Work Phone: [facility] Work Phone: 06-03-2022 07:09-0400 Body height 182.88 cm [employer]C Delfino Moore MEDIA PLANNER Work Phone: [facility] Work Phone: 06-03-2022 07:09-0400 Body mass index (BMI) [Ratio] 33.2 kg/m2 [employer]C Delfino Moore MEDIA PLANNER Work Phone: [facility] Work Phone: 06-03-2022 07:09-0400 Body weight 111.13 kg MEDIA PLANNER-C Delfino Moore MEDIA PLANNER Work Phone: [facility] Work Phone: 06-02-2022 10:59-0400 Body mass index (BMI) [Ratio] 33.3 kg/m2 MEDIA PLANNER-C Delfino Moore MEDIA PLANNER Work Phone: [facility] Work Phone: 06-02-2022 10:59-0400 Body temperature 97.2 [degF] MEDIA PLANNER-C Delfino Moore MEDIA PLANNER Work Phone: [facility] Work Phone: 06-02-2022 10:59-0400 Body weight 111.58 kg MEDIA PLANNER-C Delfino Moore MEDIA PLANNER Work Phone: [facility] Work Phone: 06-02-2022 10:59-0400 Diastolic blood pressure 74 mm[Hg] MEDIA PLANNER-C Delfino Moore MEDIA PLANNER Work Phone: [facility] Work Phone: 06-02-2022 10:59-0400 Heart rate 77 /min MEDIA PLANNER-C Delfino Moore MEDIA PLANNER Work Phone: [facility] Work Phone: 06-02-2022 10:59-0400 Respiratory rate 14 /min MEDIA PLANNER-C Delfino Moore MEDIA PLANNER Work Phone: [facility] Work Phone: 06-02-2022 10:59-0400 SaO2% (BldA) [Mass fraction] 97 % MEDIA PLANNER-C Delfino Moore MEDIA PLANNER Work Phone: [facility] Work Phone: 06-02-2022 10:59-0400 Systolic blood pressure 108 mm[Hg] MEDIA PLANNER-C Delfino Moore MEDIA PLANNER Work Phone: [facility] Work Phone: 06-01-2022 09:00-0400 Body mass index (BMI) [Ratio] 33.3 kg/m2 MEDIA PLANNER-C Delfino Moore MEDIA PLANNER Work Phone: [facility] Work Phone: 06-01-2022 09:00-0400 Body weight 111.58 kg MEDIA PLANNER-C Delfino Moore MEDIA PLANNER Work Phone: [facility] Work Phone: 06-01-2022 09:00-0400 Diastolic blood pressure 57 mm[Hg] MEDIA PLANNER-C Delfino Moore MEDIA PLANNER Work Phone: [facility] Work Phone: 06-01-2022 09:00-0400 Heart rate 55 /min MEDIA PLANNER-C Delfino Moore MEDIA PLANNER Work Phone: [facility] Work Phone: 06-01-2022 09:00-0400 Respiratory rate 16 /min MEDIA PLANNER-C Delfino Moore MEDIA PLANNER Work Phone: [facility] Work Phone: 06-01-2022 09:00-0400 Systolic blood pressure 100 mm[Hg] MEDIA PLANNER-C Delfino Moore MEDIA PLANNER Work Phone: [facility] Work Phone: 04-22-2022 14:21-0400 Body height 182.88 cm MEDIA PLANNER-C Delfino Moore MEDIA PLANNER Work Phone: [facility] Work Phone: 04-22-2022 14:21-0400 Body mass index (BMI) [Ratio] 33.5 kg/m2 MEDIA PLANNER-C Delfino Moore MEDIA PLANNER Work Phone: [facility] Work Phone: 04-22-2022 14:21-0400 Body temperature 97.8 [degF] MEDIA PLANNER-C Delfino Moore MEDIA PLANNER Work Phone: [facility] Work Phone: 04-22-2022 14:21-0400 Body weight 112.03 kg MEDIA PLANNER-C Delfino Moore MEDIA PLANNER Work Phone: [facility] Work Phone: 04-22-2022 14:21-0400 Diastolic blood pressure 80 mm[Hg] MEDIA PLANNER-C Delfino Moore MEDIA PLANNER Work Phone: [facility] Work Phone: 04-22-2022 14:21-0400 Heart rate 82 /min MEDIA PLANNER-C Delfino Moore MEDIA PLANNER Work Phone: [facility] Work Phone: 04-22-2022 14:21-0400 Respiratory rate 16 /min MEDIA PLANNER-C Delfino Moore MEDIA PLANNER Work Phone: [facility] Work Phone: 04-22-2022 14:21-0400 SaO2% (BldA) [Mass fraction] 97 % MEDIA PLANNER-C Delfino Moore MEDIA PLANNER Work Phone: [facility] Work Phone: 04-22-2022 14:21-0400 Systolic blood pressure 128 mm[Hg] MEDIA PLANNER-C Delfino Moore MEDIA PLANNER Work Phone: [facility] Work Phone: 04-07-2022 10:56-0400 Body mass index (BMI) [Ratio] 32.8 kg/m2 MEDIA PLANNER-C Delfino Moore MEDIA PLANNER Work Phone: [facility] Work Phone: 04-07-2022 10:56-0400 Body temperature 97.6 [degF] MEDIA PLANNER-C Delfino Moore MEDIA PLANNER Work Phone: [facility] Work Phone: 04-07-2022 10:56-0400 Body weight 109.76 kg MEDIA PLANNER-C Delfino Moore MEDIA PLANNER Work Phone: [facility] Work Phone: 04-07-2022 10:56-0400 Diastolic blood pressure 70 mm[Hg] MEDIA PLANNER-C Delfino Moore MEDIA PLANNER Work Phone: [facility] Work Phone: 04-07-2022 10:56-0400 Heart rate 72 /min MEDIA PLANNER-C Delfino Moore MEDIA PLANNER Work Phone: [facility] Work Phone: 04-07-2022 10:56-0400 Respiratory rate 14 /min MEDIA PLANNER-C Delfino Moore MEDIA PLANNER Work Phone: [facility] Work Phone: 04-07-2022 10:56-0400 SaO2% (BldA) [Mass fraction] 97 % MEDIA PLANNER-C Delfino Moore MEDIA PLANNER Work Phone: [facility] Work Phone: 04-07-2022 10:56-0400 Systolic blood pressure 126 mm[Hg] MEDIA PLANNER-C Delfino Omore MEDIA PLANNER Work Phone: [facility] Work Phone: 03-29-2022 14:44-0400 Body mass index (BMI) [Ratio] 33.6 kg/m2 MEDIA PLANNER-C Delfino Moore MEDIA PLANNER Work Phone: [facility] Work Phone: 03-29-2022 14:44-0400 Body temperature 98.2 [degF] MEDIA PLANNER-C Delfino Moore MEDIA PLANNER Work Phone: [facility] Work Phone: 03-29-2022 14:44-0400 Body weight 112.49 kg MEDIA PLANNER-C Delfino Moore MEDIA PLANNER Work Phone: [facility] Work Phone: 03-29-2022 14:44-0400 Diastolic blood pressure 84 mm[Hg] MEDIA PLANNER-C Delfino Moore MEDIA PLANNER Work Phone: [facility] Work Phone: 03-29-2022 14:44-0400 Heart rate 85 /min MEDIA PLANNER-C Delfino Moore MEDIA PLANNER Work Phone: [facility] Work Phone: 03-29-2022 14:44-0400 Respiratory rate 14 /min MEDIA PLANNER-C Delfino Moore MEDIA PLANNER Work Phone: [facility] Work Phone: 03-29-2022 14:44-0400 SaO2% (BldA) [Mass fraction] 99 % MEDIA PLANNER-C Delfino Moore MEDIA PLANNER Work Phone: [facility] Work Phone: 03-29-2022 14:44-0400 Systolic blood pressure 118 mm[Hg] MEDIA PLANNER-C Delfino Moore MEDIA PLANNER Work Phone: [facility] Work Phone: 03-02-2022 09:57-0400 Body mass index (BMI) [Ratio] 33.6 kg/m2 MEDIA PLANNER-C Delfino Moore MEDIA PLANNER Work Phone: [facility] Work Phone: 03-02-2022 09:57-0400 Body weight 112.49 kg MEDIA PLANNER-C Delfino Moore MEDIA PLANNER Work Phone: [facility] Work Phone: 03-02-2022 09:57-0400 Diastolic blood pressure 73 mm[Hg] MEDIA PLANNER-C Delfino Moore MEDIA PLANNER Work Phone: [facility] Work Phone: 03-02-2022 09:57-0400 Heart rate 75 /min MEDIA PLANNER-C Delfino Moore MEDIA PLANNER Work Phone: [facility] Work Phone: 03-02-2022 09:57-0400 Respiratory rate 20 /min MEDIA PLANNER-C Delfino Moore MEDIA PLANNER Work Phone: [facility] Work Phone: 03-02-2022 09:57-0400 SaO2% (BldA) [Mass fraction] 97 % MEDIA PLANNER-C Delfino Moore MEDIA PLANNER Work Phone: [facility] Work Phone: 03-02-2022 09:57-0400 Systolic blood pressure 130 mm[Hg] MEDIA PLANNER-C Delfino Moore MEDIA PLANNER Work Phone: [facility] Work Phone: 02-10-2022 08:29-0400 Body mass index (BMI) [Ratio] 31.1 kg/m2 MEDIA PLANNER-C Delfino Moore MEDIA PLANNER Work Phone: [facility] Work Phone: 02-10-2022 08:29-0400 Body temperature 97.2 [degF] MEDIA PLANNER-C Delfino Moore MEDIA PLANNER Work Phone: [facility] Work Phone: 02-10-2022 08:29-0400 Body weight 104.38 kg MEDIA PLANNER-C Delfino Moore MEDIA PLANNER Work Phone: [facility] Work Phone: 02-10-2022 08:29-0400 Diastolic blood pressure 76 mm[Hg] MEDIA PLANNER-C Delfino Moore MEDIA PLANNER Work Phone: [facility] Work Phone: 02-10-2022 08:29-0400 Heart rate 76 /min MEDIA PLANNER-C Delfino Moore MEDIA PLANNER Work Phone: [facility] Work Phone: 02-10-2022 08:29-0400 Respiratory rate 14 /min MEDIA PLANNER-C Delfino Moore MEDIA PLANNER Work Phone: [facility] Work Phone: 02-10-2022 08:29-0400 SaO2% (BldA) [Mass fraction] 97 % MEDIA PLANNER-C Delfino Moore MEDIA PLANNER Work Phone: [facility] Work Phone: 02-10-2022 08:29-0400 Systolic blood pressure 116 mm[Hg] MEDIA PLANNER-C Delfino Moore MEDIA PLANNER Work Phone: [facility] Work Phone: 02-09-2022 10:50-0400 Diastolic blood pressure 76 mm[Hg] MEDIA PLANNER-C Delfino Moore MEDIA PLANNER Work Phone: [facility] Work Phone: 02-09-2022 10:50-0400 Systolic blood pressure 133 mm[Hg] MEDIA PLANNER-C Delfino Moore MEDIA PLANNER Work Phone: [facility] Work Phone: 02-09-2022 08:23-0400 Heart rate 93 /min MEDIA PLANNER-C Delfino Moore MEDIA PLANNER Work Phone: [facility] Work Phone: 02-09-2022 08:20-0400 Body temperature 96.6 [degF] MEDIA PLANNER-C Delfino Moore MEDIA PLANNER Work Phone: [facility] Work Phone: 02-09-2022 08:20-0400 Respiratory rate 16 /min MEDIA PLANNER-C Delfino Moore MEDIA PLANNER Work Phone: [facility] Work Phone: 02-09-2022 08:20-0400 SaO2% (BldA) [Mass fraction] 99 % MEDIA PLANNER-C Delfino Moore MEDIA PLANNER Work Phone: [facility] Work Phone: 02-09-2022 03:02-0400 Body weight 104.9 kg MEDIA PLANNER-C Delfino Moore MEDIA PLANNER Work Phone: [facility] Work Phone: 02-08-2022 09:32-0400 Body height 182.88 cm MEDIA PLANNER-C Delfino Moore MEDIA PLANNER Work Phone: [facility] Work Phone: 02-07-2022 15:07-0400 Body mass index (BMI) [Ratio] 31.7 kg/m2 MEDIA PLANNER-C Delfino Moore MEDIA PLANNER Work Phone: [facility] Work Phone: 02-07-2022 14:50-0400 Inhaled oxygen flow rate 2 L/min MEDIA PLANNER-C Delfino Moore MEDIA PLANNER Work Phone: [facility] Work Phone: 02-07-2022 13:37-0400 Respiratory rate 24 /min [facility] Work Phone: 02-07-2022 13:18-0400 Body height 182.88 cm [facility] Work Phone: 02-07-2022 13:18-0400 Body mass index (BMI) [Ratio] 32.2 kg/m2 [facility] Work Phone: 02-07-2022 13:18-0400 Body temperature 97.9 [degF] [facility] Work Phone: 02-07-2022 13:18-0400 Body weight 107.8 kg [facility] Work Phone: 02-07-2022 13:18-0400 Heart rate 101 /min [facility] Work Phone: 02-07-2022 13:18-0400 SaO2% (BldA) [Mass fraction] 93 % [facility] Work Phone: Encounters Encounter Date Encounter Type Care Provider Facility Start: 06-06-2025 End: 06-06-2025 Emergency department patient visit Dr. Kedar Davidson MD Work Phone: -Emergency Department Work Phone: Start: 02-27-2025 ambulatory Eflobo Gironi ty:[facility] Start: 12-17-2024 End: 12-17-2024 Emergency department patient visit PATIENT UNSURE PHYSICIAN Facility:A Start: 07-11-2024 End: 07-11-2024 Emergency department patient visit Diego Walker Facility:[facility] Start: 03-11-2024 End: 03-11-2024 ambulatory Facility:[facility] Start: 03-11-2024 End: 03-11-2024 Emergency department patient visit Dr. Jaci Krishna Work Phone: [facility]-Emergency Department Work Phone: Start: 03-11-2024 End: 03-11-2024 Patient encounter procedure Rizwana Freeman UROLOGY NURSE Work Phone: [facility] Comment on above: Severe pain (Primary Dx) Start: 02-28-2024 End: 03-03-2024 ambulatory [facility] Start: 01-08-2024 End: 01-08-[address] Jaci Krishna Work Phone: [facility] Work Phone: Start: 12-06-2023 End: 12-06-2023 Emergency department patient visit Dr. Jaci Krishna Work Phone: [facility]-Emergency Department Work Phone: Start: 10-10-2023 End: 10-10-2023 Emergency department patient visit MEDIA PLANNER-C Delfino Moore MEDIA PLANNER Work Phone: [facility]Emergency Department Work Phone: Start: 10-09-2023 End: 10-09-2023 ambulatory MEDIA PLANNER-C Delfino Moore MEDIA PLANNER Work Phone: [facility] Work Phone: Start: 10-09-2023 End: 10-09-2023 Patient encounter procedure MEDIA PLANNER-C Delfino Moore MEDIA PLANNER Work Phone: [facility] Work Phone: Start: 06-05-2023 End: 06-05-2023 [facility] Start: 05-05-2023 End: 05-05-2023 Emergency department patient visit [facility] Work Phone: Start: 12-30-2022 End: 12-30-2022 Emergency department patient visit MEDIA PLANNER-C Delfino Brownder MEDIA PLANNER Work Phone: [facility]Emergency Department Start: 11-09-2022 End: 11-09-2022 ambulatory MEDIA PLANNER-C Delfino Moore MEDIA PLANNER Work Phone: [facility] Work Phone: Start: 11-09-2022 End: 11-09-2022 Patient encounter procedure MEDIA PLANNER-C Delfino Moore MEDIA PLANNER Work Phone: [facility] Start: 08-17-2022 End: 08-17-2022 Patient encounter procedure MEDIA PLANNER-C Delfino Moore MEDIA PLANNER Work Phone: [facility] Start: 07-06-2022 End: 07-06-2022 Patient encounter procedure MEDIA PLANNER-C Delfino Moore MEDIA PLANNER Work Phone: [facility] Start: 07-05-2022 End: 07-05-2022 ambulatory MEDIA PLANNER-C Delfino Moore MEDIA PLANNER Work Phone: [facility] Work Phone: Start: 07-05-2022 End: 07-05-2022 Patient encounter procedure MEDIA PLANNER-C Delfino Moore MEDIA PLANNER Work Phone: [facility] Start: 06-28-2022 End: 06-28-2022 ambulatory MEDIA PLANNER-C Delfino Moore MEDIA PLANNER Work Phone: [facility] Work Phone: Start: 06-28-2022 End: 06-28-2022 Patient encounter procedure MEDIA PLANNER-C Delfino Moore MEDIA PLANNER Work Phone: [facility] Start: 06-22-2022 End: 06-22-2022 Patient encounter procedure MEDIA PLANNER-C Delfino Moore MEDIA PLANNER Work Phone: [facility] Start: 06-03-2022 End: 06-03-2022 Emergency department patient visit MEDIA PLANNER-C Delfino Moore MEDIA PLANNER Work Phone: [facility]Emergency Department Start: 06-02-2022 End: 06-02-2022 Patient encounter procedure MEDIA PLANNER-C Delfino Moore MEDIA PLANNER Work Phone: [facility] Start: 06-01-2022 End: 06-01-2022 Patient encounter procedure MEDIA PLANNER-C Delfino Moore MEDIA PLANNER Work Phone: [facility] Start: 04-22-2022 End: 04-22-2022 Patient encounter procedure MEDIA PLANNER-C Delfino Moore MEDIA PLANNER Work Phone: [facility] Start: 04-07-2022 End: 04-07-2022 Patient encounter procedure MEDIA PLANNER-C Delfino Moore MEDIA PLANNER Work Phone: [facility] Start: 03-29-2022 End: 03-29-2022 Patient encounter procedure MEDIA PLANNER-C Delfino Moore MEDIA PLANNER Work Phone: [facility] Start: 03-02-2022 End: 03-02-2022 Patient encounter procedure MEDIA PLANNER-C Delfino Moore MEDIA PLANNER Work Phone: [facility] Start: 02-10-2022 End: 02-10-2022 Patient encounter procedure MEDIA PLANNER-C Delfino Moore MEDIA PLANNER Work Phone: [facility] Start: 02-09-2022 Non-patient / Non-visit MEDIA PLANNER-C Rosy Moore MEDIA PLANNER Work Phone: [facility] Start: 02-08-2022 Non-patient / Non-visit MEDIA PLANNER-C Rosy Moore MEDIA PLANNER Work Phone: [facility] Start: 02-08-2022 Non-patient / Non-visit MEDIA PLANNER-C Rosy Moore MEDIA PLANNER Work Phone: [facility] Start: 02-08-2022 Non-patient / Non-visit MEDIA PLANNER-C M mariposa Brownder MEDIA PLANNER Work Phone: [facility] Start: 02-07-2022 Non-patient / Non-visit MEDIA PLANNER-C M mariposa Brownder MEDIA PLANNER Work Phone: [facility] Start: 02-07-2022 End: 02-09-2022 Evaluation and management of inpatient MEDIA PLANNER-C Delfino Moore MEDIA PLANNER [facility] Start: 02-07-2022 Non-patient / Non-visit MEDIA PLANNER-C M mariposa Brownder MEDIA PLANNER Work Phone: [facility] Start: 02-07-2022 [facility] Start: 05-06-2021 Patient encounter status [facility] Work Phone: Start: 02-22-2018 End: 02-22-2018 Emergency department patient visit EBEN MONTENEGRO Facility:B Start: 08-21-2017 End: 08-21-2017 Emergency department patient visit HUSSEIN LAWRENCE Facility:[facility] Procedures Date Procedure Procedure Detail Performing Clinician Start: 12-06-2023 Plain chest X-ray Dr. Bill Krishna Work Phone: Start: 10-10-2023 Radiologic examinati on of knee MEDIA PLANNER-C Delfino Moore MEDIA PLANNER Work Phone: Start: 10-09-2023 Radiologic examinati on of knee MEDIA PLANNER-C Delfino Moore MEDIA PLANNER Work Phone: Start: 06-05-2023 CT angiography of ch est with contrast Start: 05-05-2023 CT of pelvis with contrast Start: 12-30-2022 Computed tomography of abdomen and pelvis with contrast MEDIA PLANNER-C Delfino Moore MEDIA PLANNER Work Phone: Start: 11-09-2022 Diagnostic radiograp hy of finger MEDIA PLANNER-C Delfino Moore MEDIA PLANNER Work Phone: Start: 07-05-2022 Magnetic resonance angiography of head without contrast MEDIA PLANNER-C Delfino Moore MEDIA PLANNER Work Phone: Start: 07-05-2022 MRI of brain with contrast MEDIA PLANNER-C Delfino Teresa MEDIA PLANNER Work Phone: Start: 06-03-2022 CT angiography of he ad and neck MEDIA PLANNER-C Delfino Teresa MEDIA PLANNER Work Phone: Start: 06-03-2022 Plain chest X-ray MEDIA PLANNER-C Delfino Moore MEDIA PLANNER Work Phone: Start: 02-07-2022 History of placement of stent for coronary artery disease History of coronary artery stent placement MEDIA PLANNER-C Delfino Teresa MEDIA PLANNER Work Phone: Comment on above: Successful thrombect Manohar dior [place] MR DIONE 3.5mm x 18 mm to ostial LAD 02/07/22 Start: 02-07-2022 Plain chest X-ray Urine culture MEDIA PLANNER-C Delfino Quinteros r MEDIA PLANNER Work Phone: Viral antigen assay MEDIA PLANNER-C Brenda Moore MEDIA PLANNER Work Phone: Plan of Treatment Date Care Activity Detail Author Start: 06-06-2025 [facility] Start: 06-30-2024 Influenza vaccination Influenza Vaccine (Season Ended) [facility] Start: 03-11-2024 [facility] Start: 12-06-2023 [facility] Start: 12-06-2023 [facility] Start: 10-30-2023 Behavioral Health Screening Behavioral Health Screening [facility] Start: 10-10-2023 [facility] Start: 10-09-2023 Patient referral [facility] Work Phone: Start: 06-30-2023 Covid-19 Vaccine ( season) Covid-19 Vaccine ( season) [facility] Start: 05-05-2023 Incision & drainage abscess simple/single DRAINAGE OF SKIN ABSCESS [facility] Start: 12-30-2022 [facility] Start: 07-06-2022 Patient referral [facility] Work Phone: Start: 07-05-2022 MR Brain WO and W contrast IV [facility] Work Phone: Start: 07-05-2022 MRI of brain with contrast Brain W/WO Contrast [facility] Work Phone: Start: 06-03-2022 [facility] Work Phone: Start: 03-02-2022 Evaluation of diagnostic study results [facility] Work Phone: Start: 02-09-2022 Patient discharge [facility] Work Phone: Start: 02-08-2022 Care planning and problem solving actions [facility] Work Phone: Start: 02-08-2022 Patient referral [facility] Work Phone: Start: 02-07-2022 Notification of physician [facility] Work Phone: Start: 02-07-2022 [facility] Work Phone: Start: 02-07-2022 Assessment of risk of venous thromboembolism [facility] Work Phone: Start: 02-07-2022 Insertion of catheter into peripheral vein [facility] Work Phone: Start: 02-07-2022 Measuring intake and output [facility] Work Phone: Start: 02-07-2022 Providing care according to standard [facility] Work Phone: Start: 02-07-2022 Vital signs measurements [facility] Work Phone: Start: 02-07-2022 [facility] Work Phone: Start: 02-07-2022 Admission procedure [facility] Work Phone: Start: 02-07-2022 Following clinical pathway protocol [facility] Work Phone: Start: 02-07-2022 Cardiac monitoring [facility] Work Phone: Start: 02-07-2022 Cardiac rehabilitation - phase 1 [facility] Work Phone: Start: 02-07-2022 Cardiac rehabilitation - phase 2 [facility] Work Phone: Start: 02-07-2022 Oxygen therapy [facility] Work Phone: Start: 02-07-2022 Patient discharge [facility] Work Phone: Start: 02-07-2022 Vascular disease risk assessment [facility] Work Phone: Start: 02-07-2022 Vital signs measurements [facility] Work Phone: Start: 02-07-2022 End: 02-07-2022 [facility] Work Phone: Start: 02-07-2022 End: 02-07-2022 Notification of physician [facility] Work Phone: Start: 02-07-2022 Patient education [facility] Work Phone: Start: 02-07-2022 Pulse taking [facility] Work Phone: Start: 02-07-2022 End: 02-07-2022 Taking patient vital signs [facility] Work Phone: Start: 02-07-2022 Wound care [facility] Work Phone: Start: 2013 Hepatitis B Vaccine (1 of 3 - 19+ 3-dose series) Hepatitis B Vaccine (1 of 3 - 19+ 3-dose series) [facility] Start: 2013 Urine microalbumin profile DTaP,Tdap,Td Vaccine (1 - Tdap) [facility] Start: 2012 HIV screening HIV Screening [facility] Bacteria identified in Unspecified specimen by Anaerobe culture [facility] Evaluation of diagno stic study results [facility] Work Phone: Hemoglobin A1c/Hemoglobin.total in Blood [facility] Work Phone: Lipid 1996 panel - S dale or Plasma [facility] Work Phone: MR Lower Extremity Joint [facility] Patient Education [facility] Work Phone: Patient referral [facility] Work Phone: T4 free measurement [facility] Work Phone: Thyroid stimulating hormone measurement [facility] Work Phone: XR Cervical spine 4 or 5 Views [facility] Work Phone: XR Thoracic spine 3 Views [facility] Work Phone: Immunizations Immunization Date Immunization Notes Care Provider Fa cili 03-15-2021 Covid (Pfizer) [facility] 02-22-2021 Covid (Pfizer) [facility] Payers Date Payer Category Payer Self-pay [id number] 2023 Medicaid [facility] MEDICAID [facility] PL[facility] MEDICAID OF [place] [id number] 2023-Present [phone] [address] [place] [address] Medicaid [id number] 2018 Medicaid [id number] 2016 Private Health Insurance [id number] 2016 Unknown [id number] 1994 Unknown [id number] 1994 Unknown [id number] Unknown SELF PAY INSURANCE [id number] Unknown [id number] Unknown [id number] Unknown [id number] Unknown [id number] Social History Date Type Detail Facility Start: 02-07-2022 End: 10-10-2023 Tobacco smoking status NHIS Unknown if ever smoked [facility] Start: 09-18-2020 Chew [facility] Start: 1995 Sex Assigned At Male [facility] Start: 09-16-2021 End: 06-06-2025 Tobacco smoking status NHIS Never smoked tobacco [facility] Start: 09-16-2021 Tobacco use and exposure User of smokeless tobacco [facility] Start: 09-16-2021 History of Social function [facility] Start: 09-16-2021 Tobacco use panel [facility] Start: 1995 Sex Assigned At Not on file [facility] Medical Equipment Procedure Code Equipment Code Equipment Origin al Text Equipment Identifier Dates ([id number]) Drug-eluting coronary artery stent, bioabsorbable-polyme r-coated [id number] FDA Start: 02-07-2022 Goals Date Patient Goal Desired Activity /State Functional Status Date Assessment Result Facility 02-09-2022 Functional status Ambulates;Up ad curry [facility] Work Phone: 02-09-2022 Functional status None [facility] Work Phone: Mental Status Date Assessment Result Facility 12-06-2023 Cognitive function Awake;Alert;A ppropriate;Follow s Commands [facility] Work Phone: 06-05-2023 Cognitive function Voice/Name [facility] Work Phone: 06-03-2022 Cognitive function Level Of Cons ciousness Awake;Alert;Appropriate [facility] Work Phone: 02-09-2022 Cognitive function Voice/Name [facility] Work Phone: 02-07-2022 Cognitive function Level Of Cons ciousness Awake;Alert;Appropriate [facility] Work Phone: Clinical Notes 02-07-2022 to 12-22-2024 Rizwana Freeman APRN.UROLOGY NURSE - 03/11/2024 9:08 AM EDT Note Date & Type Note Facility 12-22-2024 Note . MICRO - Microbiology PROCEDURE: Culture Wound Deep Aerobe/Anaerobe w Gram Stain [*1] SOURCE: Abscess BODY SITE: Buttock COLLECTED DATE/TIME: 12/17/2024 12:32 EST RECEIVED DATE/TIME: 12/17/2024 17:22 EST START DATE/TIME: 12/17/2024 17:22 EST FREE TEXT SOURCE: FINAL REPORTS Final Report [] Verified Date/Time/Personnel: 12/22/2024 11:09 EST 2 colonies Beta Hemolytic Streptococci, Group C Sensitivity testing is not recommended for one of the following reasons: 1. Established susceptibility patterns are available or 2. Interpretative criteria are not available. Few Normal skin lee present. Sensitivity testing not indicated. No anaerobes isolated at 5 days. PRELIMINARY REPORTS Preliminary Report [] Verified Date/Time/Personnel: 12/19/2024 10:35 EST 2 colonies Beta Hemolytic Streptococci, Group C Sensitivity testing is not recommended for one of the following reasons: 1. Established susceptibility patterns are available or 2. Interpretative criteria are not available. Few Normal skin lee present. Sensitivity testing not indicated. No anaerobes isolated to date. Preliminary Report [] Verified Date/Time/Personnel: 12/18/2024 11:36 EST Culture results pending. STAINS GS [] Verified Date/Time/Personnel: 12/17/2024 17:43 EST 1+ Red Blood Cells No organisms seen. Performing Locations *1: This test was performed at: [address], [facility] , [facility] 03-11-2024 Note HNO ID: [id number] Author: RIZWANA FREEMAN APRN.SURESH Service: ? Author Type: Nurse Practitioner Type: Progress Notes Filed: 03/11/2024 09:09 Note Text: Patient triaged at [facility]. Here today with severe perineal pain. Patient in moderate to severe visible distress, unable to sit still or sit. I will refer to ER. [facility] 03-11-2024 History of Present illness Narrative Patient triaged at [facility]. Here today with severe perineal pain. Patient in moderate to severe visible distress, unable to sit still or sit. I will refer to ER. documented in this encounter [facility] 10-10-2023 Discharge summary Note Date/Time October 10, 2023 3:38pm [facility] Medical Records Department [address] [place] [address] Emergency Department Summary 10/10/23 MR#: [id number] Acct: [id number] Name: ELBA ONTIVEROS Rep #:[id number] : 1995 27 From: Jr Silva MD PCP: Dr. Jaci Krishna MD Status:R EG ER Location: ED HPI History of Present Illness Chief Complaint: Lower Extremity Injury Informant: patient Narrative Narrative: Patient presents with right knee pain. Patient states that about a week ago he stepped in a hole and turned. This caused a twisting of his right knee. It has been painful since. [facility] Images were done that were negative. He has an MRI ordered with follow-up with an orthopedic surgeon although he is not sure of thename of the individual. He comes in today because he is still having pain and it occasionally locks on him. He is using a compressive sleeve that helps a little bit. No swelling. He does not have chest pain or shortness of breath. He is not on any blood thinners despite his history. [facility] Medical History (Updated 10/10/23 @ 15:[address] Jr Silva MD) Alcohol abuse Anxiety and depression Depression Dysuria Easy bruising GERD (gastroesophageal reflux disease) HTN (hypertension) Hyperlipidemia Hypertension Injury of left middle finger Insomnia Insulin resistance Internal derangement of right knee Marijuana use Migraine Neck pain Paresthesia of right upper extremity Polysubstance abuse ST elevation (STEMI) myocardial infarction Subclinical hypothyroidism Visual changes Home Medications metoprolol tartrate 25 mg tablet 12.5 mg (1/2 x 25 mg) PO BID #30 tabs 03/03/22 [Rx Last Taken Unknown] aspirin 81 mg tablet,delayed release 81 mg PO BREAKFAST #90 tabs 03/07/22 [Rx Last Taken Unknown] atorvastatin 40 mg tablet 40 mg PO QHS #90 tabs 03/07/22 [Rx Last Taken Unknown] lisinopril 10 mg tablet 30 mg (3 x 10 mg) PO DAILY #270 tabs 03/07/22 [Rx Last Taken Unknown] ticagrelor 90 mg tablet (Brilinta) 90 mg PO BID #180 tabs 03/07/22 [Rx Last Taken Unknown] quetiapine 50 mg tablet 50 mg PO QHS Check with primary doctor #180 tabs 06/02/22 [Rx Last Taken Unknown] cyclobenzaprine 5 mg tablet 5 - 10 mg (1 - 2 x 5 mg) PO QHS PRN muscle spasm #30tabs 06/22/22 [Rx Last Taken Unknown] sumatriptan succinate 25 mg tablet (Imitrex) See Rx Instructions PO .COMPLEX #14tabs 06/22/22 [Rx Last Taken Unknown] metoclopramide HCl 10 mg tablet (Reglan) 10 mg PO QAC 08/17/22 [History Last Taken Unknown] sertraline 100 mg tablet 100 mg PO DAILY Check with primary doctor #90 tabs 08/18/22 [Rx Last Taken Unknown] fremanezumab-vfrm 225 mg/1.5 mL subcutaneous auto-injector (Ajovy) 225 mg subcutQMONTH 11/09/22 [History Last Taken Unknown] rimegepant 75 mg disintegrating tablet (Nurtec ODT) 75 mg PO ONCE PRN 11/09/22 [History Last Taken Unknown] buspirone 7.5 mg tablet 7.5 mg PO BID Check with primary doctor #180 tabs 12/15/22 [Rx Last Taken Unknown] amoxicillin 875 mg-potassium clavulanate 125 mg tablet 875 mg (0.875 x 875-125 mg) PO Q12H #20 TABLETS 12/30/22 [Rx Last Taken Unknown] doxycycline monohydrate 100 mg capsule 100 mg PO BID #20 CAPSULES 12/30/22 [Rx Last Taken Unknown] oxycodone-acetaminophen 5 mg-325 mg tablet 1 tab PO Q6H PRN PRN Pain 3 days #12 TABLETS 12/30/22 [Rx Last Taken Unknown] cephalexin 500 mg capsule 500 mg PO Q6 #40 CAPSULES 05/05/23 [Rx Last Taken Unknown] sulfamethoxazole 800 mg-trimethoprim 160 mg tablet (Bactrim DS) 1 tab PO BID #20tabs 05/05/23 [Rx Last Taken Unknown] oxycodone-acetaminophen 5 mg-325 mg tablet (Percocet) 1 tab PO Q6H PRN PRN pain 3 days #12 tabs 06/05/23 [Rx Last Taken Unknown] naproxen 500 mg tablet 500 mg PO BID #14 tabs 10/10/23 [Rx Last Taken Unknown] oxycodone-acetaminophen 5 mg-325 mg tablet 1 tab PO Q6H PRN PRN Pain 3 days #12 TABLETS 10/10/23 [Rx Last Taken Unknown] Allergy/AdvReac Type Severity Reaction Status Date / Time No Known Allergies Allergy Verified 10/10/23 14:40 Family History Father Hypertension Mother No cardiac disease Other Anxiety and depression Breast cancer Cancer Diabetes Mental health problem Surgical History History of coronary artery stent placement (02/07/22) History of tonsillectomy Social History Smoking Status: Never smoker Tobacco: How many years used: 7 Smokeless tobacco user: chewing tobacco alcohol intake: former year quit: 2019 substance use type: former substance user Date of last use: 08/30/2020, marijuana and opiates what type of physical activity do you participate in: aerobics and weight training frequency: 3-4 times per week ROS ROS ED Constitutional Constitutional ED: Denies chills or fever(s) ENT ENT ED: Denies rhinorrhea Cardiovascular Cardiovascular: Denies chest pain Respiratory/Chest Respiratory/Chest: Denies cough or dyspnea Gastrointestinal Gastrointestinal: Denies nausea or vomiting Musculoskeletal Musculoskeletal: Reports arthralgias; Denies back pain Integumentary Denies abscess, Abrasions or rash Neurologic Neurologic: Denies paresthesias or weakness Hematologic/Lymphatic Hematologic/Lymphatic: Denies easy bleeding or easy bruising EXAM Physical Exam Narrative Exam Narrative: General: Patient awake alert sitting chair. HEENT shows no trauma Cardiorespiratory shows easy unlabored breathing. Extremity exam shows no pain with motion of the hips. He has excellent peripheral pulses. The right knee is causing him to the discomfort. There is no effusion that I find on exam. Patient can fully extend the knee. Beyond about 30 or 40 degrees of flexion he starts to have a lot of pain. The knee is stable to varus and valgus stress. Although it was difficult to get him fully bent, [place] seems normal I am not getting any obvious laxity of his anterior cruciate. There is no peripheral swelling or edema. Const Vital Signs: 10/10/23 14:37 Temperature 96.7 F L Temperature Source Temporal Pulse Rate 57 L Respiratory Rate 16 Blood Pressure 163/101 H Blood Pressure Mean 121 Pulse Ox 99 Oxygen Delivery Method Room Air MDM MDM MDM Narrative Medical decision making narrative: Patient [facility]. I reviewed these images and thereading. My independent interpretation of his 4 view x-ray of the right knee today are negative and final reading is negative for acute process. By his history and exam and the history of clicking and locking he likely has a meniscal injury. Iexplained that x-rays do not show this. I will have him on nonsteroidals and a few pain pills. I did do an online prescribing report. Radiography Diagnostic Testing: Clinical Impression(s) from Imaging Studies Knee X-Ray 10/10/23 14:49 IMPRESSION: Normal x-ray examination of the knee. Electronically Signed: Jesu Atkinson MD at 15:16 EST , Discharge Plan Triage Chief Complaint: Lower Extremity Injury ED Provider: Jr Silva Dx/Rx/DC Orders Clinical Impression: Right knee meniscal tear Instructions: ED Meniscal Injury Knee Poss, ED Knee Pain of Uncertain Cause Prescriptions: New oxycodone-acetaminophen [oxycodone-acetaminophen] 5-325 mg tablet 1 tab PO Q6H PRN PRN (Reason: Pain) 3 Days Qty: 12 0RF naproxen 500 mg tablet 500 mg PO BID Qty: 14 0RF No Action quetiapine 50 mg tablet 50 mg PO QHS Qty: 180 1RF sumatriptan succinate [Imitrex] 25 mg tablet See Rx Instructions PO .COMPLEX Qty: 14 1RF Rx Instructions: take 1 tab at onset of headache; if no relief may repeat 1 tab after at least 2 hrs; max = 4 tabs/24 hr PO cyclobenzaprine 5 mg tablet 5 - 10 mg PO QHS PRN (Reason: muscle spasm) Qty: 30 0RF metoclopramide HCl [Reglan] 10 mg tablet 10 mg PO QAC Rx Instructions: administer 30 minutes before meals Ajovy Autoinjector 225 mg/1.5 mL auto-injector 225 mg subcut QMONTH Nurtec ODT 75 mg tablet,disintegrating 75 mg PO ONCE PRN Rx Instructions: as a single dose oxycodone-acetaminophen [oxycodone-acetaminophen] 5-325 mg tablet 1 tab PO Q6H PRN PRN (Reason: Pain) 3 Days Qty: 12 0RF doxycycline monohydrate 100 mg capsule 100 mg PO BID Qty: 20 0RF amoxicillin-pot clavulanate [amoxicillin-pot clavulanate] 875-125 mg tablet 875 mg PO Q12H Qty: 20 0RF oxycodone-acetaminophen [Percocet] 5-325 mg tablet 1 tab PO Q6H PRN PRN (Reason: pain) 3 Days Qty: 12 0RF cephalexin [cephalexin] 500 mg capsule 500 mg PO Q6 Qty: 40 0RF sulfamethoxazole-trimethoprim [Bactrim DS] 800-160 mg tablet 1 tab PO BID Qty: 20 0RF metoprolol tartrate 25 mg tablet 12.5 mg PO BID Qty: 30 11RF aspirin 81 mg tablet,delayed release (DR/EC) 81 mg PO BREAKFAST Qty: 90 3RF atorvastatin 40 mg tablet 40 mg PO QHS Qty: 90 3RF lisinopril 10 mg tablet 30 mg PO DAILY Qty: 270 3RF Brilinta 90 mg tablet 90 mg PO BID Qty: 180 3RF sertraline 100 mg tablet 100 mg PO DAILY Qty: 90 2RF buspirone 7.5 mg tablet 7.5 mg PO BID Qty: 180 3RF Primary Care Provider: Jaci Krishna Referrals: Jaci Krishna MD [Primary Care Provider] - Activity Restrictions/Additional Instructions: Follow-up with the MRI and orthopedic visits as planned. Ice and rest the knee is much as possible. Disposition Disposition: Home, Self Care What to do if you have Problems For any increased pain, shortness of breath, bleeding, nausea or vomiting, chestpain, or any unexpected problems, contact your Primary Care Provider. Call [facility] ([phone]) or report to the closest Emergency Room. Call 911 if necessary. 10/10/23 1546 <Electronically signed by Jr Silva MD> Cosigner Signature (if applicable): CC: Dr. Jaci Krishna MD ~ Signed [facility] Work Phone: 1(681) 390-155103-03-[address] Silva [facility] December 30, 2022 12:36pm Note Date/Time December 30, 2022 9:09 am [facility] Medical Records Department [address] [place] [address] Emergency Department Summary 12/30/22 MR#: [id number] Acct: [id number] Name: ELBA ONTIVEROS Rep #:[id number] : 1995 27 From: Jr Silva MD PCP: ALTON GillisC Status:REG ER Location: ED HPI History of Present Illness Chief Complaint: Abscess Informant: patient Narrative Narrative: Patient states he has noticed a swollen tender area on his lower buttock for about 2 or 3 days. He denies any trauma or injury to the area. He does have a history of surgery for pilonidal tract disease about 10 years ago at another hospital. He states this swelling is in a different area. Mild soreness with bowel movements but mostly sore when sitting down. No urinary symptoms. No fevers or chills. He is not diabetic and is not on any immunosuppressive drugs he tells me. He only takes lisinopril and Brilinta. Of note he does report having a heart attack about a year ago and that is why heis still on Brilinta. He did have a stent placed. He has not been having bleeding. [facility] Medical History Alcohol abuse Anxiety Anxiety and depression Depression Dysuria Easy bruising GERD (gastroesophageal reflux disease) History of drug abuse HTN (hypertension) Hyperlipidemia Hypertension Hypertension Injury of left middle finger Insomnia Insulin resistance Marijuana use Migraine Neck pain Paresthesia of right upper extremity Polysubstance abuse ST elevation (STEMI) myocardial infarction Subclinical hypothyroidism Visual changes Home Medications metoprolol tartrate 25 mg tablet 12.5 mg PO BID #30 tabs 03/03/22 [Rx Last Taken Unknown] aspirin 81 mg tablet,delayed release 81 mg PO BREAKFAST #90 tabs 03/07/22 [Rx Last Taken Unknown] atorvastatin 40 mg tablet 40 mg PO QHS #90 tabs 03/07/22 [Rx Last Taken Unknown] lisinopril 10 mg tablet 30 mg PO DAILY #270 tabs 03/07/22 [Rx Last Taken Unknown] ticagrelor 90 mg tablet (Brilinta) 90 mg PO BID #180 tabs 03/07/22 [Rx Last Taken Unknown] quetiapine 50 mg tablet 50 mg PO QHS Check with primary doctor #180 tabs 06/02/22 [Rx Last Taken Unknown] cyclobenzaprine 5 mg tablet 5 - 10 mg PO QHS PRN muscle spasm #30 tabs 06/22/22 [Rx Last Taken Unknown] sumatriptan succinate 25 mg tablet (Imitrex) See Rx Instructions PO .COMPLEX #14tabs 06/22/22 [Rx Last Taken Unknown] metoclopramide HCl 10 mg tablet (Reglan) 10 mg PO QAC 08/17/22 [History Last Taken Unknown] sertraline 100 mg tablet 100 mg PO DAILY Check with primary doctor #90 tabs 08/18/22 [Rx Last Taken Unknown] fremanezumab-vfrm 225 mg/1.5 mL subcutaneous auto-injector (Ajovy) 225 mg subcutQMONTH 11/09/22 [History Last Taken Unknown] rimegepant 75 mg disintegrating tablet (Nurtec ODT) 75 mg PO ONCE PRN 11/09/22 [History Last Taken Unknown] buspirone 7.5 mg tablet 7.5 mg PO BID Check with primary doctor #180 tabs 12/15/22 [Rx Last Taken Unknown] amoxicillin 875 mg-potassium clavulanate 125 mg tablet 875 mg PO Q12H #20 TABLETS 12/30/22 [Rx Last Taken Unknown] doxycycline monohydrate 100 mg capsule 100 mg PO BID #20 CAPSULES 12/30/22 [Rx Last Taken Unknown] oxycodone-acetaminophen 5 mg-325 mg tablet 1 tab PO Q6H PRN PRN Pain 3 days #12 TABLETS 03/03/23 [Rx Last Taken Unknown] Allergy/AdvReac Type Severity Reaction Status Date / Time DARK CHOCOLATE Allergy Itching Uncoded 12/30/22 08:25 Family History Father Hypertension Mother No cardiac disease Other Anxiety and depression Breast cancer Cancer Diabetes Mental health problem Surgical History History of coronary artery stent placement (02/07/22) History of tonsillectomy Social History Smoking Status: Never smoker Tobacco: How many years used: 7 Smokeless tobacco user: chewing tobacco alcohol intake: former year quit: 2019 substance use type: former substance user Date of last use: 08/30/2020, marijuana and opiates what type of physical activity do you participate in: aerobics and weight training frequency: 3-4 times per week ROS ROS ED Constitutional Constitutional ED: Denies chills or fever(s) ENT ENT ED: Denies rhinorrhea or sore throat Cardiovascular Cardiovascular: Denies chest pain, palpitations or racing heartbeat Respiratory/Chest Respiratory/Chest: Denies cough Gastrointestinal Gastrointestinal: Reports other Details: See HPI ; Denies nausea or vomiting Genitourinary Genitourinary ED: Denies hematuria or urinary frequency Musculoskeletal Musculoskeletal: Denies back pain Integumentary Reports abscess Neurologic Neurologic: Denies headache(s) Psychiatric Psychiatric: Reports anxiety and depression Endocrine Endocrinology: Denies polydipsia or polyuria Hematologic/Lymphatic Hematologic/Lymphatic: Reports easy bleeding and easy bruising Allergic/Immunologic Allergic/Immunologic ED: Denies urticaria EXAM Physical Exam Narrative Exam Narrative: Patient is awake alert no acute distress. 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 HEENT shows moist mucous membranes. No trauma Eyes show no pallor Neck is supple Lungs are clear bilaterally Heart is regular without murmur. Abdomen soft nontender and has normal bowel sounds. It is not distended. Rectal, there is a little bit of tenderness with rectal exam down at the inferior portion. There is some fullness mild erythema and firmness between therectum going toward the scrotum but closer to the rectum. This is more on the left side and not so much on the right. No drainage. No pointing. There is notenderness above the rectum. Scrotum and testicles are normal and nontender. Skin no rashes other than as above. Neurologically he is awake alert and appropriate Const Vital Signs: 12/30/22 08:22 Temperature 97.1 F L Temperature Source Oral Pulse Rate 60 Respiratory Rate 18 Blood Pressure 140/86 H Blood Pressure Mean 104 Pulse Ox 99 Oxygen Delivery Method Room Air MDM MDM MDM Narrative Medical decision making narrative: I explained to the patient that given the area of involvement and tenderness at the rectum I do not feel comfortable just incising this here. He is also on Brilinta which increased risk of bleeding. I think we need to ascertain to the best of our ability how deep this abscess goes. I will do blood work as well asCT of the area. My independent interpretation of the patient's CT does show some inflammatory change with some suspected abscess. This is consistent with radiology report. Patient CBC shows normal white count but I am electrolytes show no acute process. Calcium is normal. Lactic acid is normal. My concern is that this is near the anus. He is also on Brilinta. For this reason I discussed the case with surgeon, Dr. Couch. She came down and saw the patient. She did bedside ultrasound and aspiration. Due to him being on Brilinta and the location we did not do incision and drainage. I will write forantibiotics and he will have follow-up with his surgeon. History & Record Review Additional record(s) reviewed:: Prior inpatient record Lab Data Attestation: I reviewed the patient's lab results. Labs: Laboratory Results - last 24 hr 12/30/22 12/30/22 12/30/22 09:15 09:15 09:15 WBC 8.6 RBC 4.49 L Hgb 13.1 Hct 40.5 MCV 90.2 MCH 29.2 MCHC 32.3 RDW Std Deviation 45.6 H RDW Coeff of Bessie 13.9 Plt Count 230 MPV 9.9 Immature Gran % (Auto) 0.500 Neut % (Auto) 58.2 Lymph % (Auto) 27.2 [place] % (Auto) 6.9 Eos % (Auto) 6.3 H Baso % (Auto) 0.9 Absolute Neuts (auto) 5.0 Absolute Lymphs (auto) 2.34 Nucleated RBC % 0 Sodium 141 Potassium 4.4 Chloride 107 Carbon Dioxide 25.0 Anion Gap 9 BUN 20 H Creatinine 1.11 Estim Creat Clear Calc 108.75 Est GFR (MDRD) Af Amer 101 Est GFR (MDRD) Non-Af 84 BUN/Creatinine Ratio 18.0 Glucose 96 Lactic Acid 1.1 Calcium 8.9 Radiography Diagnostic Testing: Clinical Impression(s) from Imaging Studies Abdomen/Pelvis CT 12/30/22 08:59 IMPRESSION: Findings suggestive of inflammatory change in the medial aspect of the perineum on the left side with a 1.7 cm x 1 cm focal area of decreased attenuation suggestive of a tiny abscess. Fatty infiltration of the liver. Electronically Signed: Jesu Atkinson MD at 10:50 EST , Discharge Plan Triage Chief Complaint: Abscess ED Provider: Jr Silva Dx/Rx/DC Orders Clinical Impression: Abscess of perineum, Coagulopathy Instructions: ED Abscess Incision And Drainage Prescriptions: New oxycodone-acetaminophen [oxycodone-acetaminophen] 5-325 mg tablet 1 tab PO Q6H PRN PRN (Reason: Pain) 3 Days Qty: 12 0RF doxycycline monohydrate 100 mg capsule 100 mg PO BID Qty: 20 0RF amoxicillin-pot clavulanate [amoxicillin-pot clavulanate] 875-125 mg tablet 875 mg PO Q12H Qty: 20 0RF No Action quetiapine 50 mg tablet 50 mg PO QHS Qty: 180 1RF sumatriptan succinate [Imitrex] 25 mg tablet See Rx Instructions PO .COMPLEX Qty: 14 1RF Rx Instructions: take 1 tab at onset of headache; if no relief may repeat 1 tab after at least 2 hrs; max = 4 tabs/24 hr PO cyclobenzaprine 5 mg tablet 5 - 10 mg PO QHS PRN (Reason: muscle spasm) Qty: 30 0RF metoclopramide HCl [Reglan] 10 mg tablet 10 mg PO QAC Rx Instructions: administer 30 minutes before meals Ajovy Autoinjector 225 mg/1.5 mL auto-injector 225 mg subcut QMONTH Nurtec ODT 75 mg tablet,disintegrating 75 mg PO ONCE PRN Rx Instructions: as a single dose metoprolol tartrate 25 mg tablet 12.5 mg PO BID Qty: 30 11RF aspirin 81 mg tablet,delayed release (DR/EC) 81 mg PO BREAKFAST Qty: 90 3RF atorvastatin 40 mg tablet 40 mg PO QHS Qty: 90 3RF lisinopril 10 mg tablet 30 mg PO DAILY Qty: 270 3RF Brilinta 90 mg tablet 90 mg PO BID Qty: 180 3RF sertraline 100 mg tablet 100 mg PO DAILY Qty: 90 2RF buspirone 7.5 mg tablet 7.5 mg PO BID Qty: 180 3RF Primary Care Provider: Delfino Moore NP Referrals: Yenifer Couch MD [Med Staff - Active Staff] - Keep Prabhu appointment Delfino Moore NP, MEDIA PLANNER-C [Primary Care Provider] - Disposition Disposition: Home, Self Care What to do if you have Problems For any increased pain, shortness of breath, bleeding, nausea or vomiting, chestpain, or any unexpected problems, contact your Primary Care Provider. Call [facility] ([phone]) or report to the closest Emergency Room. Call 911 if necessary. 12/30/22 1236 <Electronically signed by Jr Silva MD> Cosigner Signature (if applicable): CC: ANTONY-Anselmo Moore ~ Signed [facility] Work Phone: 1(602) 749-393404-11-2022 Evaluation note* Diagnosis Onset Date Resolution Status Marijuana use acute History of coronary artery stent placement February 07, 2022 chronic [facility] Work Phone: 1(805) 404-622904-11-2022 Evaluation note* Diagnosis Onset Date Resolution Status History of coronary artery stent placement February 07, 2022 chronic HTN (hypertension) chronic History of coronary artery stent placement February 07, 2022 chronic Back pain noneactive Right arm numbness noneactiv e Neck pain noneactive Epidermal cyst noneactive Paresthesia of right upper extremity acute Epidermal cyst noneactive Dysuria acute Easy bruising acute Low back pain noneactive [facility] Work Phone: 1(228) 238-724404-11-2022 Evaluation note* Diagnosis Onset Date Resolution Status History of coronary artery stent placement February 07, 2022 chronic HTN (hypertension) chronic History of coronary artery stent placement February 07, 2022 chronic Back pain noneactive Right arm numbness noneactiv e Neck pain noneactive Epidermal cyst noneactive Paresthesia of right upper extremity acute Epidermal cyst noneactive Dysuria acute Easy bruising acute Low back pain noneactive History of coronary artery stent placement February 07, 2022 chronic Hyperlipidemia acute Subclinical hypothyroidism a cute Anxiety and depression chron ic HTN (hypertension) chronic [facility] Work Phone: [phone]) 885-882104-11-2022 Evaluation note* Diagnosis Onset Date Resolution Status Fatigue acute History of coronary artery stent placement February 07, 2022 chronic HTN (hypertension) chronic [facility] Work Phone: Evaluation note* Diagnosis Onset Date Resolution Status ST elevation (STEMI) myocardial infarction acute [facility] Work Phone: Evaluation note* Diagnosis Onset Date Resolution Status Back pain noneactive Right arm numbness noneactiv e Neck pain noneactive Epidermal cyst noneactive Paresthesia of right upper extremity acute Epidermal cyst noneactive Dysuria acute Easy bruising acute Low back pain noneactive History of coronary artery stent placement February 07, 2022 chronic Hyperlipidemia acute Subclinical hypothyroidism a cute Anxiety and depression chron ic HTN (hypertension) chronic Migraine acute Neck pain acute Visual changes acute Vision loss, bilateral nonea ctive [facility] Work Phone: Evaluation note* Diagnosis Onset Date Resolution Status Back pain noneactive Right arm numbness noneactiv e Neck pain noneactive Epidermal cyst noneactive Paresthesia of right upper extremity acute Epidermal cyst noneactive Dysuria acute Easy bruising acute Low back pain noneactive History of coronary artery stent placement February 07, 2022 chronic Hyperlipidemia acute Subclinical hypothyroidism a cute Anxiety and depression chron ic HTN (hypertension) chronic Migraine acute Neck pain acute Visual changes acute Vision loss, bilateral nonea ctive Migraine acute Visual changes acute [facility] Work Phone: Evaluation note* Diagnosis Onset Date Resolution Status Migraine acute HTN (hypertension) chronic Injury of left middle finger acute Migraine acute Anxiety and depression chron ic HTN (hypertension) [facility] Work Phone: Evaluation note* Diagnosis Onset Date Resolution Status Injury of left middle finger acute Migraine acute Anxiety and depression chron ic HTN (hypertension) chronic [facility] Work Phone: Evaluation noteNo assessment information available [facility] Work Phone: Evaluation note* Diagnosis Onset Date Resolution Status Internal derangement of right knee acute [facility] Work Phone: Evaluation note* Diagnosis Severe pain- Primary [facility] Neurology Location: None Selected [facility] Work Phone: Hospital Discharge instructions Additional Instructions Follow-up with the MRI and orthopedic visits as planned. Ice and rest the knee is much as possible.[facility] Work Phone: Hospital Discharge instructionsAdditional Instructions You can take the Bactrim you are already prescribed. Keep the area clean with soap and water daily, if symptoms worsen please be seen again in the ED.[facility] Work Phone: Reason for referral (narrative)No reason for referral information availableW[facility] Work Phone: Summary Purpose Family History No Family History Records Found Relationship Condition Age at Onset Recorded Date/T zena Not Specified Diabetes mellitus Unknown Malignant neoplasm of breast Unknown Anxiety and depression Unknown Mental health problem Unknown Malignant neoplasm Unknown Hypertension Unknown Relationship Condition Age at Onset Recorded Date/T zena Not Specified Diabetes mellitus Unknown Malignant neoplasm of breast Unknown Anxiety and depression Unknown Mental health problem Unknown Malignant neoplasm Unknown father Hypertension Unknown mother No cardiac disease Unknown Advance Directives No Advanced Directives Records Found Advance Directive Response Recorded Date/ Time Advance Directives No December 06, 2016 5:57pm Living Will Yes September 18 6:22pm Power of Veterinarian Helper Yes September 18, 2020 6:22pm Advance Directive Response Recorded Date/ Time Advance Directives No December 06, 2016 5:57pm Living Will No February 07, 2022 3:07pm Power of Veterinarian Helper No February 07 3:07pm Advance Directive Response Recorded Date/ Time Advance Directives No December 06, 2016 5:57pm Living Will No June 03, 2022 7:59am Power of Veterinarian Helper No June 03 7:59am Advance Directive Response Recorded Date/ Time Advance Directives No December 06, 2016 4:57pm Living Will No June 03, 2022 6:59am Power of Veterinarian Helper No June 03 6:59am Advance Directive Response Recorded Date/ Time Advance Directives No December 06, 2016 4:57pm Living Will No December 30, 2022 8:35am Power of Veterinarian Helper No December 30 8:35am Advance Directive Response Recorded Date/ Time Advance Directives No December 06, 2016 5:57pm Living Will No May 05, 2023 1 0:22am Power of Veterinarian Helper No May 05, 2023 10:22am Advance Directive Response Recorded Date/ Time Advance Directives No December 06, 2016 5:57pm Living Will No June 05, 2023 4:49pm Power of Veterinarian Helper No June 05 4:49pm Advance Directive Response Recorded Date/ Time Advance Directives No December 06, 2016 4:57pm Living Will No October 10 023 3:37pm Power of Veterinarian Helper No October 10, 2023 3:37pm Advance Directive Response Recorded Date/ Time Advance Directives No December 06, 2016 5:57pm Living Will No March 11, 2024 1 0:39am Power of Veterinarian Helper No March 11, 2024 10:39am Advance Directive Response Recorded Date/ Time Do you have a Healthcare Power of Veterinarian Helper? No June 06, 2025 11:27am Advance Directives No December 06, 2016 5:57pm Chief Complaint and Reason for Visit Chief Complaint STEMI Reason for Visit ST elevation (STEMI) myocardial infarction Chief Complaint STEMI STEMI STEMI STEMI STEMI Reason for Visit Marijuana use History of coronary artery stent placement Chief Complaint STEMI STEMI STEMI STEMI STEMI STEMI STEMI HEART ATTACK FU 3WK FU CONCERNED ABOUT STENT SITE 2 M FU BRUISING ALL OVER BODY, CRAMPING, KIDNEY ISSUES Reason for Visit History of coronary artery stent placement HTN (hypertension) History of coronary artery stent placement Back pain Right arm numbness Neck pain Epidermal cyst Paresthesia of right upper extremity Epidermal cyst Dysuria Easy bruising Low back pain Chief Complaint STEMI STEMI STEMI STEMI STEMI STEMI STEMI HEART ATTACK FU 3WK FU CONCERNED ABOUT STENT SITE 2 M FU BRUISING ALL OVER BODY, CRAMPING, KIDNEY ISSUES 3 M FU 6 wk FU COUGH Reason for Visit History of coronary artery stent placement HTN (hypertension) History of coronary artery stent placement Back pain Right arm numbness Neck pain Epidermal cyst Paresthesia of right upper extremity Epidermal cyst Dysuria Easy bruising Low back pain History of coronary artery stent placement Hyperlipidemia Subclinical hypothyroidism Anxiety and depression HTN (hypertension) Chief Complaint CONCERNED ABOUT STEN T SITE 2 M FU BRUISING ALL OVER BODY, CRAMPING, KIDNEY ISSUES 3 M FU 6 wk FU COUGH ER FU - LOVING EORDER NEW ONSET MIGRAINE, VISION CHANGES Reason for Visit Back pain Right arm numbness Neck pain Epidermal cyst Paresthesia of right upper extremity Epidermal cyst Dysuria Easy bruising Low back pain History of coronary artery stent placement Hyperlipidemia Subclinical hypothyroidism Anxiety and depression HTN (hypertension) Migraine Neck pain Visual changes Vision loss, bilateral Chief Complaint CONCERNED ABOUT STEN T SITE 2 M FU BRUISING ALL OVER BODY, CRAMPING, KIDNEY ISSUES 3 M FU 6 wk FU COUGH ER FU - LOVING EORDER NEW ONSET MIGRAINE, VISION CHANGES 2 wk fu Reason for Visit Back pain Right arm numbness Neck pain Epidermal cyst Paresthesia of right upper extremity Epidermal cyst Dysuria Easy bruising Low back pain History of coronary artery stent placement Hyperlipidemia Subclinical hypothyroidism Anxiety and depression HTN (hypertension) Migraine Neck pain Visual changes Vision loss, bilateral Migraine Visual changes Chief Complaint 6 WK FU 3 M FU EORDER Reason for Visit Migraine HTN (hypertension) Injury of left middle finger Migraine Anxiety and depression HTN (hypertension) Chief Complaint 3 M FU EORDER ABSCESS Reason for Visit Injury of left middl e finger Migraine Anxiety and depression HTN (hypertension) Chief Complaint CYST Chief Complaint CYST CHEST PAIN Chief Complaint RIGHT KNEE/LEG PAIN/ OLD INJURY EORDER LOWER EXTREMITY INJURY Reason for Visit Internal derangement of right knee Chief Complaint chest pain OVERDUE FOR OV (LAST SEEN 06/20) ABSCESS Reason for Visit Fatigue History of coronary artery stent placement HTN (hypertension) Chief Complaint Admit Date CYST June 06, 2025 10: 51am Additional Source Comments (unrecognized sect ion and content) No Status Records FoundNo Status Records FoundNo Status Records FoundNo Status Records FoundNo Status Records Found INFORMATION SOURCE (unrecogn ized section and content) DATE CREATED AUTHOR 05/28/2018 [facility] ([place]) DATE CREATED AUTHOR AUTHOR'S ORGANIZ ATION 03/03/2024 [facility] DATE CREATED AUTHOR AUTHOR'S ORGANIZ ATION 03/12/2024 [facility] DATE CREATED AUTHOR AUTHOR'S ORGANIZ ATION 12/31/2024 CAREY EMEKA N DATE CREATED AUTHOR AUTHOR'S ORGANIZ ATION 06/13/2025 [facility] Goals (unrecognized section and content) Goals may be documented in a n alternate sectionGoals may be documented in an alternate sectionGoals may be documented in an alternate sectionGoals may be documented in an alternate sectionGoals may be documented in an alternate sectionGoals may be documented in an alternate sectionGoals may be documented in an alternate sectionGoals may be documented in an alternate sectionGoals may be documented in an alternate sectionGoals may be documented in an alternate sectionGoals may be documented in an alternate sectionGoals may be documented in an alternate section Care Teams (unrecognized sec tion and content) Team Status: Active Member Role Status Dates Dr. Lesley Oneill DO Family Provider Active Delfino Moore MEDIA PLANNER, MEDIA PLANNER-C Primary Care Provider Active Team Status: Inactive Member Role Status Dates Delfino Moore MEDIA PLANNER, MEDIA PLANNER-C Primary Care Provide r, Attending Provider, Referring Provider Active Team Status: Inactive Member Role Status Dates Delfino Moore MEDIA PLANNER, MEDIA PLANNER-C Primary Care Provider Active Dr. Jr Silva MD Emergency Provider Active Team Status: Inactive Member Role Status Dates Delfino Moore MEDIA PLANNER, MEDIA PLANNER-C Primary Care Provider Active Dr. Janae Zamora DO Referring Provider, Emergency Pro vider Active Team Status: Inactive Member Role Status Dates Delfino Moore MEDIA PLANNER, MEDIA PLANNER-C Primary Care Provider Active Dr. Francisco J Jean-Baptiste DO Emergency Provider Active Team Status: Inactive Member Role Status Dates Delfino Moore MEDIA PLANNER, MEDIA PLANNER-C Primary Care Provider Active Dr. Janae Zamora DO Attending Provider, Referring Provider, Emergency Provider Active Team Status: Active Member Role Status Dates Dr. Lesley Oneill DO Family Provider Active Dr. Jaci Krishna MD Primary Care Provider Active Team Status: Inactive Member Role Status Dates Delfino Moore NP, MEDIA PLANNER-C Primary Care Provider, Referring P rovider Active Kal Morales PA, PA Attending Provider Active Team Status: Active Member Role Status Dates Dr. Jaci Krishna MD Primary Care Provider Active Kal Morales PA, PA Attending Provider, Referring Pr ovider Active Team Status: Inactive Member Role Status Dates Dr. Jaci Krishna MD Primary Care Provider Active Dr. Jr Silva MD Emergency Provider Active Team Status: Inactive Member Role Status Dates Dr. Jaci Krishna MD Primary Care Provider, Refer ring Provider Active Kemar Schumacher MEDIA PLANNER, MEDIA PLANNER-C Attending Provider Active Team Status: Inactive Member Role Status Dates Dr. Jaci Krishna MD Primary Care Provider Active Dr. Jamari Mak MD Attending Provider, Emergency Provi alycia Active Team Status: Inactive Member Role Status Dates Dr. Jaci Krishna MD Primary Care Provider Active Dr. Janae Zamora DO Emergency Provider Active Development Mgr Relationship Specialty Start Date End Date Delfino Moore PCP - General 03/11/24 Team Status: Inactive Member Role Status Dates Dr. Jaci Krishna MD Primary Care Provider Active Kal Morales PA, PA Attending Provider, Referring Pr otf Active Team Status: Active Member Role/Relationship Status Dates Dr. Ruby Carroll DO Primary Care Provider Active Team Status: Inactive Member Role/Relationship Status Dates Dr. Kedar Davidson MD Emergency Provider Active Start: June 06, 2025 End: June 06, 2025 Dr. Ruby Carroll DO Primary Care Provider Active Start: June 06, 2025 End: June 06, 2025 Source Comments (unrecognize d section and content) In the event this informatio n is protected by the Federal Confidentiality of Alcohol and Drug Abuse Patient Records regulations: The Federal rules restrict any use of the information to criminally investigate or prosecute any alcohol or drug abuse patient.[facility] FOR RECORDS PERTAINING TO PATIENTS WHO ARE OR HAVE BEEN ENROLLED IN A CHEMICAL DEPENDENCY/SUBSTANCEABUSE PROGRAM, SOME INFORMATION MAY BE OMITTED. This clinical summary was aggregated from multiple sources. Caution should be exercised in using it in the provision of clinical care. This summary normalizes information from multiple sources, and as a consequence, information in this document may materially change the coding, format and clinical context of patient data. In addition, data may be omitted in some cases. CLINICAL DECISIONS SHOULD BE BASED ON THE PRIMARY CLINICAL RECORDS. [facility] provides no warranty or guarantee of the accuracy or completeness of information in this document.
== END | disposition home or self-care (01) ==
LOC: VSLAB 14:29
PROVIDERS: PCP Family Medicine; Referring Provider Counselor Mental Health; Visit Provider Counselor Mental Health
DX: F43.10 Post-traumatic stress disorder, unspecified (principal); F33.1 Major depressive disorder, recurrent, moderate
CPT/HCPCS: 36415; 80053; 82306; 82728; 83036; 83540; 83550; 84443; 85027

== ENCOUNTER 2025-07-11 14:30 | Emergency (ER) | payer MEDICAID, SELFPAY ==
[2025-07-11 14:34] VITALS: BP 128/77; PULSE 78; RESP 18; TEMP 37.1; O2SAT 100; BMI 33.0
[2025-07-11 14:37] VITALS: BP 128/77; PULSE 78; RESP 18; TEMP 37.1; O2SAT 100
--- NOTE | 2025-07-11 15:09 | EX.ED.DYSGE1 ---
HPI History of Present Illness Chief Complaint: General Illness Informant: patient Onset/Context/Timing Onset: Days (2) Context: Gradual Onset Timing: Continuous Quality: Sharp Location: Right ankle Worsened by: Movement, walking Relieved by: Elevation of the ankle Narrative Narrative: Patient presents with right ankle pain that has been getting worse over the past 2 days. Patient states he had a recent incision and drainage of an abscess in his perineal area. Patient states that he finished a course of antibiotics for that. Patient states that after he finished the antibiotics, he started having some pain in his right lower leg and ankle. Patient states it is worse with movement and with weightbearing. Patient states it is better when he is able to elevate his right ankle. Patient admits to some numbness into his toes. Patient denies any fevers or chills. PFSH PFSH Medical History Internal derangement of right knee Injury of left middle finger Neck pain Visual changes Migraine Hyperlipidemia Subclinical hypothyroidism Dysuria Easy bruising Paresthesia of right upper extremity HTN (hypertension) Insulin resistance Marijuana use ST elevation (STEMI) myocardial infarction Polysubstance abuse Insomnia Depression GERD (gastroesophageal reflux disease) Hypertension Anxiety and depression Alcohol abuse Home Medications ?Medication ?Instructions ?Recorded ?Last Taken ?Type sumatriptan succinate 25 mg tablet See Rx Instructions PO .COMPLEX 06/22/22 Unknown Rx (Imitrex) #14 tabs sertraline 100 mg tablet 100 mg PO DAILY Check with primary 08/18/22 Unknown Rx doctor #90 tabs buspirone 7.5 mg tablet 7.5 mg PO BID Check with primary 12/15/22 Unknown Rx doctor #180 tabs quetiapine 50 mg tablet 50 mg PO QHS #30 tabs 12/06/23 Unknown Rx aspirin 81 mg tablet,delayed 81 mg PO BREAKFAST #90 tabs 01/08/24 Unknown Rx release atorvastatin 40 mg tablet 40 mg PO QHS #90 tabs 01/08/24 Unknown Rx lisinopril 30 mg tablet 30 mg PO DAILY #90 tabs 01/08/24 Unknown Rx clindamycin HCl 300 mg capsule 300 mg PO Q6H #40 CAPSULES 03/11/24 Unknown Rx (Cleocin HCl) cephalexin 500 mg capsule 500 mg PO Q12 7 days #14 CAPSULES 07/11/24 Unknown Rx sulfamethoxazole 800 1 tab PO BID 7 days #14 tabs 07/11/24 Unknown Rx mg-trimethoprim 160 mg tablet (Bactrim DS) naproxen 500 mg tablet 500 mg PO BID PRN #20 tabs 07/11/25 Unknown Rx Allergy/AdvReac Type Severity Reaction Status Date / Time Food Allergies: Uncoded Allergy Severe throat Verified 07/11/25 14:34 swelling Family History Father Hypertension Mother No cardiac disease Other Anxiety and depression Breast cancer Cancer Diabetes Mental health problem Surgical History History of coronary artery stent placement (02/07/22) History of tonsillectomy Social History Smoking Status: Never smoker Tobacco: How many years used: 7 Smokeless tobacco user: chewing tobacco how long ago did patient quit smoking: Quit smoking about 1 month ago. Still uses chewing tobacco alcohol intake: current alcohol intake frequency: a few times a week Alcohol type: beer details: 2-3 beers a week substance use type: does not use caffeine: Yes Type: carbonated beverages Number of servings: 4 what type of physical activity do you participate in: aerobics and weight training frequency: 3-4 times per week ROS ROS ED Constitutional Constitutional ED: Denies chills or fever(s) Eyes Eyes: Denies blurry vision or change in vision ENT ENT ED: Denies rhinorrhea or sore throat Cardiovascular Cardiovascular: Denies chest pain or palpitations Respiratory/Chest Respiratory/Chest: Denies cough or dyspnea Gastrointestinal Gastrointestinal: Denies nausea or vomiting Genitourinary Genitourinary ED: Denies dysuria or hematuria Musculoskeletal Musculoskeletal: Denies back pain or neck pain Integumentary Reports rash; Denies abscess Neurologic Neurologic: Denies headache(s) or weakness Allergic/Immunologic Allergic/Immunologic ED: Denies mouth swelling or urticaria EXAM Physical Exam Const Vital Signs: 07/11/25 14:34 07/11/25 14:37 07/11/25 16:00 Temperature 98.7 F 98.7 F Temperature Source Oral Oral Pulse Rate 78 78 Respiratory Rate 18 18 Respiratory Effort Normal Non-Labored Respiratory Pattern Normal Blood Pressure 128/77 H 128/77 H Blood Pressure Mean 94 94 Pulse Ox 100 100 Oxygen Delivery Method Room Air Room Air 07/11/25 17:00 Temperature Temperature Source Pulse Rate 78 Respiratory Rate 18 Respiratory Effort Respiratory Pattern Blood Pressure 140/80 H Blood Pressure Mean 100 Pulse Ox 99 Oxygen Delivery Method Positive well nourished and well developed General Appearance ED: well developed and NAD HEENT Reports moist mucous membranes Neck supple and no JVD Extremity Extremity Narrative: There is mild tenderness over the right ankle. There is no erythema or warmth. There is no joint effusion. There is pain with dorsiflexion and plantarflexion. There is no pain with inversion. Pedal pulses are equal bilaterally. Sensation was intact to light touch in all digits. Capillary refill was less than 2 seconds in all digits. There is mild tenderness over the right calf. Neuro oriented x3, CN's II-XII intact bilaterally and no sensory deficits noted Sensorium / Orientation: alert Motor Exam: strength 5/5 throughout Psych mental status grossly normal Skin no rashes or lesions noted MDM MDM MDM Narrative Medical decision making narrative: Differential diagnose includes arthralgia, inflammatory arthritis, degenerative arthritis, occult fracture, gout, and septic arthritis. CBC will be obtained to assess for leukocytosis and anemia. Basic metabolic profile will be obtained to assess for electrolyte abnormality and renal function. Sed rate and CRP will be obtained to assess for inflammatory markers. Uric acid will be obtained to assess for gout. X-rays of the right ankle will be obtained to assess for degenerative arthritis and occult fracture. Venous duplex of the right lower extremity will be obtained to assess for DVT. Lab Data Attestation: I reviewed the patient's lab results. Lab results narrative: CBC was reviewed. White blood cell count was normal. Hemoglobin was slightly low at 12.7 and hematocrit was 31.2. Platelets were normal. Basic metabolic profile was reviewed and was within normal limits. Sed rate was reviewed and was normal at 7. CRP was reviewed and was normal at less than 3. Uric acid was reviewed and was normal at 6.6. Labs: Laboratory Results - last 24 hr 07/11/25 15:57 WBC 6.5 RBC 4.35 L Hgb 12.7 L Hct 38.2 L MCV 87.8 MCH 29.2 MCHC 33.2 RDW Std Deviation 42.0 RDW Coeff of Bessie 13.0 Plt Count 216 MPV 10.4 Immature Gran % (Auto) 0.500 Neut % (Auto) 51.8 Lymph % (Auto) 31.0 [place] % (Auto) 9.8 Eos % (Auto) 5.7 H Baso % (Auto) 1.2 H Absolute Neuts (auto) 3.4 Absolute Lymphs (auto) 2.00 Nucleated RBC % 0 ESR 7 Sodium 137 Potassium 4.6 Chloride 101 Carbon Dioxide 25.9 Anion Gap 10 BUN 20 H Creatinine 0.95 Estim Creat Clear Calc 145.96 Est GFR (MDRD) Non-Af 111 BUN/Creatinine Ratio 20.6 H Glucose 110 H Uric Acid 6.6 Calcium 9.2 C-React Prot Ext Range < 3.00 Radiography Diagnostic Testing: Clinical Impression(s) from Imaging Studies Ankle X-Ray 07/11/25 16:00 IMPRESSION: No acute abnormality seen. Reading Location: [facility] X-rays of the right ankle were obtained. There are 3 views. On my independent interpretation, there is no acute fracture. There is no dislocation. There is no soft tissue swelling. Radiologist also interpreted the x-rays and agrees. Venous duplex of the right lower extremity was obtained. There is no evidence of DVT. Treatment and Re-Evaluation :: Patient was given a dose of Naprosyn as needed. Patient was advised of his findings. Patient was instructed to ice and elevate the right ankle. Patient was instructed to follow-up with his primary care physician in 5 to 7 days. Patient was given a prescription for Naprosyn. Patient understood and was agreeable with the plan. All questions were answered. Discharge Plan Triage Chief Complaint: General Illness ED Provider: Guille Guillermo Dx/Rx/DC Orders Clinical Impression: Right ankle pain, HTN (hypertension) Instructions: ED Arthralgia Prescriptions: New naproxen 500 mg tablet 500 mg PO BID PRN Qty: 20 0RF No Action sumatriptan succinate [Imitrex] 25 mg tablet See Rx Instructions PO .COMPLEX Qty: 14 1RF Rx Instructions: take 1 tab at onset of headache; if no relief may repeat 1 tab after at least 2 hrs; max = 4 tabs/24 hr PO atorvastatin 40 mg tablet 40 mg PO QHS Qty: 90 3RF lisinopril 30 mg tablet 30 mg PO DAILY Qty: 90 3RF aspirin 81 mg tablet,delayed release (DR/EC) 81 mg PO BREAKFAST Qty: 90 3RF quetiapine 50 mg tablet 50 mg PO QHS Qty: 30 0RF sulfamethoxazole-trimethoprim [Bactrim DS] 800-160 mg tablet 1 tab PO BID 7 Days Qty: 14 0RF cephalexin 500 mg capsule 500 mg PO Q12 7 Days Qty: 14 0RF clindamycin HCl [Cleocin HCl] 300 mg capsule 300 mg PO Q6H Qty: 40 0RF sertraline 100 mg tablet 100 mg PO DAILY Qty: 90 2RF buspirone 7.5 mg tablet 7.5 mg PO BID Qty: 180 3RF Primary Care Provider: Ruby Carroll Referrals: Ruby Carroll DO [Primary Care Provider] - 5-7 Days Print Language: Mosotho Disposition Disposition: Home, Self Care
--- NOTE | 2025-07-11 16:00 | RAD_ITS ---
PROCEDURE: ANKLE MIN 3 VIEWS 07/11/2025 REASON FOR EXAM: INJURY/PAIN TECHNIQUE: Procedure Code: RADANK Modality: DX Procedure: ANKLE MIN 3 VIEWS Laterality: Right COMPARISON: None. FINDINGS: BONES: No acute fracture or focal osseous lesion. JOINTS: No dislocation. The joint spaces are normal. SOFT TISSUES: The soft tissues are unremarkable. RAD/Ankle min 3 Views IMPRESSION: No acute abnormality seen. Reading Location: [id number]
[2025-07-11 16:30] LABS: Anion Gap 10 (5-15); BUN 20 mg/dL (4-19); BUN/Creat Ratio 20.6 RATIO (10-20); Calcium,Total 9.2 mg/dL (7.6-11.0); Carbon Dioxide 25.9 mmol/L (21.0-32.0); Chloride 101 mmol/L (98-108); Estimated Creatinine Clearance 145.96 ml/min (50-250); Glucose 110 mg/dL (70-99); Potassium 4.6 mmol/L (3.3-5.1)
[2025-07-11 16:31] LABS: CRP < 3.00 mg/L (0.0-3.0); Uric Acid 6.6 mg/dL (3.5-7.2)
[2025-07-11 16:44] LABS: Hematocrit 38.2 % (40-54); Hemoglobin 12.7 g/dL (13.0-16.5); Immature Granulocytes Count 0.030 X10^3/uL (0.0-0.0); Mean Corp Hgb Conc 33.2 g/dL (32-36); Mean Corpuscular Volume 87.8 fL (80-94); Mean Platelet Vol. 10.4 fl (6.2-12.0); NRBC Flagged by Analyzer 0 % (0-5); Platelet Count 216 K/mm3 (150-450); RBC Distribution Width CV 13.0 % (11.6-14.6); RBC Distribution Width SD 42.0 fl (35.1-43.9); Red Blood Count 4.35 M/mm3 (4.6-6.2); White Blood Count 6.5 K/mm3 (4.4-11.0)
[2025-07-11 17:00] VITALS: BP 140/80; PULSE 78; RESP 18; O2SAT 99
--- NOTE | 2025-07-11 17:10 | US_ITS ---
PROCEDURE: RIGHT LOWER EXTREMITY VENOUS DUPLEX IMAG/LIMITED/UNI 07/11/2025 REASON FOR EXAM: Right leg/ankle pain TECHNIQUE: Procedure Code: USVDUL Modality: US Procedure: VENOUS DUPLEX IMAG/LIMITED/UNI COMPARISON: None. FINDINGS: No intraluminal echogenicity to suggest the presence of a deep venous thrombosis. Appropriate respiratory variation, augmentation and venous compression is noted. US/Venous Duplex Imag/Limited/Uni IMPRESSION: No evidence for DVT in the right lower extremity. Reading Location: [facility]
[2025-07-11 18:09] VITALS: BP 114/78; PULSE 64; RESP 18; TEMP 36.6; O2SAT 99
== END 2025-07-11 18:09 | disposition home or self-care (01) ==
PROVIDERS: Emergency Provider Emergency Medicine; PCP Family Medicine; Visit Provider Emergency Medicine
DX: M25.571 Pain in right ankle and joints of right foot (principal); I10 Essential (primary) hypertension; E78.5 Hyperlipidemia, unspecified; F17.220 Nicotine dependence, chewing tobacco, uncomplicated; Z95.5 Presence of coronary angioplasty implant and graft; I25.2 Old myocardial infarction; F41.9 Anxiety disorder, unspecified; F32.A Depression, unspecified; K21.9 Gastro-esophageal reflux disease without esophagitis
CPT/HCPCS: 73610; 80048; 84550; 85025; 85652; 86140; 93971; 99282; A4216

== ENCOUNTER → 2025-07-16 | Outpatient (CLI) | payer MEDICAID, SELFPAY ==
[2025-07-16 16:42] LABS: CRP < 3.00 mg/L (0.0-3.0); Uric Acid 6.3 mg/dL (3.5-7.2)
--- OUTSIDE RECORDS SUMMARY | 2025-07-16 21:20 | XMS RPT_ITS | CCD ---
Author Organization [facility] CliniSymt Care Team Providers Care Polisher Hand Name Role Phone HUSSEIN LAWRENCE Unavailable Unavailable LESLEY ONEILL Unavailable Unavailable EBEN MONTENEGRO Unavailable Unavailable LESLEY ONEILL Unavailable Unavailable Teresa PSYCHOLOGIST INDUSTRIAL ORGANIZATIONAL, PSYCHOLOGIST INDUSTRIAL ORGANIZATIONAL-C Delfino Primary Care Provider Dr. Kedar Davidson Emergency Provider Dr. Clementine Dugan Admit Provider Dr. Clementine Dugan Attending Provider Dr. Clementine Dugan Referring Provider Dr. Clementine Dugan Other Provider Dr. Ernst Jennings Attending Provider Dr. Arsh Joe Attending Provider Dr. Aniyah Pardo Attending Provider Dr. Aniyah Pardo Other Provider Dr. Mendoza Gutierrez Attending Provider Dr. Aniyah Pardo Referring Provider Moore PSYCHOLOGIST INDUSTRIAL ORGANIZATIONAL, PSYCHOLOGIST INDUSTRIAL ORGANIZATIONAL-C Delfino Attending Provider Moore PSYCHOLOGIST INDUSTRIAL ORGANIZATIONAL, PSYCHOLOGIST INDUSTRIAL ORGANIZATIONAL-C Delfino Referring Provider Winsome PSYCHOLOGIST INDUSTRIAL ORGANIZATIONAL, PSYCHOLOGIST INDUSTRIAL ORGANIZATIONAL-C Kemar Morin Attending Provider JAKE Mccarthy Attending Provider Unavailab le Moore PSYCHOLOGIST INDUSTRIAL ORGANIZATIONAL, PSYCHOLOGIST INDUSTRIAL ORGANIZATIONAL-C Delfino Primary Care Provider Moore PSYCHOLOGIST INDUSTRIAL ORGANIZATIONAL, PSYCHOLOGIST INDUSTRIAL ORGANIZATIONAL-C Delfino Referring Provider Moore PSYCHOLOGIST INDUSTRIAL ORGANIZATIONAL, PSYCHOLOGIST INDUSTRIAL ORGANIZATIONAL-C Delfino Attending Provider Roof PSYCHOLOGIST INDUSTRIAL ORGANIZATIONAL, PSYCHOLOGIST INDUSTRIAL ORGANIZATIONAL-C Kemar Morin Attending Provider Moore PSYCHOLOGIST INDUSTRIAL ORGANIZATIONAL, PSYCHOLOGIST INDUSTRIAL ORGANIZATIONAL-C Delfino Primary Care Provider Moore PSYCHOLOGIST INDUSTRIAL ORGANIZATIONAL, PSYCHOLOGIST INDUSTRIAL ORGANIZATIONAL-C Delfino Attending Provider Moore PSYCHOLOGIST INDUSTRIAL ORGANIZATIONAL, PSYCHOLOGIST INDUSTRIAL ORGANIZATIONAL-C Delfino Referring Provider Moore PSYCHOLOGIST INDUSTRIAL ORGANIZATIONAL, PSYCHOLOGIST INDUSTRIAL ORGANIZATIONAL-C Delfino Primary Care Provider Moore PSYCHOLOGIST INDUSTRIAL ORGANIZATIONAL, PSYCHOLOGIST INDUSTRIAL ORGANIZATIONAL-C Delfino Attending Provider Moore PSYCHOLOGIST INDUSTRIAL ORGANIZATIONAL, PSYCHOLOGIST INDUSTRIAL ORGANIZATIONAL-C Delfino Referring Provider Moore PSYCHOLOGIST INDUSTRIAL ORGANIZATIONAL, PSYCHOLOGIST INDUSTRIAL ORGANIZATIONAL-C Delfino Primary Care Provider Moore PSYCHOLOGIST INDUSTRIAL ORGANIZATIONAL, PSYCHOLOGIST INDUSTRIAL ORGANIZATIONAL-C Delfino Referring Provider Carmen JOSEPH, JAKE Gallegos Attending Provider MOOREDELFINO TONG Primary Care Unavailable JAYLENE WOOD Admitting Unavailable Dr. Jaci Krishna Primary Care Provider Dr. Jaci Kirshna Referring Provider Roof PSYCHOLOGIST INDUSTRIAL ORGANIZATIONAL, PSYCHOLOGIST INDUSTRIAL ORGANIZATIONAL-C Kemar Morin Attending Provider MooreDelfino tnog Primary Care Provider Unavailabl e PHYSICIAN, PATIENT UNSURE Primary Care Aubrey FOUNTAIN MANAGER OF ALLIED HEALTH SERVICES-ELECTRICAL SERVICE TECHNICIAN, ADELITA Khan Attending Dr. Kedar Rivera MD Emergency Provider Dr. Ruby Carroll DO Primary Care Provider Dr. Kedar Davidson MD Attending Provider Pola Pra PSYCHOLOGIST INDUSTRIAL ORGANIZATIONAL-C, Delfino Attending Provider Pola Pra PSYCHOLOGIST INDUSTRIAL ORGANIZATIONAL-C, Delfino Referring Provider Dr. Guille Guillermo DO Emergency Provider Labor, Ruby Primary Care Unavailable Pola Pra VSC, Delfino Referring Unavailable Pola Pra VSC, Delfino Attending Unavailable Glen, Ruby Primary Care Unavailable Guille Guillermo Attending Unavailable Labor, Ruby Primary Care Unavailable Kedar Davidson Attending Unavailable Jaci Krishna Referring Unavailable Jaci Krishna Primary Care Unavailable Tatyana, [place] Attending Unavailable Allergies Allergy Classification Reported Allergen(s) Allergy Type Date of Onset Reaction(s) Facility (6 sources) Food Allergies: Uncoded; Translations: [Food Allergies: Uncoded] Allergy to substance 3 Itching, throat swelling [facility] Comment on above: Dark Chocolate (1 source) DARK CHOCOLATE Allergy to substance 3 Itching [facility] Medications Current Medications Medication Drug Class(es) Dates Sig (Normalized) Sig (Original) [id number] 200 actuat albuterol 0.09 mg/actuat metered dose inhaler (1 source) beta2-Adrenergic Agonist Start: 09-16-2021 take 2 puff(s) by inhalation every four hours as needed for wheezing albuterol HFA (PROVENTIL HFA, VENTOLIN HFA) 90 mcg/actuation inhaler Inhale 2 Puffs as instructed every 4 hours as needed for wheezing/shortnes s of breath. 1 Each 1 09/16/2021 Active cephalexin 500 mg oral capsule (11 sources) Cephalosporin Antibacterial Start: 07-11-2024 take 1 [...] 2023 1:17pm clindamycin 300 mg oral capsule (4 sources) Lincosamide Antibacterial Start: 03-11-2024 take 1 [...] tablet Active 30 mg PO DAILY 90 3 January 08, 2024 11:44am Start: 02-09-2022 End: 01-08-2024 take 3 tablets by mouth once daily Lisinopril 10 mg tablet Discontinued 30 mg PO DAILY 270 March 07, 2022 4:28pm January 08, 2024 [...] 10, 2020 1:00am September 18, 2020 3:18pm naproxen 500 mg oral tablet (7 sources) Nonsteroidal Anti-inflammatory Drug Start: 07-11-2025 take 1 tablet by mouth twice daily as needed Naproxen 500 mg tablet Active 500 mg PO TWICE DAILY NEEDED July 11, 2025 12:00am Start: 10-10-2023 End: 12-06-2023 take 1 tablet by mouth twice daily Naproxen 500 mg tablet Discontinued 500 mg PO TWICE A DAY 14 0 October 10, 2023 1:00am December 06, 2023 1:18pm rimegepant 75 mg disintegrating oral tablet (6 sources) Start: 11-09-2022 take 1 tablet by mouth once Rimegepant (Nurtec Odt) 75 mg tablet,disintegrating Active 75 MG PO ONCE November 09, 2022 12:00am as a single dose sulfamethoxazole 800 mg / trimethoprim 160 mg oral tablet (11 sources) Dihydrofolate Reductase Inhibitor Antibacterial, Sulfonamide Antimicrobial Start: 07-11-2024 Sulfamethoxazole-Trimeth oprim (Bactrim Ds) 800-160 mg tablet Active 1 {tbl} PO TWICE A DAY 14 7 0 July 11, 2024 12:00am Start: 05-05-2023 End: 01-08-2024 Sulfamethoxazole-Trimethopri m (Bactrim Ds) 800-160 mg tablet Discontinued 1 {tbl} PO TWICE A DAY 20 0 May 05, 2023 12:00am January 08, 2024 11:23am SUMAtriptan 25 mg oral tablet (12 sources) Serotonin-1b and Serotonin-1d Receptor Agonist Start: [...] / HYDROcodone bitartrate 5 mg oral tablet (16 sources) Opioid Agonist Start: 01-10-2017 End: 11-27-2019 [...] / oxyCODONE hydrochloride 5 mg oral tablet (20 sources) Opioid Agonist Start: 12-30-2022 End: 12-06-2023 Oxycodone-Acetaminophen 5-32 5 mg tablet Discontinued 1 {tbl} PO EVERY 6 HOURS NEEDED as needed for Pain 12 3 October 10, 2023 December 06, 2023 1:18pm Tear of meniscus of right knee Internal derangement of right knee Unspecified internal derangement of right knee Start: 12-30-2022 End: 12-06-2023 take 1 tablet by mouth every six hours as needed Oxycodone-Acetaminophen Active 1 TABLET PO EVERY 6 HOURS NEEDED 12 3 October 10, 2023 amoxicillin 875 mg / [...] tablet Discontinued 10 mg PO DAILY 30 December 06, 2023 1:00am January 08, 2024 [...] AT BEDTIME as needed for muscle spasm June 22, 2022 3:47pm December 06, 2023 1:17pm Start: 03-29-2022 End: 12-06-2023 take 5-10 mg by mouth at bedtime Cyclobenzaprine Active 5 - 10 MG PO AT BEDTIME June 22, 2022 2:47pm doxycycline monohydrate 100 mg oral capsule (9 sources) Tetracycline-class Drug Start: 12-30-2022 End: 12-06-2023 take 1 capsule by mouth twice daily Doxycycline Monohydrate 100 mg capsule Discontinued 100 mg PO TWICE A DAY December 30, 2022 1:00am December 06, 2023 [...] mg tablet Discontinued 25 mg PO DAILY March 07, 2022 4:28pm June 01, 2022 [...] tablet Discontinued 12.5 mg PO EVERY MORNING 90 January 01, 2020 1:00am January 29, 2020 8:58am hydroCHLOROthiazide 25 mg / lisinopril 20 mg oral tablet (20 sources) Thiazide Diuretic, Angiotensin Converting Enzyme Inhibitor Start: 09-09-2021 lisinopril-hydroCHLOROthiazi de (PRINZIDE, ZESTORETIC) 20-25 mg per tablet Start: 01-29-2021 End: 02-09-2022 Lisinopril-Hydrochlorothiazi de 20-25 mg tablet Discontinued 1 {tbl} PO DAILY 90 1 December 23, 2021 6:11pm February 07, 2022 3:10pm Start: 01-29-2021 End: 02-09-2022 take 1 tablet [...] 3:50pm levocetirizine dihydrochloride 5 mg oral tablet (14 sources) Histamine-1 Receptor Antagonist Start: 03-29-2022 End: 08-17-2022 take 1 tablet by mouth once daily as needed Levocetirizine 5 mg tablet Discontinued 5 mg PO DAILY as needed for allergies 30 3 March 29, 2022 12:00am August 17, 2022 9:26am meloxicam 15 mg oral tablet (20 sources) Nonsteroidal Anti-inflammatory Drug Start: 01-29-2020 End: 09-01-2020 take 1 tablet by mouth once daily as needed for pain Meloxicam 15 mg tablet Discontinued 15 mg PO DAILY as needed for pain 90 July 10, 2020 11:43am September 01, 2020 10:43am Start: 01-01-2020 End: 01-29-2020 take 1 tablet by mouth once daily as needed for pain Meloxicam (Mobic) 7.5 mg tablet Discontinued 7.5 mg PO DAILY as needed for pain 30 January 01, 2020 1:00am January 29, 2020 8:58am metoclopramide 10 mg oral tablet (10 sources) Dopamine-2 Receptor Antagonist Start: 08-17-2022 End: [...] Discontinued 12.5 mg PO TWICE A DAY 28 09March 03, 2022 2:57pm January 08, 2024 11:24am Start: 02-09-2022 End: 01-08-2024 take 12.5 mg by mouth twice daily Metoprolol Tartrate Active 12.5 MG PO TWICE A DAY March 03, 2022 1:57pm ondansetron 4 mg disintegrating oral tablet (16 sources) Serotonin-3 Receptor Antagonist Start: 06-03-2020 End: 09-01-2020 take 1 tablet by mouth every eight hours as needed for nausea Ondansetron 4 MG tablet Discontinued 4 mg PO EVERY 8 HOURS NEEDED as needed for Nausea June 03, 2020 12:00am September 01, 2020 10:43am penicillin v potassium 500 mg oral tablet (16 sources) Start: 12-06-2016 End: 11-27-2019 take 1 [...] Discontinued 50 mg PO AT BEDTIME 30 December 06, 2023 1:00am January 08, 2024 [...] tablet Discontinued 50 mg PO daily 30 November 27, 2019 1:00am January 01, 2020 2:34pm ticagrelor 90 mg oral tablet (20 sources) Start: 02-09-2022 End: 12-06-2023 take 1 tablet by mouth twice daily Ticagrelor (Brilinta) 90 mg tablet Discontinued 90 mg PO TWICE A DAY 180 March 07, 2022 4:29pm December 06, 2023 [...] Discontinued 50 mg PO AT BEDTIME 90 November 27, 2019 1:00am January 01, 2020 2:32pm Problems Active Problems Problem Classification Problem Date Documented Da te Episodic/Chronic Acute myocardial infarction (3 sources) Myocardial infarction; Translations: [ST elevation (STEMI) myocardial infarction of unspecified site] Chronic Anxiety disorders (20 sources) Anxiety; Translations: [Anxiety disorder, unspecified] Onset: 06-25-2025 Chronic Blindness and vision defects (2 sources) Unqualified visual loss, both eyes; Translations: [Unqualified visual loss, both eyes] Chronic Blindness and vision defects (15 sources) Eye / vision finding; Translations: [Unspecified visual disturbance] Episodic Cardiac dysrhythmias (13 sources) Bradycardia; Translations: [Bradycardia, unspecified] 06-11-2022 Episodic Coagulation and hemorrhagic disorders (9 sources) Blood coagulation disorder; Translations: [Coagulation defect, unspecified] 12-30-2022 Chronic Coagulation and hemorrhagic disorders (3 sources) Spontaneous ecchymoses; Translations: [Spontaneous ecchymoses] Episodic Coronary atherosclerosis and other heart disease (7 sources) Coronary arteriosclerosis; Translations: [Atherosclerotic heart disease of [place] coronary artery without angina pectoris] 06-05-2023 Chronic Disorders of lipid metabolism (16 sources) Hyperlipidemia; Translations: [Hyperlipidemia, unspecified] Chronic Essential hypertension (20 sources) Hypertensive disorder; Translations: [Essential (primary) hypertension] Chronic Genitourinary symptoms and ill-defined conditions (18 sources) Dysuria; Translations: [Dysuria] Episodic Headache; including migraine (18 sources) Migraine; Translations: [Migraine, unspecified, not intractable, without status migrainosus] Chronic Headache; including migraine (20 sources) Headache; Translations: [Headache] 09-19-2020 Episodic Joint disorders and dislocations; trauma-related (8 sources) Derangement of right knee; Translations: [Unspecified internal derangement of right knee] 10-09-2023 Chronic Joint disorders and dislocations; trauma-related (6 sources) Tear of meniscus of knee; Translations: [Unspecified tear of unspecified meniscus, current injury, right knee, initial encounter] 10-10-2023 Episodic Malaise and fatigue (5 sources) Fatigue; Translations: [Other fatigue] 01-08-2024 Episodic Mood disorders (16 sources) Depressive disorder; Translations: [Depression] 02-08-2022 Chronic Nonspecific chest pain (11 sources) Chest wall pain; Translations: [Other chest pain] 06-05-2023 Episodic Other fractures (7 sources) Closed fracture of rib; Translations: [Fracture [...] injuries and conditions due to external causes (6 sources) Injury of finger of left hand; Translations: [Unspecified injury of left wrist, hand and finger(s), initial encounter] 11-09-2022 Episodic Other lower respiratory disease (13 sources) Cough; Translations: [Cough] 06-11-2022 Episodic Other nervous system disorders (14 sources) Paresthesia of right upper limb; Translations: [Paresthesia of skin] 04-07-2022 Episodic Other nervous system disorders (4 sources) Anesthesia of skin; Translations: [Disturbance of skin sensation] Episodic Other nervous system disorders (4 sources) Paresthesia of skin; Translations: [Disturbance of skin sensation] Episodic Other non-traumatic joint disorders (1 source) Ankle pain; Translations: [Pain in right ankle and joints of right foot] 07-11-2025 Episodic Other non-traumatic joint disorders (1 source) Pain in right ankle and joints of right foot; Translations: [Pain in right ankle and joints of right foot] Onset: 07-14-2025 Episodic Other nutritional; endocrine; and metabolic disorders (1 source) Insulin resistance; Translations: [Metabolic syndrome] Chronic Other skin disorders (14 sources) Easy bruising; Translations: [Other skin changes] 04-22-2022 Episodic Other skin disorders (8 sources) Epidermal cyst; Translations: [Sebaceous cyst] Episodic Other skin disorders (1 source) Other skin changes; Translations: [Other symptoms involving skin and integumentary tissues] Episodic Residual codes; unclassified (1 source) History of vaccination; Translations: [Personal history of other drug therapy] Episodic Residual codes; unclassified (16 sources) Insomnia; Translations: [Insomnia, unspecified] 02-08-2022 Episodic Residual codes; unclassified (1 source) Severe pain; Translations: [Pain, unspecified] 03-11-2024 Episodic Skin and subcutaneous tissue infections (20 sources) Abscess of perineum; Translations: [Cutaneous abscess of perineum] Onset: 06-11-2025 12-30-2022 Episodic Spondylosis; intervertebral disc disorders; other back problems (20 sources) Dorsalgia, unspecified; Translations: [Backache, unspecified] Episodic Substance-related disorders (18 sources) Polysubstance abuse ; Translations: [Other psychoactive substance abuse, uncomplicated] Onset: 02-28-2024 02-08-2022 Chronic Substance-related disorders (2 sources) Marijuana user; Translations: [Cannabis use, unspecified, uncomplicated] Episodic Thyroid disorders (16 sources) Subclinical hypothyroidism; Translations: [Other specified hypothyroidism] Chronic Past or Other Problems Problem Classification Problem Date Documented Da te Episodic/Chronic Coronary atherosclerosis and other heart disease (9 sources) Presence of coronary angioplasty implant and graft; Translations: [Percutaneous transluminal coronary angioplasty status] Onset: 02-07-2022 Episodic Results Test Name Value Interpretation Reference Range Facility Absolute lymphocyte countOrd ered By: Guille Guillermo on 07-11-2025 Lymphocytes Auto (Unsp spec) [#/Vol] 2.00 10*3/uL 0.83-4.51 [facility] Absolute neutrophil countOrd ered By: Guille Guillermo on 07-11-2025 Neutrophils (Bld) [#/Vol] 3.4 10*3/uL 2.0-7.7 [facility] Anion gap in Serum or Plasma Ordered By: Guille Guillermo on 07-11-2025 Anion gap [Moles/Vol] 10 mmol/L 5-15 [facility] Ankle min 3 Viewson 07-11-20 25 Ankle min 3 Views [facility] Imaging Services [address] [place], [place] [id number] Ankle min 3 Views MR#: [id number] Acct: [id number] Name: ELBA ONTIVEROS Rep #: [id number] : 1995 M 29 From: Anabell Oliva MD PCP: Dr. Ruby Carroll DO Status: REG ER Study: Ankle min 3 Views Date of Exam: 07/11/25 Exam# [id number] Ordering Dr: Guille Guillermo DO PROCEDURE: ANKLE MIN 3 VIEWS 07/11/2025 REASON FOR EXAM: INJURY/PAIN TECHNIQUE: Procedure Code: RADANK Modality: DX Procedure: ANKLE MIN 3 VIEWS Laterality: Right COMPARISON: None. FINDINGS: BONES: No acute fracture or focal osseous lesion. JOINTS: No dislocation. The joint spaces are normal. SOFT TISSUES: The soft tissues are unremarkable. RAD/Ankle min 3 Views IMPRESSION: No acute abnormality seen. Reading Location: [id number] CC: Dr. Guille Guillermo DO; Dr. Ruby Carroll DO [employer] Producer: Signed Normal [facility] Automated lymphocyte count a s percentage of total leukocytesOrdered By: Guille Guillermo on 07-11-2025 Lymphocytes/100 WBC Auto (Unsp spec) 31.0 % 19-41 [facility] BUN/creatinine ratioOrdered By: Guille Guillermo on 07-11-2025 Urea nitrogen/Creatinine [Mass ratio] 20.6 mg/mg High - [facility] Basic Metabolic Profile (BMP )on 07-11-2025 BUN/CRE 20.6 RATIO High - [facility] Comment on above: Performed By: #### L 501.6710, L500.2500, L101.9900, L501.1400, L100.0100 #### [facility] [address] [place], [address] Calcium [Mass/Vol] 9.2 mg/dL Normal 7.6-11.0 [facility] Comment on above: Performed By: #### L [id number], L500.2500, L101.9900, L501.1400, L100.0100 #### [facility] [address] [place], [address] Chloride [Moles/Vol] 101 mmol/L Normal 98-108 [facility] Comment on above: Performed By: #### L [id number], L500.2500, L101.9900, L501.1400, L100.0100 #### [facility] [address] [place], [address] CO2 [Moles/Vol] 25.9 mmol/L Normal 21.0-32.0 [facility] Comment on above: Performed By: #### L [id number], L500.2500, L101.9900, L501.1400, L100.0100 #### [facility] [address] [place], [address] Creatinine [Mass/Vol] 0.95 mg/dL Normal 0.70-1.20 [facility] Comment on above: Performed By: #### L [id number], L500.2500, L101.9900, L501.1400, L100.0100 #### [facility] [address] [place], [address] ECRCL 145.96 ml/min Normal 50-250 [facility] Comment on above: Performed By: #### L [id number], L500.2500, L101.9900, L501.1400, L100.0100 #### [facility] [address] [place], [address] GAP 10 Normal 5-15 [facility] Comment on above: Performed By: #### L 501.6710, L500.2500, L101.9900, L501.1400, L100.0100 #### [facility] [address] [place], [address] GFR/1.73 sq M.predicted among non-blacks MDRD (S/P/Bld) [Vol rate/Area] 111 mL/min/{1.73_m2} Normal >60 [facility] Comment on above: Result Comment: mL/m in/1.73m2 CKD-EPI Creatinine Equation (2020) Performed By: #### L 501.6710, L500.2500, L101.9900, L501.1400, L100.0100 #### [facility] [address] [place], [address] Glucose [Mass/Vol] 110 mg/dL High 70-99 [facility] Comment on above: Performed By: #### L [id number], L500.2500, L101.9900, L501.1400, L100.0100 #### [facility] [address] [place], [address] Potassium [Moles/Vol] 4.6 mmol/L Normal 3.3-5.1 [facility] Comment on above: Performed By: #### L 501.6710, L500.2500, L101.9900, L501.1400, L100.0100 #### [facility] [address] [place], [address] Sodium [Moles/Vol] 137 mmol/L Normal 133-145 [facility] Comment on above: Performed By: #### L [id number], L500.2500, L101.9900, L501.1400, L100.0100 #### [facility] [address] [place], [address] Urea nitrogen [Mass/Vol] 20 mg/dL High 4-19 [facility] Comment on above: Performed By: #### L [id number], L500.2500, L101.9900, L501.1400, L100.0100 #### [facility] [address] [place], [address] Basophil percentageOrdered B y: Guille Guillermo on 07-11-2025 Basophils/100 WBC (Bld) 1.2 % High 0-1 [facility] CBC W/Diff, Automatedon 06-30 Absolute Lymph 2.00 X10 3/uL Normal 0.83-4.51 [facility] Comment on above: Performed By: #### L [id number], L500.2500, L101.9900, L501.1400, L100.0100 #### [facility] [address] [place], [address] Absolute Neut 3.4 X10 3/uL Normal 2.0-7.7 [facility] Comment on above: Performed By: #### L [id number], L500.2500, L101.9900, L501.1400, L100.0100 #### [facility] [address] [place], [address] Basophils/100 WBC (Bld) 1.2 % High 0-1 [facility] Comment on above: Performed By: #### L [id number], L500.2500, L101.9900, L501.1400, L100.0100 #### [facility] [address] [place], [address] Eosinophils/100 WBC (Bld) 5.7 % High 0-5 [facility] Comment on above: Performed By: #### L 501.6710, L500.2500, L101.9900, L501.1400, L100.0100 #### [facility] [address] [place], [address] Erythrocyte distribution width (RBC) [Ratio] 13.0 % Normal 11.6-14.6 [facility] Comment on above: Performed By: #### L [id number], L500.2500, L101.9900, L501.1400, L100.0100 #### [facility] [address] [place], [address] Hematocrit (Bld) [Volume fraction] 38.2 % Low 40-54 [facility] Comment on above: Performed By: #### L [id number], L500.2500, L101.9900, L501.1400, L100.0100 #### [facility] [address] [place], [address] Hemoglobin (Bld) [Mass/Vol] 12.7 g/dL Low 13.0-16.5 [facility] Comment on above: Performed By: #### L [id number], L500.2500, L101.9900, L501.1400, L100.0100 #### [facility] [address] [place], [address] IG% 0.500 Normal 0.0-0.9 [facility] Comment on above: Result Comment: IG% - Immature Granulocytes (promyelocytes, myelocytes and metamyelocytes) > 1% indicates that a LEFT SHIFT is Present. Performed By: #### L 501.6710, L500.2500, L101.9900, L501.1400, L100.0100 #### [facility] [address] [place], [address] Lymphocytes/100 WBC (Bld) 31.0 % Normal 19-41 [facility] Comment on above: Performed By: #### L 501.6710, L500.2500, L101.9900, L501.1400, L100.0100 #### [facility] [address] [place], [address] MCH (RBC) [Entitic mass] 29.2 pg Normal 27.0-32.0 [facility] Comment on above: Performed By: #### L [id number], L500.2500, L101.9900, L501.1400, L100.0100 #### [facility] [address] [place], [address] MCHC (RBC) [Mass/Vol] 33.2 g/dL Normal 32-36 [facility] Comment on above: Performed By: #### L 501.6710, L500.2500, L101.9900, L501.1400, L100.0100 #### [facility] [address] [place], [address] MCV (RBC) [Entitic vol] 87.8 fL Normal 80-94 [facility] Comment on above: Performed By: #### L 501.6710, L500.2500, L101.9900, L501.1400, L100.0100 #### [facility] [address] [place], [address] Monocytes/100 WBC (Bld) 9.8 % Normal 0-10 [facility] Comment on above: Performed By: #### L 501.6710, L500.2500, L101.9900, L501.1400, L100.0100 #### [facility] [address] [place], [address] Neutrophils/100 WBC (Bld) 51.8 % Normal 47-70 [facility] Comment on above: Performed By: #### L 501.6710, L500.2500, L101.9900, L501.1400, L100.0100 #### [facility] [address] [place], [address] Nucleated RBC (Bld) [#/Vol] 0 10*3/uL Normal 0-5 [facility] Comment on above: Performed By: #### L 501.6710, L500.2500, L101.9900, L501.1400, L100.0100 #### [facility] [address] [place], [address] Platelet mean volume (Bld) [Entitic vol] 10.4 fL Normal 6.2-12.0 [facility] Comment on above: Performed By: #### L 501.6710, L500.2500, L101.9900, L501.1400, L100.0100 #### [facility] [address] [place], [address] Platelets (Bld) [#/Vol] 216 10*3/uL Normal 150-450 [facility] Comment on above: Performed By: #### L 501.6710, L500.2500, L101.9900, L501.1400, L100.0100 #### [facility] [address] [place], [address] RBC (Bld) [#/Vol] 4.35 10*6/uL Low 4.6-6.2 [facility] Comment on above: Performed By: #### L 501.6710, L500.2500, L101.9900, L501.1400, L100.0100 #### [facility] [address] [place], [address] RDW SD 42.0 fl Normal 35.1-43.9 [facility] Comment on above: Performed By: #### L 501.6710, L500.2500, L101.9900, L501.1400, L100.0100 #### [facility] [address] [place], [address] WBC (Bld) [#/Vol] 6.5 10*3/uL Normal 4.4-11.0 [facility] Comment on above: Performed By: #### L 501.6710, L500.2500, L101.9900, L501.1400, L100.0100 #### [facility] [address] [facility] [place], [address] CRPon 07-11-2025 C-REACTIVE PROT < 3.00 Normal 0.0-3.0 [facility] Comment on above: Performed By: #### L 501.6710, L500.2500, L101.9900, L501.1400, L100.0100 #### [facility] [address] [place], [address] Carbon dioxide, total [Moles /volume] in Central venous bloodOrdered By: Guille Guillermo on 07-11-2025 CO2 [Moles/Vol] 25.9 mmol/L 21.0-32.0 [facility] Chloride assayOrdered By: Lalo Guillermo on 07-11-2025 Chloride [Moles/Vol] 101 mmol/L 98-108 [facility] Emergency Department Summary on 07-11-2025 Emergency Department Summary [facility] Medical Records Department [address] [place] [address] Emergency Department Summary 07/11/25 MR#: [id number] Acct: [id number] Name: ELBA ONTIVEROS Rep #: [id number] : 1995 29 From: Guille Guillermo DO PCP: Dr. Ruby Carroll, DO Status:DEP ER Location: ED HPI History of Present Illness Chief Complaint: General Illness Informant: patient Onset/Context/Timing Onset: Days (2) Context: Gradual Onset Timing: Continuous Quality: Sharp Location: Right ankle Worsened by: Movement, walking Relieved by: Elevation of the ankle Narrative Narrative: Patient presents with right ankle pain that has been getting worse over the past 2 days. Patient states he had a recent incision and drainage of an abscess in his perineal area. Patient states that he finished a course of antibiotics for that. Patient states that after he finished the antibiotics, he started having some pain in his right lower leg and ankle. Patient states it is worse with movement and with weightbearing. Patient states it is better when he is able to elevate his right ankle. Patient admits to some numbness into his toes. Patient denies any fevers or chills. PFSH PFS Medical History Internal derangement of right knee Injury of left middle finger Neck pain Visual changes Migraine Hyperlipidemia Subclinical hypothyroidism Dysuria Easy bruising Paresthesia of right upper extremity HTN (hypertension) Insulin resistance Marijuana use ST elevation (STEMI) myocardial infarction Polysubstance abuse Insomnia Depression GERD (gastroesophageal reflux disease) Hypertension Anxiety and depression Alcohol abuse Home Medications ???Medication ???Instructions ???Recorded ???Last Taken [...] Rx mg-trimethoprim 160 mg tablet (Bactrim DS) naproxen 500 mg tablet 500 mg PO BID PRN #20 tabs 5 Unknown Rx Allergy/AdvReac Type Severity Reaction Status Date / Time Food Allergies: Uncoded Allergy Severe throat Verified 07/11/25 14:34 swelling Family History Father Hypertension Mother No [...] Constitutional Constitutional ED: Denies chills or fever(s) Eyes Eyes: Denies blurry vision or change in vision ENT ENT ED: Denies rhinorrhea or sore throat Cardiovascular Cardiovascular: Denies chest pain or palpitations Respiratory/Chest Respiratory/Chest: Denies cough or dyspnea Gastrointestinal Gastrointestinal: Denies nausea or vomiting Genitourinary Genitourinary ED: Denies dysuria or hematuria Musculoskeletal Musculoskeletal: Denies back pain or neck pain Integumentary Reports rash; Denies abscess Neurologic Neurologic: Denies headache(s) or weakness Allergic/Immunologic Allergic/Immunologic ED: Denies mouth swelling or urticaria EXAM Physical Exam Const Vital Signs: 07/11/25 14:34 07/11/25 14:37 07/11/25 16:00 Temperature 98.7 F 98.7 F Temperature Source Oral Oral Pulse Rate 78 78 Respiratory Rate 18 18 Respiratory Effort Normal Non-Labored (more content not included)... Normal [facility] Eosinophil percentageOrdered By: Guille Guillermo on 07-11-2025 Eosinophils/100 WBC (Bld) 5.7 % High 0-5 [facility] Erythrocyte Sed Rateon 07-11 SED RATE 7 mm/hr Normal 0-20 [facility] Comment on above: Performed By: #### L 501.6710, L500.2500, L101.9900, L501.1400, L100.0100 #### [facility] [address] [place], [address] Erythrocyte distribution wid th ratioOrdered By: Guille Guillermo on 07-11-2025 Erythrocyte distribution width (RBC) [Ratio] 13.0 % 11.6-14.6 [facility] Erythrocyte distribution wid th standard deviationOrdered By: Guille Guillermo on 07-11-2025 Erythrocyte distribution width (RBC) [Ratio] 42.0 fl 35.1-43.9 [facility] Erythrocyte sedimentation ra teOrdered By: Guille Guillermo on 07-11-2025 ESR (Bld) [Velocity] 7 mm/h 0-20 [facility] Glomerular filtration rate ( GFR) estimation/1.73 sq m using serum, plasma, or whole bOrdered By: Guille Guillermo on 07-11-2025 GFR/1.73 sq M.predicted among non-blacks MDRD (S/P/Bld) [Vol rate/Area] 111 mL/min/{1.73_m2} >60 [facility] Comment on above: mL/min/1.73m2 CKD-EP I Creatinine Equation (2020) Hematocrit Auto (Bld) [Volum e fraction]Ordered By: Guille Guillermo on 07-11-2025 Hematocrit (Bld) [Volume fraction] 38.2 % Low 40-54 [facility] Hemoglobin measurementOrdere d By: Guille Guillermo on 07-11-2025 Hemoglobin (Bld) [Mass/Vol] 12.7 g/dL Low 13.0-16.5 [facility] Immature granulocytes/100 WB C Auto (Bld)Ordered By: Guille Guillermo on 07-11-2025 Immature granulocytes/100 WBC (Bld) 0.500 % 0.0-0.9 [facility] Comment on above: IG% - Immature Granu locytes (promyelocytes, myelocytes and metamyelocytes) > 1% indicates that a LEFT SHIFT is Present. MCV (mean corpuscular volume ) determinationOrdered By: Guille Guillermo on 07-11-2025 MCV (RBC) [Entitic vol] 87.8 fL 80-94 [facility] Mean corpuscular hemoglobin (MCH) determinationOrdered By: Guille Guillermo on 07-11-2025 MCH (RBC) [Entitic mass] 29.2 pg 27.0-32.0 [facility] Mean corpuscular hemoglobin concentration (MCHC) determinationOrdered By: Guille Guillermo on 07-11-2025 MCHC (RBC) [Mass/Vol] 33.2 g/dL 32-36 [facility] Mean platelet volume determi nationOrdered By: Guille Guillermo on 07-11-2025 Platelet mean volume (Bld) [Entitic vol] 10.4 fL 6.2-12.0 [facility] Monocyte percentageOrdered B y: Guille Guillermo on 07-11-2025 Monocytes/100 WBC (Bld) 9.8 % 0-10 [facility] Neutrophil percentageOrdered By: Guille Guillermo on 07-11-2025 Neutrophils/100 WBC (Bld) 51.8 % 47-70 [facility] Nucleated red blood cell per centageOrdered By: Guille Guillermo on 07-11-2025 Nucleated RBC/100 WBC (Bld) [Ratio] 0 % 0-5 [facility] Platelet countOrdered By: Lalo Guillermo on 07-11-2025 Platelets (Bld) [#/Vol] 216 10*3/uL 150-450 [facility] Potassium measurement (mass/ volume)Ordered By: Guille Guillermo on 07-11-2025 Potassium (Unsp spec) [Mass/Vol] 4.6 mmol/L 3.3-5.1 [facility] RBC Auto (Bld) [#/Vol]Ordere d By: Guille Guillermo on 07-11-2025 RBC (Bld) [#/Vol] 4.35 10*6/uL Low 4.6-6.2 [facility] Serum creatinine measurement (mass/volume)Ordered By: Guille Guillermo on 07-11-2025 Creatinine [Mass/Vol] 0.95 mg/dL 0.70-1.20 [facility] Serum glucose measurement (m ass/volume)Ordered By: Guille Guillermo on 07-11-2025 Glucose [Mass/Vol] 110 mg/dL High 70-99 [facility] Serum or plasma C reactive p rotein measurement (mass/volume)Ordered By: Guille Guillermo on 07-11-2025 CRP [Mass/Vol] mg/L 0.0-3.0 [facility] Serum or plasma calcium daniel urement (mass/volume)Ordered By: Guille Guillermo on 07-11-2025 Calcium [Mass/Vol] 9.2 mg/dL 7.6-11.0 [facility] Serum or plasma urea nitroge n measurement (mass/volume)Ordered By: Guille Guillermo on 07-11-2025 Urea nitrogen [Mass/Vol] 20 mg/dL High 4-19 [facility] Serum or plasma uric acid me asurement (mass/volume)Ordered By: Guille Guillermo on 07-11-2025 Urate [Mass/Vol] 6.6 mg/dL 3.5-7.2 [facility] Comment on above: The drugs N-Acetylcy steine and Metamizole may falsely depress this assay. Sodium levelOrdered By: Guille Guillermo on 07-11-2025 Sodium [Moles/Vol] 137 mmol/L 133-145 [facility] Uric Acidon 07-11-2025 URIC 6.6 mg/dL Normal 3.5-7.2 [facility] Comment on above: Result Comment: The drugs N-Acetylcysteine and Metamizole may falsely depress this assay. Performed By: #### L 501.6710, L500.2500, L101.9900, L501.1400, L100.0100 #### [facility] [address] [place], [place], [address] Venous Duplex Imag/Limited/U nion 07-11-2025 Venous Duplex Imag/Limited/Uni [facility] Imaging Services [address] [place] [address] Venous Duplex Imag/Limited/Uni MR#: [id number] Acct: [id number] Name: ELBA ONTIVEROS Rep #: [id number] : 1995 M 29 From: Wilbert Gil MD PCP: Dr. Ruby Carroll DO Status: REG ER Study: Venous Duplex Imag/Limited/Uni Date of Exam: 0 07/11/25 Exam# [id number] Ordering Dr: Schwiger,Guille DO PROCEDURE: RIGHT LOWER EXTREMITY VENOUS DUPLEX IMAG/LIMITED/UNI 07/11/2025 REASON FOR EXAM: Right leg/ankle pain TECHNIQUE: Procedure Code: USVDUL Modality: US Procedure: VENOUS DUPLEX IMAG/LIMITED/UNI COMPARISON: None. FINDINGS: No intraluminal echogenicity to suggest the presence of a deep venous thrombosis. Appropriate respiratory variation, augmentation and venous compression is noted. US/Venous Duplex Imag/Limited/Uni IMPRESSION: No evidence for DVT in the right lower extremity. Reading Location: [facility] CC: Dr. Guille Guillermo DO; Dr. Ruby Carroll DO [employer]: Signed Normal [facility] White blood cell (WBC) count Ordered By: Guille Guillermo on 07-11-2025 WBC (Bld) [#/Vol] 6.5 10*3/uL 4.4-11.0 [facility] Anion gap in Serum or Plasma Ordered By: Delfino Calle on 06-19-2025 Anion gap [Moles/Vol] 13 mmol/L 5-15 [facility] BUN/creatinine ratioOrdered By: Delfino Calle on 06-19-2025 Urea nitrogen/Creatinine [Mass ratio] 21.3 mg/mg High 10-20 [facility] Bilirubin, totalOrdered By: Delfino Calle on 06-19-2025 Bilirubin [Mass/Vol] mg/dL 0.00-1.30 [facility] CBC-Complete Blood Cnt No Di ffon 06-19-2025 Erythrocyte distribution width (RBC) [Ratio] 14.1 % Normal 11.6-14.6 [facility] Comment on above: Performed By: #### L 501.6710, L500.2500, L101.9900, L501.1400, L100.0100 #### [facility] [address] [place], [address] Hematocrit (Bld) [Volume fraction] 39.5 % Low 40-54 [facility] Comment on above: Performed By: #### L 501.6710, L500.2500, L101.9900, L501.1400, L100.0100 #### [facility] [address] [place], [address] Hemoglobin (Bld) [Mass/Vol] 13.4 g/dL Normal 13.0-16.5 [facility] Comment on above: Performed By: #### L 501.6710, L500.2500, L101.9900, L501.1400, L100.0100 #### [facility] [address] [place], [address] MCH (RBC) [Entitic mass] 29.6 pg Normal 27.0-32.0 [facility] Comment on above: Performed By: #### L 501.6710, L500.2500, L101.9900, L501.1400, L100.0100 #### [facility] [address] [place], [address] MCHC (RBC) [Mass/Vol] 33.9 g/dL Normal 32-36 [facility] Comment on above: Performed By: #### L 501.6710, L500.2500, L101.9900, L501.1400, L100.0100 #### [facility] [address] [place], [address] MCV (RBC) [Entitic vol] 87.2 fL Normal 80-94 [facility] Comment on above: Performed By: #### L 501.6710, L500.2500, L101.9900, L501.1400, L100.0100 #### [facility] [address] [place], [address] Platelet mean volume (Bld) [Entitic vol] 10.3 fL Normal 6.2-12.0 [facility] Comment on above: Performed By: #### L 501.6710, L500.2500, L101.9900, L501.1400, L100.0100 #### [facility] [address] [place], [address] Platelets (Bld) [#/Vol] 262 10*3/uL Normal 150-450 [facility] Comment on above: Performed By: #### L 501.6710, L500.2500, L101.9900, L501.1400, L100.0100 #### [facility] [address] [place], [address] RBC (Bld) [#/Vol] 4.53 10*6/uL Low 4.6-6.2 [facility] Comment on above: Performed By: #### L 501.6710, L500.2500, L101.9900, L501.1400, L100.0100 #### [facility] [address] [place], [address] RDW SD 45.3 fl High 35.1-43.9 [facility] Comment on above: Performed By: #### L 501.6710, L500.2500, L101.9900, L501.1400, L100.0100 #### [facility] [address] [place], [address] WBC (Bld) [#/Vol] 8.0 10*3/uL Normal 4.4-11.0 [facility] Comment on above: Performed By: #### L 501.6710, L500.2500, L101.9900, L501.1400, L100.0100 #### [facility] [address] [place], [address] Carbon dioxide, total [Moles /volume] in Central venous bloodOrdered By: Delfino Escalona Pra on 06-19-2025 CO2 [Moles/Vol] 22.1 mmol/L 21.0-32.0 [facility] Chloride assayOrdered By: Alana Escalona Pra on 06-19-2025 Chloride [Moles/Vol] 103 mmol/L 98-108 [facility] Comprehensive Metabolic Prof ilon 06-19-2025 Albumin [Mass/Vol] 4.5 g/dL Normal 3.5-5.0 [facility] Comment on above: Performed By: #### L 501.6710, L500.2500, L101.9900, L501.1400, L100.0100 #### [facility] [address] [place], [address] Albumin/Globulin [Mass ratio] 2.0 {ratio} Normal 0.9-2.4 [facility] Comment on above: Performed By: #### L 501.6710, L500.2500, L101.9900, L501.1400, L100.0100 #### [facility] [address] [place], [address] ALK PHOS 66 U/L Normal 40-129 [facility] Comment on above: Performed By: #### L 501.6710, L500.2500, L101.9900, L501.1400, L100.0100 #### [facility] [address] [place], [address] ALT [Catalytic activity/Vol] 52 U/L High <=46 [facility] Comment on above: Performed By: #### L 501.6710, L500.2500, L101.9900, L501.1400, L100.0100 #### [facility] [address] [place], [address] AST [Catalytic activity/Vol] 28 U/L Normal <=37 [facility] Comment on above: Performed By: #### L 501.6710, L500.2500, L101.9900, L501.1400, L100.0100 #### [facility] [address] [place], [address] BUN/CRE 21.3 RATIO High 10-20 [facility] Comment on above: Performed By: #### L 501.6710, L500.2500, L101.9900, L501.1400, L100.0100 #### [facility] [address] [place], [address] Calcium [Mass/Vol] 9.2 mg/dL Normal 7.6-11.0 [facility] Comment on above: Performed By: #### L 501.6710, L500.2500, L101.9900, L501.1400, L100.0100 #### [facility] [address] [place], [address] Chloride [Moles/Vol] 103 mmol/L Normal 98-108 [facility] Comment on above: Performed By: #### L 501.6710, L500.2500, L101.9900, L501.1400, L100.0100 #### [facility] [address] [place], [address] CO2 [Moles/Vol] 22.1 mmol/L Normal 21.0-32.0 [facility] Comment on above: Performed By: #### L 501.6710, L500.2500, L101.9900, L501.1400, L100.0100 #### [facility] [address] [place], [address] Creatinine [Mass/Vol] 0.98 mg/dL Normal 0.70-1.20 [facility] Comment on above: Performed By: #### L 501.6710, L500.2500, L101.9900, L501.1400, L100.0100 #### [facility] [address] [place], [address] GAP 13 Normal 5-15 [facility] Comment on above: Performed By: #### L 501.6710, L500.2500, L101.9900, L501.1400, L100.0100 #### [facility] [address] [place], [address] GFR/1.73 sq M.predicted among non-blacks MDRD (S/P/Bld) [Vol rate/Area] 107 mL/min/{1.73_m2} Normal >60 [facility] Comment on above: Result Comment: mL/m in/1.73m2 CKD-EPI Creatinine Equation (2020) Performed By: #### L 501.6710, L500.2500, L101.9900, L501.1400, L100.0100 #### [facility] [address] [place], [address] Globulin (S) [Mass/Vol] 2.3 g/dL Normal 2.2-4.2 [facility] Comment on above: Performed By: #### L 501.6710, L500.2500, L101.9900, L501.1400, L100.0100 #### [facility] [address] [place], [address] Glucose [Mass/Vol] 96 mg/dL Normal 70-99 [facility] Comment on above: Performed By: #### L 501.6710, L500.2500, L101.9900, L501.1400, L100.0100 #### [facility] [address] [place], [address] Potassium [Moles/Vol] 4.4 mmol/L Normal 3.3-5.1 [facility] Comment on above: Performed By: #### L 501.6710, L500.2500, L101.9900, L501.1400, L100.0100 #### [facility] [address] [place], [address] Sodium [Moles/Vol] 138 mmol/L Normal 133-145 [facility] Comment on above: Performed By: #### L 501.6710, L500.2500, L101.9900, L501.1400, L100.0100 #### [facility] [address] [place], [address] T BILI < 0.15 Normal 0.00-1.30 [facility] Comment on above: Performed By: #### L 501.6710, L500.2500, L101.9900, L501.1400, L100.0100 #### [facility] [address] [place], [address] T PROT 6.8 g/dL Normal 5.9-8.4 [facility] Comment on above: Performed By: #### L 501.6710, L500.2500, L101.9900, L501.1400, L100.0100 #### [facility] [address] [place], [address] Urea nitrogen [Mass/Vol] 21 mg/dL High 4-19 [facility] Comment on above: Performed By: #### L 501.6710, L500.2500, L101.9900, L501.1400, L100.0100 #### [facility] [address] [place], [address] Erythrocyte distribution wid th ratioOrdered By: Delfino Escalona Pra on 06-19-2025 Erythrocyte distribution width (RBC) [Ratio] 14.1 % 11.6-14.6 [facility] Erythrocyte distribution wid th standard deviationOrdered By: Delfino Escalona Pra on 06-19-2025 Erythrocyte distribution width (RBC) [Ratio] 45.3 fl High 35.1-43.9 [facility] Ferritinon 06-19-2025 Ferritin [Mass/Vol] 185 ng/mL Normal 37-417 [facility] Comment on above: Performed By: #### L 501.6710, L500.2500, L101.9900, L501.1400, L100.0100 #### [facility] [address] [place], [address] Glomerular filtration rate ( GFR) estimation/1.73 sq m using serum, plasma, or whole bOrdered By: Delfino Escalona Pra on 06-19-2025 GFR/1.73 sq M.predicted among non-blacks MDRD (S/P/Bld) [Vol rate/Area] 107 mL/min/{1.73_m2} >60 [facility] Comment on above: mL/min/1.73m2 CKD-EP I Creatinine Equation (2020) Hematocrit Auto (Bld) [Volum e fraction]Ordered By: Delfino Calle on 06-19-2025 Hematocrit (Bld) [Volume fraction] 39.5 % Low 40-54 [facility] Hemoglobin A1con 06-19-2025 HbA1c (Bld) [Mass fraction] 5.8 % High <=5.6 [facility] Comment on above: Result Comment: Norm al < 5.7 % Prediabetic 5.7 - 6.4 % Diabetic >or= 6.5 % Please note range changes. Performed By: #### L 501.6710, L500.2500, L101.9900, L501.1400, L100.0100 #### [facility] [address] [place], [place], [id number] Hemoglobin A1c percentageOrd ered By: Delfino Calle on 06-19-2025 HbA1c (Bld) [Mass fraction] 5.8 % High <5.7 [facility] Comment on above: Normal < 5.7 % Predi abetic 5.7 - 6.4 % Diabetic >or= 6.5 % Please note range changes. Hemoglobin measurementOrdere d By: Delfino Calle on 06-19-2025 Hemoglobin (Bld) [Mass/Vol] 13.4 g/dL 13.0-16.5 [facility] Iron measurement (mass/mass) Ordered By: Delfino Calle on 06-19-2025 Iron (Unsp spec) [Mass/Mass] 96 ug/dL 65-175 [facility] Iron+Iron Binding Capacityon 06-19-2025 Iron [Mass/Vol] 96 ug/dL Normal 65-175 [facility] Comment on above: Performed By: #### L 100.0500, L503.6550, L501.9520, L500.4050, L503.6030, L506.1001, L501.9985 #### [facility] [address] [place], [address] IRON SATURATION 28.0 Normal 9-55 [facility] Comment on above: Performed By: #### L 100.0500, L503.6550, L501.9520, L500.4050, L503.6030, L506.1001, L501.9985 #### [facility] [address] [place], [address] TIBC 345 ug/dL Normal 250-450 [facility] Comment on above: Performed By: #### L 100.0500, L503.6550, L501.9520, L500.4050, L503.6030, L506.1001, L501.9985 #### [facility] [address] [place], [address] UIBC 249 ug/dL Normal 228-428 [facility] Comment on above: Performed By: #### L 100.0500, L503.6550, L501.9520, L500.4050, L503.6030, L506.1001, L501.9985 #### [facility] [address] [place], [address] Laboratory - Chemistry and C hemistry - challengeOrdered By: Delfino Calle on 06-19-2025 AST [Catalytic activity/Vol] 28 U/L <38 [facility] MCV (mean corpuscular volume ) determinationOrdered By: Delfino Calle on 06-19-2025 MCV (RBC) [Entitic vol] 87.2 fL 80-94 [facility] Mean corpuscular hemoglobin (MCH) determinationOrdered By: Delfino Calle on 06-19-2025 MCH (RBC) [Entitic mass] 29.6 pg 27.0-32.0 [facility] Mean corpuscular hemoglobin concentration (MCHC) determinationOrdered By: Delfino Calle on 06-19-2025 MCHC (RBC) [Mass/Vol] 33.9 g/dL 32-36 [facility] Mean platelet volume determi nationOrdered By: Delfino Calle on 06-19-2025 Platelet mean volume (Bld) [Entitic vol] 10.3 fL 6.2-12.0 [facility] No Panel InformationOrdered By: Delfino Calle on 06-19-2025 Unsaturated Iron Binding Capacity 249 ug/dL 228-428 [facility] Platelet countOrdered By: Alana Calle on 06-19-2025 Platelets (Bld) [#/Vol] 262 10*3/uL 150-450 [facility] Potassium measurement (mass/ volume)Ordered By: Delfino Calle on 06-19-2025 Potassium (Unsp spec) [Mass/Vol] 4.4 mmol/L 3.3-5.1 [facility] RBC Auto (Bld) [#/Vol]Ordere d By: Delfino Calle on 06-19-2025 RBC (Bld) [#/Vol] 4.53 10*6/uL Low 4.6-6.2 [facility] Serum creatinine measurement (mass/volume)Ordered By: Delfino Calle on 06-19-2025 Creatinine [Mass/Vol] 0.98 mg/dL 0.70-1.20 [facility] Serum globulin measurementOr dered By: Delfino Calle on 06-19-2025 Globulin (S) [Mass/Vol] 2.3 g/dL 2.2-4.2 [facility] Serum glucose measurement (m ass/volume)Ordered By: Delfino Calle on 06-19-2025 Glucose [Mass/Vol] 96 mg/dL 70-99 [facility] Serum or plasma alanine charles otransferase (ALT) measurementOrdered By: Delfino Calle on 06-19-2025 ALT [Catalytic activity/Vol] 52 U/L High <47 [facility] Serum or plasma albumin daniel urement (mass/volume)Ordered By: Delfino Calle on 06-19-2025 Albumin [Mass/Vol] 4.5 g/dL 3.5-5.0 [facility] Serum or plasma albumin/glob ulin mass ratioOrdered By: Delfino Calle on 06-19-2025 Albumin/Globulin [Mass ratio] 2.0 {ratio} 0.9-2.4 [facility] Serum or plasma alkaline shiloh sphatase measurementOrdered By: Delfino Calle on 06-19-2025 ALP [Catalytic activity/Vol] 66 U/L 40-129 [facility] Serum or plasma calcium daniel urement (mass/volume)Ordered By: Delfino Calle on 06-19-2025 Calcium [Mass/Vol] 9.2 mg/dL 7.6-11.0 [facility] Serum or plasma ferritin yue surement (mass/volume)Ordered By: Delfino Calle on 06-19-2025 Ferritin [Mass/Vol] 185 ng/mL 37-417 [facility] Serum or plasma iron saturat ion measurement (mass fraction)Ordered By: Delfino Calle on 06-19-2025 Iron saturation [Mass fraction] 28.0 % 9-55 [facility] Serum or plasma urea nitroge n measurement (mass/volume)Ordered By: Delfino Calle on 06-19-2025 Urea nitrogen [Mass/Vol] 21 mg/dL High 4-19 [facility] Sodium levelOrdered By: Delfino Calle on 06-19-2025 Sodium [Moles/Vol] 138 mmol/L 133-145 [facility] TSH DL <= 0.005 mIU/L QnOrde red By: Delfino Calle on 06-19-2025 TSH Qn 2.040 uIU/mL 0.300-4.200 [facility] Thyroid Stim Hormone (TSH)on 06-19-2025 TSH 2.040 uIU/mL Normal 0.300-4.200 [facility] Comment on above: Performed By: #### L 501.6710, L500.2500, L101.9900, L501.1400, L100.0100 #### [facility] [address] [place] [address], [id number] Total proteinOrdered By: Brenda Calle on 06-19-2025 Protein [Mass/Vol] 6.8 g/dL 5.9-8.4 [facility] Vitamin D,25 Hydroxyon 06-19 Vitamin D 25-OH 41.5 ng/mL Normal 30-100 [facility] Comment on above: Result Comment: Meseret min D Status Deficiency: <20 ng/mL (50nmol/L) Insufficiency: 20-30 ng/mL (50-75 nmol/L) Sufficiency: 30-100 ng/mL (75-250 nmol/L) Toxicity: >100 ng/mL (>250 nmol/L) Performed By: #### L 501.6710, L500.2500, L101.9900, L501.1400, L100.0100 #### [facility] [address] [place], [address] White blood cell (WBC) count Ordered By: Delfino Calle on 06-19-2025 WBC (Bld) [#/Vol] 8.0 10*3/uL 4.4-11.0 [facility] Emergency Department Summary on 06-06-2025 Emergency Department Summary [facility] Medical Records Department [address] [place] [address] Emergency Department Summary 06/06/25 MR#: [id number] Acct: [id number] Name: ELBA ONTIVEROS Rep #: [id number] : 1995 29 From: Kedar Davidson MD [...] but is here to have it drained. [facility] Medical History Alcohol abuse Anxiety and depression [...] 99 100 (more content not included)... Normal [facility] .Auto Diffon 12-17-2024 Basophil, Absolute 0.1 10 3/mcL Normal 0.0-0.3 [facility] Comment on above: Performed By: #### G GRANT ANGEL, ANEU, ADIFF, LAC, CBC, CMP #### [facility] [place] [address] [place], [place] [address] Basophils/100 WBC (Bld) 0.8 % Normal 0.0-2.5 [facility] Comment on above: Performed By: #### G GRANT ANGEL, ANEU, ADIFF, LAC, CBC, CMP #### [facility] [place] [address] [place], [place] [address] Eosinophil, Absolute 0.5 10 3/mcL Normal 0.0-0.7 [facility] Comment on above: Performed By: #### G GRANT ANGEL, ANEU, ADIFF, LAC, CBC, CMP #### [facility] [place] [address] [place], [place] [address] Eosinophils/100 WBC (Bld) 4.4 % Normal 0.0-6.0 [facility] Comment on above: Performed By: #### G , GRANT, ANEU, ADIFF, LAC, CBC, CMP #### [facility] [place] [address] [place], [place] [address] Lymphocyte, Absolute 2.6 10 3/mcL Normal 0.9-4.3 [facility] Comment on above: Performed By: #### G , GRANT, ANEU, ADIFF, LAC, CBC, CMP #### [facility] [place] [address] [place], [place] [address] Lymphocytes/100 WBC (Bld) 25.0 % Normal 20.0-40.0 [facility] Comment on above: Performed By: #### G , GRANT, ANEU, ADIFF, LAC, CBC, CMP #### [facility] [place] [address] [place], [place] [address] Monocyte, Absolute 0.8 10 3/mcL Normal 0.1-1.4 [facility] Comment on above: Performed By: #### G , GRANT, ANEU, ADIFF, LAC, CBC, CMP #### [facility] [address] [place], [place] [address] Monocytes/100 WBC (Bld) 7.7 % Normal 2.0-13.0 [facility] Comment on above: Performed By: #### G , GRANT, ANEU, ADIFF, LAC, CBC, CMP #### [facility] [place] [address] [place], [place] [address] Neutrophils/100 WBC (Bld) 62.1 % Normal 50.0-75.0 [facility] Comment on above: Performed By: #### G , GRANT, ANEU, ADIFF, LAC, CBC, CMP #### [facility] [place] [address] [place], [place] [address] .GFRon 12-17-2024 Estimated Glomerular Filtration Rate 108 [...] ANEU, ADIFF, LAC, CBC, CMP #### [facility] [place] [address] [place], [place] [address] .MDWon 12-17-2024 Monocyte Distribution Width 18.77 Normal 0.00-20.00 [facility] Comment on above: Result Comment: For ED adult patients suspected of sepsis, MDW<=20.0 does not rule out sepsis or risk of sepsis Performed By: #### G GRANT ANGEL, ANEU, ADIFF, LAC, CBC, CMP #### [facility] [place] [address] [place] [id number] .NEUABSon 12-17-2024 Neutrophil, Absolute 6.4 10 3/mcL Normal 2.3-8.1 [facility] Comment on above: Performed By: #### G GRANT ANGEL, ANEU, ADIFF, LAC, CBC, CMP #### [facility] [place] [address] [place] [id number] CBCon 12-17-2024 Erythrocyte distribution width (RBC) [Ratio] 13.9 % Normal 11.5-15.5 [facility] Comment on above: Performed By: #### G GRANT ANGEL, ANEU, ADIFF, LAC, CBC, CMP #### [facility] [place] [address] [place] [phone] Hematocrit (Bld) [Volume fraction] 41.2 % Normal 40.0-52.0 [facility] Comment on above: Performed By: #### G GRANT ANGEL, ANEU, ADIFF, LAC, CBC, CMP #### [facility] [place] [address] [place], [place] [address] Hgb 13.5 G/dL Normal 13.0-17.5 [facility] Comment on above: Performed By: #### G GRANT ANGEL, ANEU, ADIFF, LAC, CBC, CMP #### [facility] [address] [place], [place] [address] MCH (RBC) [Entitic mass] 28.8 pg Normal 27.0-33.0 [facility] Comment on above: Performed By: #### G GRANT ANGEL, ANEU, ADIFF, LAC, CBC, CMP #### [facility] [place] [address] [place], [place] [address] MCHC 32.7 G/dL Normal 32.0-36.0 [facility] Comment on above: Performed By: #### G GRANT ANGEL, ANEU, ADIFF, LAC, CBC, CMP #### [facility] [address] [place], [place] [address] MCV (RBC) [Entitic vol] 88.3 fL Normal 81.0-100.0 [facility] Comment on above: Performed By: #### G GRANT ANGEL, ANEU, ADIFF, LAC, CBC, CMP #### [facility] [address] [place], [place] [address] Platelet 236 10 3/mcL Normal 150-450 [facility] Comment on above: Performed By: #### G GRANT ANGEL, ANEU, ADIFF, LAC, CBC, CMP #### [facility] [address] [place], [place] [address] Platelet mean volume (Bld) [Entitic vol] 8.5 fL Normal 6.4-10.5 [facility] Comment on above: Performed By: #### G GRANT ANGEL, ANEU, ADIFF, LAC, CBC, CMP #### [facility] [place] [address] [place], [place] [address] RBC 4.66 10 6/mcL Normal 4.50-6.00 [facility] Comment on above: Performed By: #### G GRANT ANGEL, ANEU, ADIFF, LAC, CBC, CMP #### [facility] [address] [place], [place] [address] WBC 10.4 10 3/mcL Normal 4.5-10.8 [facility] Comment on above: Performed By: #### G GRANT ANGEL, ANEU, ADIFF, LAC, CBC, CMP #### [facility] [address] [place], [place] [address] CMPon 12-17-2024 Albumin Level 3.7 G/dL Normal 3.5-5.0 [facility] Comment on above: Performed By: #### G , GRANT, ANEU, ADIFF, LAC, CBC, CMP #### [facility] [address] [place], [place] [address] Albumin/Globulin [Mass ratio] 1.1 {ratio} Normal 1.1-2.5 [facility] Comment on above: Performed By: #### G GRANT ANGEL, ANEU, ADIFF, LAC, CBC, CMP #### [facility] [address] [place], [place] [address] ALP [Catalytic activity/Vol] 75 U/L Normal 40-135 [facility] Comment on above: Performed By: #### G GRANT ANGEL, ANEU, ADIFF, LAC, CBC, CMP #### [facility] [place] [address] [place], [place] [address] ALT [Catalytic activity/Vol] 27 U/L Normal 16-63 [facility] Comment on above: Performed By: #### G GRANT ANGEL, ANEU, ADIFF, LAC, CBC, CMP #### [facility] [place] [address] [place], [place] [address] AST [Catalytic activity/Vol] 13 U/L Normal 10-40 [facility] Comment on above: Performed By: #### G GRANT ANGEL, ANEU, ADIFF, LAC, CBC, CMP #### [facility] [place] [address] [place], [place] [address] Bili Total 0.3 mg/dL Normal 0.2-1.0 [facility] Comment on above: Result Comment: Use of this assay is not recommended for patients undergoing treatment with eltrombopag due to the potential for falsely elevated results. Performed By: #### G , GRANT, ANEU, ADIFF, LAC, CBC, CMP #### [facility] [address] [place], [place] [address] BUN/Creatinine Ratio 13 ratio Normal 7-27 [facility] Comment on above: Performed By: #### G , GRANT, ANEU, ADIFF, LAC, CBC, CMP #### [facility] [address] [place], [place] [address] Calcium [Mass/Vol] 9.0 mg/dL Normal 8.4-10.2 [facility] Comment on above: Performed By: #### G , GRANT, ANEU, ADIFF, LAC, CBC, CMP #### [facility] [address] [place], [place] [address] Chloride [Moles/Vol] 104 mmol/L Normal 98-107 [facility] Comment on above: Performed By: #### G , GRANT, ANEU, ADIFF, LAC, CBC, CMP #### [facility] [address] [place], [place] [address] CO2 [Moles/Vol] 31 mmol/L High 22-29 [facility] Comment on above: Performed By: #### G , GRANT, ANEU, ADIFF, LAC, CBC, CMP #### [facility] [place] [address] [place], [place] [address] Creatinine [Mass/Vol] 0.97 mg/dL Normal 0.70-1.30 [facility] Comment on above: Result Comment: Test ing performed on Siemens Dimension EXL analyzer using a modified kinetic Reggie technique. Performed By: #### G , GRANT, ANEU, ADIFF, LAC, CBC, CMP #### [facility] [address] [place], [place] [address] Electrolyte Balance 8.0 mEq/L Normal 4.0-15.0 [facility] Comment on above: Performed By: #### G , GRANT, ANEU, ADIFF, LAC, CBC, CMP #### [facility] [address] [place], [place] [address] Globulin 3.5 G/dL Normal 1.5-3.8 [facility] Comment on above: Performed By: #### G , GRANT, ANEU, ADIFF, LAC, CBC, CMP #### [facility] [address] [place], [place] [address] Glucose [Mass/Vol] 106 mg/dL High 70-105 [facility] Comment on above: Performed By: #### G , GRANT, ANEU, ADIFF, LAC, CBC, CMP #### [facility] [address] [place], [place] [address] Potassium [Moles/Vol] 4.2 mmol/L Normal 3.5-5.1 [facility] Comment on above: Performed By: #### G , GRANT, ANEU, ADIFF, LAC, CBC, CMP #### [facility] [address] [place], [place] [address] Sodium [Moles/Vol] 143 mmol/L Normal 136-145 [facility] Comment on above: Performed By: #### G , GRANT, ANEU, ADIFF, LAC, CBC, CMP #### [facility] [address] [place], [place] [address] Total Protein 7.2 G/dL Normal 6.4-8.2 [facility] Comment on above: Performed By: #### G GRANT ANGEL, ANEU, ADIFF, LAC, CBC, CMP #### [facility] [address] [place], [place] [address] Urea nitrogen [Mass/Vol] 13 mg/dL Normal 7-18 [facility] Comment on above: Performed By: #### G GRANT ANGEL, ANEU, ADIFF, LAC, CBC, CMP #### [facility] [address] [place], [place] [address] [facility] W/ IV CONTRAST ONLY [...] ANEU, ADIFF, LAC, CBC, CMP #### [facility] [place] [address] [place], [place] [address] UAon 12-17-2024 Color (U) Yellow Normal [facility] Comment on above: Performed By: #### U A #### [facility] [place] [address] [place], [place] [address] Glucose (U) [Mass/Vol] Negative Normal Negative [facility] Comment on above: Performed By: #### U A #### [facility] [place] [address] [facility] [place] [address] Ketones Ql (U) Negative Normal Neg-Trace [facility] Comment on above: Performed By: #### U A #### [facility] [place] [address] [facility] [place] [phone] UA Appear Clear Normal [facility] Comment on above: Performed By: #### U A #### [facility] [place] [address] [facility] [place] [phone] UA Blood Trace Normal Neg-Trace [facility] Comment on above: Performed By: #### U A #### [facility] [place] [address] [facility], [place] [address] UA Leuk Est Negative Normal Negative [facility] Comment on above: Performed By: #### U A #### [facility] [place] [address] [facility] [address] UA Nitrite Negative Normal Negative [facility] Comment on above: Performed By: #### U A #### [facility] [place] [address] [place] [address] UA pH 5.5 Normal 5.0 - 8.0 [facility] Comment on above: Performed By: #### U A #### [facility] [place] [address] [place] [address] UA Protein Negative Normal Negative [facility] Comment on above: Performed By: #### U A #### [facility] [place] [address] [facility] [place] [address] UA Spec Grav 1.025 Normal [facility] Comment on above: Performed By: #### U A #### [facility] [place] [address] [facility] [place] [id number] UA Specimen Type Void Normal [facility] Comment on above: Performed By: #### U A #### [facility] [place] [address] [facility] [place] [id number] UA Urobilinogen 0.2 E.U./dL Normal [facility] Comment on above: Performed By: #### U A #### [facility] [place] [address] [place], [place] [address] Urobilinogen (U) [Mass/Vol] Negative Normal Neg-Trace [facility] Comment on above: Performed By: #### U A #### [facility] [place] [address] [place], [place] [address] CNOVon 03-11-2024 CNOV Office Visit (UCWSTR ) ELBA ONTIVEROS ([id number]) 1995 M Date Time Provider Department 03/11/24 9:15 AM RIZWANA FREEMAN [facility] During your visit today, we recorded the following information about you: Rizwana Freeman APRN.ELECTRICAL SERVICE TECHNICIAN 03/11/2024 9:09 AM Signed Patient triaged at [facility]. Here today with severe perineal pain. Patient in moderate to severe visible distress, unable to sit still or sit. I will refer to ER. Allergies As of Date: 03/11/2024 (No Known Allergies) Date Reviewed: 09/16/2021 Reviewed by: Radha Simon (Senior Financial Analyst) - Fully Assessed Primary Visit Diagnosis:Severe pain [R52] Prescriptions as of 03/11/2024 - busPIRone (BUSPAR) 7.5 mg tablet - lisinopril-hydroCHLOROt hiazide (PRINZIDE, ZESTORETIC) 20-25 mg per tablet - QUEtiapine (SEROQUEL) 50 mg tablet - sertraline (ZOLOFT) 100 mg tablet - albuterol HFA (PROVENTIL HFA, VENTOLIN HFA) 90 mcg/actuation inhaler Inhale 2 Puffs as instructed every 4 hours as needed for wheezing/shortness of breath. Problem List As Of Date: 03/11/2024 (None) Encounter Status:Closed by RIZWANA FREEMAN on 03/11/[address] [facility] CBC WITH AUTO DIFFERENTIALon 02-28-2024 AUTO NRBC 0.0 % Normal [facility] Comment on above: Performed By: #### L [id number] #### LAB [address] [address] Rizwana Sierra M.D. [id number] AUTO NRBC ABS COUNT 0.00 K/mcL Normal 0.00-0.00 [facility] Comment on above: Performed By: #### L [id number] #### [facility] [address] [place] [address] Rizwana Sierra M.D. [id number] BASOPHILS ABSOLUTE COUNT 0.05 K/mcL Normal 0.00-0.30 [facility] Comment on above: Performed By: #### L [id number] #### [facility] [address] [place] [address] Rizwana Sierra M.D. [id number] Basophils/100 WBC (Bld) 0.6 % Normal [facility] Comment on above: Performed By: #### L [id number] #### [facility] [address] [place] [address] Rizwana Sierra M.D. [id number] Eosinophils (Bld) [#/Vol] 0.71 10*3/uL High 0.00-0.50 [facility] Comment on above: Performed By: #### L [id number] #### LAB [address] [place] [address] Rizwana Sierra M.D. [id number] Eosinophils/100 WBC (Bld) 8.5 % Normal [facility] Comment on above: Performed By: #### L [id number] #### [facility] [address] [place] [address] Rizwana Sierra M.D. [id number] Erythrocyte distribution width (RBC) [Ratio] 13.9 % Normal 11.6-14.8 [facility] Comment on above: Performed By: #### L [id number] #### [facility] [address] [place] [address] Rizwana Sierra M.D. [id number] Hematocrit (Bld) [Volume fraction] 38.6 % Low 41.0-53.0 [facility] Comment on above: Performed By: #### L [id number] #### [facility] [address] [place] [address] Rizwana Sierra M.D. [id number] Hemoglobin (Bld) [Mass/Vol] 12.5 g/dL Low 13.5-17.5 [facility] Comment on above: Performed By: #### L [id number] #### [facility] [address] [place] [address] Rizwana Sierra M.D. [id number] IG ABSOLUTE 0.02 K/mcL Normal 0.00-0.30 [facility] Comment on above: Performed By: #### L [id number] #### [facility] [address] [place] [address] Rizwana Sierra M.D. [id number] IG PERCENT 0.20 % Normal [facility] Comment on above: Result Comment: The IG parameter is the percentage of metamyelocytes, myelocytes and promyelocytes. An immature granulocyte count (IG) of 1% or more suggests the possibility of infection, an IG count of 3% is very likely related to an infection. Performed By: #### L [id number] #### [facility] [address] [place] [address] Rizwana Sierra M.D. [id number] Lymphocytes (Bld) [#/Vol] 2.09 10*3/uL Normal 0.90-4.00 [facility] Comment on above: Performed By: #### L [id number] #### [facility] [address] [place] [address] Rizwana Sierra M.D. [id number] Lymphocytes/100 WBC (Bld) 25.1 % Normal [facility] Comment on above: Performed By: #### L [id number] #### [facility] [address] [place] [address] Rizwana Sierra M.D. [id number] MCH (RBC) [Entitic mass] 28.9 pg Normal 26.0-34.0 [facility] Comment on above: Performed By: #### L [id number] #### [facility] [address] [place] [address] Rizwana Sierra M.D. [id number] MCV (RBC) [Entitic vol] 89.1 fL Normal 80.0-100.0 [facility] Comment on above: Performed By: #### L [id number] #### LAB [address] [place] [address] Rizwana Sierra M.D. [id number] MEAN CORPUSCULAR HEMOGLOBIN CONC 32.4 g/dL Normal 31.0-37.0 [facility] Comment on above: Performed By: #### L [id number] #### [facility] [address] [place] [address] Rizwana Sierra M.D. [id number] Monocytes (Bld) [#/Vol] 0.43 10*3/uL Normal 0.30-0.90 [facility] Comment on above: Performed By: #### L [id number] #### [facility] [address] [place] [address] Rizwana Sierra M.D. [id number] Monocytes/100 WBC (Bld) 5.2 % Normal [facility] Comment on above: Performed By: #### L [id number] #### [facility] [address] [place] [address] Rizwana Sierra M.D. [id number] NEUTROPHILS ABSOLUTE COUNT 5.02 K/mcL Normal 1.70-7.00 [facility] Comment on above: Performed By: #### L [id number] #### [facility] [address] [place] [address] Rizwana Sierra M.D. [id number] Neutrophils/100 WBC (Bld) 60.4 % Normal [facility] Comment on above: Performed By: #### L [id number] #### [facility] [address] [place] [address] Rizwana Sierra M.D. [id number] Platelet mean volume (Bld) [Entitic vol] 11.3 fL Normal 9.4-12.4 [facility] Comment on above: Performed By: #### L [id number] #### [facility] [address] [place] [address] Rizwana Sierra M.D. [id number] Platelets (Bld) [#/Vol] 202 10*3/uL Normal 150-400 [facility] Comment on above: Performed By: #### L [id number] #### [facility] [address] [place] [address] Rizwana Sierra M.D. [id number] RBC (Bld) [#/Vol] 4.33 10*6/uL Low 4.50-5.90 [facility] Comment on above: Performed By: #### L [id number] #### [facility] [address] [place] [address] Rizwana Sierra M.D. [id number] WBC (Bld) [#/Vol] 8.32 10*3/uL Normal 4.50-11.00 [facility] Comment on above: Performed By: #### L [id number] #### [facility] [address] [place] [address] Rizwana Sierra M.D. [id number] COMPREHENSIVE METABOLIC PANE Shyam 02-28-2024 Albumin [Mass/Vol] 3.9 g/dL Normal 3.2-5.2 [facility] Comment on above: Order Comment: [facility] Services has implemented the eGFR calculation approach that does not have a coefficient for race that conforms to the NKF-ASN Task Force Recommendations. Performed By: #### [id number] #### [facility] [address] [place] [address] Rizwana Sierra M.D. [id number] ALP [Catalytic activity/Vol] 67 U/L Normal 40-140 [facility] Comment on above: Order Comment: [facility] has implemented the eGFR calculation approach that does not have a coefficient for race that conforms to the NKF-ASN Task Force Recommendations. Performed By: #### 4 [id number] #### [facility] [address] [place] [address] Rizwana Sierra M.D. [id number] ALT [Catalytic activity/Vol] 40 U/L Normal 0-50 U/L [facility] Comment on above: Order Comment: [facility] Laboratory [facility] has implemented the eGFR calculation approach that does not have a coefficient for race that conforms to the NKF-ASN Task Force Recommendations. Performed By: #### 4 [id number] #### LAB [address] [place] [address] Rizwana Sierra M.D. [id number] Anion gap [Moles/Vol] 13 mmol/L Normal 10-20 [facility] Comment on above: Order Comment: [facility] [place] [facility] implemented the eGFR calculation approach that does not have a coefficient for race that conforms to the NKF-ASN Task Force Recommendations. Performed By: #### [id number] #### LAB [address] [address] Rizwana Sierra M.D. [id number] AST [Catalytic activity/Vol] 30 U/L Normal 0-50 U/L [facility] Comment on above: Order Comment: [facility] has implemented the eGFR calculation approach that does not have a coefficient for race that conforms to the NKF-ASN Task Force Recommendations. Performed By: #### [id number] #### LAB [address] [address] Rizwana Sierra M.D. [id number] BILIRUBIN TOTAL < Normal 0.0-1.3 [facility] Comment on above: Order Comment: [facility] has implemented the eGFR calculation approach that does not have a coefficient for race that conforms to the NKF-ASN Task Force Recommendations. Performed By: #### [id number] #### LAB [address] [address] Rizwana Sierra M.D. [id number] Calcium [Mass/Vol] 9.0 mg/dL Normal 8.4-10.2 [facility] Comment on above: Order Comment: [facility] has implemented the eGFR calculation approach that does not have a coefficient for race that conforms to the NKF-ASN Task Force Recommendations. Performed By: #### [id number] #### LAB [address] [address] Rizwana Sierra M.D. [id number] Chloride [Moles/Vol] 107 mmol/L Normal 98-108 [facility] Comment on above: Order Comment: [facility] Services has implemented the eGFR calculation approach that does not have a coefficient for race that conforms to the NKF-ASN Task Force Recommendations. Performed By: #### [id number] #### [facility] LAB [address] [address] Rizwana Sierra M.D. [id number] Creatinine [Mass/Vol] 0.91 mg/dL Normal 0.50-1.30 [facility] Comment on above: Order Comment: [facility] has implemented the eGFR calculation approach that does not have a coefficient for race that conforms to the NKF-ASN Task Force Recommendations. Performed By: #### [id number] #### LAB [address] [address] Rizwana Sierra M.D. [id number] EGFR 117 mL/min/1.73 m2 Normal >=60 [facility] Comment on above: Order Comment: [facility] has implemented the eGFR calculation approach that does not have a coefficient for race that conforms to the NKF-ASN Task Force Recommendations. Result Comment: Beverly mated GFR was calculated using the 2020 CKD-EPI creatinine equation. Performed By: #### [id number] #### LAB [address] [address] Rizwana Sierra M.D. [id number] Glucose [Mass/Vol] 158 mg/dL High 65-99 [facility] Comment on above: Order Comment: [facility] has implemented the eGFR calculation approach that does not have a coefficient for race that conforms to the NKF-ASN Task Force Recommendations. Performed By: #### [id number] #### LAB [address] [address] Rizwana Sierra M.D. [id number] HCO3 (Bld) [Moles/Vol] 26 mmol/L Normal 21-32 [facility] Comment on above: Order Comment: [facility] has implemented the eGFR calculation approach that does not have a coefficient for race that conforms to the NKF-ASN Task Force Recommendations. Performed By: #### [id number] #### LAB [address] [address] Rizwana Sierra M.D. [id number] Potassium [Moles/Vol] 4.7 mmol/L Normal 3.5-5.1 [facility] Comment on above: Order Comment: [facility] has implemented the eGFR calculation approach that does not have a coefficient for race that conforms to the NKF-ASN Task Force Recommendations. Performed By: #### [id number] #### LAB [address] [address] Rizwana Sierra M.D. [id number] Protein [Mass/Vol] 5.9 g/dL Low 6.0-8.0 [facility] Comment on above: Order Comment: [facility] has implemented the eGFR calculation approach that does not have a coefficient for race that conforms to the NKF-ASN Task Force Recommendations. Performed By: #### [id number] #### LAB [address] [address] Rizwana Sierra M.D. [id number] Sodium [Moles/Vol] 141 mmol/L Normal 135-145 [facility] Comment on above: Order Comment: [facility] has implemented the eGFR calculation approach that does not have a coefficient for race that conforms to the NKF-ASN Task Force Recommendations. Performed By: #### [id number] #### [facility] LAB [address] [address] Rizwana Sierra M.D. [id number] Urea nitrogen [Mass/Vol] 9 mg/dL Normal 8-25 [facility] Comment on above: Order Comment: [facility] has implemented the eGFR calculation approach that does not have a coefficient for race that conforms to the NKF-ASN Task Force Recommendations. Performed By: #### [id number] #### LAB [address] [place], [place] [address] Rizwana Sierra M.D. [id number] Urea nitrogen/Creatinine [Mass ratio] 9.9 mg/mg Low 10.0-20.0 [facility] Comment on above: Order Comment: [facility] Services has implemented the eGFR calculation approach that does not have a coefficient for race that conforms to the NKF-ASN Task Force Recommendations. Performed By: #### [id number] #### LAB [address] [address] Rizwana Sierra M.D. [id number] HEPATITIS B SURFACE ANTIBODY on 02-28-2024 HEPATITIS B SURFACE ANTIBODY Negative Normal Negative [facility] Comment on above: Order Comment: Test performed using [employer] GUY immunoassay system Performed By: #### [id number] #### [facility] [address] [place], [place] [address] Ernst Alfaro M.D. [id number] HEPATITIS B SURFACE ANTIGENo n 02-28-2024 HEPATITIS B SURFACE ANTIGEN Negative Normal Negative [facility] Comment on above: Order Comment: Test performed using [employer] GU[employer] immunoassay system Performed By: #### [id number] #### [facility] [address] [place], [place] [address] Ernst Alfaro M.D. [id number] HEPATITIS C ANTIBODYon 02-27 HEPATITIS C ANTIBODY Negative Normal Negative [facility] Comment on above: Order Comment: Test performed using [employer] GU[employer] immunoassay system Performed By: #### [id number] #### [facility] [address] [place], [place] [address] Ernst Alfaro M.D. [id number] HIV 1/2 SCREEN (4TH GENERATI ON)on 02-28-2024 HIV 1-2 SCREEN Negative Normal Negative [facility] Comment on above: Order Comment: This assay screens for the presence of HIV-1, HIV-2 antibodies and for the presence of HIV-1 antigen. Test performed using [employer] immunoassay system Performed By: #### 4 [id number] #### [facility] [address] [address] Ernst Alfaro M.D. [id number] TSH WITH REFLEX FREE T4on TSH Qn 1.53 m[IU]/L Normal 0.27-4.20 [facility] Comment on above: Performed By: #### 4 [id number] #### LAB [address] [place], [place] [address] Rizwana Sierra M.D. [id number] VITAMIN D, TOTAL, 25-OHon VITAMIN D 25-HYDROXY 28 ng/mL Normal 20-100 [facility] Comment on above: Order Comment: Vitam in D Expected Values Deficiency: 0-10 Insufficiency: 10-20 Sufficient: 20-100 Toxicity: >100 Performed By: #### 4 [id number] #### LAB [address] [place], [place] [address] Rizwana Sierra M.D. [id number] Laboratory - Chemistry and C hemistry - challengeOrdered By: Jamari Mak on 12-06-2023 Lipase [Catalytic activity/Vol] 34 U/L 13-75 [facility] Comment on above: Please note:LIPASE r evised reference range effective 23. New Lipase methodology. Expected to produce lower values than the previous assay method. NEW Reference Range: 13 - 75 U/L No Panel InformationOrdered By: Jamari Mak on 12-06-2023 Troponin I High Sensitivity 9 pg/mL 3.0-78.0 [facility] Comment on above: Please Note: New Huma t Units and Gender Specific Reference Ranges. For more information see Policy Stat Procedure [place] High Sensitivity Troponin (TNIH) and attachments. Absolute lymphocyte countOrd ered By: Francisco J Jean-Baptiste on 06-05-2023 Lymphocytes Auto (Unsp spec) [#/Vol] 2.18 10*3/uL 0.83-4.51 [facility] Basophil percentageOrdered B y: Francisco J Jean-Baptiste on 06-05-2023 Basophils/100 WBC (Bld) 0.8 % 0-1 [facility] Chloride [Moles/Vol] 107 mmol/L 98-107 [facility] Eosinophils/100 WBC (Bld) 1.7 % 0-5 [facility] Glucose [Mass/Vol] 202 mg/dL 74-106 [facility] Comment on above: Glucose result great er than or equal to 200 mg/dLsuggests DIABETES MELLITUS per A.D.A. criteria. Neutrophils (Bld) [#/Vol] 7.7 10*3/uL 2.0-7.7 [facility] Neutrophils/100 WBC (Bld) 72.6 % 47-70 [facility] Potassium [Moles/Vol] 4.7 mmol/L 3.5-5.1 [facility] Sodium [Moles/Vol] 138 mmol/L 136-145 [facility] WBC (Bld) [#/Vol] 10.6 10*3/uL 4.4-11.0 [facility] Blood erythrocytes count (nu mber/volume)Ordered By: Francisco J Jean-Baptiste on 06-05-2023 RBC (Bld) [#/Vol] 5.01 10*6/uL 4.6-6.2 [facility] Blood hemoglobin measurement (mass/volume)Ordered By: Francisco J Jean-Baptiste on 06-05-2023 Hemoglobin (Bld) [Mass/Vol] 15.0 g/dL 13.0-16.5 [facility] Blood lymphocytes/100 leukoc ytesOrdered By: Francisco J Jean-Baptiste on 06-05-2023 Lymphocytes/100 WBC (Bld) 20.5 % 19-41 [facility] Blood monocytes/100 leukocyt esOrdered By: Francisco J Jean-Baptiste on 06-05-2023 Monocytes/100 WBC (Bld) 3.9 % 0-10 [facility] Blood platelet mean volumeOr dered By: Francisco J Jean-Baptiste on 06-05-2023 Platelet mean volume (Bld) [Entitic vol] 10.8 fL 6.2-12.0 [facility] Determination of erythrocyte mean corpuscular volume (MCV)Ordered By: Francisco J Jean-Baptiste on 06-05-2023 MCV (RBC) [Entitic vol] 90.8 fL 80-94 [facility] Hematocrit Auto (Bld) [Volum e fraction]Ordered By: Francisco J Jean-Baptiste on 06-05-2023 Hematocrit (Bld) [Volume fraction] 45.5 % 40-54 [facility] Laboratory - Chemistry and C hemistry - challengeOrdered By: Francisco J Jean-Baptiste on 06-05-2023 CO2 [Moles/Vol] 23.0 mmol/L 21.0-32.0 [facility] Urea nitrogen/Creatinine [Mass ratio] 8.8 mg/mg 10-20 [facility] Laboratory - Hematology and Cell countsOrdered By: Francisco J Jean-Baptiste on 06-05-2023 Erythrocyte distribution width (RBC) [Entitic vol] 46.7 fL 35.1-43.9 [facility] Erythrocyte distribution width (RBC) [Ratio] 14.0 % 11.6-14.6 [facility] Immature granulocytes/100 WBC (Bld) 0.500 % 0.0-0.9 [facility] Comment on above: IG% - Immature Granu locytes (promyelocytes, myelocytes and metamyelocytes) > 1% indicates that a LEFT SHIFT is Present. MCH (RBC) [Entitic mass] 29.9 pg 27.0-32.0 [facility] Nucleated RBC/100 WBC (Bld) [Ratio] 0 % 0-5 [facility] MCHC Auto (RBC) [Mass/Vol]Or dered By: Francisco J Jean-Baptiste on 06-05-2023 MCHC (RBC) [Mass/Vol] 33.0 g/dL 32-36 [facility] No Panel InformationOrdered By: Francisco J Jean-Baptiste on 06-05-2023 Troponin I High Sensitivity 8 pg/mL 3.0-78.0 [facility] Comment on above: Please Note: New Huma t Units and Gender Specific Reference Ranges. For more information see Policy Stat Procedure [place] High Sensitivity Troponin (TNIH) and attachments. Estimated Creatinine Clearance Calc 105.89 ml/min [facility] Estimated GFR (MDRD) Amer 98 mL/min >60 [facility] Comment on above: GFR Calc Estimated GFR (MDRD) Non-Af Amer 81 mL/min >60 [facility] Comment on above: Non- GFR Calc Platelets bldOrdered By: Lawrence Jean-Baptiste on 06-05-2023 Platelets (Bld) [#/Vol] 214 10*3/uL 150-450 [facility] Serum or plasma calcium daniel urement (mass/volume)Ordered By: Francisco J Jean-Baptiste on 06-05-2023 Calcium [Mass/Vol] 9.0 mg/dL 8.5-10.1 [facility] Serum or plasma creatinine m easurement (mass/volume)Ordered By: Francisco J Jean-Baptiste on 06-05-2023 Creatinine [Mass/Vol] 1.14 mg/dL 0.70-1.30 [facility] Comment on above: The validity of the calculated GFR & GFRAA in patients over 70 years has not been determined. Clinical correlation is essential. Serum or plasma urea nitroge n measurement (mass/volume)Ordered By: Francisco J Jean-Baptiste on 06-05-2023 Urea nitrogen [Mass/Vol] 10 mg/dL 7-18 [facility] Thin prep Papanicolaou smear with manual screeningOrdered By: Francisco J Jean-Baptiste on 06-05-2023 Thin prep Papanicolaou smear with manual screening 8 5-15 [facility] Absolute lymphocyte countOrd ered By: Janae Zamora on 05-05-2023 Lymphocytes Auto (Unsp spec) [#/Vol] 1.77 10*3/uL 0.83-4.51 [facility] Basophil percentageOrdered B y: Janae Zamora on 05-05-2023 Basophils/100 WBC (Bld) 0.7 % 0-1 [facility] Chloride [Moles/Vol] 110 mmol/L 98-107 [facility] Eosinophils/100 WBC (Bld) 3.0 % 0-5 [facility] Glucose [Mass/Vol] 119 mg/dL 74-106 [facility] Comment on above: Fasting Glucose resu lt from 100 to 125 mg/dL suggests IMPAIRED HOMEOSTASIS per A.D.A. criteria. Neutrophils (Bld) [#/Vol] 8.1 10*3/uL 2.0-7.7 [facility] Neutrophils/100 WBC (Bld) 73.2 % 47-70 [facility] Potassium [Moles/Vol] 4.2 mmol/L 3.5-5.1 [facility] Sodium [Moles/Vol] 140 mmol/L 136-145 [facility] WBC (Bld) [#/Vol] 11.1 10*3/uL 4.4-11.0 [facility] Blood erythrocytes count (nu mber/volume)Ordered By: Janae Zamora on 05-05-2023 RBC (Bld) [#/Vol] 5.00 10*6/uL 4.6-6.2 [facility] Blood hemoglobin measurement (mass/volume)Ordered By: Janae Zamora on 05-05-2023 Hemoglobin (Bld) [Mass/Vol] 14.8 g/dL 13.0-16.5 [facility] Blood lymphocytes/100 leukoc ytesOrdered By: Janae Zamora on 05-05-2023 Lymphocytes/100 WBC (Bld) 16.0 % 19-41 [facility] Blood monocytes/100 leukocyt esOrdered By: Janae Zamora on 05-05-2023 Monocytes/100 WBC (Bld) 6.8 % 0-10 [facility] Blood platelet mean volumeOr dered By: Janae Zamora on 05-05-2023 Platelet mean volume (Bld) [Entitic vol] 10.6 fL 6.2-12.0 [facility] Determination of erythrocyte mean corpuscular volume (MCV)Ordered By: Janae Zamora on 05-05-2023 MCV (RBC) [Entitic vol] 90.4 fL 80-94 [facility] Hematocrit Auto (Bld) [Volum e fraction]Ordered By: Janae Zamora on 05-05-2023 Hematocrit (Bld) [Volume fraction] 45.2 % 40-54 [facility] Laboratory - Chemistry and C hemistry - challengeOrdered By: Janae Zamora on 05-05-2023 CO2 [Moles/Vol] 25.0 mmol/L 21.0-32.0 [facility] Urea nitrogen/Creatinine [Mass ratio] 8.3 mg/mg 10-20 [facility] Laboratory - Hematology and Cell countsOrdered By: Janae Zamora on 05-05-2023 Erythrocyte distribution width (RBC) [Entitic vol] 49.6 fL 35.1-43.9 [facility] Erythrocyte distribution width (RBC) [Ratio] 14.9 % 11.6-14.6 [facility] Immature granulocytes/100 WBC (Bld) 0.300 % 0.0-0.9 [facility] Comment on above: IG% - Immature Granu locytes (promyelocytes, myelocytes and metamyelocytes) > 1% indicates that a LEFT SHIFT is Present. MCH (RBC) [Entitic mass] 29.6 pg 27.0-32.0 [facility] Nucleated RBC/100 WBC (Bld) [Ratio] 0 % 0-5 [facility] MCHC Auto (RBC) [Mass/Vol]Or dered By: Janae Zamora on 05-05-2023 MCHC (RBC) [Mass/Vol] 32.7 g/dL 32-36 [facility] No Panel InformationOrdered By: Janae Zamora on 05-05-2023 Estimated Creatinine Clearance Calc 125.74 ml/min [facility] Estimated GFR (MDRD) Amer 119 mL/min >60 [facility] Comment on above: GFR Calc Estimated GFR (MDRD) Non-Af Amer 98 mL/min >60 [facility] Comment on above: Non- GFR Calc Platelets bldOrdered By: Carli Zamora on 05-05-2023 Platelets (Bld) [#/Vol] 194 10*3/uL 150-450 [facility] Serum or plasma calcium daniel urement (mass/volume)Ordered By: Janae Zamora on 05-05-2023 Calcium [Mass/Vol] 8.5 mg/dL 8.5-10.1 [facility] Serum or plasma creatinine m easurement (mass/volume)Ordered By: Janae Zamora on 05-05-2023 Creatinine [Mass/Vol] 0.96 mg/dL 0.70-1.30 [facility] Comment on above: The validity of the calculated GFR & GFRAA in patients over 70 years has not been determined. Clinical correlation is essential. Serum or plasma urea nitroge n measurement (mass/volume)Ordered By: Janae Zamora on 05-05-2023 Urea nitrogen [Mass/Vol] 8 mg/dL 7-18 [facility] Thin prep Papanicolaou smear with manual screeningOrdered By: Janae Zamora on 05-05-2023 Thin prep Papanicolaou smear with manual screening 5 5-15 [facility] Absolute lymphocyte countOrd ered By: Dr. Silva on 12-30-2022 Lymphocytes Auto (Unsp spec) [#/Vol] 2.34 10*3/uL 0.83-4.51 [facility] Basophil percentageOrdered B y: Dr. Silva on 12-30-2022 Basophils/100 WBC (Bld) 0.9 % 0-1 [facility] Chloride [Moles/Vol] 107 mmol/L 98-107 [facility] Eosinophils/100 WBC (Bld) 6.3 % 0-5 [facility] Glucose [Mass/Vol] 96 mg/dL 74-106 [facility] Lactate [Moles/Vol] 1.1 mmol/L 0.4-2.0 [facility] Neutrophils (Bld) [#/Vol] 5.0 10*3/uL 2.0-7.7 [facility] Neutrophils/100 WBC (Bld) 58.2 % 47-70 [facility] Potassium [Moles/Vol] 4.4 mmol/L 3.5-5.1 [facility] Sodium [Moles/Vol] 141 mmol/L 136-145 [facility] WBC (Bld) [#/Vol] 8.6 10*3/uL 4.4-11.0 [facility] Blood erythrocytes count (nu mber/volume)Ordered By: Dr. Silva on 12-30-2022 RBC (Bld) [#/Vol] 4.49 10*6/uL 4.6-6.2 [facility] Blood hemoglobin measurement (mass/volume)Ordered By: Dr. Silva on 12-30-2022 Hemoglobin (Bld) [Mass/Vol] 13.1 g/dL 13.0-16.5 [facility] Blood lymphocytes/100 leukoc ytesOrdered By: Dr. Silva on 12-30-2022 Lymphocytes/100 WBC (Bld) 27.2 % 19-41 [facility] Blood monocytes/100 leukocyt esOrdered By: Dr. Silva on 12-30-2022 Monocytes/100 WBC (Bld) 6.9 % 0-10 [facility] Blood platelet mean volumeOr dered By: Dr. Silva on 12-30-2022 Platelet mean volume (Bld) [Entitic vol] 9.9 fL 6.2-12.0 [facility] Determination of erythrocyte mean corpuscular volume (MCV)Ordered By: Dr. Silva on 12-30-2022 MCV (RBC) [Entitic vol] 90.2 fL 80-94 [facility] Hematocrit Auto (Bld) [Volum e fraction]Ordered By: Dr. Silva on 12-30-2022 Hematocrit (Bld) [Volume fraction] 40.5 % 40-54 [facility] Laboratory - Chemistry and C hemistry - challengeOrdered By: Dr. Silva on 12-30-2022 CO2 [Moles/Vol] 25.0 mmol/L 21.0-32.0 [facility] Urea nitrogen/Creatinine [Mass ratio] 18.0 mg/mg 10-20 [facility] Laboratory - Hematology and Cell countsOrdered By: Dr. Silva on 12-30-2022 Erythrocyte distribution width (RBC) [Entitic vol] 45.6 fL 35.1-43.9 [facility] Erythrocyte distribution width (RBC) [Ratio] 13.9 % 11.6-14.6 [facility] Immature granulocytes/100 WBC (Bld) 0.500 % 0.0-0.9 [facility] Comment on above: IG% - Immature Granu locytes (promyelocytes, myelocytes and metamyelocytes) > 1% indicates that a LEFT SHIFT is Present. MCH (RBC) [Entitic mass] 29.2 pg 27.0-32.0 [facility] Nucleated RBC/100 WBC (Bld) [Ratio] 0 % 0-5 [facility] MCHC Auto (RBC) [Mass/Vol]Or dered By: Dr. Silva on 12-30-2022 MCHC (RBC) [Mass/Vol] 32.3 g/dL 32-36 [facility] No Panel InformationOrdered By: Dr. Silva on 12-30-2022 Estimated Creatinine Clearance Calc 108.75 ml/min [facility] Estimated GFR (MDRD) Amer 101 mL/min >60 [facility] Comment on above: GFR Calc Estimated GFR (MDRD) Non-Af Amer 84 mL/min >60 [facility] Comment on above: Non- GFR Calc Platelets bldOrdered By: Dr. Silva on 12-30-2022 Platelets (Bld) [#/Vol] 230 10*3/uL 150-450 [facility] Serum or plasma calcium daniel urement (mass/volume)Ordered By: Dr. Silva on 12-30-2022 Calcium [Mass/Vol] 8.9 mg/dL 8.5-10.1 [facility] Serum or plasma creatinine m easurement (mass/volume)Ordered By: Dr. Silva on 12-30-2022 Creatinine [Mass/Vol] 1.11 mg/dL 0.70-1.30 [facility] Comment on above: The validity of the calculated GFR & GFRAA in patients over 70 years has not been determined. Clinical correlation is essential. Serum or plasma urea nitroge n measurement (mass/volume)Ordered By: Dr. Silva on 12-30-2022 Urea nitrogen [Mass/Vol] 20 mg/dL 7-18 [facility] Thin prep Papanicolaou smear with manual screeningOrdered By: Dr. Silva on 12-30-2022 Thin prep Papanicolaou smear with manual screening 9 5-15 [facility] Basophil percentageOrdered B y: Delfino Moore on 11-09-2022 Chloride [Moles/Vol] 111 mmol/L 98-107 [facility] Cholesterol [Mass/Vol] 129 mg/dL <200 [facility] Comment on above: <200 mg/dL Desirable 200-240 mg/dL Borderline >240 mg/dL High Risk Glucose [Mass/Vol] 121 mg/dL 74-106 [facility] Comment on above: Fasting Glucose resu lt from 100 to 125 mg/dL suggests IMPAIRED HOMEOSTASIS per A.D.A. criteria. Potassium [Moles/Vol] 4.9 mmol/L 3.5-5.1 [facility] Sodium [Moles/Vol] 142 mmol/L 136-145 [facility] Triglyceride [Mass/Vol] 178 mg/dL <199 [facility] Comment on above: The drugs N-Acetylcy steine and Metamizole may falsely depress this assay.Serum Triglycerides Reference Interval Normal <150 mg/dL Borderline high 150 - 199 mg/dL High 200 - 499 mg/dL Very High > or = 500 mg/dL Laboratory - Chemistry and C hemistry - challengeOrdered By: Delfino Moore on 11-09-2022 CO2 [Moles/Vol] 26.0 mmol/L 21.0-32.0 [facility] Urea nitrogen/Creatinine [Mass ratio] 12.9 mg/mg 10-20 [facility] No Panel InformationOrdered By: Delfino Moore on 11-09-2022 Estimated GFR (MDRD) Amer 113 mL/min >60 [facility] Comment on above: GFR Calc Estimated GFR (MDRD) Non-Af Amer 94 mL/min >60 [facility] [facility] Comment on above: Non- GFR Calc Thyroid Stimulating Hormone (TSH) 0.95 uIU/mL 0.358-3.74 [facility] Serum or plasma calcium daniel urement (mass/volume)Ordered By: Delfino Moore on 11-09-2022 Calcium [Mass/Vol] 9.3 mg/dL 8.5-10.1 [facility] Serum or plasma cholesterol in HDL measurement (mass/volume)Ordered By: Delfino Moore on 11-09-2022 Cholesterol in HDL [Mass/Vol] 53 mg/dL >40 [facility] Comment on above: The drugs N-Acetylcy steine and Metamizole may falsely depress this assay. Reference Range HDL <40 mg/dL Low HDL Cholesterol HDL >or= 60 mg/dL High HDL Cholesterol Serum or plasma cholesterol in VLDL measurement (mass/volume)Ordered By: Delfino Moore on 11-09-2022 Cholesterol in VLDL [Mass/Vol] 36 mg/dL 5-40 [facility] Serum or plasma creatinine m easurement (mass/volume)Ordered By: Delfino Moore on 11-09-2022 Creatinine [Mass/Vol] 1.01 mg/dL 0.70-1.30 [facility] Comment on above: The validity of the calculated GFR & GFRAA in patients over 70 years has not been determined. Clinical correlation is essential. Serum or plasma low density lipoprotein (LDL) cholesterol measurement (mass/volume)Ordered By: Delfino Moore on 11-09-2022 Cholesterol in LDL [Mass/Vol] 40 mg/dL 0-130 [facility] Serum or plasma urea nitroge n measurement (mass/volume)Ordered By: Delfino Moore on 11-09-2022 Urea nitrogen [Mass/Vol] 13 mg/dL 7-18 [facility] Thin prep Papanicolaou smear with manual screeningOrdered By: Delfino Moore on 11-09-2022 Thin prep Papanicolaou smear with manual screening 5 5-15 [facility] Whole blood hemoglobin A1c/t otal hemoglobin ratio (mass fraction)Ordered By: Delfino Moore on 11-09-2022 HbA1c (Bld) [Mass fraction] 5.6 % 3.8-5.6 [facility] Comment on above: Normal < 5.7 % Predi abetic 5.7 - 6.4 % Diabetic >or= 6.5 % Please note range changes. Basophil percentageon 2021 Cholesterol [Mass/Vol] 106 mg/dL <200 [facility] Work Phone: Comment on above: <200 mg/dL Desirable 200-240 mg/dL Borderline >240 mg/dL High Risk Triglyceride [Mass/Vol] 212 mg/dL <199 [facility] Work Phone: Comment on above: The drugs N-Acetylcy steine and Metamizole may falsely depress this assay.Serum Triglycerides Reference Interval Normal <150 mg/dL Borderline high 150 - 199 mg/dL High 200 - 499 mg/dL Very High > or = 500 mg/dL Laboratory - Chemistry and C hemistry - challengeon 06-28-2022 Free T4 [Mass/Vol] 0.81 ng/dL 0.76-1.46 [facility] Work Phone: No Panel Informationon 06-28 Thyroid Stimulating Hormone (TSH) 3.68 uIU/mL 0.358-3.74 [facility] Work Phone: Serum or plasma cholesterol in HDL measurement (mass/volume)on 06-28-2022 Cholesterol in HDL [Mass/Vol] 30 mg/dL >40 [facility] Work Phone: Comment on above: The drugs N-Acetylcy steine and Metamizole may falsely depress this assay. Reference Range HDL <40 mg/dL Low HDL Cholesterol HDL >or= 60 mg/dL High HDL Cholesterol Serum or plasma cholesterol in VLDL measurement (mass/volume)on 06-28-2022 Cholesterol in VLDL [Mass/Vol] 42 mg/dL 5-40 [facility] Work Phone: Serum or plasma low density lipoprotein (LDL) cholesterol measurement (mass/volume)on 06-28-2022 Cholesterol in LDL [Mass/Vol] 34 mg/dL 0-130 [facility] Work Phone: Whole blood hemoglobin A1c/t otal hemoglobin ratio (mass fraction)on 06-28-2022 HbA1c (Bld) [Mass fraction] 6.0 % 3.8-5.6 [facility] Work Phone: Comment on above: Normal < 5.7 % Predi abetic 5.7 - 6.4 % Diabetic >or= 6.5 % Please note range changes. Absolute lymphocyte counton 06-03-2022 Lymphocytes Auto (Unsp spec) [#/Vol] 2.59 10*3/uL 0.83-4.51 [facility] Work Phone: Basophil percentageon 2021 Basophil percentage 0 SEEN /hpf 0-5 [facility] Work Phone: Basophils/100 WBC (Bld) 0.8 % 0-1 [facility] Work Phone: Bilirubin [Mass/Vol] 0.30 mg/dL 0.20-1.00 [facility] Work Phone: Comment on above: For patients on eltr ombopag therapy, use of Dimension [place] TBIL is not recommended. Chloride [Moles/Vol] 107 mmol/L 98-107 [facility] Work Phone: Eosinophils/100 WBC (Bld) 7.8 % 0-5 [facility] Work Phone: [phone] Glucose [Mass/Vol] 123 mg/dL 74-106 [facility] Work Phone: Comment on above: Fasting Glucose resu lt from 100 to 125 mg/dL suggests IMPAIRED HOMEOSTASIS per A.D.A. criteria. Neutrophils (Bld) [#/Vol] 5.1 10*3/uL 2.0-7.7 [facility] Work Phone: Neutrophils/100 WBC (Bld) 56.4 % 47-70 [facility] Work Phone: Potassium [Moles/Vol] 4.0 mmol/L 3.5-5.1 [facility] Work Phone: Protein [Mass/Vol] 7.0 g/dL 6.4-8.2 [facility] Work Phone: Sodium [Moles/Vol] 138 mmol/L 136-145 [facility] Work Phone: WBC (Bld) [#/Vol] 9.1 10*3/uL 4.4-11.0 [facility] Work Phone: Bilirubin Test strip Ql (U)o n 06-03-2022 Bilirubin Ql (U) Negative Negative [facility] Work Phone: Blood erythrocytes count (nu mber/volume)on 06-03-2022 RBC (Bld) [#/Vol] 4.96 10*6/uL 4.6-6.2 [facility] Work Phone: Blood hemoglobin measurement (mass/volume)on 06-03-2022 Hemoglobin (Bld) [Mass/Vol] 14.9 g/dL 13.0-16.5 [facility] Work Phone: Blood lymphocytes/100 leukoc yteson 06-03-2022 Lymphocytes/100 WBC (Bld) 28.4 % 19-41 [facility] Work Phone: [phone] Blood monocytes/100 leukocyt eson 06-03-2022 Monocytes/100 WBC (Bld) 6.1 % 0-10 [facility] Work Phone: Blood platelet mean volumeon 06-03-2022 Platelet mean volume (Bld) [Entitic vol] 10.5 fL 6.2-12.0 [facility] Work Phone: Determination of erythrocyte mean corpuscular volume (MCV)on 06-03-2022 MCV (RBC) [Entitic vol] 89.9 fL 80-94 [facility] Work Phone: Hematocrit Auto (Bld) [Volum e fraction]on 06-03-2022 Hematocrit (Bld) [Volume fraction] 44.6 % 40-54 [facility] Work Phone: [phone] Ketones Test strip Ql (U)on 06-03-2022 Ketones Ql (U) Negative Negative [facility] Work Phone: [phone] Laboratory - Chemistry and C hemistry - challengeon 06-03-2022 ALP [Catalytic activity/Vol] 53 U/L 45-117 [facility] Work Phone: [phone] ALT [Catalytic activity/Vol] 50 U/L 16-61 [facility] Work Phone: [phone] CK [Catalytic activity/Vol] 171 U/L 39-308 [facility] Work Phone: [phone] CO2 [Moles/Vol] 24.0 mmol/L 21.0-32.0 [facility] Work Phone: [phone] Globulin (S) [Mass/Vol] 3.3 g/dL 2.2-4.2 [facility] Work Phone: [phone] Urea nitrogen/Creatinine [Mass ratio] 14.1 mg/mg 10-20 [facility] Work Phone: [phone] Laboratory - Drug toxicology on 06-03-2022 Amphetamines Ql (U) Negative <1000 ng/mL [facility] Work Phone: [phone] Benzodiazepines Ql (U) Positive < 200 ng/mL [facility] Work Phone: [phone] Cannabinoids Screen Ql (U) Positive < 50 ng/mL [facility] Work Phone: [phone] Cocaine Ql (U) Negative < 300 ng/mL [facility] Work Phone: [phone] Opiates Ql (U) Negative < 300 ng/mL [facility] Work Phone: [phone] Laboratory - Hematology and Cell countson 06-03-2022 Erythrocyte distribution width (RBC) [Entitic vol] 44.9 fL 35.1-43.9 [facility] Work Phone: [phone] Erythrocyte distribution width (RBC) [Ratio] 13.7 % 11.6-14.6 [facility] Work Phone: [phone] Immature granulocytes/100 WBC (Bld) 0.500 % 0.0-0.9 [facility] Work Phone: [phone] Comment on above: IG% - Immature Granu locytes (promyelocytes, myelocytes and metamyelocytes) > 1% indicates that a LEFT SHIFT is Present. MCH (RBC) [Entitic mass] 30.0 pg 27.0-32.0 [facility] Work Phone: [phone] Nucleated RBC/100 WBC (Bld) [Ratio] 0 % 0-5 [facility] Work Phone: [phone] MCHC Auto (RBC) [Mass/Vol]on 06-03-2022 MCHC (RBC) [Mass/Vol] 33.4 g/dL 32-36 [facility] Work Phone: [phone] Mucus LM Ql (Urine sed)on Mucus Ql (Urine sed) 0 SEEN /hpf [facility] Work Phone: [phone] Nitrite Test strip Ql (U)on 06-03-2022 Nitrite Ql (U) Negative Negative [facility] Work Phone: [phone] No Panel Informationon 06-03 Troponin I High Sensitivity 7 pg/mL 3.0-78.0 [facility] Work Phone: Comment on above: Please Note: New Huma t Units and Gender Specific Reference Ranges. For more information see Policy Stat Procedure [place] High Sensitivity Troponin (TNIH) and attachments. MDMA (Ecstasy) Screen Negative < 500 ng/mL [facility] Work Phone: [phone] Urine Barbiturates Screen Negative < 200 ng/mL [facility] Work Phone: [phone] Urine Drug Screen Comment [facility] Work Phone: [phone] Comment on above: CONFIRMATORY TESTING FOR ALL [...] Urine Methadone Screen Negative < 300 ng/mL [facility] Work Phone: [phone] Estimated Creatinine Clearance Calc 123.02 ml/min [facility] Work Phone: [phone] Estimated GFR (MDRD) Amer 116 mL/min >60 [facility] Work Phone: [phone] Comment on above: GFR Calc Estimated GFR (MDRD) Non-Af Amer 96 mL/min >60 [facility] Work Phone: [phone] Comment on above: Non- GFR Calc Ethyl Alcohol Level < 3.0 mg/dL [facility] Work Phone: [phone] Comment on above: The serum:whole bloo d ethanol ratio is approximately 1.14and varies slightly with hematocrit. Medical Alcohol reference interval and critical value innon-tolerant individuals; 50 - 100 Impairment 100 Intoxication 100 - 250 Severe Poisoning 250 - 400 Deep/possible fatal coma Platelets bldon 06-03-2022 Platelets (Bld) [#/Vol] 219 10*3/uL 150-450 [facility] Work Phone: [phone] Protein Test strip Ql (U)on 06-03-2022 Protein Ql (U) 15 mg/dl Negative [facility] Work Phone: [phone] Serum or plasma albumin daniel urement (mass/volume)on 06-03-2022 Albumin [Mass/Vol] 3.7 g/dL 3.2-5.0 [facility] Work Phone: [phone] Serum or plasma albumin/glob ulin mass ratioon 06-03-2022 Albumin/Globulin [Mass ratio] 1.1 {ratio} 0.9-2.4 [facility] Work Phone: [phone] Serum or plasma calcium daniel urement (mass/volume)on 06-03-2022 Calcium [Mass/Vol] 8.7 mg/dL 8.5-10.1 [facility] Work Phone: Serum or plasma creatinine m easurement (mass/volume)on 06-03-2022 Creatinine [Mass/Vol] 0.99 mg/dL 0.70-1.30 [facility] Work Phone: Comment on above: The validity of the calculated GFR & GFRAA in patients over 70 years has not been determined. Clinical correlation is essential. Serum or plasma urea nitroge n measurement (mass/volume)on 06-03-2022 Urea nitrogen [Mass/Vol] 14 mg/dL 7-18 [facility] Work Phone: [phone] Squamous epithelial cells de tection in urine sediment by light microscopyon 06-03-2022 Epithelial cells.squamous LM Ql (Urine sed) 0 SEEN /hpf 0-5 [facility] Work Phone: Thin prep Papanicolaou smear with manual screeningon 06-03-2022 Thin prep Papanicolaou smear with manual screening 25 U/L 15-37 [facility] Work Phone: [phone] Thin prep Papanicolaou smear with manual screening 7 5-15 [facility] Work Phone: Urine blood detectionon RBC Ql (U) Negative Negative [facility] Work Phone: [phone] RBC Ql (U) 0 SEEN /hpf 0-5 [facility] Work Phone: [phone] Urine clarityon 06-03-2022 Clarity (U) Clear Clear [facility] Work Phone: [phone] Urine color determinationon 06-03-2022 Color (U) Yellow Yellow [facility] Work Phone: [phone] Urine glucose detectionon Glucose Ql (U) Normal mg/dl Normal [facility] Work Phone: [phone] Urine leukocyte esterase det ection by dipstickon 06-03-2022 Leukocyte esterase Test strip Ql (U) Negative Negative [facility] Work Phone: [phone] Urine pHon 06-03-2022 pH (U) 5.0 [pH] 5.0 - 8.0 [facility] Work Phone: Urine phencyclidine (PCP) de tectionon 06-03-2022 Phencyclidine Ql (U) Negative < 25 ng/mL [facility] Work Phone: Urine sediment bacteria coun t by microscopy (number/high power field)on 06-03-2022 Bacteria LM.HPF (Urine sed) [#/Area] 0 /[HPF] None Seen [facility] Work Phone: Urine specific gravity measu rementon 06-03-2022 Specific gravity (U) [Rel density] 1.010 1.002-1.030 [facility] Work Phone: Urobilinogen Auto test strip Ql (U)on 06-03-2022 Urobilinogen Ql (U) Normal mg/dl Normal [facility] Work Phone: Absolute lymphocyte counton 04-22-2022 Lymphocytes Auto (Unsp spec) [#/Vol] 2.73 10*3/uL 0.83-4.51 [facility] Work Phone: Basophil percentageon 2021 Cholesterol [Mass/Vol] 144 mg/dL <200 [facility] Work Phone: Comment on above: Slight Lipemia, Resu lt may be falsely increased. <200 mg/dL Desirable 200-240 mg/dL Borderline >240 mg/dL High Risk Triglyceride [Mass/Vol] 758 mg/dL <199 [facility] Work Phone: Comment on above: [...] mg/dL Basophil percentage 0 SEEN /hpf 0-5 [facility] Work Phone: Basophils/100 WBC (Bld) 0.7 % 0-1 [facility] Work Phone: Chloride [Moles/Vol] 102 mmol/L 98-107 [facility] Work Phone: Eosinophils/100 WBC (Bld) 6.0 % 0-5 [facility] Work Phone: Glucose [Mass/Vol] 125 mg/dL 74-106 [facility] Work Phone: Comment on above: Moderate Lipemia, Re sult may be falsely increased.Fasting Glucose result from 100 to 125 mg/dL suggests IMPAIRED HOMEOSTASIS per A.D.A. criteria. Neutrophils (Bld) [#/Vol] 4.8 10*3/uL 2.0-7.7 [facility] Work Phone: Neutrophils/100 WBC (Bld) 53.7 % 47-70 [facility] Work Phone: Potassium [Moles/Vol] 4.1 mmol/L 3.5-5.1 [facility] Work Phone: Comment on above: Slight Hemolysis, Re sult may be falsely increased. Sodium [Moles/Vol] 133 mmol/L 136-145 [facility] Work Phone: WBC (Bld) [#/Vol] 8.9 10*3/uL 4.4-11.0 [facility] Work Phone: Bilirubin Test strip Ql (U)o n 04-22-2022 Bilirubin Ql (U) Negative Negative [facility] Work Phone: Blood erythrocytes count (nu mber/volume)on 04-22-2022 RBC (Bld) [#/Vol] 4.73 10*6/uL 4.6-6.2 [facility] Work Phone: Blood hemoglobin measurement (mass/volume)on 04-22-2022 Hemoglobin (Bld) [Mass/Vol] 14.2 g/dL 13.0-16.5 [facility] Work Phone: Blood lymphocytes/100 leukoc yteson 04-22-2022 Lymphocytes/100 WBC (Bld) 30.7 % 19-41 [facility] Work Phone: Blood monocytes/100 leukocyt eson 04-22-2022 Monocytes/100 WBC (Bld) 8.4 % 0-10 [facility] Work Phone: Blood platelet mean volumeon 04-22-2022 Platelet mean volume (Bld) [Entitic vol] 10.6 fL 6.2-12.0 [facility] Work Phone: Chlamydia trachomatis rRNA d etection by probe and target amplification methodon 04-22-2022 C. trachomatis rRNA KELVIN+probe Ql (Unsp spec) Negative Negative [facility] Work Phone: Determination of erythrocyte mean corpuscular volume (MCV)on 04-22-2022 MCV (RBC) [Entitic vol] 89.6 fL 80-94 [facility] Work Phone: Hematocrit Auto (Bld) [Volum e fraction]on 04-22-2022 Hematocrit (Bld) [Volume fraction] 42.4 % 40-54 [facility] Work Phone: INR in Blood by Coagulation assayon 04-22-2022 INR Coag (Bld) [Relative time] 0.9 {INR} [facility] Work Phone: Ketones Test strip Ql (U)on 04-22-2022 Ketones Ql (U) Negative Negative [facility] Work Phone: Laboratory - Chemistry and C hemistry - challengeon 04-22-2022 CO2 [Moles/Vol] 24.0 mmol/L 21.0-32.0 [facility] Work Phone: Free T4 [Mass/Vol] 1.02 ng/dL 0.76-1.46 [facility] Work Phone: Comment on above: Slight Lipemia, Resu lt may be falsely increased. Urea nitrogen/Creatinine [Mass ratio] 19.0 mg/mg 10-20 [facility] Work Phone: Laboratory - Coagulationon 0 04-22-2022 PT Coag (PPP) [Time] 11.4 s 11.7-14.9 [facility] Work Phone: [phone] Laboratory - Hematology and Cell countson 04-22-2022 Erythrocyte distribution width (RBC) [Entitic vol] 46.6 fL 35.1-43.9 [facility] Work Phone: [phone] Erythrocyte distribution width (RBC) [Ratio] 14.3 % 11.6-14.6 [facility] Work Phone: [phone] Immature granulocytes/100 WBC (Bld) 0.500 % 0.0-0.9 [facility] Work Phone: [phone] Comment on above: IG% - Immature Granu locytes (promyelocytes, myelocytes and metamyelocytes) > 1% indicates that a LEFT SHIFT is Present. MCH (RBC) [Entitic mass] 30.0 pg 27.0-32.0 [facility] Work Phone: [phone] Nucleated RBC/100 WBC (Bld) [Ratio] 0 % 0-5 [facility] Work Phone: [phone] Laboratory - Microbiology an d Antimicrobial susceptibilityon 04-22-2022 N. gonorrhoeae DNA KELVIN+probe Ql (Unsp spec) Negative Negative [facility] Work Phone: Comment on above: Performed at: =[address] [id number] Director: Tia Pickard MD, Phone: [phone] MCHC Auto (RBC) [Mass/Vol]on 04-22-2022 MCHC (RBC) [Mass/Vol] 33.5 g/dL 32-36 [facility] Work Phone: [phone] Mucus LM Ql (Urine sed)on Mucus Ql (Urine sed) 0 SEEN /hpf [facility] Work Phone: [phone] Nitrite Test strip Ql (U)on 04-22-2022 Nitrite Ql (U) Negative Negative [facility] Work Phone: [phone] Panel Informationon 04-22 Estimated GFR (MDRD) Amer 115 mL/min >60 [facility] Work Phone: Comment on above: GFR Calc Estimated GFR (MDRD) Non-Af Amer 95 mL/min >60 [facility] Work Phone: Comment on above: Non- GFR Calc Thyroid Stimulating Hormone (TSH) 4.76 uIU/mL 0.358-3.74 [facility] Work Phone: Platelets bldon 04-22-2022 Platelets (Bld) [#/Vol] 242 10*3/uL 150-450 [facility] Work Phone: Protein Test strip Ql (U)on 04-22-2022 Protein Ql (U) Negative Negative [facility] Work Phone: Serum or plasma calcium daniel urement (mass/volume)on 04-22-2022 Calcium [Mass/Vol] 8.2 mg/dL 8.5-10.1 [facility] Work Phone: Comment on above: Moderate Lipemia, Re sult may be falsely decreased. Serum or plasma cholesterol in HDL measurement (mass/volume)on 04-22-2022 Cholesterol in HDL [Mass/Vol] 37 mg/dL >40 [facility] Work Phone: Comment on above: The drugs N-Acetylcy steine and Metamizole may falsely depress this assay. Reference Range HDL <40 mg/dL Low HDL Cholesterol HDL >or= 60 mg/dL High HDL Cholesterol Serum or plasma cholesterol in VLDL measurement (mass/volume)on 04-22-2022 Cholesterol in VLDL [Mass/Vol] TNP [facility] Work Phone: Comment on above: Test not performed Serum or plasma creatinine m easurement (mass/volume)on 04-22-2022 Creatinine [Mass/Vol] 1.00 mg/dL 0.70-1.30 [facility] Work Phone: Comment on above: The validity of the calculated GFR & GFRAA in patients over 70 years has not been determined. Clinical correlation is essential. Serum or plasma low density lipoprotein (LDL) cholesterol measurement (mass/volume)on 04-22-2022 Cholesterol in LDL [Mass/Vol] TNP [facility] Work Phone: Comment on above: Test not performed Serum or plasma urea nitroge n measurement (mass/volume)on 04-22-2022 Urea nitrogen [Mass/Vol] 19 mg/dL 7-18 [facility] Work Phone: Squamous epithelial cells de tection in urine sediment by light microscopyon 04-22-2022 Epithelial cells.squamous LM Ql (Urine sed) 0 SEEN /hpf 0-5 [facility] Work Phone: Thin prep Papanicolaou smear with manual screeningon 04-22-2022 Thin prep Papanicolaou smear with manual screening 7 5-15 [facility] Work Phone: Urine blood detectionon 03-31 RBC Ql (U) Negative Negative [facility] Work Phone: RBC Ql (U) 0 SEEN /hpf 0-5 [facility] Work Phone: Urine clarityon 04-22-2022 Clarity (U) Clear Clear [facility] Work Phone: Urine color determinationon 04-22-2022 Color (U) Straw Yellow [facility] Work Phone: Urine glucose detectionon Glucose Ql (U) Normal mg/dl Normal [facility] Work Phone: Urine leukocyte esterase det ection by dipstickon 04-22-2022 Leukocyte esterase Test strip Ql (U) Negative Negative [facility] Work Phone: Urine pHon 04-22-2022 pH (U) 6.0 [pH] 5.0 - 8.0 [facility] Work Phone: Urine sediment bacteria coun t by microscopy (number/high power field)on 04-22-2022 Bacteria LM.HPF (Urine sed) [#/Area] RARE /hpf None Seen [facility] Work Phone: Urine specific gravity measu rementon 04-22-2022 Specific gravity (U) [Rel density] 1.015 1.002-1.030 [facility] Work Phone: Urobilinogen Auto test strip Ql (U)on 04-22-2022 Urobilinogen Ql (U) Normal mg/dl Normal [facility] Work Phone: Basophil percentageon 2021 WBC (Bld) [#/Vol] 9.8 10*3/uL 4.4-11.0 [facility] Work Phone: Blood erythrocytes count (nu mber/volume)on 02-09-2022 RBC (Bld) [#/Vol] 5.43 10*6/uL 4.6-6.2 [facility] Work Phone: Blood hemoglobin measurement (mass/volume)on 02-09-2022 Hemoglobin (Bld) [Mass/Vol] 15.9 g/dL 13.0-16.5 [facility] Work Phone: [phone] Blood platelet mean volumeon 02-09-2022 Platelet mean volume (Bld) [Entitic vol] 10.6 fL 6.2-12.0 [facility] Work Phone: Determination of erythrocyte mean corpuscular volume (MCV)on 02-09-2022 MCV (RBC) [Entitic vol] 86.9 fL 80-94 [facility] Work Phone: [phone] Hematocrit Auto (Bld) [Volum e fraction]on 02-09-2022 Hematocrit (Bld) [Volume fraction] 47.2 % 40-54 [facility] Work Phone: Laboratory - Hematology and Cell countson 02-09-2022 Erythrocyte distribution width (RBC) [Entitic vol] 42.5 fL 35.1-43.9 [facility] Work Phone: [phone] Erythrocyte distribution width (RBC) [Ratio] 13.2 % 11.6-14.6 [facility] Work Phone: [phone] MCH (RBC) [Entitic mass] 29.3 pg 27.0-32.0 [facility] Work Phone: MCHC Auto (RBC) [Mass/Vol]on 02-09-2022 MCHC (RBC) [Mass/Vol] 33.7 g/dL 32-36 [facility] Work Phone: Platelets bldon 02-09-2022 Platelets (Bld) [#/Vol] 216 10*3/uL 150-450 [facility] Work Phone: Basophil percentageon 2021 Bilirubin [Mass/Vol] 0.70 mg/dL 0.20-1.00 [facility] Work Phone: Comment on above: For patients on eltr ombopag therapy, use of Dimension [place] TBIL is not recommended. Chloride [Moles/Vol] 104 mmol/L 98-107 [facility] Work Phone: Cholesterol [Mass/Vol] 166 mg/dL <200 [facility] Work Phone: Comment on above: <200 mg/dL Desirable 200-240 mg/dL Borderline >240 mg/dL High Risk Glucose [Mass/Vol] 121 mg/dL 74-106 [facility] Work Phone: Comment on above: Fasting Glucose resu lt from 100 to 125 mg/dL suggests IMPAIRED HOMEOSTASIS per A.D.A. criteria. Potassium [Moles/Vol] 3.8 mmol/L 3.5-5.1 [facility] Work Phone: [phone] Protein [Mass/Vol] 7.1 g/dL 6.4-8.2 [facility] Work Phone: [phone] Sodium [Moles/Vol] 138 mmol/L 136-145 [facility] Work Phone: [phone] Triglyceride [Mass/Vol] 167 mg/dL <199 [facility] Work Phone: [phone] Comment on above: The drugs N-Acetylcy steine and Metamizole may falsely depress this assay.Serum Triglycerides Reference Interval Normal <150 mg/dL Borderline high 150 - 199 mg/dL High 200 - 499 mg/dL Very High > or = 500 mg/dL Laboratory - Chemistry and C hemistry - challengeon 02-08-2022 ALP [Catalytic activity/Vol] 61 U/L 45-117 [facility] Work Phone: [phone] ALT [Catalytic activity/Vol] 40 U/L 16-61 [facility] Work Phone: [phone] CO2 [Moles/Vol] 28.0 mmol/L 21.0-32.0 [facility] Work Phone: [phone] Globulin (S) [Mass/Vol] 3.4 g/dL 2.2-4.2 [facility] Work Phone: [phone] Urea nitrogen/Creatinine [Mass ratio] 14.5 mg/mg 10-20 [facility] Work Phone: [phone] Panel Informationon 02-08 Estimated Creatinine Clearance Calc 146.73 ml/min [facility] Work Phone: [phone] Estimated GFR (MDRD) Amer 143 mL/min >60 [facility] Work Phone: [phone] Comment on above: GFR Calc Estimated GFR (MDRD) Non-Af Amer 118 mL/min >60 [facility] Work Phone: [phone] Comment on above: Non- GFR Calc Serum or plasma albumin daniel urement (mass/volume)on 02-08-2022 Albumin [Mass/Vol] 3.7 g/dL 3.2-5.0 [facility] Work Phone: [phone] Serum or plasma albumin/glob ulin mass ratioon 02-08-2022 Albumin/Globulin [Mass ratio] 1.1 {ratio} 0.9-2.4 [facility] Work Phone: [phone] Serum or plasma calcium daniel urement (mass/volume)on 02-08-2022 Calcium [Mass/Vol] 8.7 mg/dL 8.5-10.1 [facility] Work Phone: [phone] Serum or plasma cholesterol in HDL measurement (mass/volume)on 02-08-2022 Cholesterol in HDL [Mass/Vol] 36 mg/dL >40 [facility] Work Phone: [phone] Comment on above: The drugs N-Acetylcy steine and Metamizole may falsely depress this assay. Reference Range HDL <40 mg/dL Low HDL Cholesterol HDL >or= 60 mg/dL High HDL Cholesterol Serum or plasma cholesterol in VLDL measurement (mass/volume)on 02-08-2022 Cholesterol in VLDL [Mass/Vol] 33 mg/dL 5-40 [facility] Work Phone: Serum or plasma creatinine m easurement (mass/volume)on 02-08-2022 Creatinine [Mass/Vol] 0.83 mg/dL 0.70-1.30 [facility] Work Phone: Comment on above: The validity of the calculated GFR & GFRAA in patients over 70 years has not been determined. Clinical correlation is essential. Serum or plasma low density lipoprotein (LDL) cholesterol measurement (mass/volume)on 02-08-2022 Cholesterol in LDL [Mass/Vol] 97 mg/dL 0-130 [facility] Work Phone: Serum or plasma urea nitroge n measurement (mass/volume)on 02-08-2022 Urea nitrogen [Mass/Vol] 12 mg/dL 7-18 [facility] Work Phone: Thin prep Papanicolaou smear with manual screeningon 02-08-2022 Thin prep Papanicolaou smear with manual screening 96 U/L 15-37 [facility] Work Phone: Thin prep Papanicolaou smear with manual screening 6 5-15 [facility] Work Phone: Whole blood hemoglobin A1c/t otal hemoglobin ratio (mass fraction)on 02-08-2022 HbA1c (Bld) [Mass fraction] 5.7 % 3.8-5.6 [facility] Work Phone: Comment on above: Normal < 5.7 % Predi abetic 5.7 - 6.4 % Diabetic >or= 6.5 % Please note range changes. Absolute lymphocyte counton 02-07-2022 Lymphocytes Auto (Unsp spec) [#/Vol] 2.56 10*3/uL 0.83-4.51 [facility] Work Phone: Basophil percentageon 2021 Basophils/100 WBC (Bld) 0.4 % 0-1 [facility] Work Phone: Chloride [Moles/Vol] 106 mmol/L 98-107 [facility] Work Phone: Eosinophils/100 WBC (Bld) 2.2 % 0-5 [facility] Work Phone: Glucose [Mass/Vol] 133 mg/dL 74-106 [facility] Work Phone: Comment on above: Fasting Glucose resu lt greater than or equal to 126 mg/dL suggests DIABETES MELLITUS per A.D.A. criteria. Neutrophils (Bld) [#/Vol] 8.2 10*3/uL 2.0-7.7 [facility] Work Phone: Neutrophils/100 WBC (Bld) 69.2 % 47-70 [facility] Work Phone: Potassium [Moles/Vol] 4.3 mmol/L 3.5-5.1 [facility] Work Phone: Sodium [Moles/Vol] 134 mmol/L 136-145 [facility] Work Phone: WBC (Bld) [#/Vol] 11.9 10*3/uL 4.4-11.0 [facility] Work Phone: Blood erythrocytes count (nu mber/volume)on 02-07-2022 RBC (Bld) [#/Vol] 5.48 10*6/uL 4.6-6.2 [facility] Work Phone: Blood hemoglobin measurement (mass/volume)on 02-07-2022 Hemoglobin (Bld) [Mass/Vol] 16.0 g/dL 13.0-16.5 [facility] Work Phone: Blood lymphocytes/100 leukoc yteson 02-07-2022 Lymphocytes/100 WBC (Bld) 21.5 % 19-41 [facility] Work Phone: Blood monocytes/100 leukocyt eson 02-07-2022 Monocytes/100 WBC (Bld) 6.3 % 0-10 [facility] Work Phone: Blood platelet mean volumeon 02-07-2022 Platelet mean volume (Bld) [Entitic vol] 10.2 fL 6.2-12.0 [facility] Work Phone: Determination of erythrocyte mean corpuscular volume (MCV)on 02-07-2022 MCV (RBC) [Entitic vol] 83.9 fL 80-94 [facility] Work Phone: Hematocrit Auto (Bld) [Volum e fraction]on 02-07-2022 Hematocrit (Bld) [Volume fraction] 46.0 % 40-54 [facility] Work Phone: INR in Blood by Coagulation assayon 02-07-2022 INR Coag (Bld) [Relative time] 1.0 {INR} [facility] Work Phone: Laboratory - Chemistry and C hemistry - challengeon 02-07-2022 CO2 [Moles/Vol] 21.0 mmol/L 21.0-32.0 [facility] Work Phone: Urea nitrogen/Creatinine [Mass ratio] 17.2 mg/mg 10-20 [facility] Work Phone: Laboratory - Coagulationon 0 02-07-2022 aPTT Coag (Bld) [Time] 26.2 s 24.1-36.2 [facility] Work Phone: PT Coag (PPP) [Time] 12.5 s 11.7-14.9 [facility] Work Phone: Laboratory - Drug toxicology on 02-07-2022 Amphetamines Ql (U) Negative <1000 ng/mL [facility] Work Phone: Benzodiazepines Ql (U) Positive < 200 ng/mL [facility] Work Phone: Cannabinoids Screen Ql (U) Positive < 50 ng/mL [facility] Work Phone: [phone] Cocaine Ql (U) Positive < 300 ng/mL [facility] Work Phone: [phone] Opiates Ql (U) Positive < 300 ng/mL [facility] Work Phone: [phone] Laboratory - Hematology and Cell countson 02-07-2022 Erythrocyte distribution width (RBC) [Entitic vol] 40.4 fL 35.1-43.9 [facility] Work Phone: [phone] Erythrocyte distribution width (RBC) [Ratio] 13.2 % 11.6-14.6 [facility] Work Phone: [phone] Immature granulocytes/100 WBC (Bld) 0.400 % 0.0-0.9 [facility] Work Phone: [phone] Comment on above: IG% - Immature Granu locytes (promyelocytes, myelocytes and metamyelocytes) > 1% indicates that a LEFT SHIFT is Present. MCH (RBC) [Entitic mass] 29.2 pg 27.0-32.0 [facility] Work Phone: [phone] Nucleated RBC/100 WBC (Bld) [Ratio] 0 % 0-5 [facility] Work Phone: [phone] MCHC Auto (RBC) [Mass/Vol]on 02-07-2022 MCHC (RBC) [Mass/Vol] 34.8 g/dL 32-36 [facility] Work Phone: [phone] Panel Informationon 02-07 MDMA (Ecstasy) Screen Negative < 500 ng/mL [facility] Work Phone: [phone] Urine Barbiturates Screen Negative < 200 ng/mL [facility] Work Phone: [phone] Urine Drug Screen Comment [facility] Work Phone: [phone] Comment on above: CONFIRMATORY TESTING FOR ALL [...] Urine Methadone Screen Negative < 300 ng/mL [facility] Work Phone: Estimated Creatinine Clearance Calc 139.99 ml/min [facility] Work Phone: Estimated GFR (MDRD) Amer 135 mL/min >60 [facility] Work Phone: Comment on above: GFR Calc Estimated GFR (MDRD) Non-Af Amer 111 mL/min >60 [facility] Work Phone: Comment on above: Non- GFR Calc Troponin I High Sensitivity 938 pg/mL 3.0-78.0 [facility] Work Phone: Comment on above: Critical Result(s) C alled at: 14:03:51 02/07/2022 by: Rianna Lacy to Brenna. Results read back by same. Please Note: New Test Units and Gender Specific Reference Ranges. For more information see Policy Stat Procedure [place] High Sensitivity Troponin (TNIH) and attachments. Platelets bldon 02-07-2022 Platelets (Bld) [#/Vol] 230 10*3/uL 150-450 [facility] Work Phone: Serum or plasma calcium daniel urement (mass/volume)on 02-07-2022 Calcium [Mass/Vol] 9.8 mg/dL 8.5-10.1 [facility] Work Phone: Serum or plasma creatinine m easurement (mass/volume)on 02-07-2022 Creatinine [Mass/Vol] 0.87 mg/dL 0.70-1.30 [facility] Work Phone: Comment on above: The validity of the calculated GFR & GFRAA in patients over 70 years has not been determined. Clinical correlation is essential. Serum or plasma urea nitroge n measurement (mass/volume)on 02-07-2022 Urea nitrogen [Mass/Vol] 15 mg/dL 7-18 [facility] Work Phone: Thin prep Papanicolaou smear with manual screeningon 02-07-2022 Thin prep Papanicolaou smear with manual screening 7 5-15 [facility] Work Phone: Urine phencyclidine (PCP) de tectionon 02-07-2022 Phencyclidine Ql (U) Negative < 25 ng/mL [facility] Work Phone: .Auto Diffon 02-22-2018 Ammonia mass conc (P) 0.70 10 3/mcL Normal 0.15-1.00 [facility] ([place]) Comment on above: Performed By: #### C BC, ADIFF, ANEU, GFR, BMP ####[address] [place], [place] [address] Basophils Auto #/vol (Bld) 0.10 10 3/mcL Normal 0.00-0.19 [facility] ([place]) Comment on above: Performed By: #### C BC, ADIFF, ANEU, GFR, BMP ####[address] [place], [place] [address] Basophils/100 WBC Auto (Bld) 0.6 % Normal 0.0-2.5 [facility] ([place]) Comment on above: Performed By: #### C BC, ADIFF, ANEU, GFR, BMP ####[address] [place], [place] [address] Eosinophils Auto #/vol (Bld) 0.20 10 3/mcL Normal 0.00-0.40 [facility] ([place]) Comment on above: Performed By: #### C BC, ADIFF, ANEU, GFR, BMP ####[address] [place], [place] [address] Eosinophils/100 WBC Auto (Bld) 2.5 % Normal 0.0-7.0 [facility] ([place]) Comment on above: Performed By: #### C BC, ADIFF, ANEU, GFR, BMP ####[address] [place], [place] [address] Lymphocytes Auto #/vol (Bld) 2.80 10 3/mcL Normal 0.77-3.85 [facility] ([place]) Comment on above: Performed By: #### C BC, ADIFF, ANEU, GFR, BMP ####[address] [place], [place] [address] Lymphocytes/100 WBC Auto (Bld) 29.3 % Normal 10.0-50.0 [facility] ([place]) Comment on above: Performed By: #### C BC, ADIFF, ANEU, GFR, BMP ####[address] [place], [place] [address] Monocytes/100 WBC Auto (Bld) 6.9 % Normal 1.7-13.0 [facility] ([place]) Comment on above: Performed By: #### C BC, ADIFF, ANEU, GFR, BMP ####[address] [place], [place] [address] Neutrophils/100 WBC Auto (Bld) 60.7 % Normal 37.0-80.0 [facility] ([place]) Comment on above: Performed By: #### C BC, ADIFF, ANEU, GFR, BMP ####[address] [place], [place] [address] .GFRon 02-22-2018 GFR Non- >60 Normal [facility] ([place]) Comment on above: Result Comment: GFR Population [...] C BC, ADIFF, ANEU, GFR, BMP ####[address] [place], [place] [address] GFR 117 ml/min/1.73sqm Normal [facility] ([place]) Comment on above: Result Comment: GFR Population [...] BC, ADIFF, ANEU, GFR, BMP ####[address] [place], [place] [address] .NEUABSon 02-22-2018 Neutrophil, Absolute 5.70 10 3/mcL Normal 2.85-6.16 [facility] ([place]) Comment on above: Performed By: #### C BC, ADIFF, ANEU, GFR, BMP ####[address] [place], [place] [address] .Urinalysis Microscopic (AO) on 02-22-2018 RBC Test strip #/vol (U) None Seen Normal None Seen [facility] ([place] Comment on above: Performed By: #### U A, UAMICAO ####[address] [place], [place] [address] UA Fine Granular Casts 0-5 Invalid Interpretation Code [facility] ([place] Comment on above: Performed By: #### U A, UAMICAO ####[address] [place], [place] [address] UA Squam Epithelial None Seen Normal None Seen [facility] ([place]) Comment on above: Performed By: #### U A, UAMICAO ####[address] [place], [place] [address] UA WBC None Seen Normal None Seen [facility] ([place] Comment on above: Performed By: #### U A, UAMICAO ####[address] [place], [place] [address] BMPon 02-22-2018 Chloride molar conc 103 mmol/L Normal 98-107 [facility] ([place]) Comment on above: Performed By: #### C BC, ADIFF, ANEU, GFR, BMP ####[address] [place], [place] [address] Electrolyte Balance 10.0 mEq/L Normal [facility] ([place]) Comment on above: Performed By: #### C BC, ADIFF, ANEU, GFR, BMP ####[address] [place], [place] [address] Potassium molar conc 4.6 mmol/L Normal 3.5-5.1 [facility] ([place]) Comment on above: Performed By: #### C BC, ADIFF, ANEU, GFR, BMP ####[address] [place], [place] [address] Sodium molar conc 142 mmol/L Normal 136-146 [facility] ([place] Comment on above: Performed By: #### C BC, ADIFF, ANEU, GFR, BMP ####[address] [place], [place] [address] Calcium mass conc 9.9 mg/dL Normal 8.4-10.2 [facility] ([place] Comment on above: Performed By: #### C BC, ADIFF, ANEU, GFR, BMP ####[address] [place], [place] [address] CO2 molar conc 29 mmol/L Normal 22-29 [facility] ([place] Comment on above: Performed By: #### C BC, ADIFF, ANEU, GFR, BMP ####[address] [place], [place] [address] Creatinine mass conc 1.0 mg/dL Normal 0.6-1.2 [facility] ([place]) Comment on above: Performed By: #### C BC, ADIFF, ANEU, GFR, BMP ####[address] [place], [place] [address] Glucose mass conc 100 mg/dL Normal 70-105 [facility] ([place]) Comment on above: Performed By: #### C BC, ADIFF, ANEU, GFR, BMP ####[address] [place], [place] [address] Urea nitrogen mass conc 11.6 mg/dL Normal 7.0-18.0 [facility] ([place]) Comment on above: Performed By: #### C BC, ADIFF, ANEU, GFR, BMP ####[address] [place], [place] [address] Urea nitrogen/Creatinine mass ratio 12 ratio Normal 7-27 [facility] ([place]) Comment on above: Performed By: #### C BC, ADIFF, ANEU, GFR, BMP ####[address] [place], [place] [address] CBCon 02-22-2018 Erythrocyte distribution width Auto Ratio (RBC) 14.1 % Normal 11.5-14.5 [facility] ([place]) Comment on above: Performed By: #### C BC, ADIFF, ANEU, GFR, BMP ####[address] [place], [place] [address] Hematocrit Auto Volume Fraction (Bld) 45.8 % Normal 42.0-52.0 [facility] ([place]) Comment on above: Performed By: #### C BC, ADIFF, ANEU, GFR, BMP ####[address] [place], [place] [address] Hemoglobin mass conc (Bld) 15.6 G/dL Normal 14.0-18.0 [facility] ([place]) Comment on above: Performed By: #### C BC, ADIFF, ANEU, GFR, BMP ####[address] [place], [place] [address] MCH Auto Entitic mass (RBC) 29.6 pg Normal 27.0-31.2 [facility] ([place]) Comment on above: Performed By: #### C BC, ADIFF, ANEU, GFR, BMP ####[address] [place], [place] [address] MCHC Auto mass conc (RBC) 33.9 G/dL Normal 31.8-35.4 [facility] ([place]) Comment on above: Performed By: #### C BC, ADIFF, ANEU, GFR, BMP ####[address] [place], [place] [address] MCV Auto Entitic volume (RBC) 87.3 fL Normal 80.0-94.0 [facility] ([place]) Comment on above: Performed By: #### C BC, ADIFF, ANEU, GFR, BMP ####[address] [place], [place] [address] Platelet mean volume Auto Entitic volume (Bld) 8.7 fL Normal 7.4-10.4 [facility] ([place] Comment on above: Performed By: #### C BC, ADIFF, ANEU, GFR, BMP ####[address] [place], [place] [address] Platelets Auto #/vol (Bld) 245 10 3/mcL Normal 130-400 [facility] ([place]) Comment on above: Performed By: #### C BC, ADIFF, ANEU, GFR, BMP ####[address] [place], [place] [address] RBC Auto #/vol (Bld) 5.25 10 6/mcL Normal 4.04-6.13 [facility] ([place] Comment on above: Performed By: #### C BC, ADIFF, ANEU, GFR, BMP ####[address] [place], [place] [address] WBC Auto #/vol (Bld) 9.50 10 3/mcL Normal 4.60-10.80 [facility] ([place] Comment on above: Performed By: #### C BC, ADIFF, ANEU, GFR, BMP ####[address] [place], [place] [address] CKon 02-22-2018 CK enzyme act/vol 105 U/L Normal 38-174 [facility] ([place] Comment on above: Performed By: #### C K ####[address] [place], [place] [address] CT ABDOMEN/PELVIS W/O CONTRA STon 02-22-2018 CT [...] resident's findings and interpretation Interpreted By: Santosh Hardinreliminary Report By: Eben Weeks DOElectronically Signed By: Santosh Hardin MD Dictated Date: 02/22/2018 5:51:01 PM Prelim Date: 02/22/2018 5:55:52 PM Sign Date: 02/22/2018 6:03:10 PM Normal [facility] ([place]) [facility] Note on 02-22-2018 [facility] Note Normal [facility] ([place] Pat Eduon 02-22-2018 Pat Edu Normal [facility] ([place] Patient Summary Documentson 02-22-2018 Patient Summary Documents Normal [facility] ([place] UAon 02-22-2018 Color Nom (U) [place] Invalid Interpretation Code [facility] ([place] Comment on above: Performed By: #### U A, UAMICAO ####[address] [place] [address] Glucose mass conc (U) Negative Normal Negative [facility] ([place] Comment on above: Performed By: #### U A, UAMICAO ####[address] [place] [address] Ketones Ql (U) Negative Normal Negative [facility] ([place] Comment on above: Performed By: #### U A, UAMICAO ####[address] [place] [address] UA Appear Clear Normal Clear [facility] ([place] Comment on above: Performed By: #### U A, UAMICAO ####[address] [place] [address] UA Blood Negative Normal Negative [facility] ([place] Comment on above: Performed By: #### U A, UAMICAO ####[address] [place] [address] UA Leuk Est Negative Normal Negative [facility] ([place] Comment on above: Performed By: #### U A, UAMICAO ####[address] [place] [address] UA Nitrite Negative Normal Negative [facility] ([place] Comment on above: Performed By: #### U A, UAMICAO ####[address] [place] [address] UA pH 6.0 Normal [facility] ([place] Comment on above: Performed By: #### U A, UAMICAO ####[address] [place] [address] UA Protein Negative Normal Negative [facility] ([place] Comment on above: Performed By: #### U A, UAMICAO ####[address] [place] [address] UA Spec Grav >=1.030 Invalid Interpretation Code [facility] ([place] Comment on above: Performed By: #### U A, UAMICAO ####[address] [place], [place] [address] UA Specimen Type Clean Catch Normal [facility] ([place] Comment on above: Performed By: #### U A, UAMICAO ####[address] [place], [place] [address] UA Urobilinogen 0.2 E.U./dL Normal [facility] ([place] Comment on above: Performed By: #### U A, UAMICAO ####[address] [place], [place] [address] Urobilinogen Test strip Qn (U) Negative Normal Negative [facility] ([place] Comment on above: Performed By: #### U A, UAMICAO ####[address] [place], [place] [address] [facility] Note on 08-28-2017 [facility] Note Normal [facility] ([place] Patient Summary Documentson 08-21-2017 Patient Summary Documents Normal [facility] ([place] Culture, urine Bacteria identified Cx Nom (U) Culture exhibits no growth. [facility] Work Phone: Vital Signs Date Time Vital Sign Value Performing Clinician Faci lity 07-11-2025 18:09-0400 Body temperature 97.8 [degF] Dr. Kedar Davidson MD Work Phone: [facility] 07-11-2025 18:09-0400 Diastolic blood pressure 78 mm[Hg] Dr. Kedar Davidson MD Work Phone: [facility] 07-11-2025 18:09-0400 Heart rate 64 /min Dr. Kedar Davidson MD Work Phone: [facility] 07-11-2025 18:09-0400 Respiratory rate 18 /min Dr. Kedar Davidson MD Work Phone: [facility] 07-11-2025 18:09-0400 SaO2% (BldA) [Mass fraction] 99 % Dr. Kedar Davidson MD Work Phone: [facility] 07-11-2025 18:09-0400 Systolic blood pressure 114 mm[Hg] Dr. Kedar Davidson MD Work Phone: [phone] [place] [address] 07-11-2025 14:34-0400 Body height 182.[address] Kedar Davidson MD Work Phone: [phone])[phone] [place] [address] 07-11-2025 14:34-0400 Body mass index (BMI) [Ratio] 33 kg/m2 Dr. Kedar Davidson MD Work Phone: [phone] [place] [address] 07-11-2025 14:34-0400 Body weight 110.[address] Kedar Davidson MD Work Phone: [phone] [place] [address] 06-06-2025 11:53-0400 Body temperature 98.3 [degF] Dr. Kedar Davidson MD Work Phone: [phone] [place] [address] 06-06-2025 11:53-0400 Diastolic blood pressure 64 mm[Hg] Dr. Kedar Davidson MD Work Phone: 5(846)[phone] [place] [address] 06-06-2025 11:53-0400 Heart rate 88 /min Dr. Kedar Davidson MD Work Phone: 5(809)[phone] [place] [address] 06-06-2025 11:53-0400 Respiratory rate 18 /min Dr. Kedar Davidson MD Work Phone: 4(862)[phone] [place] [address] 06-06-2025 11:53-0400 SaO2% (BldA) [Mass fraction] 100 % Dr. Kedar Davidson MD Work Phone: 4(605)[phone] [place] [address] 06-06-2025 11:53-0400 Systolic blood pressure 132 mm[Hg] Dr. Kedar Davidson MD Work Phone: 3(906)[phone] [place] [address] 06-06-2025 10:51-0400 Body height 182.[address] Kedar Davidson MD Work Phone: [phone])[phone] [place] [address] 06-06-2025 10:51-0400 Body mass index (BMI) [Ratio] 30.1 kg/m2 Dr. Kedar Davidson MD Work Phone: [phone] [place] [address] 06-06-2025 10:51-0400 Body weight 100.[address] Kedar Davidson MD Work Phone: [facility] 03-11-2024 10:39-0400 Body temperature 97.4 [degF] Dr. Jaci Krishna Work Phone: [facility] 03-11-2024 10:39-0400 Diastolic blood pressure 88 mm[Hg] Dr. Jaci Krishna Work Phone: [facility] 03-11-2024 10:39-0400 Heart rate 92 /min Dr. Jaci Krishna Work Phone: [facility] 03-11-2024 10:39-0400 Respiratory rate 15 /min Dr. Jaci Krishna Work Phone: [facility] 03-11-2024 10:39-0400 SaO2% (BldA) [Mass fraction] 100 % Dr. Jaci Krishna Work Phone: [facility] 03-11-2024 10:39-0400 Systolic blood pressure 136 mm[Hg] Dr. Jaci Krishna Work Phone: [facility] 03-11-2024 09:18-0400 Body height 182.[address] Jaci Krishna Work Phone: [facility] 03-11-2024 09:18-0400 Body mass index (BMI) [Ratio] 28.5 kg/m2 Dr. Jaci Krishna Work Phone: [facility] 03-11-2024 09:18-0400 Body weight 95.[address] Jaci Krishna Work Phone: [facility] 01-08-2024 11:18-0400 Body mass index (BMI) [Ratio] 27.1 kg/m2 Dr. Jaci Krishna Work Phone: [facility] 01-08-2024 11:18-0400 Body weight 90.[address] Jaci Krishna Work Phone: [facility] 01-08-2024 11:18-0400 Diastolic blood pressure 77 mm[Hg] Dr. Jaci Krishna Work Phone: [facility] 01-08-2024 11:18-0400 Heart rate 62 /min Dr. Jaci Krishna Work Phone: [facility] 01-08-2024 11:18-0400 Respiratory rate 16 /min Dr. Jaci Krishna Work Phone: [facility] 01-08-2024 11:18-0400 Systolic blood pressure 125 mm[Hg] Dr. Jaci Krishna Work Phone: [facility] 12-06-2023 16:01-0500 Diastolic blood pressure 112 mm[Hg] Dr. Jaci Krishna Work Phone: [facility] 12-06-2023 16:01-0500 Heart rate 78 /min Dr. Jaci Krishna Work Phone: [facility] 12-06-2023 16:01-0500 Respiratory rate 16 /min Dr. Jaci Krishna Work Phone: [facility] 12-06-2023 16:01-0500 SaO2% (BldA) [Mass fraction] 98 % Dr. Jaci Krishna Work Phone: [facility] 12-06-2023 16:01-0500 Systolic blood pressure 149 mm[Hg] Dr. Jaci Krishna Work Phone: [facility] 12-06-2023 12:04-0500 Body mass index (BMI) [Ratio] 27.6 kg/m2 Dr. Jaci Krishna Work Phone: [facility] 12-06-2023 12:04-0500 Body temperature 97.3 [degF] Dr. Jaci Krishna Work Phone: [facility] 12-06-2023 12:04-0500 Body weight 92.[address] Jaci Krishna Work Phone: [facility] 10-10-2023 14:37-0500 Body height 182.88 cm [employer] Delfino Moore [employer] Work Phone: [facility] 10-10-2023 14:37-0500 Body mass index (BMI) [Ratio] 29.2 kg/m2 [employer] Delfino Moore [employer] Work Phone: [facility] 10-10-2023 14:37-0500 Body temperature 96.7 [degF] [employer] Delfino Moore [employer] Work Phone: [facility] 10-10-2023 14:37-0500 Body weight 97.97 kg [employer] Delfino Moore [employer] Work Phone: [facility] 10-10-2023 14:37-0500 Diastolic blood pressure 101 mm[Hg] [employer] Delfino Moore [employer] Work Phone: [facility] 10-10-2023 14:37-0500 Heart rate 57 /min [employer] Delfino Moore [employer]IST [employer] Work Phone: [facility] 10-10-2023 14:37-0500 Respiratory rate 16 /min [employer] Delfino Moore [employer]CH[employer]IST [employer] Work Phone: [facility] 10-10-2023 14:37-0500 SaO2% (BldA) [Mass fraction] 99 % [employer] Delfino Moore PSYCH[employer]IST [employer] Work Phone: [facility] 10-10-2023 14:37-0500 Systolic blood pressure 163 mm[Hg] [employer] Delfino Moore [employer]IST [employer] Work Phone: [facility] 10-09-2023 11:06-0500 Body mass index (BMI) [Ratio] 27.1 kg/m2 [employer] Delfino Moore [employer]IST [employer] Work Phone: [facility] 10-09-2023 11:06-0500 Body temperature 98.6 [degF] [employer] Delfino Moore [employer] Work Phone: [facility] 10-09-2023 11:06-0500 Body weight 90.71 kg [employer] Delfino Moore [employer] Work Phone: [facility] 10-09-2023 11:06-0500 Diastolic blood pressure 98 mm[Hg] [employer] Delfino Moore [employer] Work Phone: [facility] 10-09-2023 11:06-0500 Heart rate 64 /min [employer] Delfino Moore [employer] Work Phone: [facility] 10-09-2023 11:06-0500 Respiratory rate 14 /min [employer] Delfino Moore [employer] Work Phone: [facility] 10-09-2023 11:06-0500 SaO2% (BldA) [Mass fraction] 97 % [employer] Delfino Moore [employer]IST [employer] Work Phone: [facility] 10-09-2023 11:06-0500 Systolic blood pressure 180 mm[Hg] [employer] Delfino Moore [employer] Work Phone: [facility] 06-05-2023 19:38-0400 Diastolic blood pressure 95 mm[Hg] [facility] 06-05-2023 19:38-0400 Heart rate 53 /min [facility] 06-05-2023 19:38-0400 Respiratory rate 20 /min [facility] 06-05-2023 19:38-0400 SaO2% (BldA) [Mass fraction] 97 % [facility] 06-05-2023 19:38-0400 Systolic blood pressure 160 mm[Hg] [facility] 06-05-2023 16:41-0400 Body height 182.88 cm [facility] 06-05-2023 16:41-0400 Body mass index (BMI) [Ratio] 29.1 kg/m2 [facility] 06-05-2023 16:41-0400 Body temperature 97.5 [degF] [facility] 06-05-2023 16:41-0400 Body weight 97.52 kg [facility] 05-05-2023 12:14-0400 Diastolic blood pressure 82 mm[Hg] [facility] 05-05-2023 12:14-0400 Heart rate 52 /min [facility] 05-05-2023 12:14-0400 Respiratory rate 18 /min [facility] 05-05-2023 12:14-0400 SaO2% (BldA) [Mass fraction] 98 % [facility] 05-05-2023 12:14-0400 Systolic blood pressure 138 mm[Hg] [facility] 05-05-2023 11:17-0400 Body temperature 98.3 [degF] [facility] 05-05-2023 08:17-0400 Body height 182.88 cm [facility] 05-05-2023 08:17-0400 Body mass index (BMI) [Ratio] 28.6 kg/m2 [facility] 05-05-2023 08:17-0400 Body weight 95.9 kg [facility] 12-30-2022 08:22-0500 Body height 182.88 cm [employer] Delfino Moore [employer] Work Phone: [facility] 12-30-2022 08:22-0500 Body mass index (BMI) [Ratio] 30 kg/m2 [employer] Delfino Moore [employer] Work Phone: [facility] 12-30-2022 08:22-0500 Body temperature 97.1 [degF] [employer] Delfino Moore [employer] Work Phone: [facility] 12-30-2022 08:22-0500 Body weight 100.6 kg [employer] Delfino Moore [employer] Work Phone: [facility] 12-30-2022 08:22-0500 Diastolic blood pressure 86 mm[Hg] [employer] Delfino Moore [employer] Work Phone: [facility] 12-30-2022 08:22-0500 Heart rate 60 /min [employer] Delfino Moore [employer] Work Phone: [facility] 12-30-2022 08:22-0500 Respiratory rate 18 /min [employer] Delfino Moore [employer] Work Phone: [facility] 12-30-2022 08:22-0500 SaO2% (BldA) [Mass fraction] 99 % [employer] Delfino Moore [employer] Work Phone: [facility] 12-30-2022 08:22-0500 Systolic blood pressure 140 mm[Hg] [employer] Delfino Moore [employer] Work Phone: [facility] 11-09-2022 09:18-0500 Body height 182.88 cm [employer] Delfino Moore PS[employer]IST [employer] Work Phone: [facility] 11-09-2022 09:18-0500 Body mass index (BMI) [Ratio] 29.8 kg/m2 [employer] Delfino Moore [employer] Work Phone: [facility] 11-09-2022 09:18-0500 Body temperature 99 [degF] [employer] Delfino Moore [employer] Work Phone: [facility] 11-09-2022 09:18-0500 Body weight 99.79 kg [employer] Delfino Moore [employer] Work Phone: [facility] 11-09-2022 09:18-0500 Diastolic blood pressure 82 mm[Hg] [employer] Delfino Moore [employer] Work Phone: [facility] 11-09-2022 09:18-0500 Heart rate 62 /min [employer] Delfino Moore [employer] Work Phone: [facility] 11-09-2022 09:18-0500 Respiratory rate 16 /min [employer] Delfino Moore [employer] Work Phone: [facility] 11-09-2022 09:18-0500 SaO2% (BldA) [Mass fraction] 97 % [employer] Delfino Moore [employer] Work Phone: [facility] 11-09-2022 09:18-0500 Systolic blood pressure 130 mm[Hg] [employer] Delfino Moore [employer] Work Phone: [facility] 08-17-2022 09:22-0400 Body mass index (BMI) [Ratio] 29.8 kg/m2 [employer] Delfino Moore [employer] Work Phone: [facility] 08-17-2022 09:22-0400 Body temperature 96.9 [degF] [employer] Delfino Moore [employer] Work Phone: [facility] 08-17-2022 09:22-0400 Body weight 99.9 kg [employer] Delfino Moore PS[employer]IST [employer] Work Phone: [facility] 08-17-2022 09:22-0400 Diastolic blood pressure 60 mm[Hg] [employer] Delfino Moore [employer]IST [employer] Work Phone: [facility] 08-17-2022 09:22-0400 Heart rate 56 /min [employer] Delfino Moore [employer] Work Phone: [facility] 08-17-2022 09:22-0400 Respiratory rate 18 /min [employer] Delfino Moore PS[employer]IST [employer] Work Phone: [facility] 08-17-2022 09:22-0400 SaO2% (BldA) [Mass fraction] 96 % [employer] Delfino Moore PS[employer]CH[employer]IST [employer] Work Phone: [facility] 08-17-2022 09:22-0400 Systolic blood pressure 110 mm[Hg] [employer] Delfino Moore [employer] Work Phone: [facility] 07-06-2022 08:58-0400 Body height 182.88 cm [employer] Delfino Moore [employer]IST [employer] Work Phone: [facility] Work Phone: 07-06-2022 08:58-0400 Body mass index (BMI) [Ratio] 30.7 kg/m2 [employer] Delfino Moore [employer]IST [employer] Work Phone: [facility] Work Phone: 07-06-2022 08:58-0400 Body temperature 97.8 [degF] [employer] Delfino Moore [employer]IST [employer] Work Phone: [facility] Work Phone: 07-06-2022 08:58-0400 Body weight 102.96 kg [employer] Delfino Moore [employer] Work Phone: [facility] Work Phone: 07-06-2022 08:58-0400 Diastolic blood pressure 58 mm[Hg] [employer] Delfino Moore [employer] Work Phone: [facility] Work Phone: 07-06-2022 08:58-0400 Heart rate 59 /min [employer] Delfino Moore [employer] Work Phone: [facility] Work Phone: 07-06-2022 08:58-0400 Respiratory rate 18 /min [employer] Delfino Moore PSYCH[employer]IST [employer] Work Phone: [facility] Work Phone: 07-06-2022 08:58-0400 SaO2% (BldA) [Mass fraction] 95 % [employer] Delfino Moore PS[employer]CH[employer]IST [employer] Work Phone: [facility] Work Phone: 07-06-2022 08:58-0400 Systolic blood pressure 110 mm[Hg] [employer] Delfino Moore [employer]IST [employer] Work Phone: [facility] Work Phone: 06-22-2022 15:20-0400 Body height 182.88 cm [employer] Delfino Moore PS[employer]CH[employer]IST [employer] Work Phone: [facility] Work Phone: 06-22-2022 15:20-0400 Body mass index (BMI) [Ratio] 32.5 kg/m2 [employer] Delfino Moore PS[employer]CH[employer]IST [employer] Work Phone: [facility] Work Phone: 06-22-2022 15:20-0400 Body temperature 98.2 [degF] [employer] Delfino Moore [employer]IST [employer] Work Phone: [facility] Work Phone: 06-22-2022 15:20-0400 Body weight 108.91 kg [employer] Delfino Moore PS[employer]CH[employer]IST [employer] Work Phone: [facility] Work Phone: 06-22-2022 15:20-0400 Diastolic blood pressure 60 mm[Hg] [employer] Delfino Moore PS[employer]CH[employer]IST [employer] Work Phone: [facility] Work Phone: 06-22-2022 15:20-0400 Heart rate 63 /min [employer] Delfino Moore PS[employer]CH[employer]IST [employer] Work Phone: [facility] Work Phone: 06-22-2022 15:20-0400 Respiratory rate 18 /min [employer] Delfino Moore PSYCH[employer]IST [employer] Work Phone: [facility] Work Phone: 06-22-2022 15:20-0400 SaO2% (BldA) [Mass fraction] 96 % [employer] Delfino Moore PS[employer]CH[employer]IST [employer] Work Phone: [facility] Work Phone: 06-22-2022 15:20-0400 Systolic blood pressure 114 mm[Hg] [employer] Delfino Moore PSYCH[employer]IST [employer] Work Phone: [facility] Work Phone: 06-03-2022 12:31-0400 Diastolic blood pressure 68 mm[Hg] [employer] Delfino Moore PS[employer]CH[employer]IST [employer] Work Phone: [facility] Work Phone: 06-03-2022 12:31-0400 Heart rate 48 /min [employer] Delfino Moore PSYCH[employer]IST [employer] Work Phone: [facility] Work Phone: 06-03-2022 12:31-0400 Respiratory rate 18 /min [employer] Delfino Moore PSYCH[employer]IST [employer] Work Phone: [facility] Work Phone: 06-03-2022 12:31-0400 SaO2% (BldA) [Mass fraction] 99 % [employer] Delfino Moore PSYCH[employer]IST [employer] Work Phone: [facility] Work Phone: 06-03-2022 12:31-0400 Systolic blood pressure 138 mm[Hg] [employer] Delfino Moore PS[employer]CH[employer]IST [employer] Work Phone: [facility] Work Phone: 06-03-2022 07:29-0400 Body temperature 97.8 [degF] [employer] Delfino Moore PS[employer]CH[employer]IST [employer] Work Phone: [facility] Work Phone: 06-03-2022 07:09-0400 Body height 182.88 cm [employer]IST [employer] Delfino Moore PSYCH[employer]IST [employer] Work Phone: [facility] Work Phone: 06-03-2022 07:09-0400 Body mass index (BMI) [Ratio] 33.2 kg/m2 [employer] Delfino Moore PS[employer]CH[employer]IST [employer] Work Phone: [facility] Work Phone: 06-03-2022 07:09-0400 Body weight 111.13 kg [employer] Delfino Moore PS[employer]CH[employer]IST [employer] Work Phone: [facility] Work Phone: 06-02-2022 10:59-0400 Body mass index (BMI) [Ratio] 33.3 kg/m2 [employer] Delfino Moore PS[employer]IST [employer] Work Phone: [facility] Work Phone: 06-02-2022 10:59-0400 Body temperature 97.2 [degF] [employer] Delfino Moore [employer]IST [employer] Work Phone: [facility] Work Phone: 06-02-2022 10:59-0400 Body weight 111.58 kg [employer] Delfino Moore [employer]IST [employer] Work Phone: [facility] Work Phone: 06-02-2022 10:59-0400 Diastolic blood pressure 74 mm[Hg] [employer] Delfino Moore PS[employer]IST [employer] Work Phone: [facility] Work Phone: 06-02-2022 10:59-0400 Heart rate 77 /min [employer] Delfino Moore PSYCH[employer]IST [employer] Work Phone: [facility] Work Phone: 06-02-2022 10:59-0400 Respiratory rate 14 /min [employer] Delfino Moore PSYCH[employer]IST [employer] Work Phone: [facility] Work Phone: 06-02-2022 10:59-0400 SaO2% (BldA) [Mass fraction] 97 % [employer] Delfino Moore PSYCH[employer]IST [employer] Work Phone: [facility] Work Phone: 06-02-2022 10:59-0400 Systolic blood pressure 108 mm[Hg] [employer] Delfino Moore PSYCH[employer]IST [employer] Work Phone: [facility] Work Phone: 06-01-2022 09:00-0400 Body mass index (BMI) [Ratio] 33.3 kg/m2 [employer] Delfino Moore PSYCH[employer]IST [employer] Work Phone: [facility] Work Phone: 06-01-2022 09:00-0400 Body weight 111.58 kg PS[employer]IST [employer] Delfino Moore PS[employer]CH[employer]IST [employer] Work Phone: [facility] Work Phone: 06-01-2022 09:00-0400 Diastolic blood pressure 57 mm[Hg] [employer] Delfino Moore PS[employer]CH[employer]IST [employer] Work Phone: [facility] Work Phone: 06-01-2022 09:00-0400 Heart rate 55 /min [employer] Delfino Moore PSYCH[employer]IST [employer] Work Phone: [facility] Work Phone: 06-01-2022 09:00-0400 Respiratory rate 16 /min [employer] Delfino Moore PSYCH[employer]IST [employer] Work Phone: [facility] Work Phone: 06-01-2022 09:00-0400 Systolic blood pressure 100 mm[Hg] [employer] Delfino Moore PS[employer]CH[employer]IST [employer] Work Phone: [facility] Work Phone: 04-22-2022 14:21-0400 Body height 182.88 cm PSYCHOLOGIST [employer] Delfino Moore PSYCH[employer]IST [employer] Work Phone: [facility] Work Phone: 04-22-2022 14:21-0400 Body mass index (BMI) [Ratio] 33.5 kg/m2 [employer] Delfino Moore PSYCH[employer]IST [employer] Work Phone: [facility] Work Phone: 04-22-2022 14:21-0400 Body temperature 97.8 [degF] [employer] Delfino Moore PSYCH[employer]IST [employer] Work Phone: [facility] Work Phone: 04-22-2022 14:21-0400 Body weight 112.03 kg PSY[employer]IST [employer] Delfino Moore PSYCH[employer]IST [employer] Work Phone: [facility] Work Phone: 04-22-2022 14:21-0400 Diastolic blood pressure 80 mm[Hg] [employer] Delfino Moore PSYCH[employer]IST [employer] Work Phone: [facility] Work Phone: 04-22-2022 14:21-0400 Heart rate 82 /min PS[employer] Delfino Moore PSYCH[employer]IST [employer] Work Phone: [facility] Work Phone: 04-22-2022 14:21-0400 Respiratory rate 16 /min PS[employer]IST [employer] Delfino Moore PSYCH[employer]IST [employer] Work Phone: [facility] Work Phone: 04-22-2022 14:21-0400 SaO2% (BldA) [Mass fraction] 97 % [employer] Delfino Moore PSYCHOLOGIST [employer] Work Phone: [facility] Work Phone: 04-22-2022 14:21-0400 Systolic blood pressure 128 mm[Hg] [employer] Delfino Moore PSYCH[employer]IST [employer] Work Phone: [facility] Work Phone: 04-07-2022 10:56-0400 Body mass index (BMI) [Ratio] 32.8 kg/m2 [employer] Delfino Moore PSYCH[employer]IST [employer] Work Phone: [facility] Work Phone: 04-07-2022 10:56-0400 Body temperature 97.6 [degF] [employer] Delfino Moore PSYCH[employer]IST [employer] Work Phone: [facility] Work Phone: 04-07-2022 10:56-0400 Body weight 109.76 kg [employer] Delfino Moore PSYCHOLOGIST INDUSTRIAL ORGANIZATIONAL Work Phone: [facility] Work Phone: 04-07-2022 10:56-0400 Diastolic blood pressure 70 mm[Hg] PSYCHOLOGIST INDUSTRIAL ORGANIZATIONAL-C Delfino Moore PSYCHOLOGIST INDUSTRIAL ORGANIZATIONAL Work Phone: [facility] Work Phone: 04-07-2022 10:56-0400 Heart rate 72 /min PSYCHOLOGIST INDUSTRIAL ORGANIZATIONAL-C Delfino Moore PSYCHOLOGIST INDUSTRIAL ORGANIZATIONAL Work Phone: [facility] Work Phone: 04-07-2022 10:56-0400 Respiratory rate 14 /min PSYCHOLOGIST INDUSTRIAL ORGANIZATIONAL-C Delfino Moore PSYCHOLOGIST INDUSTRIAL ORGANIZATIONAL Work Phone: [facility] Work Phone: 04-07-2022 10:56-0400 SaO2% (BldA) [Mass fraction] 97 % PSYCHOLOGIST INDUSTRIAL ORGANIZATIONAL-C Delfino Moore PSYCHOLOGIST INDUSTRIAL ORGANIZATIONAL Work Phone: [facility] Work Phone: 04-07-2022 10:56-0400 Systolic blood pressure 126 mm[Hg] PSYCHOLOGIST INDUSTRIAL ORGANIZATIONAL-C Delfino Moore PSYCHOLOGIST INDUSTRIAL ORGANIZATIONAL Work Phone: [facility] Work Phone: 03-29-2022 14:44-0400 Body mass index (BMI) [Ratio] 33.6 kg/m2 PSYCHOLOGIST INDUSTRIAL ORGANIZATIONAL-C Delfino Moore PSYCHOLOGIST INDUSTRIAL ORGANIZATIONAL Work Phone: [facility] Work Phone: 03-29-2022 14:44-0400 Body temperature 98.2 [degF] PSYCHOLOGIST INDUSTRIAL ORGANIZATIONAL-C Delfino Moore PSYCHOLOGIST INDUSTRIAL ORGANIZATIONAL Work Phone: [facility] Work Phone: 03-29-2022 14:44-0400 Body weight 112.49 kg PSYCHOLOGIST INDUSTRIAL ORGANIZATIONAL-C Delfino Moore PSYCHOLOGIST INDUSTRIAL ORGANIZATIONAL Work Phone: [facility] Work Phone: 03-29-2022 14:44-0400 Diastolic blood pressure 84 mm[Hg] PSYCHOLOGIST INDUSTRIAL ORGANIZATIONAL-C Delfino Moore PSYCHOLOGIST INDUSTRIAL ORGANIZATIONAL Work Phone: [facility] Work Phone: 03-29-2022 14:44-0400 Heart rate 85 /min PSYCHOLOGIST INDUSTRIAL ORGANIZATIONAL-C Delfino Moore PSYCHOLOGIST INDUSTRIAL ORGANIZATIONAL Work Phone: [facility] Work Phone: 03-29-2022 14:44-0400 Respiratory rate 14 /min PSYCHOLOGIST INDUSTRIAL ORGANIZATIONAL-C Delfino Moore PSYCHOLOGIST INDUSTRIAL ORGANIZATIONAL Work Phone: [facility] Work Phone: 03-29-2022 14:44-0400 SaO2% (BldA) [Mass fraction] 99 % PSYCHOLOGIST INDUSTRIAL ORGANIZATIONAL-C Delfino Moore PSYCHOLOGIST INDUSTRIAL ORGANIZATIONAL Work Phone: [facility] Work Phone: 03-29-2022 14:44-0400 Systolic blood pressure 118 mm[Hg] PSYCHOLOGIST INDUSTRIAL ORGANIZATIONAL-C Delfino Moore PSYCHOLOGIST INDUSTRIAL ORGANIZATIONAL Work Phone: [facility] Work Phone: 03-02-2022 09:57-0400 Body mass index (BMI) [Ratio] 33.6 kg/m2 PSYCHOLOGIST INDUSTRIAL ORGANIZATIONAL-C Delfino Moore PSYCHOLOGIST INDUSTRIAL ORGANIZATIONAL Work Phone: [facility] Work Phone: 03-02-2022 09:57-0400 Body weight 112.49 kg PSYCHOLOGIST INDUSTRIAL ORGANIZATIONAL-C Delfino Moore PSYCHOLOGIST INDUSTRIAL ORGANIZATIONAL Work Phone: [facility] Work Phone: 03-02-2022 09:57-0400 Diastolic blood pressure 73 mm[Hg] PSYCHOLOGIST INDUSTRIAL ORGANIZATIONAL-C Delfino Moore PSYCHOLOGIST INDUSTRIAL ORGANIZATIONAL Work Phone: [facility] Work Phone: 03-02-2022 09:57-0400 Heart rate 75 /min PSYCHOLOGIST INDUSTRIAL ORGANIZATIONAL-C Delfino Moore PSYCHOLOGIST INDUSTRIAL ORGANIZATIONAL Work Phone: [facility] Work Phone: 03-02-2022 09:57-0400 Respiratory rate 20 /min PSYCHOLOGIST INDUSTRIAL ORGANIZATIONAL-C Delfino Moore PSYCHOLOGIST INDUSTRIAL ORGANIZATIONAL Work Phone: [facility] Work Phone: 03-02-2022 09:57-0400 SaO2% (BldA) [Mass fraction] 97 % PSYCHOLOGIST INDUSTRIAL ORGANIZATIONAL-C Delfino Moore PSYCHOLOGIST INDUSTRIAL ORGANIZATIONAL Work Phone: [facility] Work Phone: 03-02-2022 09:57-0400 Systolic blood pressure 130 mm[Hg] PSYCHOLOGIST INDUSTRIAL ORGANIZATIONAL-C Delfino Moore PSYCHOLOGIST INDUSTRIAL ORGANIZATIONAL Work Phone: [facility] Work Phone: 02-10-2022 08:29-0400 Body mass index (BMI) [Ratio] 31.1 kg/m2 PSYCHOLOGIST INDUSTRIAL ORGANIZATIONAL-C Delfino Moore PSYCHOLOGIST INDUSTRIAL ORGANIZATIONAL Work Phone: [facility] Work Phone: 02-10-2022 08:29-0400 Body temperature 97.2 [degF] PSYCHOLOGIST INDUSTRIAL ORGANIZATIONAL-C Delfino Moore PSYCHOLOGIST INDUSTRIAL ORGANIZATIONAL Work Phone: [facility] Work Phone: 02-10-2022 08:29-0400 Body weight 104.38 kg PSYCHOLOGIST INDUSTRIAL ORGANIZATIONAL-C Delfino Moore PSYCHOLOGIST INDUSTRIAL ORGANIZATIONAL Work Phone: [facility] Work Phone: 02-10-2022 08:29-0400 Diastolic blood pressure 76 mm[Hg] PSYCHOLOGIST INDUSTRIAL ORGANIZATIONAL-C Delfino Moore PSYCHOLOGIST INDUSTRIAL ORGANIZATIONAL Work Phone: [facility] Work Phone: 02-10-2022 08:29-0400 Heart rate 76 /min PSYCHOLOGIST INDUSTRIAL ORGANIZATIONAL-C Delfino Moore PSYCHOLOGIST INDUSTRIAL ORGANIZATIONAL Work Phone: [facility] Work Phone: 02-10-2022 08:29-0400 Respiratory rate 14 /min PSYCHOLOGIST INDUSTRIAL ORGANIZATIONAL-C Delfino Moore PSYCHOLOGIST INDUSTRIAL ORGANIZATIONAL Work Phone: [facility] Work Phone: 02-10-2022 08:29-0400 SaO2% (BldA) [Mass fraction] 97 % PSYCHOLOGIST INDUSTRIAL ORGANIZATIONAL-C Delfino Moore PSYCHOLOGIST INDUSTRIAL ORGANIZATIONAL Work Phone: [facility] Work Phone: 02-10-2022 08:29-0400 Systolic blood pressure 116 mm[Hg] PSYCHOLOGIST INDUSTRIAL ORGANIZATIONAL-C Delfino Moore PSYCHOLOGIST INDUSTRIAL ORGANIZATIONAL Work Phone: [facility] Work Phone: 02-09-2022 10:50-0400 Diastolic blood pressure 76 mm[Hg] PSYCHOLOGIST INDUSTRIAL ORGANIZATIONAL-C Delfino Moore PSYCHOLOGIST INDUSTRIAL ORGANIZATIONAL Work Phone: [facility] Work Phone: 02-09-2022 10:50-0400 Systolic blood pressure 133 mm[Hg] PSYCHOLOGIST INDUSTRIAL ORGANIZATIONAL-C Delfino Moore PSYCHOLOGIST INDUSTRIAL ORGANIZATIONAL Work Phone: [facility] Work Phone: 02-09-2022 08:23-0400 Heart rate 93 /min PSYCHOLOGIST INDUSTRIAL ORGANIZATIONAL-C Delfino Moore PSYCHOLOGIST INDUSTRIAL ORGANIZATIONAL Work Phone: [facility] Work Phone: 02-09-2022 08:20-0400 Body temperature 96.6 [degF] PSYCHOLOGIST INDUSTRIAL ORGANIZATIONAL-C Delfino Moore PSYCHOLOGIST INDUSTRIAL ORGANIZATIONAL Work Phone: [facility] Work Phone: 02-09-2022 08:20-0400 Respiratory rate 16 /min PSYCHOLOGIST INDUSTRIAL ORGANIZATIONAL-C Delfino Moore PSYCHOLOGIST INDUSTRIAL ORGANIZATIONAL Work Phone: [facility] Work Phone: 02-09-2022 08:20-0400 SaO2% (BldA) [Mass fraction] 99 % PSYCHOLOGIST INDUSTRIAL ORGANIZATIONAL-C Delfino Moore PSYCHOLOGIST INDUSTRIAL ORGANIZATIONAL Work Phone: [facility] Work Phone: 02-09-2022 03:02-0400 Body weight 104.9 kg PSYCHOLOGIST INDUSTRIAL ORGANIZATIONAL-C Delfino Moore PSYCHOLOGIST INDUSTRIAL ORGANIZATIONAL Work Phone: [facility] Work Phone: 02-08-2022 09:32-0400 Body height 182.88 cm PSYCHOLOGIST INDUSTRIAL ORGANIZATIONAL-C Delfino Moore PSYCHOLOGIST INDUSTRIAL ORGANIZATIONAL Work Phone: [facility] Work Phone: 02-07-2022 15:07-0400 Body mass index (BMI) [Ratio] 31.7 kg/m2 PSYCHOLOGIST INDUSTRIAL ORGANIZATIONAL-C Delfino Moore PSYCHOLOGIST INDUSTRIAL ORGANIZATIONAL Work Phone: [facility] Work Phone: 02-07-2022 14:50-0400 Inhaled oxygen flow rate 2 L/min PSYCHOLOGIST INDUSTRIAL ORGANIZATIONAL-C Delfino Moore PSYCHOLOGIST INDUSTRIAL ORGANIZATIONAL Work Phone: [facility] Work Phone: 02-07-2022 13:37-0400 Respiratory rate 24 /min [facility] Work Phone: 02-07-2022 13:18-0400 Body height 182.88 cm [facility] Work Phone: 02-07-2022 13:18-0400 Body mass index (BMI) [Ratio] 32.2 kg/m2 [facility] Work Phone: 02-07-2022 13:18-0400 Body temperature 97.9 [degF] [facility] Work Phone: 02-07-2022 13:18-0400 Body weight 107.8 kg [facility] Work Phone: 02-07-2022 13:18-0400 Heart rate 101 /min [facility] Work Phone: 02-07-2022 13:18-0400 SaO2% (BldA) [Mass fraction] 93 % [facility] Work Phone: Encounters Encounter Date Encounter Type Care Provider Facility Start: 07-11-2025 End: 07-11-2025 Emergency department patient visit Dr. Kedar Davidson MD Work Phone: -Emergency Department Work Phone: Start: 06-19-2025 End: 06-19-[address] Kedar Davidson MD Work Phone: -[facility] [place] [facility] Start: 06-19-2025 End: 06-19-2025 Patient encounter procedure Delfino Calle PSYCHOLOGIST INDUSTRIAL ORGANIZATIONAL-C -[facility] [place] Start: 06-19-2025 End: 06-19-2025 ambulatory [facility] Facility:[facility] Start: 06-06-2025 End: 06-06-2025 Emergency department patient visit Dr. Kedar Davidson MD Work Phone: -Emergency Department Work Phone: Start: 02-27-2025 ambulatory Jaci Hargrove ty:[facility] Start: 12-17-2024 End: 12-17-2024 Emergency department patient visit PATIENT UNSURE PHYSICIAN Facility:A Start: 03-11-2024 End: 03-11-2024 ambulatory Facility:[facility] Start: 03-11-2024 End: 03-11-2024 Emergency department patient visit Dr. Jaci Krishna Work Phone: [facility]-Emergency Department Work Phone: Start: 03-11-2024 End: 03-11-2024 Patient encounter procedure Rizwana Freeman APRN.CNP Work Phone: [facility] Comment on above: Severe pain (Primary Dx) Start: 02-28-2024 End: 03-03-2024 ambulatory [facility] Start: 01-08-2024 End: 01-08-[address] Jaci Krishna Work Phone: [facility] Work Phone: Start: 12-06-2023 End: 12-06-2023 Emergency department patient visit Dr. Jaci Krishna Work Phone: [facility]-Emergency Department Work Phone: Start: 10-10-2023 End: 10-10-2023 Emergency department patient visit PSYCHOLOGIST INDUSTRIAL ORGANIZATIONAL-C Delfino Brownder PSYCHOLOGIST INDUSTRIAL ORGANIZATIONAL Work Phone: [facility]-Emergency Department Work Phone: Start: 10-09-2023 End: 10-09-2023 ambulatory PSYCHOLOGIST INDUSTRIAL ORGANIZATIONAL-C Delfino Brownder PSYCHOLOGIST INDUSTRIAL ORGANIZATIONAL Work Phone: [facility] Work Phone: Start: 10-09-2023 End: 10-09-2023 Patient encounter procedure PSYCHOLOGIST INDUSTRIAL ORGANIZATIONAL-C Delfino Brownder PSYCHOLOGIST INDUSTRIAL ORGANIZATIONAL Work Phone: [facility] Work Phone: Start: 06-05-2023 End: 06-05-2023 [facility] Start: 05-05-2023 End: 05-05-2023 Emergency department patient visit [facility] Work Phone: Start: 12-30-2022 End: 12-30-2022 Emergency department patient visit PSYCHOLOGIST INDUSTRIAL ORGANIZATIONAL-C Delfino Brownder PSYCHOLOGIST INDUSTRIAL ORGANIZATIONAL Work Phone: [facility]-Emergency Department Start: 11-09-2022 End: 11-09-2022 ambulatory PSYCHOLOGIST INDUSTRIAL ORGANIZATIONAL-C Delfino Brownder PSYCHOLOGIST INDUSTRIAL ORGANIZATIONAL Work Phone: [facility] Work Phone: Start: 11-09-2022 End: 11-09-2022 Patient encounter procedure PSYCHOLOGIST INDUSTRIAL ORGANIZATIONAL-C Delfino Moore PSYCHOLOGIST INDUSTRIAL ORGANIZATIONAL Work Phone: [facility] Start: 08-17-2022 End: 08-17-2022 Patient encounter procedure PSYCHOLOGIST INDUSTRIAL ORGANIZATIONAL-C Delfino Moore PSYCHOLOGIST INDUSTRIAL ORGANIZATIONAL Work Phone: [facility] Start: 07-06-2022 End: 07-06-2022 Patient encounter procedure PSYCHOLOGIST INDUSTRIAL ORGANIZATIONAL-C Delfino Moore PSYCHOLOGIST INDUSTRIAL ORGANIZATIONAL Work Phone: [facility] Start: 07-05-2022 End: 07-05-2022 ambulatory PSYCHOLOGIST INDUSTRIAL ORGANIZATIONAL-C Delfino Brownder PSYCHOLOGIST INDUSTRIAL ORGANIZATIONAL Work Phone: [facility] Work Phone: Start: 07-05-2022 End: 07-05-2022 Patient encounter procedure PSYCHOLOGIST INDUSTRIAL ORGANIZATIONAL-C Delfino Moore PSYCHOLOGIST INDUSTRIAL ORGANIZATIONAL Work Phone: [facility] Start: 06-28-2022 End: 06-28-2022 ambulatory PSYCHOLOGIST INDUSTRIAL ORGANIZATIONAL-C Delfino Moore PSYCHOLOGIST INDUSTRIAL ORGANIZATIONAL Work Phone: [facility] Work Phone: Start: 06-28-2022 End: 06-28-2022 Patient encounter procedure PSYCHOLOGIST INDUSTRIAL ORGANIZATIONAL-C Delfino Moore PSYCHOLOGIST INDUSTRIAL ORGANIZATIONAL Work Phone: [facility]-Laboratory, [place] Start: 06-22-2022 End: 06-22-2022 Patient encounter procedure PSYCHOLOGIST INDUSTRIAL ORGANIZATIONAL-C Delfino Moore PSYCHOLOGIST INDUSTRIAL ORGANIZATIONAL Work Phone: [facility] Start: 06-03-2022 End: 06-03-2022 Emergency department patient visit PSYCHOLOGIST INDUSTRIAL ORGANIZATIONAL-C Delfino Moore PSYCHOLOGIST INDUSTRIAL ORGANIZATIONAL Work Phone: [facility]-Emergency Department Start: 06-02-2022 End: 06-02-2022 Patient encounter procedure PSYCHOLOGIST INDUSTRIAL ORGANIZATIONAL-C Delfino Moore PSYCHOLOGIST INDUSTRIAL ORGANIZATIONAL Work Phone: [facility] Start: 06-01-2022 End: 06-01-2022 Patient encounter procedure PSYCHOLOGIST INDUSTRIAL ORGANIZATIONAL-C Delfino Moore PSYCHOLOGIST INDUSTRIAL ORGANIZATIONAL Work Phone: [facility] Start: 04-22-2022 End: 04-22-2022 Patient encounter procedure PSYCHOLOGIST INDUSTRIAL ORGANIZATIONAL-C Delfino Moore PSYCHOLOGIST INDUSTRIAL ORGANIZATIONAL Work Phone: [facility] Start: 04-07-2022 End: 04-07-2022 Patient encounter procedure PSYCHOLOGIST INDUSTRIAL ORGANIZATIONAL-C Delfino Brownder PSYCHOLOGIST INDUSTRIAL ORGANIZATIONAL Work Phone: [facility] Start: 03-29-2022 End: 03-29-2022 Patient encounter procedure PSYCHOLOGIST INDUSTRIAL ORGANIZATIONAL-C Delfino Brownder PSYCHOLOGIST INDUSTRIAL ORGANIZATIONAL Work Phone: [facility] Start: 03-02-2022 End: 03-02-2022 Patient encounter procedure PSYCHOLOGIST INDUSTRIAL ORGANIZATIONAL-C Delfino Brownder PSYCHOLOGIST INDUSTRIAL ORGANIZATIONAL Work Phone: [facility] Start: 02-10-2022 End: 02-10-2022 Patient encounter procedure PSYCHOLOGIST INDUSTRIAL ORGANIZATIONAL-C Delfino Moore PSYCHOLOGIST INDUSTRIAL ORGANIZATIONAL Work Phone: [facility] Start: 02-09-2022 Non-patient / Non-visit PSYCHOLOGIST INDUSTRIAL ORGANIZATIONAL-C M mariposa Moore PSYCHOLOGIST INDUSTRIAL ORGANIZATIONAL Work Phone: [facility] Start: 02-08-2022 Non-patient / Non-visit PSYCHOLOGIST INDUSTRIAL ORGANIZATIONAL-C M ark Moore PSYCHOLOGIST INDUSTRIAL ORGANIZATIONAL Work Phone: [facility] Start: 02-08-2022 Non-patient / Non-visit PSYCHOLOGIST INDUSTRIAL ORGANIZATIONAL-C M [place] Brownder PSYCHOLOGIST INDUSTRIAL ORGANIZATIONAL Work Phone: [facility] Start: 02-08-2022 Non-patient / Non-visit PSYCHOLOGIST INDUSTRIAL ORGANIZATIONAL-C M [place]ip[place] Moore PSYCHOLOGIST INDUSTRIAL ORGANIZATIONAL Work Phone: [facility] Start: 02-07-2022 Non-patient / Non-visit PSYCHOLOGIST INDUSTRIAL ORGANIZATIONAL-C M abek Moore PSYCHOLOGIST INDUSTRIAL ORGANIZATIONAL Work Phone: [facility] Start: 02-07-2022 End: 02-09-2022 Evaluation and management of inpatient PSYCHOLOGIST INDUSTRIAL [employer]GANIZATIONAL-C Delfino Moore PSYCHOLOGIST INDUSTRIAL ORGANIZATIONAL Work Phone: [facility]-Progressive Care Unit Start: 02-07-2022 Non-patient / Non-visit PSYCHOLOGIST INDUSTRIAL ORGANIZATIONAL-C Rosy Moore PSYCHOLOGIST INDUSTRIAL ORGANIZATIONAL Work Phone: [facility] Start: 02-07-2022 Evaluation and management of inpatient [facility]-Intensive Care Unit Start: 05-06-2021 Patient encounter status [facility] Work Phone: Start: 02-22-2018 End: 02-22-2018 Emergency department patient visit EBEN MONTENEGRO Facility:B Start: 08-21-2017 End: 08-21-2017 Emergency department patient visit HUSSEIN LemusCandelaria LAWRENCE Facility:B Procedures Date Procedure Procedure Detail Performing Clinician Start: 07-11-2025 X-ray of ankle, thre e or more views Dr. Kedar Davidson MD Work Phone: Start: 07-11-[address] Kedar Davidson MD Work Phone: Start: 06-19-2025 Total iron binding capacity measurement Dr. Kedar Davidson MD Work Phone: Start: 06-19-2025 Vitamin D, 25-hydrox y measurement Dr. Kedar Davidson MD Work Phone: Comment on above: Vitamin D StatusDefi ciency: <20 ng/mL (50nmol/L)Insufficiency: 20-30 ng/mL (50-75 nmol/L)Sufficiency: 30-100 ng/mL (75-250 nmol/L)Toxicity: >100 ng/mL (>250 nmol/L) Start: 12-06-2023 Plain chest X-ray Dr. Bill Krishna Work Phone: Start: 10-10-2023 Radiologic examinati on of knee PSYCHOLOGIST INDUSTRIAL [employer]GANIZATIONAL-C Delfino Brownder PSYCHOLOGIST INDUSTRIAL ORGANIZATIONAL Work Phone: Start: 10-09-2023 Radiologic examinati on of knee PSYCHOLOGIST INDUSTRIAL ORGANIZATIONAL-C Delfino Brownder PSYCHOLOGIST INDUSTRIAL ORGANIZATIONAL Work Phone: Start: 06-05-2023 CT angiography of ch est with contrast Start: 05-05-2023 CT of pelvis with contrast Start: 12-30-2022 Computed tomography of abdomen and pelvis with contrast PSYCHOLOGIST INDUSTRIAL ORGANIZATIONAL-C Delfino Brownder PSYCHOLOGIST INDUSTRIAL ORGANIZATIONAL Work Phone: Start: 11-09-2022 Diagnostic radiograp hy of finger PSYCHOLOGIST INDUSTRIAL ORGANIZATIONAL-C Delfino Brownder PSYCHOLOGIST INDUSTRIAL ORGANIZATIONAL Work Phone: Start: 07-05-2022 Magnetic resonance angiography of head without contrast PSYCHOLOGIST INDUSTRIAL ORGANIZATIONAL-C Delfino Brownder PSYCHOLOGIST INDUSTRIAL ORGANIZATIONAL Work Phone: Start: 07-05-2022 MRI of brain with contrast PSYCHOLOGIST INDUSTRIAL ORGANIZATIONAL-C Delfino Brownder PSYCHOLOGIST INDUSTRIAL ORGANIZATIONAL Work Phone: Start: 06-03-2022 CT angiography of he ad and neck PSYCHOLOGIST INDUSTRIAL ORGANIZATIONAL-C Delfino Brownder PSYCHOLOGIST INDUSTRIAL ORGANIZATIONAL Work Phone: Start: 06-03-2022 Plain chest X-ray PSYCHOLOGIST INDUSTRIAL ORGANIZATIONAL-C Delfino Brownder PSYCHOLOGIST INDUSTRIAL ORGANIZATIONAL Work Phone: Start: 02-07-2022 History of placement of stent for coronary artery disease History of coronary artery stent placement PSYCHOLOGIST INDUSTRIAL ORGANIZATIONAL-C Delfino Moore PSYCHOLOGIST INDUSTRIAL ORGANIZATIONAL Work Phone: Comment on above: Successful thrombect Manohar dior [place] MR DIONE 3.5mm x 18 mm to ostial LAD 02/07/22 Start: 02-07-2022 Plain chest X-ray Urine culture PSYCHOLOGIST INDUSTRIAL ORGANIZATIONAL-C Delfino jennings PSYCHOLOGIST INDUSTRIAL ORGANIZATIONAL Work Phone: Viral antigen assay PSYCHOLOGIST INDUSTRIAL ORGANIZATIONAL-C Brenda Moore PSYCHOLOGIST INDUSTRIAL ORGANIZATIONAL Work Phone: Plan of Treatment Date Care Activity Detail Author Start: 07-11-2025 [facility] Start: 06-06-2025 Incision & drainage abscess simple/single I&D ABSCESS SIMPLE/SINGLE [facility] Start: 06-06-2025 [facility] Start: 06-30-2024 Influenza vaccination Influenza Vaccine (Season Ended) [facility] Start: 03-11-2024 [facility] Start: 12-06-2023 [facility] Start: 12-06-2023 [facility] Start: 10-30-2023 Behavioral Health Screening Behavioral Health Screening [facility] Start: 10-10-2023 [facility] Start: 10-09-2023 Patient referral [facility] Work Phone: Start: 06-30-2023 Covid-19 Vaccine ( season) Covid-19 Vaccine ( season) [facility] Start: 05-05-2023 Incision & drainage abscess simple/single DRAINAGE OF SKIN ABSCESS [facility] Start: 12-30-2022 [facility] Start: 07-06-2022 Patient referral [facility] Work Phone: Start: 07-05-2022 MR Brain WO and W contrast IV [facility] Work Phone: Start: 07-05-2022 MRI of brain with contrast Brain W/WO Contrast [facility] Work Phone: Start: 06-03-2022 [facility] Work Phone: Start: 03-02-2022 Evaluation of diagnostic study results [facility] Work Phone: Start: 02-09-2022 Patient discharge [facility] Work Phone: Start: 02-08-2022 Care planning and problem solving actions [facility] Work Phone: Start: 02-08-2022 Patient referral [facility] Work Phone: Start: 02-07-2022 Notification of physician [facility] Work Phone: Start: 02-07-2022 [facility] Work Phone: Start: 02-07-2022 Assessment of risk of venous thromboembolism [facility] Work Phone: Start: 02-07-2022 Insertion of catheter into peripheral vein [facility] Work Phone: Start: 02-07-2022 Measuring intake and output [facility] Work Phone: Start: 02-07-2022 Providing care according to standard [facility] Work Phone: Start: 02-07-2022 Vital signs measurements [facility] Work Phone: Start: 02-07-2022 [facility] Work Phone: Start: 02-07-2022 Admission procedure [facility] Work Phone: Start: 02-07-2022 Following clinical pathway protocol [facility] Work Phone: Start: 02-07-2022 Cardiac monitoring [facility] Work Phone: Start: 02-07-2022 Cardiac rehabilitation - phase 1 [facility] Work Phone: Start: 02-07-2022 Cardiac rehabilitation - phase 2 [facility] Work Phone: Start: 02-07-2022 Oxygen therapy [facility] Work Phone: Start: 02-07-2022 Patient discharge [facility] Work Phone: Start: 02-07-2022 Vascular disease risk assessment [facility] Work Phone: Start: 02-07-2022 Vital signs measurements [facility] Work Phone: Start: 02-07-2022 End: 02-07-2022 [facility] Work Phone: Start: 02-07-2022 End: 02-07-2022 Notification of physician [facility] Work Phone: Start: 02-07-2022 Patient education [facility] Work Phone: Start: 02-07-2022 Pulse taking [facility] Work Phone: Start: 02-07-2022 End: 02-07-2022 Taking patient vital signs [facility] Work Phone: Start: 02-07-2022 Wound care [facility] Work Phone: Start: 2013 Hepatitis B Vaccine (1 of 3 - 19+ 3-dose series) Hepatitis B Vaccine (1 of 3 - 19+ 3-dose series) [facility] Start: 2013 Urine microalbumin profile DTaP,Tdap,Td Vaccine (1 - Tdap) [facility] Start: 2012 HIV screening HIV Screening [facility] Bacteria identified in Unspecified specimen by Anaerobe culture [facility] Evaluation of diagno stic study results [facility] Work Phone: Hemoglobin A1c/Hemoglobin.total in Blood [facility] Work Phone: Lipid 1996 panel - S dale or Plasma [facility] Work Phone: MR Lower Extremity Joint [facility] Patient Education [facility] Work Phone: Patient referral [facility] Work Phone: T4 free measurement [facility] Work Phone: Thyroid stimulating hormone measurement [facility] Work Phone: XR Cervical spine 4 or 5 Views [facility] Work Phone: XR Thoracic spine 3 Views [facility] Work Phone: Immunizations Immunization Date Immunization Notes Care Provider Fa cility 03-15-2021 Covid (Pfizer) [facility] 02-22-2021 Covid (Pfizer) [facility] Payers Date Payer Category Payer Self-pay [id number] 2023 Medicaid [facility] MEDICAID UHC COMMUNITY PLAN MEDICA[place] [id number] 2023-Present [phone] [address] [place] [address] Medicaid [id number] 2018 Medicaid [id number] 2016 Private Health Insurance [id number] 2016 Unknown [id number] 1994 Unknown [id number] 1994 Unknown [id number] Unknown SELF PAY INSURANCE [id number] Unknown [id number] Unknown [id number] Unknown [id number] Unknown [id number] Unknown [id number] Social History Date Type Detail Facility Start: 02-07-2022 End: 10-10-2023 Tobacco smoking status NHIS Unknown if ever smoked [facility] Start: 09-18-2020 Chew [facility] Start: 1995 Sex Assigned At Male [facility] Start: 09-16-2021 End: 07-11-2025 Tobacco smoking status NHIS Never smoked tobacco [facility] Start: 09-16-2021 Tobacco use and exposure User of smokeless tobacco [facility] Start: 09-16-2021 History of Social function [facility] Start: 09-16-2021 Tobacco use panel [facility] Start: 1995 Sex Assigned At Not on file C [facility] Medical Equipment Procedure Code Equipment Code Equipment Origin al Text Equipment Identifier Dates ([id number]) Drug-eluting coronary artery stent, bioabsorbable-polyme r-coated ()[id number] FDA Start: 02-07-2022 Goals Date Patient Goal Desired Activity /State Functional Status Date Assessment Result Facility 02-09-2022 Functional status Ambulates;Up ad curry [facility] Work Phone: 02-09-2022 Functional status None [facility] Work Phone: Mental Status Date Assessment Result Facility 07-11-2025 Cognitive function Level Of Cons ciousness Awake;Alert;Appropriate;Follow s Commands [facility] Work Phone: 12-06-2023 Cognitive function Awake;Alert;A ppropriate;Follow s Commands [facility] Work Phone: 06-05-2023 Cognitive function Voice/Name [facility] Work Phone: 06-03-2022 Cognitive function Level Of Cons ciousness Awake;Alert;Appropriate [facility] Work Phone: 02-09-2022 Cognitive function Voice/Name [facility] Work Phone: 02-07-2022 Cognitive function Level Of Cons ciousness Awake;Alert;Appropriate [facility] Work Phone: Clinical Notes 02-07-2022 to 07-11-2025 Rizwana Freeman APRN.ELECTRICAL SERVICE TECHNICIAN - 03/11/2024 9:08 AM EDT Note Date & Type Note Facility 07-11-2025 Radiology Diagnostic study note [facility] Imaging Services [address] [place] [address] Venous Duplex Imag/Limited/Uni MR#: [id number] Acct: [id number] Name: ELBA ONTIVEROS Rep #: [id number] : 1995 M 29 From: Luis Miguel Gil MD PCP: Dr. Ruby Carroll DO Status: REG E R Study:Venous Duplex Imag/Limited/Uni Date of Exam: 07/11/25 Exam# [id number] Ordering Dr: Guille Guillermo DO PROCEDURE: RIGHT LOWER EXTREMITY VENOUS DUPLEX IMAG/LIMITED/UNI 07/11/2025 REASON FOR EXAM: Right leg/ankle pain TECHNIQUE: Procedure Code: USVDUL Modality: US Procedure: VENOUS DUPLEX IMAG/LIMITED/UNI COMPARISON: None. FINDINGS: No intraluminal echogenicity to suggest the presence of a deep venous thrombosis. Appropriate respiratory variation, augmentation and venous compression is noted. US/Venous Duplex Imag/Limited/Uni IMPRESSION: No evidence for DVT in the right lower extremity. Reading Location: [facility] CC: Dr. Guille Guillermo DO; Dr. Ruby Carroll DO ~ National Investigative Producer: Signed [facility] 07-11-2025 Radiology Diagnostic study note [facility] Imaging Services [address] [place] [address] Ankle min 3 Views MR#: [id number] Acct: [id number] Name: ELBA ONTIVEROS Rep #: [id number] : 1995 M 29 From: Demetrius Oliva MD PCP: Dr. Ruby Carroll DO Status: REG E R Study:Ankle min 3 Views Date of Exam: Exam# [id number] Ordering Dr: Guille Guillermo DO PROCEDURE: ANKLE MIN 3 VIEWS 07/11/2025 REASON FOR EXAM: INJURY/PAIN TECHNIQUE: Procedure Code: RADANK Modality: DX Procedure: ANKLE MIN 3 VIEWS Laterality: Right COMPARISON: None. FINDINGS: BONES: No acute fracture or focal osseous lesion. JOINTS: No dislocation. The joint spaces are normal. SOFT TISSUES: The soft tissues are unremarkable. RAD/Ankle min 3 Views IMPRESSION: No acute abnormality seen. Reading Location: [id number] CC: Dr. Guille Guillermo, DO; Dr. Ruby Carroll, DO ~ National Investigative Producer: Signed [facility] 12-22-2024 Note . MICRO - Microbiology PROCEDURE: [...] Locations *1: This test was performed at: [facility], [address] [place] [address], [id number] , [facility] 03-11-2024 Note HNO ID: [id number] Author: RIZWANA FREEMAN APRN.ELECTRICAL SERVICE TECHNICIAN Service: ? Author Type: Nurse Practitioner Type: Progress Notes Filed: 03/11/2024 09:09 Note Text: Patient triaged at [facility]. Here today with severe perineal pain. Patient in moderate to severe visible distress, unable to sit still or sit. I will refer to ER. [facility] 03-11-2024 History of Present illness Narrative Patient triaged at [facility]. Here today with severe perineal pain. Patient in moderate to severe visible distress, unable to sit still or sit. I will refer to ER. documented in this encounter [facility] 10-10-2023 Discharge summary Note Date/Time October 10, 2023 3:38pm [facility] Medical Records Department [address] [place] [address] Emergency Department Summary 10/10/23 MR#: [id number] Acct: [id number] Name: ELBA ONTIVEROS Rep #:[id number] : [...] on any blood thinners despite his history. [facility] Medical History (Updated 10/10/23 @ 15:44 by [...] your Primary Care Provider. Call [facility] ([phone]) or report to the closest Emergency Room. Call 911 if necessary. 10/10/23 1546 <Electronically signed by Jr Silva MD> Cosigner Signature (if applicable): CC: Dr. Jaci Krishna MD ~ Signed [facility] Work Phone: 1(162) 940-753303-03-[address] Silva [facility] December 30, 2022 12:36pm Note Date/Time December 30, 2022 9:09 am [facility] Medical Records Department [address] [place] [address] Emergency Department Summary 12/30/22 MR#: [id number] Acct: [id number] Name: ELBA ONTIVEROS Rep #:[id number] : 1995 27 From: Jr Silva MD PCP: LUAN Gillis Status:REG ER Location: ED HPI History of [...] placed. He has not been having bleeding. [facility] Medical History Alcohol abuse Anxiety Anxiety and [...] #12 TABLETS 12/30/22 [Rx Last Taken Unknown] Allergy/AdvReac Type Severity [...] alert no acute distress. 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 HEENT shows moist mucous membranes. [...] % (Auto) 58.2 Lymph % (Auto) 27.2 Gray % (Auto) 6.9 Eos % (Auto) 6.3 [...] - Keep Prabhu appointment Delfino Moore NP, PSYCHOLOGIST [employer]USTRI[employer]GANIZATIONAL-C [Primary Care Provider] - Disposition Disposition: Home, Self Care What to do if you have Problems For any increased pain, shortness of breath, bleeding, nausea or vomiting, chestpain, or any unexpected problems, contact your Primary Care Provider. Call [facility] ([phone]) or report to the closest Emergency Room. Call 911 if necessary. 12/30/22 1236 <Electronically signed by Jr Silva MD> Cosigner Signature (if applicable): CC: PSYCHOLOGIST [employer]-C Delfino Moore ~ Signed [facility] Work Phone: 1(632) 555-249804-11-2022 Evaluation note* Diagnosis Onset Date Resolution Status Marijuana use acute History of coronary artery stent placement February 07, 2022 chronic [facility] Work Phone: 1(897) 711-727304-11-2022 Evaluation note* Diagnosis Onset Date Resolution Status History of coronary artery stent placement February 07, 2022 chronic HTN (hypertension) chronic History of coronary artery stent placement February 07, 2022 chronic Back pain noneactive Right arm numbness noneactiv e Neck pain noneactive Epidermal cyst noneactive Paresthesia of right upper extremity acute Epidermal cyst noneactive Dysuria acute Easy bruising acute Low back pain noneactive [facility] Work Phone: 1([phone]) 384-559004-11-2022 Evaluation note* Diagnosis Onset Date Resolution Status [...] and depression chron ic HTN (hypertension) chronic [facility] Work Phone: 1(467) 549-172304-11-2022 Evaluation note* Diagnosis Onset Date Resolution Status Fatigue acute History of coronary artery stent placement February 07, 2022 chronic HTN (hypertension) [facility] Work Phone: Evaluation note* Diagnosis Onset Date Resolution Status ST elevation (STEMI) myocardial infarction acute [facility] Work Phone: Evaluation note* Diagnosis [...] changes acute Vision loss, bilateral nonea ctive [facility] Work Phone: Evaluation note* Diagnosis [...] nonea ctive Migraine acute Visual changes acute [facility] Work Phone: Evaluation note* Diagnosis Onset Date Resolution Status Migraine acute HTN (hypertension) chronic Injury of left middle finger acute Migraine acute Anxiety and depression chron ic HTN (hypertension) chronic [facility] Work Phone: Evaluation note* Diagnosis Onset Date Resolution Status Injury of left middle finger acute Migraine acute Anxiety and depression chron ic HTN (hypertension) chronic [facility] Work Phone: Evaluation noteNo assessment information available [facility] Work Phone: Evaluation note* Diagnosis Onset Date Resolution Status Internal derangement of right knee acute [facility] Work Phone: Evaluation note* Diagnosis Severe pain- Primary documented in this encounter [facility] Discharge instructionsAmbulatory Orders* Neurology Location: None Selected [facility] Work Phone: Hospital Discharge instructions Additional Instructions Follow-up with the MRI and orthopedic visits as planned. Ice and rest the knee is much as possible.[facility] Work Phone: Hospital Discharge instructionsAdditional Instructions You can take the Bactrim you are already prescribed. Keep the area clean with soap and water daily, if symptoms worsen please be seen again in the ED.[facility] Work Phone: Reason for referral (narrative)No reason for referral [facility] Work Phone: Summary Purpose Family History [...] Will Yes September 18 6:22pm Power of Paper Cleaner Yes September 18, 2020 6:22pm Advance Directive Response Recorded Date/ Time Advance Directives No December 06, 2016 5:57pm Living Will No February 07, 2022 3:07pm Power of Paper Cleaner No February 07 3:07pm Advance Directive Response Recorded Date/ Time Advance Directives No December 06, 2016 5:57pm Living Will No June 03, 2022 7:59am Power of Paper Cleaner No June 03 7:59am Advance Directive Response Recorded Date/ Time Advance Directives No December 06, 2016 4:57pm Living Will No June 03, 2022 6:59am Power of Paper Cleaner No June 03 6:59am Advance Directive Response Recorded Date/ Time Advance Directives No December 06, 2016 4:57pm Living Will No December 30, 2022 8:35am Power of Paper Cleaner No December 30 8:35am Advance Directive Response Recorded Date/ Time Advance Directives No December 06, 2016 5:57pm Living Will No May 05, 2023 1 0:22am Power of Paper Cleaner No May 05, 2023 10:22am Advance Directive Response Recorded Date/ Time Advance Directives No December 06, 2016 5:57pm Living Will No June 05, 2023 4:49pm Power of Paper Cleaner No June 05 4:49pm Advance Directive Response Recorded Date/ Time Advance Directives No December 06, 2016 4:57pm Living Will No October 10, 2 023 3:37pm Power of Paper Cleaner No October 10, 2023 3:37pm Advance Directive Response Recorded Date/ Time Advance Directives No December 06, 2016 5:57pm Living Will No March 11, 2024 1 0:39am Power of Paper Cleaner No March 11, 2024 10:39am Advance Directive Response Recorded Date/ Time Do you have a Healthcare Power of Paper Cleaner? No June 06, 2025 11:27am Advance Directives No December 06, 2016 5:57pm Advance Directive Response Recorded Date/ Time Do you have a Healthcare Power of Paper Cleaner? No June 06, 2025 11:27am Do you have a Healthcare Power of Paper Cleaner? No July 11, 2025 4:00pm Advance Directives No December 06, 2016 5:57pm [...] Date CYST June 06, 2025 10: 51am Chief Complaint Admit Date CYST June 06, 2025 10: 51am general illness July 11, 2025 2:30pm Additional Source Comments (unrecognized sect ion and content) No Status Records FoundNo Status Records FoundNo Status Records FoundNo Status Records FoundNo Status Records Found INFORMATION SOURCE (unrecogn ized section and content) DATE CREATED AUTHOR 05/28/2018 [facility] ([place]) DATE CREATED AUTHOR AUTHOR'S ORGANIZ ATION 03/03/2024 [facility] DATE CREATED AUTHOR AUTHOR'S ORGANIZ ATION 03/12/[address] [facility] DATE CREATED AUTHOR AUTHOR'S ORGANIZ ATION 12/31/2024 [facility] DATE CREATED AUTHOR AUTHOR'S ORGANIZ ATION 07/15/2025 [facility] Goals (unrecognized section and content) Goals [...] Member Role Status Dates Dr. Lesley Oneill , Family Provider Active Delfino Moore PSYCHOLOGIST [employer]USTRIAL [employer]GANIZATIONAL, PSYCHOLOGIST [employer]-C Primary Care Provider Active Team Status: Inactive Member Role Status Dates Delfino Moore NP, PSYCHOLOGIST [employer]-C Primary Care Provide r, Attending Provider, Referring Provider Active Team Status: Inactive Member Role Status Dates Delfino Moore NP, PSYCHOLOGIST [employer] Primary Care Provider Active Dr. Jr Silva MD Emergency Provider Active Team Status: Inactive Member Role Status Dates Delfino Moore NP, PSYCHOLOGIST [employer] Primary Care Provider Active Dr. Janae Zamora DO Referring Provider, Emergency Pro vider Active Team Status: Inactive Member Role Status Dates Delfino Moore NP, PSYCHOLOGIST [employer] Primary Care Provider Active Dr. Francisco J Jean-Baptiste DO Emergency Provider Active Team Status: Inactive Member Role Status Dates Delfino Moore PSYCHOLOGIST INDUSTRIAL ORGANIZATIONAL, PSYCHOLOGIST [employer]-C Primary Care Provider Active Dr. Janae Zamora DO Attending Provider, Referring Provider, Emergency Provider Active Team Status: Active Member Role Status Dates Dr. Lesley Oneill DO Family Provider Active Dr. Jaci Krishna MD Primary Care Provider Active Team Status: Inactive Member Role Status Dates Delfino Moore PSYCHOLOGIST INDUSTRIAL ORGANIZATIONAL, PSYCHOLOGIST [employer]-C Primary Care Provider, Referring P rovider Active Kal JOSEPH PA Attending Provider Active Team Status: Active Member Role Status Dates Dr. Jaci Krishna MD Primary Care Provider Active Kal JOSEPH PA Attending Provider, Referring Pr ovider Active Team Status: Inactive Member Role Status Dates Dr. Jaci Krishna MD Primary Care Provider Active Dr. Jr Silva MD Emergency Provider Active Team Status: Inactive Member Role Status Dates Dr. Jaci Krishna MD Primary Care Provider, Refer ring Provider Active Kemar Schumacher PSYCHOLOGIST INDUSTRIAL ORGANIZATIONAL, PSYCHOLOGIST [employer]ATIONAL-C Attending Provider Active Team Status: Inactive Member Role Status Dates Dr. Jaci Krishna MD Primary Care Provider Active Dr. Jamari Mak MD Attending Provider, Emergency Provi alycia Active Team Status: Inactive Member Role Status Dates Dr. Jaci Krishna MD Primary Care Provider Active Dr. Janae Zamora DO Emergency Provider Active Pol[employer] Hand Relationship Specialty Start Date End Date Delfino Moore PCP - General 03/11/24 Team Status: Inactive Member Role Status Dates Dr. Jaci Krishna MD Primary Care Provider Active Kal JOSEPH PA Attending Provider, Referring Pr ovider Active Team Status: Active Member Role/Relationship Status Dates Dr. Ruby Carroll DO Primary Care Provider Active Team Status: Inactive Member Role/Relationship Status Dates Dr. Kedar Davidson MD Emergency Provider Active Start: June 06, 2025 End: June 06, 2025 Dr. Ruby Carroll DO Primary Care Provider Active Start: June 06, 2025 End: June 06, 2025 Team Status: Inactive Member Role/Relationship Status Dates Dr. Kedar Davidson MD Attending Provider Active Start: June 06, 2025 End: June 06, 2025 Dr. Kedar Davidson MD Emergency Provider Active Start: June 06, 2025 End: June 06, 2025 Dr. Ruby Carroll DO Primary Care Provider Active Start: June 06, 2025 End: June 06, 2025 Team Status: Inactive Member Role/Relationship Status Dates Dr. Ruby Carroll DO Primary Care Provider Active Start: June 19, 2025 End: June 19, 2025 Delfino Pola Pra VSC, PSYCHOLOGIST [employer]-C Attending Provider Active Start: June 19, 2025 End: June 19, 2025 Delfino Pola Tapia VSC, PSYCHOLOGIST [employer]-C Referring Provider Active Start: June 19, 2025 End: June 19, 2025 Team Status: Inactive Member Role/Relationship Status Dates Dr. Ruby Carroll , DO Primary Care Provider Active Start: July 11, 2025 End: July 11, 2025 Dr. Guille Guillermo , DO Emergency Provider Active Start: July 11, 2025 End: July 11, 2025 Source Comments (unrecognize d section and content) In the event this informatio n is protected by the Federal Confidentiality of Alcohol and Drug Abuse Patient Records regulations: The Federal rules restrict any use of the information to criminally investigate or prosecute any alcohol or drug abuse patient.[facility] FOR RECORDS PERTAINING TO PATIENTS WHO ARE [...] BE BASED ON THE PRIMARY CLINICAL RECORDS. [employer] provides no warranty or guarantee of the accuracy or completeness of information in this document.
== END | disposition home or self-care (01) ==
LOC: VSLAB 15:23
DX: M25.579 Pain in unspecified ankle and joints of unspecified foot (principal)
CPT/HCPCS: 36415; 84550; 85652; 86140